=== PATIENT | female | born 1950 | race Caucasian/White ===

== ENCOUNTER → 2017-04-23 | Outpatient (CLI) | payer MEDICARE ==
--- NOTE | 2017-04-24 08:35 | Diagnostic Imaging Report ---
INDICATION: Digital mammogram bilateral screening with tomosynthesis. This study was compared to the prior exam of 04/10/16, 04/09/15 and 04/05/14. The current study was also evaluated with a Computer Aided Detection (CAD) system. FINDINGS: The fibroglandular tissue in both breasts is heterogeneously dense. This does limit the sensitivity of this exam. Overall, there does not appear to have been any significant change when compared to the prior study. No primary or secondary sign of malignancy is noted. 3D tomographic images fail to show any sign of malignancy. IMPRESSION: There is no radiographic evidence for malignancy. ACR BI-RADS Category 1: Negative. Result letter will be mailed to the patient. Note: At least 10% of breast cancer is not imaged by mammography. Dictated by: Dictated on workstation # [id number]
== END ==
LOC: RAD 14:07
PROVIDERS: ATTEND Internal Medicine
DX: Z12.31 Encounter for screening mammogram for malignant neoplasm of breast (principal)
CPT/HCPCS: 77067

== ENCOUNTER 2018-07-22 12:43 | Emergency (ER) | payer MEDICARE ==
[~2018-07-22] VITALS: Ht 160 cm; Wt 59.0 kg
[2018-07-22] MEDS ORDERED: ACETAMINOPHEN 325 MG TABLET PO ONE (13:15)
--- NOTE | 2018-07-22 13:31 | ED Fall/Injury ---
General Chief Complaint: Trauma-Non Activation Stated Complaint: FALL Nursing Triage Note: fell off ladder-missed step, struck left side and shoulder Source: patient Exam Limitations: no limitations History of Present Illness Date Seen by Provider: Jul 22, 2018 Time Seen by Provider: 12:58 Initial Comments This 68-year-old woman presents to the emergency room with complaints of pain on the left lateral chest wall after missing a step on a ladder and striking the brick harvest. She denies any injury to her head or neck. She has some soreness in the shoulder muscles as well. Range of motion is only limited by the pain in her lateral chest wall. The incident happened shortly before arrival. She also has some ecchymosis around the left eye from a prior injury. Allergies and Home Medications Allergies Coded Allergies: No Known Drug Allergies (Unverified , 07/22/18) Home Medications Hydrocodone/Acetaminophen 1 Each Tablet, 1 EACH PO Q4-6HR PRN for PAIN-MODERATE Prescribed by: MONSERRAT STARR on 07/22/18 4719 Patient Home Medication List Home Medication List Reviewed: Yes Review of Systems Review of Systems Constitutional: no symptoms reported Eyes: No Symptoms Reported Ears, Nose, Mouth, Throat: no symptoms reported Respiratory: no symptoms reported Cardiovascular: no symptoms reported Gastrointestinal: no symptoms reported Genitourinary: no symptoms reported Musculoskeletal: see HPI Skin: see HPI Psychiatric/Neurological: No Symptoms Reported Past Pfqkhks-Drjrta-Qpueuf Hx Past Med/Social Hx: Reviewed Nursing Past Med/Soc Hx Patient Social History Alcohol Use: Denies Use Recreational Drug Use: No Smoking Status: Never a Smoker 2nd Hand Smoke Exposure: No Recent Foreign Travel: No Contact w/Someone Who Travel: No Recent Infectious Disease Expo: No Recent Hopitalizations: No Physical Abuse: No Sexual Abuse: No Mistreated: No Fear: No Immunizations Up To Date Tetanus Booster (TDap): Unknown Date of Influenza Vaccine: May 30, 2018 Seasonal Allergies Seasonal Allergies: No Past Medical History Surgeries: Yes Section, Tonsillectomy Respiratory: No Cardiac: No Neurological: No : No Genitourinary: No Gastrointestinal: No Musculoskeletal: Yes Rheumatoid Arthritis Endocrine: No HEENT: No Cancer: No Psychosocial: No Integumentary: No Physical Exam Vital Signs Vital Signs - First Documented 07/22/18 12:46 Temp 98.1 Pulse 68 Resp 16 B/P (MAP) 124/93 (103) Pulse Ox 98 Capillary Refill : Less Than 3 Seconds Height, Weight, BMI Height: 5'3.00" Weight: 130lbs. oz. 58.442884lj; BMI Method:Stated General Appearance: WD/WN, mild distress HEENT: PERRL/EOMI, normal ENT inspection Neck: non-tender, normal inspection Cardiovascular: regular rate, rhythm, no edema, no murmur Respiratory: lungs clear, normal breath sounds, no respiratory distress, no accessory muscle use, other (left lateral chest wall tender to palpation) Extremities: normal range of motion, non-tender, normal inspection, no pedal edema Neurologic/Psychiatric: medical director/head team physician II-XII nml as tested, no motor/sensory deficits, alert, normal mood/affect, oriented x 3 Skin: normal color, warm/dry, ecchymosis (around the left eye) [place] Coma Score Best Eye Response: (4) Open Spontaneously Best Verbal Response: (5) Oriented Best Motor Response: (6) Obeys Commands [place] Total: 15 Progress/Results/Core Measures Results/Orders My Orders Orders - MONSERRAT WONG MD Acetaminophen Tablet/Caplet (Tylenol T (07/22/18 13:15) Ribs/Unilateral With Chest (07/22/18 13:07) Medications Given in ED Current Medications Medications Dose Ordered Sig/Guilherme Route Start Time Stop Time Status Last Admin Dose Admin Acetaminophen 650 mg ONCE ONCE PO 07/22/18 13:15 07/22/18 13:16 DC 07/22/18 13:11 650 MG Vital Signs/I&O 07/22/18 07/22/18 12:46 15:03 Temp 98.1 Pulse 68 82 Resp 16 16 B/P (MAP) 124/93 (103) 130/63 (85) Pulse Ox 98 99 Blood Pressure Mean: 103 Progress Progress Note : Progress Note Patient requested Tylenol for pain. Tylenol seemed to control her pain to an acceptable degree. Chest x-ray revealed rib fractures without any pneumothorax or hemothorax. Patient was discharged home in stable condition. Discharge instructions were reviewed. Diagnostic Imaging Diagonstic Imaging: Xray Plain Films/CT/US/NM/MRI: chest Comments Chest x-ray viewed by me and report reviewed. See report below: NAME: SHAHNAZ CHICAS [facility] REC#: [id number] PT STATUS: REG ER : 1950 PHYSICIAN: MONSERRAT WONG MD ADMIT DATE: 07/22/18/ER Signed Date of Exam:07/22/18 RIBS/UNILATERAL WITH CHEST INDICATION: Hit side on brick fence, pain, difficulty breathing. COMPARISON: None available. TECHNIQUE: Four radiographs of the chest and left-sided ribs dated July 22, 2018. FINDINGS: The cardiac silhouette is within normal limits in size. No significant pulmonary vascular congestion. Round nodular density overlying the left costophrenic angle on the frontal radiograph is shown to relate to the nipple shadow on one of the dedicated radiographs of the ribs. The lungs are otherwise clear of focal pulmonary opacity. No significant pleural effusion. No pneumothorax. Acute minimally displaced anterolateral left sixth, seventh, eighth, and ninth rib fractures are noted. IMPRESSION: Acute minimally displaced anterolateral left sixth, seventh, eighth, and ninth rib fractures without significant pleural effusion or pneumothorax. Report given to Lui Sanchez APRN, at 2:32 p.m. 07/22/2018/angie Dictated by: Dictated on workstation # [id number] Dict: 07/22/18 1343 Trans: 07/22/18 1452 [facility] [id number] Interpreted by: CORRIE YEUNG MD Electronically signed by: CORRIE YEUNG MD 07/22/18 1452 Departure Impression Primary Impression: Multiple rib fractures Qualified Codes: S22.42XA - Multiple fractures of ribs, left side, initial encounter for closed fracture Additional Impression: Fall from ladder Qualified Codes: W11.XXXA - Fall on and from ladder, initial encounter Disposition: 01 HOME, SELF-CARE Condition: Improved Departure-Patient Inst. Decision time for Depature: 14:06 Referrals: ANTHONY MONTESINOS MD (PCP/Family) Primary Care Physician Patient Instructions: Rib Fractures in Adults Add. Discharge Instructions: Use pain medication as prescribed to tightly control pain. This will allow you to continue deep breathing and prevent pneumonia. Consider taking Colace once or twice daily as a stool softener if you take the pain medication to prevent constipation. Icing in 20 minute intervals over the next couple of days may also help with pain and swelling. Exercise 10 deep breaths per hour while awake. Gradually increase level of activity as pain allows. Keep your follow-up appointment with your primary care provider on Wednesday. Return to care if you have worsening symptoms including shortness of breath, fever, cough, lightheadedness, intensifying pain, etc. All discharge instructions reviewed with patient and/or family. Voiced understanding. Scripts Hydrocodone/Acetaminophen (Hydrocodone-Acetamin 5-325 mg) 1 Each Tablet 1 EACH PO Q4-6HR PRN for PAIN-MODERATE, #20 TAB Prov: MONSERRAT WONG MD 07/22/18 MONSERRAT WONG MD Jul 22, 2018 13:31
--- NOTE | 2018-07-22 14:32 | Diagnostic Imaging Report ---
INDICATION: Hit side on brick fence, pain, difficulty breathing. COMPARISON: None available. TECHNIQUE: Four radiographs of the chest and left-sided ribs dated July 22, 2018. FINDINGS: The cardiac silhouette is within normal limits in size. No significant pulmonary vascular congestion. Round nodular density overlying the left costophrenic angle on the frontal radiograph is shown to relate to the nipple shadow on one of the dedicated radiographs of the ribs. The lungs are otherwise clear of focal pulmonary opacity. No significant pleural effusion. No pneumothorax. Acute minimally displaced anterolateral left sixth, seventh, eighth, and ninth rib fractures are noted. IMPRESSION: Acute minimally displaced anterolateral left sixth, seventh, eighth, and ninth rib fractures without significant pleural effusion or pneumothorax. Report given to Lui Sanchez APRN, at 2:32 p.m. 07/22/2018/angie Dictated by: Dictated on workstation # [id number]
[2018-07-22] MEDS ORDERED: HYDR-3812 PO (14:59)
[2018-07-22 15:03] VITALS: BP 130/63
== END 2018-07-22 15:03 | disposition home or self-care (01) ==
LOC: EDUNIT# 12:43 → ER 12:44
DX: S22.42XA Multiple fractures of ribs, left side, initial encounter for closed fracture (principal); M06.9 Rheumatoid arthritis, unspecified; R40.2142 Coma scale, eyes open, spontaneous, at arrival to emergency department; R40.2252 Coma scale, best verbal response, oriented, at arrival to emergency department; R40.2362 Coma scale, best motor response, obeys commands, at arrival to emergency department; Z98.890 Other specified postprocedural states; Z90.89 Acquired absence of other organs; W11.XXXA Fall on and from ladder, initial encounter
CPT/HCPCS: 71101

== ENCOUNTER 2018-07-30 13:10 | Emergency (ER) | payer MEDICARE ==
[~2018-07-30] VITALS: Ht 162.6 cm; Wt 63.5 kg
[~2018-07-30 13:10] MED LIST: HYDR-3812 PO
[2018-07-30] MEDS ORDERED: ASPIRIN 81 MG CHEW (CHILDREN'S ASA) PO ONE (13:30)
[2018-07-30] MEDS ORDERED: NITROGLYCERIN 0.4 MG SL TABS BTL 25'S SL ONE (13:38)
[2018-07-30] MEDS: NITROGLYCERIN 0.4 MG SL TABS BTL 25'S SL PRN ×2 (13:43→13:51)
--- NOTE | 2018-07-30 13:45 | ED Chest Pain ---
General Chief Complaint: Trauma-Non Activation Stated Complaint: CHEST HEAVINESS/L ARM DISCOMFORT/PREV FALL Nursing Triage Note: PT STATES THAT ONE WEEK AGO SHE HAD A FALL AND FX FOUR RIBS ON THE LEFT SIDE AND INJURED HER SHOULDER. TODAY PRESENTS TO THE ED STATING THAT STARTING TODAY, THE PT BEGAN TO EXPERIENCE CHEST HEAVINESS WITH SHOOTING PAINS IN THE LEFT ARM. PT STATES IT WAS THE LEFT SIDE SHE SUFFERED A FALL ON. Nursing Sepsis Screen: No Definite Risk Source: patient, family () Exam Limitations: no limitations History of Present Illness Date Seen by Provider: Jul 30, 2018 Time Seen by Provider: 13:35 Initial Comments Patient is a 68-year-old female who presents to the emergency room with complaints of left-sided chest heaviness and pain that radiated to her neck and left shoulder that started around 10:00 this morning. She denies shortness of breath, lightheadedness, dizziness, nausea, vomiting. She also reports that 1 week ago she had a fall onto her left side where she broke 3 ribs and injured her shoulder but reports that this pain is different. She had an appointment with Dr. Holloway yesterday and he reported that she was improving from her fall. Timing/Duration: constant Severity/Quality: aching, dull, pressure Location: substernal Radiation: arms (left arm), neck Prior CP/Workup: no prior chest pain ASA po HOUSE CLEANER: No NTG SL HOUSE CLEANER: No Allergies and Home Medications Allergies Coded Allergies: No Known Drug Allergies (Unverified , 07/22/18) Home Medications Hydrocodone/Acetaminophen 1 Each Tablet, 1 EACH PO Q4-6HR PRN for PAIN-MODERATE Prescribed by: MONSERRAT STARR on 07/22/18 1459 Levofloxacin 750 Mg Tablet, 750 MG PO DAILY Prescribed by: LOR SPEAR on 07/30/18 1544 Patient Home Medication List Home Medication List Reviewed: Yes Review of Systems Review of Systems Constitutional: no symptoms reported, see HPI Cardiovascular: See HPI, Chest Pain Musculoskeletal: see HPI, joint pain (left shoulder pain) All Other Systems Reviewed Negative Unless Noted: Yes Past Foqyqee-Oahtuu-Mxsfvf Hx Past Med/Social Hx: Reviewed Nursing Past Med/Soc Hx Patient Social History 2nd Hand Smoke Exposure: No Recent Foreign Travel: No Contact w/Someone Who Travel: No Recent Infectious Disease Expo: No Recent Hopitalizations: No Immunizations Up To Date Tetanus Booster (TDap): Unknown Date of Influenza Vaccine: May 30, 2018 Seasonal Allergies Seasonal Allergies: No Past Medical History Surgeries: Yes Section, Tonsillectomy Respiratory: No Cardiac: No Neurological: No : No 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 oz. 63.709293kr; BMI Method:Stated General Appearance: No Apparent Distress, WD/WN Neck: Full Range of Motion, Normal Inspection, Non Tender Respiratory: Chest Non Tender, Lungs Clear, Normal Breath Sounds, No Accessory Muscle Use, No Respiratory Distress Cardiovascular: Regular Rate, Rhythm, No Edema, No Gallop, No JVD, No Murmur, Normal Peripheral Pulses Gastrointestinal: Normal Bowel Sounds, No Organomegaly, No Pulsatile Mass, Non Tender Extremity: Normal Capillary Refill Neurologic/Psychiatric: Alert, Oriented x3, Normal Mood/Affect Skin: Normal Color, Warm/Dry Progress/Results/Core Measures Results/Orders Lab Results Laboratory Tests Test 07/30/18 13:45 07/30/18 15:22 Range/Units White Blood Count 6.4 4.3-11.0 10^3/uL Red Blood Count 4.24 L 4.35-5.85 10^6/uL Hemoglobin 13.8 11.5-16.0 G/DL Hematocrit 42 35-52 % Mean Corpuscular Volume 98 80-99 FL Mean Corpuscular Hemoglobin 33 25-34 PG Mean Corpuscular Hemoglobin Concent 33 32-36 G/DL Red Cell Distribution Width 12.6 10.0-14.5 % Platelet Count 251 130-400 10^3/uL Mean Platelet Volume 9.4 7.4-10.4 FL Neutrophils (%) (Auto) 70 42-75 % Lymphocytes (%) (Auto) 12 12-44 % Monocytes (%) (Auto) 12 0-12 % Eosinophils (%) (Auto) 6 0-10 % Basophils (%) (Auto) 1 0-10 % Neutrophils # (Auto) 4.4 1.8-7.8 X 10^3 Lymphocytes # (Auto) 0.8 L 1.0-4.0 X 10^3 Monocytes # (Auto) 0.8 0.0-1.0 X 10^3 Eosinophils # (Auto) 0.4 H 0.0-0.3 10^3/uL Basophils # (Auto) 0.1 0.0-0.1 10^3/uL Prothrombin Time 13.8 12.2-14.7 SEC INR Comment 1.1 0.8-1.4 Activated Partial Thromboplast Time 33 24-35 SEC Sodium Level 143 135-145 MMOL/L Potassium Level 3.7 3.6-5.0 MMOL/L Chloride Level 107 98-107 MMOL/L Carbon Dioxide Level 27 21-32 MMOL/L Anion Gap 9 5-14 MMOL/L Blood Urea Nitrogen 26 H 7-18 MG/DL Creatinine 1.03 0.60-1.30 MG/DL Estimat Glomerular Filtration Rate 53 BUN/Creatinine Ratio 25 Glucose Level 108 H 70-105 MG/DL Calcium Level 10.1 8.5-10.1 MG/DL Corrected Calcium 9.9 8.5-10.1 MG/DL Magnesium Level 2.2 1.8-2.4 MG/DL Total Bilirubin 0.6 0.1-1.0 MG/DL Aspartate Amino Transf (AST/SGOT) 21 5-34 U/L Alanine Aminotransferase (ALT/SGPT) 19 0-55 U/L Alkaline Phosphatase 90 40-136 U/L Myoglobin 58.5 10.0-92.0 NG/ML Troponin I < 0.30 < 0.30 <0.30 NG/ML Total Protein 6.7 6.4-8.2 GM/DL Albumin 4.2 3.2-4.5 GM/DL My Orders Orders - LOR SPEAR Cbc With Automated Diff (07/30/18 13:24) Magnesium (07/30/18 13:24) Chest 1 View, Ap/Pa Only (07/30/18 13:24) Ekg Tracing (07/30/18 13:24) Cardiac Profile 1 (07/30/18 13:24) Comprehensive Metabolic Panel (07/30/18 13:24) Myoglobin Serum (07/30/18 13:24) Protime With Inr (07/30/18 13:24) Partial Thromboplastin Time (07/30/18 13:24) O2 (07/30/18 13:24) Monitor-Rhythm Ecg Trace Only (07/30/18 13:24) Aspirin Chewable Tablet (Baby Aspirin Ch (07/30/18 13:30) Saline Lock/Iv-Start (07/30/18 13:24) Nitroglycerin 0.4 Mg Btl 25's (Nitrostat (07/30/18 13:38) Nitroglycerin 0.4 Mg Btl 25's (Nitrostat (07/30/18 13:45) Troponin I (07/30/18 15:17) Levofloxacin Tablet (Levaquin Tablet) (07/30/18 15:30) Medications Given in ED Vital Signs/I&O 07/30/18 07/30/18 07/30/18 13:31 13:31 16:19 Temp 98.3 98.3 Pulse 85 85 Resp 20 20 B/P (MAP) 144/89 (107) 135/77 (96) Pulse Ox 98 98 98 O2 Delivery Room Air Room Air Room Air Blood Pressure Mean: 107 Progress Progress Note : Time: 13:50 Progress Note Patient is pain-free after second nitroglycerin. The third dose was held. Awaiting laboratory findings at this time. 1445: I have spoke to Dr. Holloway regarding the patient's case and he believes that the pain is from the pneumonia that was found on x-ray. I will be repeating a troponin that we'll be 5 hours after initial onset of chest pain. Patient agrees with plan of care. 1540: The repeat troponin was negative. The patient agrees with plans of care and plans for discharge. Return precautions were given. EKG : EKG Time: 13:28 Rate: 83 Rhythm: Normal Sinus Intervals: Normal ECG Comparisson: No Previous ECG Available ECG Impression: Normal Comment Reviewed by Dr. Mccarty and he agrees with above. Diagnostic Imaging Diagonstic Imaging: Xray Plain Films/CT/US/NM/MRI: chest Comments [facility] [place], [place] NAME: SHAHNAZ CHICAS [facility] REC#: [id number] PT STATUS: REG ER : 1950 PHYSICIAN: LOR SPEARP ADMIT DATE: 07/30/18/ER Draft Date of Exam:07/30/18 CHEST 1 VIEW, AP/PA ONLY INDICATION: Left-sided rib fractures. TIME OF EXAM: 2:05 PM Correlation is made with prior study 07/22/2018. FINDINGS: There is some increasing infiltrate or atelectasis in the left base, now obscuring the left hemidiaphragm. No pneumothorax is seen. Right lung is clear. Lower left rib fractures are again seen. IMPRESSION: Development of left basilar infiltrate or atelectasis since exam from 07/22/2018. Dictated on workstation # [id number] Dict: 07/30/18 1420 Trans: 07/30/18 1425 [id number] Interpreted by: LUCAS DONALDSON MD Electronically signed by: Reviewed: Reviewed by Me Departure Impression Primary Impression: Pneumonia Additional Impression: Chest pain Disposition: HOME, SELF-CARE Condition: Stable Departure-Patient Inst. Decision time for Depature: 15:42 Referrals: ANTHONY HOLLOWAY MD (PCP/Family) Primary Care Physician Patient Instructions: Chest Pain (DC), Community-Acquired Pneumonia in Adults Add. Discharge Instructions: Take medications as directed. Follow-up with Dr. Holloway within 1 week for recheck. You may use Tylenol in addition to your meloxicam for pain relief. Return back to the emergency room for any worsening chest pain, shortness of breath, nausea, vomiting, dizziness, or any other concerns as needed. All discharge instructions reviewed with patient and/or family. Voiced understanding. Scripts Levofloxacin (Levaquin) 750 Mg Tablet 750 MG PO DAILY for 5 Days, #5 TAB Prov: LOR SPEAR 07/30/18 LOR SPEAR Jul 30, 2018 13:45
--- OUTSIDE RECORDS SUMMARY | 2018-07-30 14:04 | XMS REPORT ---
Author Author DAVID BOSCH Organization [employer] Address Unknown Phone Unavailable Care Team Providers Care Commercial Sales Consultant Name Role Phone DAVID BOSCH CP Unavailable Allergies No Known Allergies Problems Problem Type Condition Code Onset Dates Condition Status Assessment Encounter for immunization Z23 Active Problem Need for prophylactic vaccination and inoculation, Influenza V04.81 Active Medications No Known Medications Procedures Procedure Coding System Code Date SINGLE IMMUNIZATION ADMIN CPT-4 47522 Jun 18, 2015 FLUARIX QUAD (3 & UP)-GSK-2014 CPT-4 68018 Jun 18, 2015 Results No Known Results Immunizations Vaccine Administration Date FLUARIX QUAD (3 & UP)-GSK-2014Jun 18, 2015 Summary Purpose [employer] Submission
--- OUTSIDE RECORDS SUMMARY | 2018-07-30 14:04 | XMS REPORT ---
Author DAVID Patterson [facility] [employer] Address Unknown Phone Unavailable Care Team Providers Care Laborer Stores Name Role Phone DAVID BOSCH Unavailable Allergies No Known Allergies Problems Problem Type Condition Code Onset Dates Condition Status Assessment Encounter for immunization Z23 Active Problem Need for prophylactic vaccination and inoculation, Influenza V04.81 Active Medications No Known Medications Procedures Procedure Coding System Code Date SINGLE IMMUNIZATION ADMIN CPT-4 66199 Jun 17, 2015 TDAP (BOOSTRIX) CPT-4 07716 Jun 17, 2015 Results No Known Results Immunizations Vaccine Administration Date TDAP (BOOSTRIX) Jun 17, 2015 Summary Purpose [employer] Submission
--- OUTSIDE RECORDS SUMMARY | 2018-07-30 14:04 | XMS REPORT | Continuity of Care Document ---
Author Author [facility] Address Unknown Phone Unavailable Allergies There is no data. Medications There is no data. Problems Date Dx Coded Attending Type Code Diagnosis Diagnosed By 06/03/2012 DAVID BOSCH APRN V04.81 FLU DX (3 YRS AND ABOVE, IM) 06/03/2012 DAVID BOSCH APRN V04.81 FLU DX (3 YRS AND ABOVE, IM) 04/26/2015 ANTHONY MONTESINOS MD Ot V76.12 04/13/2016 ANTHONY MONTESINOS MD Ot Z12.31 ENCNTR SCREEN MAMMOGRAM FOR MALIGNANT NE 04/14/2016 ANTHONY MONTESINOS MD Ot Z12.31 ENCNTR SCREEN MAMMOGRAM FOR MALIGNANT NE 04/24/2016 ANTHONY MONTESINOS MD Ot Z12.31 ENCNTR SCREEN MAMMOGRAM FOR MALIGNANT NE 03/30/2017 Ot V76.12 OTH SCREEN MAMMO-MALIGN NEOPLASM OF MAICOL 03/30/2017 ANTHONY MONTESINOS MD Ot V76.12 OTH SCREEN MAMMO-MALIGN NEOPLASM OF MAICOL 03/30/2017 ANTHONY MONTESINOS MD Ot V76.12 OTH SCREEN MAMMO-MALIGN NEOPLASM OF MAICOL 03/30/2017 ANTHONY MONTESINOS MD Ot V76.12 OTH SCREEN MAMMO-MALIGN NEOPLASM OF MAICOL 03/30/2017 ANTHONY MONTESINOS MD Ot Z12.31 ENCNTR SCREEN MAMMOGRAM FOR MALIGNANT NE 04/02/2017 Ot V76.12 OTH SCREEN MAMMO-MALIGN NEOPLASM OF MAICOL 04/02/2017 ANTHONY MONTESINOS MD Ot V76.12 OTH SCREEN MAMMO-MALIGN NEOPLASM OF MAICOL 04/02/2017 ANTHONY MONTESINOS MD Ot V76.12 OTH SCREEN MAMMO-MALIGN NEOPLASM OF MAICOL 04/02/2017 ANTHONY MONTESINOS MD Ot V76.12 OTH SCREEN MAMMO-MALIGN NEOPLASM OF MAICOL 04/02/2017 ANTHONY MONTESINOS MD Ot Z12.31 ENCNTR SCREEN MAMMOGRAM FOR MALIGNANT NE 04/05/2017 Ot V76.12 OTH SCREEN MAMMO-MALIGN NEOPLASM OF MAICOL 04/05/2017 YAMEL FOWLER, ANTHONY Montoya Ot V76.12 OTH SCREEN MAMMO-MALIGN NEOPLASM OF MAICOL 04/05/2017 ANTHONY MONTESINOS MD Ot V76.12 OTH SCREEN MAMMO-MALIGN NEOPLASM OF MAICOL 04/05/2017 YAMEL FOWLER, ANTHONY Montoya Ot V76.12 OTH SCREEN MAMMO-MALIGN NEOPLASM OF MAICOL 04/05/2017 YAMEL FOWLER, ANTHONY Montoya Ot Z12.31 ENCNTR SCREEN MAMMOGRAM FOR MALIGNANT NE 05/14/2017 YAMEL FOWLER, ANTHONY Montoya Ot Z12.31 ENCNTR SCREEN MAMMOGRAM FOR MALIGNANT NE 04/25/2018 ANTHONY MONTESINOS MD Ot Z12.31 ENCNTR SCREEN MAMMOGRAM FOR MALIGNANT NE 04/25/2018 ANTHONY MONTESINOS MD Ot Z12.31 ENCNTR SCREEN MAMMOGRAM FOR MALIGNANT NE 04/26/2018 ANTHONY MONTESINOS MD Ot Z12.31 ENCNTR SCREEN MAMMOGRAM FOR MALIGNANT NE 05/18/2018 ANTHONY MONTESINOS MD Ot Z12.31 ENCNTR SCREEN MAMMOGRAM FOR MALIGNANT NE 05/27/2018 YAMEL FOWLER, ANTHONY Montoya Ot V76.12 OTH SCREEN MAMMO-MALIGN NEOPLASM OF MAICOL 05/27/2018 ANTHONY MONTESINOS MD Ot V76.12 OTH SCREEN MAMMO-MALIGN NEOPLASM OF MAICOL 05/27/2018 ANTHONY MONTESINOS MD Ot V76.12 OTH SCREEN MAMMO-MALIGN NEOPLASM OF MAICOL 05/27/2018 ANTHONY MONTESINOS MD Ot Z12.31 ENCNTR SCREEN MAMMOGRAM FOR MALIGNANT NE Procedures There is no data. Results There is no data. Encounters ACCT No. Visit Date/Time Discharge Status Pt. Type Provider Facility Loc./Unit Complaint [id number] 06/15/2014 14:49:00 06/15/2014 23:59:59 CLS Outpatient DAVID BOSCH APRN [id number] 06/05/2013 13:06:00 06/05/2013 23:59:59 CLS Outpatient DAVID BOSCH APRN [id number] 04/09/2015 11:38:38 ACT Document Registration [id number] 04/25/2018 09:58:00 04/25/2018 23:59:59 CLS Outpatient ANTHONY MONTESINOS MD [facility] RAD SCREENING [id number] 04/23/2017 14:07:00 04/23/2017 23:59:59 CLS Outpatient ANTHONY MONTESINOS MD [facility] RAD SCREENING [id number] 04/10/2016 10:22:00 04/10/2016 23:59:59 CLS Outpatient ANTHONY MONTESINOS MD [facility] RAD SCREENING MAMMOGRAM [id number] 04/09/2015 11:38:00 04/09/2015 23:59:59 CLS Outpatient ANTHONY MONTESINOS MD [facility] RAD SCREENING [id number] 04/05/2014 10:03:00 04/05/2014 23:59:59 CLS Outpatient ANTHONY MONTESINOS MD [facility] RAD ROUTINE [id number] 04/03/2013 08:51:00 04/03/2013 23:59:59 CLS Outpatient ANTHONY MONTESINOS MD [facility] RAD SCREENING [id number] 03/28/2012 08:50:00 Document Registration
[2018-07-30 14:06] LABS: BASOPHILS # (AUTO) 0.1 10^3/uL (0.0-0.1); BASOPHILS % (AUTO) 1 % (0-10); EOSINOPHILS # (AUTO) 0.4 10^3/uL (0.0-0.3); EOSINOPHILS % (AUTO) 6 % (0-10); HEMATOCRIT 42 % (35-52); HEMOGLOBIN 13.8 G/DL (11.5-16.0); LYMPHOCYTES # (AUTO) 0.8 X 10^3 (1.0-4.0); LYMPHOCYTES % (AUTO) 12 % (12-44); MEAN CORPUSCULAR HEMOGLOBIN 33 PG (25-34); MEAN CORPUSCULAR HGB CONC 33 G/DL (32-36); MEAN CORPUSCULAR VOLUME 98 FL (80-99); MEAN PLATELET VOLUME 9.4 FL (7.4-10.4); MONOCYTES # (AUTO) 0.8 X 10^3 (0.0-1.0); MONOCYTES % (AUTO) 12 % (0-12); NEUTROPHILS # (AUTO) 4.4 X 10^3 (1.8-7.8); NEUTROPHILS % (AUTO) 70 % (42-75); PLATELET COUNT 251 10^3/uL (130-400); RED BLOOD COUNT 4.24 10^6/uL (4.35-5.85); RED CELL DISTRIBUTION WIDTH 12.6 % (10.0-14.5); WHITE BLOOD COUNT 6.4 10^3/uL (4.3-11.0)
[2018-07-30 14:13] LABS: INR 1.1 (0.8-1.4); PROTHROMBIN TIME PATIENT 13.8 SEC (12.2-14.7)
[2018-07-30 14:21] LABS: ALANINE AMINOTRANSFERASE 19 U/L (0-55); ALBUMIN 4.2 GM/DL (3.2-4.5); ALKALINE PHOSPHATASE 90 U/L (40-136); BILIRUBIN,TOTAL 0.6 MG/DL (0.1-1.0); BUN/CREATININE RATIO 25; CALCIUM 10.1 MG/DL (8.5-10.1); CARBON DIOXIDE 27 MMOL/L (21-32); CHLORIDE 107 MMOL/L (98-107); CREATININE SERUM 1.03 MG/DL (0.60-1.30); GFR ESTIMATED 53; GLUCOSE 108 MG/DL (70-105); MAGNESIUM 2.2 MG/DL (1.8-2.4); POTASSIUM 3.7 MMOL/L (3.6-5.0); SODIUM 143 MMOL/L (135-145); TOTAL PROTEIN 6.7 GM/DL (6.4-8.2)
--- NOTE | 2018-07-30 14:26 | Diagnostic Imaging Report ---
INDICATION: Left-sided rib fractures. TIME OF EXAM: 2:05 PM Correlation is made with prior study 07/22/2018. FINDINGS: There is some increasing infiltrate or atelectasis in the left base, now obscuring the left hemidiaphragm. No pneumothorax is seen. Right lung is clear. Lower left rib fractures are again seen. IMPRESSION: Development of left basilar infiltrate or atelectasis since exam from 07/22/2018. Dictated by: Dictated on workstation # [id number]
[2018-07-30 14:29] LABS: MYOGLOBIN SERUM 58.5 NG/ML (10.0-92.0)
[2018-07-30] MEDS ORDERED: LEVOFLOXACIN 750 MG TAB (LEVAQUIN) PO ONE (15:30)
[2018-07-30] MEDS ORDERED: LEVO750T9 PO (15:44)
[2018-07-30 16:19] VITALS: BP 135/77
== END 2018-07-30 16:21 | disposition home or self-care (01) ==
LOC: EDUNIT# 13:10 → ER 13:11
DX: J18.9 Pneumonia, unspecified organism (principal); R07.89 Other chest pain; M06.9 Rheumatoid arthritis, unspecified; Z90.89 Acquired absence of other organs; Z98.890 Other specified postprocedural states
CPT/HCPCS: 36415; 71045; 80053; 83735; 83874; 84484; 85025; 85610; 85730; 93005; 93041

== ENCOUNTER → 2019-04-27 | Outpatient (CLI) | payer MEDICARE ==
[~2019-04-27] MED LIST changes: +LEVO750T9 PO
--- NOTE | 2019-04-28 08:01 | Diagnostic Imaging Report ---
Digital mammogram Bilateral screening with 3-D tomosynthesis and CAD The study was compared to the prior exams of , 04/23/2017 and 04/10/2016. At this time there are no current complaints. The current study was also evaluated with a Computer Aided Detection (CAD) system. FINDINGS: The fibroglandular tissue in both breasts is heterogeneously dense. This does limit the sensitivity of this exam. Overall, there does not appear to have been any significant change when compared to the prior study. No primary or secondary sign of malignancy is noted. IMPRESSION: There is no radiographic evidence for malignancy. ACR BI-RADS Category 1: Negative. Result letter will be mailed to the patient. Note: At least 10% of breast cancer is not imaged by mammography. Dictated by: Dictated on workstation # [id number]
== END ==
LOC: RAD 07:45
PROVIDERS: ATTEND Internal Medicine
DX: Z12.31 Encounter for screening mammogram for malignant neoplasm of breast (principal)
CPT/HCPCS: 77067

== ENCOUNTER → 2020-05-01 | Outpatient (CLI) | payer MEDICARE ==
[~2020-05-01] MED LIST changes: +ACHD5005 PO; -HYDR-3812 PO
--- NOTE | 2020-05-02 18:53 | Diagnostic Imaging Report ---
INDICATION: Screening. At this time there are no current complaints. EXAMINATION: Bilateral digital screening mammogram with CAD. 3D tomographic images were obtained and reviewed. The current study was also evaluated with a Computer Aided Detection (CAD) system. COMPARISON: This study was compared to the prior exams of 04/27/2019, 04/25/2018 and 04/23/2017. FINDINGS: The fibroglandular tissue in both breasts is heterogeneously dense. This does limit the sensitivity of this exam. Overall, there does not appear to have been any significant change when compared to the prior study. No primary or secondary sign of malignancy is noted. IMPRESSION: There is no radiographic evidence for malignancy. ACR BI-RADS Category 1: Negative. Result letter will be mailed to the patient. Note: At least 10% of breast cancer is not imaged by mammography. Dictated on workstation # [id number]
== END ==
LOC: RAD 09:57
PROVIDERS: ATTEND Internal Medicine
DX: Z12.31 Encounter for screening mammogram for malignant neoplasm of breast (principal)
CPT/HCPCS: 77063; 77067

== ENCOUNTER → 2021-05-06 | Outpatient (CLI) | payer MEDICARE ==
--- NOTE | 2021-05-06 12:50 | Diagnostic Imaging Report ---
Indication: Routine screening. Comparison is made with prior mammogram from 05/01/2020 and 04/27/2019. 2-D and 3-D bilateral screening mammography was performed with CAD. Both breasts remain heterogeneously dense, limiting the sensitivity of mammography. The parenchymal pattern is stable. No mass or malignant-appearing microcalcifications are seen. Axillae are unremarkable. IMPRESSION: BI-RADS Category 1 No mammographic features suspicious for malignancy are identified. ACR BI-RADS Category 1: Negative. Result letter will be mailed to the patient. Note: At least 10% of breast cancer is not imaged by mammography. Dictated by: Dictated on workstation # [id number]
== END ==
LOC: RAD 10:30
PROVIDERS: ATTEND Internal Medicine
DX: Z12.31 Encounter for screening mammogram for malignant neoplasm of breast (principal)
CPT/HCPCS: 77063; 77067

== ENCOUNTER → 2022-05-18 | Outpatient (CLI) | payer MEDICARE ==
--- NOTE | 2022-05-18 11:47 | Diagnostic Imaging Report ---
INDICATION: Routine screening. Comparison is made prior mammogram of 05/06/2021 and 05/01/2020. 2-D and 3-D bilateral screening mammography was performed with CAD. Both breasts are heterogeneously dense, limiting the sensitivity of mammography. The parenchymal pattern is stable. No mass or malignant-appearing microcalcifications are seen. Axillae are unremarkable. IMPRESSION: No mammographic features suspicious for malignancy are identified. ACR BI-RADS Category 1: Negative. Result letter will be mailed to the patient. Note: At least 10% of breast cancer is not imaged by mammography. BI-RADS Category 1 Dictated by: Dictated on workstation # [id number]
== END ==
LOC: RAD 08:42
PROVIDERS: ATTEND Internal Medicine
DX: Z12.31 Encounter for screening mammogram for malignant neoplasm of breast (principal)
CPT/HCPCS: 77063; 77067

== ENCOUNTER → 2023-05-19 | Outpatient (CLI) | payer MEDICARE ==
--- NOTE | 2023-05-19 12:23 | Diagnostic Imaging Report ---
INDICATION: Routine screening. COMPARISON: 05/18/2022 and 05/06/2021. TECHNIQUE: 2D and 3D bilateral screening mammography was performed with CAD. FINDINGS: Both breasts are heterogeneously dense, limiting the sensitivity of mammography. The parenchymal pattern is stable. No mass or malignant-appearing microcalcifications are seen. The axillae are unremarkable. IMPRESSION: No mammographic features suspicious for malignancy are identified. ACR BI-RADS Category 1: Negative. Result letter will be mailed to the patient. Note: At least 10% of breast cancer is not imaged by mammography. Dictated by: Dictated on workstation # [id number]
== END ==
LOC: RAD 09:29
PROVIDERS: ATTEND Internal Medicine
DX: Z12.31 Encounter for screening mammogram for malignant neoplasm of breast (principal)
CPT/HCPCS: 77063; 77067

== ENCOUNTER 2023-06-08 10:04 | Inpatient (IN) | payer MEDICARE ==
[~2023-06-08] VITALS: Ht 157.5 cm; Wt 82.3 kg
[2023-06-08] VITALS (10 sets, daily range): BP systolic 90–103; BP diastolic 56–64
[~2023-06-08 10:04] MED LIST changes: +VANC125C5 PO
[2023-06-08 10:47] LABS: BASOPHILS % (AUTO) 1 % (0-10); EOSINOPHILS % (AUTO) 1 % (0-10); HEMATOCRIT 34 % (35-52); HEMOGLOBIN 11.4 g/dL (11.5-16.0); LYMPHOCYTES # (AUTO) 0.3 10^3/uL (1.0-4.0); LYMPHOCYTES % (AUTO) 13 % (12-44); MEAN CORPUSCULAR HEMOGLOBIN 33 pg (25-34); MEAN CORPUSCULAR HGB CONC 34 g/dL (32-36); MEAN CORPUSCULAR VOLUME 97 fL (80-99); MONOCYTES # (AUTO) 0.1 10^3/uL (0.0-1.0); MONOCYTES % (AUTO) 7 % (0-12); NEUTROPHILS # (AUTO) 1.6 10^3/uL (1.8-7.8); NEUTROPHILS % (AUTO) 77 % (42-75); PLATELET COUNT 444 10^3/uL (130-400); WHITE BLOOD COUNT 2.1 10^3/uL (4.3-11.0)
[2023-06-08 10:51] LABS: ALBUMIN 2.7 GM/DL (3.2-4.5)
[2023-06-08 10:52] LABS: POTASSIUM 3.6 MMOL/L (3.6-5.0)
[2023-06-08 10:53] LABS: CALCIUM 8.2 MG/DL (8.5-10.1)
[2023-06-08 10:54] LABS: TOTAL PROTEIN 5.2 GM/DL (6.4-8.2)
[2023-06-08 10:56] LABS: BILIRUBIN,TOTAL 0.6 MG/DL (0.1-1.0)
[2023-06-08 10:57] LABS: INR 1.1 (0.8-1.4); PROTHROMBIN TIME PATIENT 14.4 SEC (12.2-14.7)
[2023-06-08 10:58] LABS: CREATININE SERUM 0.97 MG/DL (0.60-1.30)
[2023-06-08] MEDS ORDERED: fentaNYL INJECTION 100 MCG/2 ML VIAL IVP ONE ×2 (11:00→17:15)
[2023-06-08] MEDS: NS IV 1000 ML 1,000 ML IV SCH (11:13)
--- NOTE | 2023-06-08 11:20 | ED General ---
General Chief Complaint: Fever-Adult/Adol Stated Complaint: FEVER | C-DIFF Nursing Triage Note: FAMILY STATES PT HAS C DIFF AND HAS HAD A FEVER HIGH 102 SINCE YESTERDAY, HAS BEEN TAKING TYLENOL, LAST TOOK AT 0900. PT WAS ADMITTED HERE 1 WEEK AGO WITH RITU, DISCHARGED ON WEDNESDAY, HAS FELT LIKE SHE IS GETTING WEAKER SINCE Source of Information: Patient Exam Limitations: No Limitations History of Present Illness Date Seen by Provider: Jun 08, 2023 Time Seen by Provider: 10:38 Initial Comments This 73-year-old woman presents to the emergency room with primary concern of fever that started yesterday morning with symptoms of chills. Measured temperatures at home were 101.4, 102.0, and 100. She had Tylenol 1000 mg this morning. She was recently admitted to the hospital for sepsis from May 27 through May 30. She continues on vancomycin and Lomotil for persistent diarrhea and abdominal discomfort. Today her abdominal discomfort is worse and she has developed "rib pain" in the left lower anterior and lateral chest. She has pain with inspiration associated with this "rib pain. She denies any cough or shortness of breath. She has a vague aching in her chest that is worse with a deep breathing. She reports prior problems with chest wall pain as she broke 4 ribs in her right chest 4 years ago, but this new pain is on the left. She is presently treated for rheumatoid arthritis with methotrexate and Plaquenil. 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 She has a flap with tissue bridge extending from her forehead to her anterior nose. She has a an open wound from the flap donor site on her left frontal scalp. There is no evidence of inflammation, edema, or purulent drainage from these sites. Patient's abdominal pain associated with the C. difficile is worse today than at baseline. Allergies and Home Medications Allergies Coded Allergies: No Known Drug Allergies (Unverified , 07/22/18) Patient Home Medication List Home Medication List Reviewed: Yes Hydrocodone Bit/Acetaminophen (Lortab 5 Mg Tablet) 1 Each Tablet, 1 EACH PO Q4- 6HR PRN for PAIN-MODERATE Prescribed by: MONSERRAT NUÑEZ on 07/22/18 2849 Vancomycin HCl (Vancomycin HCl) 125 Mg Capsule, 125 MG PO Q6HR Prescribed by: DAMION SALAZAR on 05/30/23 1118 Review of Systems Review of Systems Constitutional: see HPI EENTM: no symptoms reported Respiratory: see HPI Cardiovascular: see HPI Gastrointestinal: see HPI Genitourinary: no symptoms reported : No Musculoskeletal: see HPI Skin: see HPI Psychiatric/Neurological: No Symptoms Reported Hematologic/Lymphatic: No Symptoms Reported Immunological/Allergic: no symptoms reported Past Abjfdfz-Xgygvh-Uqwtra Hx Patient Social History Tobacco Use?: No Substance use?: No Alcohol Use?: No Pt feels they are or have been: No Immunizations Up To Date Tetanus Booster (TDap): Unknown Seasonal Allergies Seasonal Allergies: No Past Medical History Surgery/Hospitalization HX: [facility]'S PROCEDURE 05/21/23 [facility] Surgeries: Yes Section, Tonsillectomy Respiratory: No Cardiac: No Neurological: No : No [employer] History: Menopausal Genitourinary: No Gastrointestinal: No Musculoskeletal: Yes Rheumatoid Arthritis Endocrine: No HEENT: No Cancer: Yes (Nasal/skin) Did You Recieve Any Treatments: Yes What Type of Treatment Did You: Surgical Intervention Psychosocial: No Integumentary: No Family Medical History No Pertinent Family Hx Physical Exam-Suspected Sepsis Physical Exam Vital Signs Vital Signs - First Documented 06/08/23 06/08/23 10:14 19:00 Temp 37.4 Pulse 103 Resp 18 B/P (MAP) 108/61 (77) Pulse Ox 95 FiO2 50 Capillary Refill : Blood Pressure Mean: 77 Height, Weight, BMI Height: 5'4.00" Weight: 140lbs. oz. [id number]; 22.00 BMI Method:Stated General Appearance: WD/WN, Mild Distress HEENT: PERRL/EOMI, Normal ENT Inspection Neck: Normal Inspection Respiratory: Lungs Clear, Normal Breath Sounds, No Accessory Muscle Use Cardiovascular: Regular Rate, Rhythm, No Edema, Systolic Murmur Gastrointestinal: Normal Bowel Sounds, Soft, Distended (mild), Tenderness (diffusely) Extremity: Normal Inspection, No Pedal Edema Neurologic/Psychiatric: Alert, No Motor/Sensory Deficits, Normal Mood/Affect, Other (Distracted, cognition dulled) Skin: normal color, warm/dry Focused Exam Sepsis Stage: Septic Shock Possible Source: GI Tract/Intra-Abdominal Lactate Level 06/08/23 10:22: Lactic Acid Level 0.91 06/08/23 13:13: Lactic Acid Level 1.14 Time of Focused Exam: 13:30 Respiratory: Lungs Clear Cardiovascular: Regular Rate, Rhythm, No Edema, Systolic Murmur Capillary Refill: Greater Than 3 Seconds (4 seconds) Peripheral Pulses: 1+ Radial Pulses (L) Skin: warm/dry Lactic Acid Level Within 3hrs of presentation: Admin fluids, Admin 30ml/kg IBW due to BMI>30, Admin ABX, Blood cultures prior to ABX's, Focus exam, Lactate level Progress/Results/Core Measures Suspected Sepsis SIRS Temperature: Pulse: 103 Respiratory Rate: 18 Laboratory Tests 06/08/23 10:22: White Blood Count 2.1L 06/08/23 16:48: White Blood Count 0.9*L Blood Pressure 108 /61 Mean: 77 06/08/23 10:22: Lactic Acid Level 0.91 06/08/23 13:13: Lactic Acid Level 1.14 Laboratory Tests 06/08/23 10:22: Creatinine 0.97, INR Comment 1.1, Platelet Count 444H, Total Bilirubin 0.6 06/08/23 16:48: Platelet Count 279 Results/Orders Lab Results Laboratory Tests Test 06/08/23 10:22 06/08/23 10:49 06/08/23 11:19 06/08/23 13:13 Range/Units White Blood Count 2.1 L 4.3-11.0 10^3/uL Red Blood Count 3.47 L 3.80-5.11 10^6/uL Hemoglobin 11.4 L 11.5-16.0 g/dL Hematocrit 34 L 35-52 % Mean Corpuscular Volume 97 80-99 fL Mean Corpuscular Hemoglobin 33 25-34 pg Mean Corpuscular Hemoglobin Concent 34 32-36 g/dL Red Cell Distribution Width 12.8 10.0-14.5 % Platelet Count 444 H 130-400 10^3/uL Mean Platelet Volume 9.0 9.0-12.2 fL Immature Granulocyte % (Auto) 1 % Neutrophils (%) (Auto) 77 H 42-75 % Lymphocytes (%) (Auto) 13 12-44 % Monocytes (%) (Auto) 7 0-12 % Eosinophils (%) (Auto) 1 0-10 % Basophils (%) (Auto) 1 0-10 % Neutrophils # (Auto) 1.6 L 1.8-7.8 10^3/uL Lymphocytes # (Auto) 0.3 L 1.0-4.0 10^3/uL Monocytes # (Auto) 0.1 0.0-1.0 10^3/uL Eosinophils # (Auto) 0.0 0.0-0.3 10^3/uL Basophils # (Auto) 0.0 0.0-0.1 10^3/uL Immature Granulocyte # (Auto) 0.0 0.0-0.1 10^3/uL Prothrombin Time 14.4 12.2-14.7 SEC INR Comment 1.1 0.8-1.4 Activated Partial Thromboplast Time 37 H 24-35 SEC Sodium Level 132 L 135-145 MMOL/L Potassium Level 3.6 3.6-5.0 MMOL/L Chloride Level 100 98-107 MMOL/L Carbon Dioxide Level 20 L 21-32 MMOL/L Anion Gap 12 5-14 MMOL/L Blood Urea Nitrogen 41 H 7-18 MG/DL Creatinine 0.97 0.60-1.30 MG/DL Estimat Glomerular Filtration Rate 61 BUN/Creatinine Ratio 42 Glucose Level 119 H 70-105 MG/DL Lactic Acid Level 0.91 1.14 0.50-2.00 MMOL/L Calcium Level 8.2 L 8.5-10.1 MG/DL Corrected Calcium 9.2 8.5-10.1 MG/DL Total Bilirubin 0.6 0.1-1.0 MG/DL Aspartate Amino Transf (AST/SGOT) 43 H 5-34 U/L Alanine Aminotransferase (ALT/SGPT) 33 0-55 U/L Alkaline Phosphatase 123 40-136 U/L Troponin I 0.548 *H 0.496 *H <0.028 NG/ML C-Reactive Protein High Sensitivity 19.38 H 0.00-0.50 MG/DL Total Protein 5.2 L 6.4-8.2 GM/DL Albumin 2.7 L 3.2-4.5 GM/DL Influenza Type A (RT-PCR) Not Detected Not Detecte Influenza Type B (RT-PCR) Not Detected Not Detecte SARS-CoV-2 RNA (RT-PCR) Not Detected Not Detecte Urine Color YELLOW Urine Clarity CLEAR Urine pH 6.0 5-9 Urine Specific [place] 1.025 H 1.016-1.022 Urine Protein 1+ H NEGATIVE Urine Glucose (UA) NEGATIVE NEGATIVE Urine Ketones 1+ H NEGATIVE Urine Nitrite NEGATIVE NEGATIVE Urine Bilirubin 1+ H NEGATIVE Urine Urobilinogen 0.2 < = 1.0 MG/DL Urine Leukocyte Esterase NEGATIVE NEGATIVE Urine RBC (Auto) TRACE-I H NEGATIVE Urine RBC RARE /HPF Urine WBC RARE /HPF Urine Squamous Epithelial Cells RARE /HPF Urine Crystals PRESENT H /LPF Urine Amorphous Sediment FEW TONI URATES H /LPF Urine Bacteria TRACE /HPF Urine Casts PRESENT /LPF Urine Hyaline Casts 0-2 H /LPF Urine Mucus SMALL H /LPF Urine Culture Indicated CULTURE PENDING Test 06/08/23 16:48 Range/Units White Blood Count 0.9 *L 4.3-11.0 10^3/uL Red Blood Count 2.49 L 3.80-5.11 10^6/uL Hemoglobin 8.0 #L 11.5-16.0 g/dL Hematocrit 25 L 35-52 % Mean Corpuscular Volume 98 80-99 fL Mean Corpuscular Hemoglobin 32 25-34 pg Mean Corpuscular Hemoglobin Concent 33 32-36 g/dL Red Cell Distribution Width 12.8 10.0-14.5 % Platelet Count 279 130-400 10^3/uL Mean Platelet Volume 8.7 L 9.0-12.2 fL My Orders Orders - MONSERRAT WONG MD Cbc And Automated Diff (06/08/23 10:38) Comprehensive Metabolic Panel (06/08/23 10:38) Blood Culture (06/08/23 10:38) Sputum Culture (06/08/23 10:38) Urinalysis (06/08/23 10:38) Urine Culture (06/08/23 10:38) Protime With Inr (06/08/23 10:38) Partial Thromboplastin Time (06/08/23 10:38) Ed Iv/Invasive Line Start (06/08/23 10:38) Vital Signs Adult Sepsis Patie Q15M (06/08/23 10:38) O2 (06/08/23 10:38) Remove Rings In Anticipation O (06/08/23 10:38) Lactic Acid Analyzer (06/08/23 10:38) Covid 19 Inhouse Test (06/08/23 10:38) Influenza A And B By Pcr (06/08/23 10:38) Ns Iv 1000 Ml (Ns Iv 1000 Ml) (06/08/23 11:00) Fentanyl Injection (Fentanyl Injection (06/08/23 11:00) Hs C Reactive Protein (06/08/23 11:05) Chest 1 View, Ap/Pa Only (06/08/23 11:18) Ekg Tracing (06/08/23 11:18) Monitor-Rhythm Ecg Trace Only (06/08/23 11:18) Troponin I [place] (06/08/23 11:18) Ct Deys[place] Chest/Noang Abd-Pelv W (06/08/23 11:51) Iohexol Injection (Omnipaque 350 Mg/Ml 1 (06/08/23 12:00) Received Contrast (Hold Metformin- Contr (06/08/23 12:00) Ns (Ivpb) 100 Ml (Sodium Chloride 0.9% 1 (06/08/23 12:00) Lactated Ringers 1,000 Ml (Lactated Ring (06/08/23 12:00) Piperacillin/Tazobactam (Piperacillin/Ta (06/08/23 12:15) Vancomycin Injection (Vancomycin Injecti (06/08/23 13:00) Vancomycin Injection (Vancomycin Injecti (06/08/23 14:00) Lactic Acid Analyzer (06/08/23 13:00) Troponin I Kathy (06/08/23 13:00) Norepinephrine 8 Mg/250 Ml (Norepinephri (06/08/23 13:00) Norepinephrine 8 Mg/250 Ml (Norepinephri (06/08/23 13:04) Ns Iv 1000 Ml (Ns Iv 1000 Ml) (06/08/23 13:15) Echo W Doppler/Color Flow (06/08/23 13:14) Medications Given in ED Current Medications Medications Dose Ordered Sig/Guilherme Route Start Time Stop Time Status Last Admin Dose Admin Fentanyl Citrate 50 mcg ONCE ONCE IVP 06/08/23 11:00 06/08/23 11:01 DC 06/08/23 11:13 50 MCG Iohexol 100 ml ONCE ONCE IV 06/08/23 12:00 06/08/23 12:01 DC 06/08/23 12:22 75 ML Lactated Ringer's 1,000 ml @ 0 mls/hr Q0M ONCE IV 06/08/23 12:00 06/08/23 12:01 DC 06/08/23 12:02 999 MLS/HR Piperacillin Sod/ Tazobactam Sod 4.5 gm/Sodium Chloride 100 ml @ 200 mls/hr ONCE ONCE IV 06/08/23 12:15 06/08/23 12:44 DC 06/08/23 12:46 200 MLS/HR Sodium Chloride 100 ml ONCE ONCE IV 06/08/23 12:00 06/08/23 12:01 DC 06/08/23 12:22 80 ML Vancomycin HCl 500 mg/Sodium Chloride 100 ml @ 100 mls/hr ONCE ONCE IV 06/08/23 14:00 06/08/23 14:59 DC 06/08/23 14:10 100 MLS/HR Vancomycin HCl 750 mg/Sodium Chloride 100 ml @ 100 mls/hr ONCE ONCE IV 06/08/23 13:00 06/08/23 13:59 DC 06/08/23 13:11 100 MLS/HR Vital Signs/I&O 06/08/23 06/08/23 06/08/23 06/08/23 10:14 13:14 15:15 17:41 Temp 37.4 37.4 36.1 Pulse 103 90 96 Resp 18 18 20 B/P (MAP) 108/61 (77) 84/45 98/59 99/63 (75) Pulse Ox 95 94 98 O2 Delivery Face Tent O2 Flow Rate 10.00 06/08/23 06/08/23 06/08/23 06/08/23 17:41 17:45 17:50 18:00 Resp 20 20 B/P (MAP) 103/61 (75) 103/61 (75) Pulse Ox 99 98 O2 Delivery Face Tent Face Tent Face Tent Face Tent O2 Flow Rate 10.00 10.00 10.00 10.00 06/08/23 06/08/23 06/08/23 06/08/23 18:00 18:10 18:15 18:20 Resp 20 20 B/P (MAP) 101/63 (76) 93/64 (74) Pulse Ox 99 100 O2 Delivery Face Tent Face Tent Face Tent Face Tent O2 Flow Rate 10.00 10.00 5.00 5.00 06/08/23 06/08/23 06/08/23 06/08/23 18:30 18:30 18:40 18:40 Temp 36.1 Resp 20 20 B/P (MAP) 99/63 (75) 95/61 (72) Pulse Ox 93 98 O2 Delivery Face Tent Face Tent Face Tent Face Tent O2 Flow Rate 5.00 5.00 5.00 5.00 06/08/23 06/08/23 06/08/23 19:00 19:20 19:22 Temp 36.3 36.4 36.2 Pulse 92 95 Resp 8 10 B/P (MAP) 91/56 91/62 Pulse Ox 100 99 O2 Delivery Face Tent Face Tent FiO2 50 50 Capillary Refill : Blood Pressure Mean: 77 Progress Note #1: Time: 12:00 Progress Note Patient was interviewed and examined at 1038. IV fluids were initiated. Septic work-up was initiated. All labs were reviewed and interpreted by me. Influenza and COVID-19 swabs were negative. CBC was notable for leukopenia with WBC of 2.1, mild anemia with hemoglobin of 11.4, and mild thrombocytosis with platelets of 444. CMP was notable for BUN of 41 suggesting mild hypovolemia and early renal compromise. Creatinine was normal at 0.97 with a GFR of 61. CMP otherwise revealed no clinically relevant significant abnormalities. CRP was elevated at 19.38. Urinalysis demonstrated increased specific gravity and crystals which would suggest early hypovolemia. There was no pyuria to suggest urinary tract infection as source of fever or sepsis. Chest x-ray has just been viewed by me. Report is pending. There appears to be free air under the right diaphragm in comparison with prior. Given patient's pleuritic chest pain in the context of recent hospitalization, probable free air under the right diaphragm, and fever as well as the observation of significant heart murmur on exam, CT angiogram of the chest as well as CT of the abdomen and pelvis with contrast was deemed most appropriate for further evaluation. Patient was noted to be hypotensive after her first liter of IV fluid. A second liter is now infusing. Source of infection is presumed to be bowel perforation until presumed otherwise. We we will start antibiotic therapy with Zosyn as soon as she returns from CT. Troponin was elevated at 0.548. EKG demonstrated no specific ischemia or arrhythmia as noted in my interpretation below. Progress Note #2: Time: 14:[address] scan was reviewed by me and free air was again noted. No abscess was evident. I discussed the CT scan with Dr. Shaikh, radiologist. CT of the chest was unremarkable. There was no evidence of pulmonary embolus, pneumothorax, or pneumonia. CT of the abdomen revealed probable perforation with free air and likely location in the distal colon. These findings were communicated with Dr. Garcia who is now in the exam room visiting with the patient. Surgery is anticipated. Antibiotic therapy has been started with Zosyn and vancomycin. Patient was hypotensive after receiving 2 L of IV fluid. A third L of IV fluid is infusing. Levophed has been initiated for blood pressure support. Patient is presumed to be in septic shock at this point, although her lactic acid was normal. She has not required any further pain medication or symptom management. Troponin was also noted to be elevated at 0.548. Repeat troponin more than 2 hours later was lower at 0.496. EKG demonstrated no ischemic changes. I have discussed the situation with Dr. Ferreira who is happy to consult on the patient. He prioritizes the sepsis and bowel perforation at this time and has no immediate plans for cardiac intervention, antiplatelet therapy, or anticoagulation due to need to maintain stability for surgery. I have discussed CODE STATUS with the patient. At this time she wishes to remain full code. I did inform her of her guarded prognosis and the serious nature of her multiple medical problems. Progress Note #3: Time: 14:44 Progress Note Case was discussed with Dr. Salazar, hospitalist on-call, who will consult to provide medical management. Dr. Garcia has requested a courtesy call be placed to Dr. Holloway as well as patient's PCP. Blood pressure remained stable at this time at 113/50 on the Levophed drip. Progress Note #4: Time: 14:56 Progress Note Courtesy call was placed to Dr. Holloway, primary care provider. [facility] Initial ECG Impression Date: Jun 08, 2023 Initial ECG Impression Time: 11:33 Initial ECG Rate: 94 Initial ECG Rhythm: Normal Sinus Comment Sinus rhythm with no ST elevation or depression. No abnormal intervals or axis deviation. Nonspecific T wave abnormalities are nondiagnostic. Diagnostic Imaging Diagonstic Imaging: Xray Plain Films/CT/US/NM/MRI: chest Comments NAME: SHAHNAZ CHICAS [facility] REC#: [id number] PT STATUS: REG ER : 1950 PHYSICIAN: MONSERRAT WONG MD ADMIT DATE: 06/08/23/ER Signed Date of Exam:06/08/23 CHEST 1 VIEW, AP/PA ONLY INDICATION: Chest pain and fever Frontal chest obtained at 11:30 a.m. Heart and mediastinal silhouette are normal in appearance. The lungs are clear. There is no pneumothorax or pleural fluid. There is free intraperitoneal air which is a new finding compared to 05/27/2023. Unless there has been surgical intervention, perforated viscus cannot be excluded. Correlate clinically, consider CT abdomen and pelvis as warranted. IMPRESSION: There is pneumoperitoneum which is new compared to the previous study, unless there has been surgical intervention, perforated viscus cannot be excluded. Consider clinical correlation and a CT abdomen and pelvis for comparison. Critical finding Called and faxed to Dr. Nuñez/[facility] at 12:15 p.m. by cvb. Dictated by: Dictated on workstation # [id number] Dict: 06/08/23 1211 Trans: 06/08/231217 CVB [id number] Interpreted by: DONALDO MEAD MD Electronically signed by: DONALDO MEAD MD 06/08/231217 Diagonstic Imaging: CT Plain Films/CT/US/NM/MRI: chest, abdomen, pelvis Comments NAME: SHAHNAZ CHICAS [facility] REC#: [id number] PT STATUS: REG ER : 1950 PHYSICIAN: MONSERRAT WONG MD ADMIT DATE: 06/08/23/ER Draft Date of Exam:06/08/23 CT DEYSI CHEST/NOANG ABD-PELV W INDICATION: Chest pain, abdominal pain, fever. EXAMINATION: CTA chest, abdomen, and pelvis. TECHNIQUE: Thin axial sections through the chest, abdomen, and pelvis are obtained following intravenous contrast bolus. Multiplanar MIP images were reconstructed and reviewed. All CT scans use one or more of the following dose optimizing techniques: automated exposure control, MA and/or KvP adjustment based on patient size and exam type or iterative reconstruction. INDICATION: Chest pain, abdominal pain, and fever. FINDINGS: CHEST: No pulmonary arterial embolus or filling defect. The aorta is patent, nonaneurysmal, and nonacute. There is trace right pleural fluid (subcentimeter and nonloculated) as well as a small pericardial effusion. There is no pneumothorax. No pulmonary consolidation, pneumonia, or halley edema. No lung mass. No thoracic lymphadenopathy. ABDOMEN/PELVIS: There is free intraperitoneal air. Assuming no interval recent surgery, this is presumed to reflect hollow visceral perforation. There is inflammatory and edematous thickening of the sigmoid colon with sigmoid diverticula but the long segmental inflammatory changes are atypical for simple diverticulitis. The colon proximally is fluid-containing, suggestive of an underlying diarrheal state. The remaining colon shows some mild mucosal hyperemia but its wall is non-thickened. Small bowel is unobstructed. There is stranding and edema of the perisigmoidal fat. No loculated collection or drainable abscess. The liver is unremarkable. There is mild dilatation of the gallbladder without radiodense stone. No bile duct dilatation. The spleen, adrenals, and pancreas are unremarkable. The aorta is atherosclerotic but nonaneurysmal. No mesenteric thrombus is found. The urinary bladder is unremarkable. The uterus and adnexa are unremarkable. IMPRESSION: 1. Edematous and inflammatory thickening in a long segment of the sigmoid and rectum with regional diverticulosis. Free air is present and mesenteric stranding is greatest perisigmoidal, presumed to reflect the site of suspected hollow visceral perforation. No abscess, loculated collection, or hemorrhage. Small volume free fluid. 2. The remaining colon is fluid-containing with mild mucosal hyperemia but no other level of bowel wall thickening. 3. No other acute appearing abdominal/pelvic abnormalities. 4. Chest is negative for PE or other acute pathology. Trace pleural and pericardial effusions are noted. Results discussed with the Emergency Room physician Dictated on workstation # [id number] Dict: 06/08/23 1247 Trans: 06/08/23 1302 [id number] Interpreted by: LORRIE SHAIKH Critical Care Note Critical Care Start Time: 12:55 Stop Time: 15:00 Total Time (minutes) 40 Progress 40 minutes of critical care time was dedicated to this patient which included management of hypotension and suspected septic shock with IV fluids and norepinephrine drip, consultation with specialists, report to ICU, communication and shared decision making with the patient and family, interpretation of diagnostic tests, and other admission arrangements. Departure Communication (Admissions) Time/Spoke to Admitting Phy: 13:05 Dr. Garcia Impression Primary Impression: Perforated viscus Additional Impressions: Septic shock Chest pain Qualified Codes: R07.9 - Chest pain, unspecified Elevated troponin Immunocompromised state C. difficile colitis Disposition: ADMITTED INPATIENT Condition: Stable Admissions Decision to Admit Reason: Admit from ER (General) Decision to Admit/Date: Jun 08, 2023 Time/Decision to Admit Time: 13:05 Departure-Patient Inst. Referrals: ANTHONY HOLLOWAY MD (PCP/Family) Primary Care Physician MONSERRAT WONG MD Jun 08, 2023 11:20
[2023-06-08 11:53] LABS: CLARITY,URINE CLEAR; COLOR,URINE YELLOW
[2023-06-08 11:54] LABS: BILIRUBIN,URINE 1+ (NEGATIVE); GLUCOSE, URINE (UA) NEGATIVE (NEGATIVE); KETONES,URINE 1+ (NEGATIVE); LEUKOCYTE ESTERASE ,URINE NEGATIVE (NEGATIVE); NITRITE,URINE NEGATIVE (NEGATIVE); PROTEIN,URINE 1+ (NEGATIVE)
[2023-06-08 11:55] LABS: AMORPHOUS SEDIMENT,UR FEW AMOR URATES /LPF; BACTERIA,URINE TRACE /HPF; RBC,URINE RARE /HPF; SQUAMOUS EPITHELIAL CELL,UR RARE /HPF; WBC,URINE RARE /HPF
[2023-06-08 11:56] LABS: HYALINE CASTS, URINE 0-2 /LPF
[2023-06-08] MEDS ORDERED: IOHEXOL 350 MG/ML 100 ML (OMNIPAQUE 350) VIAL IV ONE (12:00)
[2023-06-08] MEDS ORDERED: LACTATED RINGERS 1,000 ML 1,000 ML IV ONE (12:00)
[2023-06-08] MEDS ORDERED: HOLD METFORMIN - RECEIVED CONTRAST 20 ML VIAL IV SCH (12:00)
[2023-06-08] MEDS ORDERED: NS 100 ML (IVPB) BAG IV ONE (12:00)
[2023-06-08] MEDS ORDERED: PIPERACILLIN/Tazobactam 4.5 GM in NS (IVPB) 100 ML 100 ML IV ONE (12:15)
--- NOTE | 2023-06-08 12:17 | Diagnostic Imaging Report ---
INDICATION: Chest pain and fever Frontal chest obtained at 11:30 a.m. Heart and mediastinal silhouette are normal in appearance. The lungs are clear. There is no pneumothorax or pleural fluid. There is free intraperitoneal air which is a new finding compared to 05/27/2023. Unless there has been surgical intervention, perforated viscus cannot be excluded. Correlate clinically, consider CT abdomen and pelvis as warranted. IMPRESSION: There is pneumoperitoneum which is new compared to the previous study, unless there has been surgical intervention, perforated viscus cannot be excluded. Consider clinical correlation and a CT abdomen and pelvis for comparison. Critical finding Called and faxed to Dr. Nuñez/[facility] ER at 12:15 p.m. by cvb. Dictated by: Dictated on workstation # [id number]
[2023-06-08] MEDS ORDERED: VANCOMYCIN INJECTION 750 MG in NS (IVPB) 100 ML 100 ML IV ONE (13:00)
[2023-06-08] MEDS ORDERED: NOREPINEPHRINE 8 MG/250 ML 250 ML IV ONE (13:00)
[2023-06-08] MEDS ORDERED: NOREPINEPHRINE 8 MG/250 ML 250 ML IV STA (13:04)
--- NOTE | 2023-06-08 13:04 | Diagnostic Imaging Report ---
INDICATION: Chest pain, abdominal pain, fever. EXAMINATION: CTA chest, abdomen, and pelvis. TECHNIQUE: Thin axial sections through the chest, abdomen, and pelvis are obtained following intravenous contrast bolus. Multiplanar MIP images were reconstructed and reviewed. All CT scans use one or more of the following dose optimizing techniques: automated exposure control, MA and/or KvP adjustment based on patient size and exam type or iterative reconstruction. INDICATION: Chest pain, abdominal pain, and fever. FINDINGS: CHEST: No pulmonary arterial embolus or filling defect. The aorta is patent, nonaneurysmal, and nonacute. There is trace right pleural fluid (subcentimeter and nonloculated) as well as a small pericardial effusion. There is no pneumothorax. No pulmonary consolidation, pneumonia, or halley edema. No lung mass. No thoracic lymphadenopathy. ABDOMEN/PELVIS: There is free intraperitoneal air. Assuming no interval recent surgery, this is presumed to reflect hollow visceral perforation. There is inflammatory and edematous thickening of the sigmoid colon with sigmoid diverticula but the long segmental inflammatory changes are atypical for simple diverticulitis. The colon proximally is fluid-containing, suggestive of an underlying diarrheal state. The remaining colon shows some mild mucosal hyperemia but its wall is non-thickened. Small bowel is unobstructed. There is stranding and edema of the perisigmoidal fat. No loculated collection or drainable abscess. The liver is unremarkable. There is mild dilatation of the gallbladder without radiodense stone. No bile duct dilatation. The spleen, adrenals, and pancreas are unremarkable. The aorta is atherosclerotic but nonaneurysmal. No mesenteric thrombus is found. The urinary bladder is unremarkable. The uterus and adnexa are unremarkable. IMPRESSION: 1. Edematous and inflammatory thickening in a long segment of the sigmoid and rectum with regional diverticulosis. Free air is present and mesenteric stranding is greatest perisigmoidal, presumed to reflect the site of suspected hollow visceral perforation. No abscess, loculated collection, or hemorrhage. Small volume free fluid. 2. The remaining colon is fluid-containing with mild mucosal hyperemia but no other level of bowel wall thickening. 3. No other acute appearing abdominal/pelvic abnormalities. 4. Chest is negative for PE or other acute pathology. Trace pleural and pericardial effusions are noted. Results discussed with the Emergency Room physician Dictated by: Dictated on workstation # [id number]
[2023-06-08] MEDS ORDERED: NS IV 1000 ML 1,000 ML IV SCH (13:15)
[2023-06-08] MEDS ORDERED: VANCOMYCIN INJECTION 500 MG in NS (IVPB) 100 ML 100 ML IV ONE (14:00)
--- NOTE | 2023-06-08 14:48 | Consultation - Surgery ---
APARICIO 06/08/23 1448: History of Present Illness History of Present Illness Patient Consulted On(penny/time) 06/08/23 14:43 Date Seen by Provider: Jun 08, 2023 Time Seen by Provider: 14:43 History of Present Illness 73 y/o female presented to the ED with a high fever chills and possible sepsis. 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 Was on clindamycin and was switched to vancomycin in ED. CT showed free intraperitoneal air so surgery was consulted for possible bowel perforation. Patient feels bloated and entire abdomen is hard and tender to touch with increased pain in LLQ. She has had chest pain and rib pain for the past few days, and diarrhea was present for the past 10 days associated with her rising fever. Allergies and Home Medications Allergies Coded Allergies: No Known Drug Allergies (Unverified , 07/22/18) Patient Home Medication List Home Medication List Reviewed: Yes Hydrocodone Bit/Acetaminophen (Lortab 5 Mg Tablet) 1 Each Tablet, 1 EACH PO Q4-6HR PRN for PAIN-MODERATE Prescribed by: MONSERRAT STARR on 07/22/18 1459 Vancomycin HCl (Vancomycin HCl) 125 Mg Capsule, 125 MG PO Q6HR Prescribed by: DAMION SALAZAR on 05/30/23 1118 Past Gwkcgug-Lfmfjc-Tlymte Hx Patient Social History 2nd Hand Smoke Exposure: No Recent Hopitalizations: No Alcohol Use?: No Immunizations Up To Date Tetanus Booster (TDap): Unknown Date of Influenza Vaccine: May 30, 2018 Seasonal Allergies Seasonal Allergies: No Surgeries History of Surgeries: Yes Surgeries: Section, Tonsillectomy Respiratory History of Respiratory Disorde: No Cardiovascular History of Cardiac Disorders: No Neurological History of Neurological Disord: No Reproductive System : No 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 HEAD History: Menopausal Genitourinary History of Genitourinary Disor: No Gastrointestinal History of Gastrointestinal Di: No Musculoskeletal History of Musculoskeletal Dis: Yes Musculoskeletal Disorders: Rheumatoid Arthritis Endocrine History of Endocrine Disorders: No HEENT History of HEENT Disorders: No Cancer History of Cancer: Yes (Nasal/skin) Psychosocial History of Psychiatric Problem: No Integumentary History of Skin or Integumenta: No Family Medical History Significant Family History: No Pertinent Family Hx Review of Systems-General Constitutional: chills, fever, malaise EENTM: no symptoms reported; No hearing loss, No ear pain, No blurred vision, No throat pain Respiratory: see HPI; No cough, No hemoptysis, No short of breath Cardiovascular: chest pain (rib pain- has had broken ribs in past but describes this as different ) Gastrointestinal: LLQ (tenderness), see HPI, abdominal pain, diarrhea Musculoskeletal: no symptoms reported; No back pain Skin: no symptoms reported; No dryness, No rash Psychiatric/Neurological: No Symptoms Reported; Denies Numbness, Denies Tremors Physical Exam-General Problems Physical Exam Vital Signs Vital Signs - First Documented 06/08/23 10:14 Temp 37.4 Pulse 103 Resp 18 B/P (MAP) 108/61 (77) Pulse Ox 95 Capillary Refill : Greater Than 3 Seconds General Appearance: mild distress, thin HEENT: normal ENT inspection, pharynx normal Neck: non-tender, normal inspection Respiratory: lungs clear, normal breath sounds, no respiratory distress Cardiovascular: regular rate, rhythm, no edema Gastrointestinal: distended, rebound, tenderness Neurologic/Psychiatric: no motor/sensory deficits, alert, oriented x 3 Data Review Labs Laboratory Tests 06/08/23 10:22: White Blood Count 2.1L, Red Blood Count 3.47L, Hemoglobin 11.4L, Hematocrit 34L, Mean Corpuscular Volume 97, Mean Corpuscular Hemoglobin 33, Mean Corpuscular Hemoglobin Concent 34, Red Cell Distribution Width 12.8, Platelet Count 444H, Mean Platelet Volume 9.0, Immature Granulocyte % (Auto) 1, Neutrophils (%) (Auto) 77H, Lymphocytes (%) (Auto) 13, Monocytes (%) (Auto) 7, Eosinophils (%) (Auto) 1, Basophils (%) (Auto) 1, Neutrophils # (Auto) 1.6L, Lymphocytes # (Auto) 0.3L, Monocytes # (Auto) 0.1, Eosinophils # (Auto) 0.0, Basophils # (Auto) 0.0, Immature Granulocyte # (Auto) 0.0, Prothrombin Time 14.4, INR Comment 1.1, Activated Partial Thromboplast Time 37H, Sodium Level 132L, Potassium Level 3.6, Chloride Level 100, Carbon Dioxide Level 20L, Anion Gap 12, Blood Urea Nitrogen 41H, Creatinine 0.97, Estimat Glomerular Filtration Rate 61, BUN/Creatinine Ratio 42, Glucose Level 119H, Lactic Acid Level 0.91, Calcium Level 8.2L, Corrected Calcium 9.2, Total Bilirubin 0.6, Aspartate Amino Transf (AST/SGOT) 43H, Alanine Aminotransferase (ALT/SGPT) 33, Alkaline Phosphatase 123, Troponin I 0.548*H, C-Reactive Protein High Sensitivity 19.38H, Total Protein 5.2L, Albumin 2.7L 06/08/23 10:49: Influenza Type A (RT-PCR) Not Detected, Influenza Type B (RT-PCR) Not Detected, SARS-CoV-2 RNA (RT-PCR) Not Detected 06/08/23 11:19: Urine Color YELLOW, Urine Clarity CLEAR, Urine pH 6.0, Urine Specific [place] 1.025H, Urine Protein 1+H, Urine Glucose (UA) NEGATIVE, Urine Ketones 1+H, Urine Nitrite NEGATIVE, Urine Bilirubin 1+H, Urine Urobilinogen 0.2, Urine Leukocyte Esterase NEGATIVE, Urine RBC (Auto) TRACE-IH, Urine RBC RARE, Urine WBC RARE, Urine Squamous Epithelial Cells RARE, Urine Crystals PRESENTH, Urine Amorphous Sediment FEW TONI URATESH, Urine Bacteria TRACE, Urine Casts PRESENT, Urine Hyaline Casts 0-2H, Urine Mucus SMALLH, Urine Culture Indicated CULTURE PENDING 06/08/23 13:13: Lactic Acid Level 1.14, Troponin I 0.496*H Assessment/Plan Assessment/Plan Assessment/Plan Assessment: bowel perforation sepsis Plan: continue abx surgery for perforation GARCIAFABIOLA RICHARDS Jan DO 06/08/23 1514: History of Present Illness History of Present Illness History of Present Illness 73 year old female with fever and abdominal pain. Has cdiff after Moh's surgery for basal cell carcinoma of the nose. Having moderate to severe abdominal pain. Feels bloated and like broken bones. Had severe diarrhea for last 10 days and less after taking lomotil. Hypotensive currently in ER requriring pressors. Elevated troponin. Ct scan with free air likely sigmoid thickening at rectum/sigmoid area some free fluid. Allergies and Home Medications Allergies Coded Allergies: No Known Drug Allergies (Unverified , 07/22/18) Patient Home Medication List Home Medication List Reviewed: Yes Hydrocodone Bit/Acetaminophen (Lortab 5 Mg Tablet) 1 Each Tablet, 1 EACH PO Q4- 6HR PRN for PAIN-MODERATE Prescribed by: MONSERRAT STARR on 07/22/18 1459 Vancomycin HCl (Vancomycin HCl) 125 Mg Capsule, 125 MG PO Q6HR Prescribed by: DAMION SALAZAR on 05/30/23 1118 Past Phmjavl-Vziztx-Obvntt Hx Patient Social History Smoking Status: Never a Smoker Surgeries History of Surgeries: Yes (Haroldo's ) Respiratory History of Respiratory Disorde: No Cardiovascular History of Cardiac Disorders: No Genitourinary History of Genitourinary Disor: No Gastrointestinal Gastrointestinal Disorders: C-Diff Musculoskeletal Musculoskeletal Disorders: Rheumatoid Arthritis Endocrine History of Endocrine Disorders: No HEENT History of HEENT Disorders: No Cancer History of Cancer: No Psychosocial History of Psychiatric Problem: No Reviewed Nursing Assessment Reviewed/Agree w Nursing PMH: Yes Family Medical History Significant Family History: No Pertinent Family Hx Review of Systems-General Constitutional: chills, fever, malaise EENTM: No hearing loss, No blurred vision Respiratory: No cough, No short of breath Cardiovascular: chest pain (rib pain- has had broken ribs in past but describes this as different ); No palpitations Gastrointestinal: LLQ (tenderness), abdominal pain (LLQ), diarrhea Genitourinary: No decreased output, No discharge Musculoskeletal: No back pain, No joint pain Skin: No change in color, No change in hair/nails Psychiatric/Neurological: Denies Anxiety, Denies Depressed, Denies Emotional Problems All Other Systems Reviewed Negative Unless Noted: Yes (Negative excepted noted.) Physical Exam-General Problems Physical Exam General Appearance: mild distress, thin HEENT: other (skin flap to nose, open forehead from flap) Neck: non-tender, normal inspection Respiratory: chest non-tender, no respiratory distress, no accessory muscle use Cardiovascular: no JVD, tachycardia Gastrointestinal: distended, rebound, tenderness Rectal: deferred Back: no CVA tenderness, no vertebral tenderness Extremities: non-tender, normal inspection Neurologic/Psychiatric: no motor/sensory deficits, alert, oriented x 3 Skin: warm/dry, pallor Lymphatic: no adenopathy Assessment/Plan Assessment/Plan Assessment/Plan hollow viscus perforation sepsis secondary to above C-diff Elevated troponin Rheumatoid Arthritis Patient with free air and peritoneal. Needs exploration and likely dayron depending on pathology found (may need colostomy). We discussed placing a central line and exploratory laparotomy all other indicated procedures. She agrees to proceed. Cardiology consulted due to elevated troponin, but due to hollow viscus perforation need to go to OR. Medicine consult NPO IV fluids On pressors- wean as tolerates Continue Abx To OR. Supervisory-Addendum Brief Verification & Attestation Participated in pt care: history, MDM, physical Personally performed: exam, history, MDM, supervision of care Care discussed with: Medical Student Procedures: n/a Results interpretation: Verified all documentation Verification and Attestation of Medical Student E/M Service A medical student performed and documented this service in my presence. I reviewed and verified all information documented by the medical student and made modifications to such information, when appropriate. I personally performed the physical exam and medical decision making. Fabiola Garcia, Jun 08, 2023,15:23 APARICIO Jun 08, 2023 14:48 FABIOLA GARCIA DO Jun 08, 2023 15:14
[2023-06-08] MEDS ORDERED: fentaNYL INJECTION 100 MCG/2 ML VIAL ONE (14:56)
[2023-06-08] MEDS ORDERED: MIDAZOLAM INJ 2 MG/2 ML VIAL ONE (14:57)
[2023-06-08] MEDS ORDERED: LACTATED RINGERS 1,000 ML 1,000 ML IV PRN (15:30)
[2023-06-08] MEDS ORDERED: NS (IVPB) 100 ML 100 ML ONE (15:38)
[2023-06-08] MEDS ORDERED: proPOfol INJECTION 200 MG/20 ML VIAL IV ONE (16:24)
[2023-06-08] MEDS ORDERED: PHENYLEPHRINE 100 MCG/ML 10 ML (ANESTHESIA) SYR ONE (16:24)
[2023-06-08] MEDS ORDERED: LIDOCAINE PF 2% 5 ML VIAL ONE (16:24)
[2023-06-08] MEDS ORDERED: SUCCINYLCHOLINE INJ 20 MG/1 ML 10 ML VIAL ONE (16:24)
[2023-06-08] MEDS ORDERED: ROCURONIUM 50 MG/5 ML VIAL IV ONE (16:24)
[2023-06-08] MEDS ORDERED: PHENYLEPHRINE INJ 10 MG/ML (FOR PYXIS KITS ONLY) ONE (16:25)
[2023-06-08] MEDS ORDERED: morphine INJ 10 MG/ML 1ML (SYR OR VIAL) ONE (16:41)
[2023-06-08] MEDS ORDERED: ONDANSETRON INJECTION 4 MG/2 ML (SDV) ONE (16:42)
[2023-06-08] MEDS ORDERED: HYDROmorphone INJECTION 2 MG/ML VIAL ONE ×2 (16:42→17:16)
[2023-06-08] MEDS ORDERED: BUPIVACAINE 0.5% 30 ML VIAL ONE (16:55)
[2023-06-08] MEDS ORDERED: NS IV 500 ML 500 ML IV SCH (17:00)
--- NOTE | 2023-06-08 17:04 | Anesthesia-General Post-Op ---
General Patient Condition Mental Status/LOC: Same as Preop Cardiovascular: Satisfactory Nausea/Vomiting: Absent Respiratory: Satisfactory Pain: Controlled Complications: Absent Post Op Complications Complications None Follow Up Care/Instructions Patient Instructions None needed. Anesthesia/Patient Condition Patient Condition Patient is doing well, no complaints, stable vital signs, no apparent adverse anesthesia problems. No complications reported per nursing. ZORAIDA GONZALEZ CRNA Jun 08, 2023 17:04
[2023-06-08] MEDS ORDERED: NEOSTIGMINE 1 MG/1ML 10 ML VIAL ONE (17:15)
[2023-06-08] MEDS ORDERED: HYDROmorphone INJECTION 2 MG/ML VIAL IV ONE (17:15)
[2023-06-08] MEDS ORDERED: ONDANSETRON INJECTION 4 MG/2 ML (SDV) IVP PRN (17:15)
[2023-06-08] MEDS ORDERED: GLYCOPYRROLATE INJ 0.2 MG/ML 2 ML VIAL ONE ×2 (17:15→17:16)
[2023-06-08 17:18] LABS: HEMATOCRIT 25 % (35-52); MEAN CORPUSCULAR HEMOGLOBIN 32 pg (25-34); MEAN CORPUSCULAR HGB CONC 33 g/dL (32-36); MEAN CORPUSCULAR VOLUME 98 fL (80-99); MEAN PLATELET VOLUME 8.7 fL (9.0-12.2); PLATELET COUNT 279 10^3/uL (130-400)
[2023-06-08] MEDS ORDERED: SEVOFLURANE (ULTANE) 15 ML INHAL SOLN ONE (17:37)
[2023-06-08 18:11] LABS: WHITE BLOOD COUNT 0.9 10^3/uL (4.3-11.0)
--- NOTE | 2023-06-08 18:20 | Progress Note-Post Operative ---
Post-Operative Progess Note Surgeon (s)/Executive Chairman Of The Board (s) Surgeon FABIOLA GARCIA DO Executive Chairman Of The Board: Dr. Yancey Pre-Operative Diagnosis hollow viscus perforation Post-Operative Diagnosis perforated gastric pyloric ulcer with bleeding gastroduodenal artery Procedure & Operative Findings Date of Procedure 06/08/23 Procedure Performed/Findings u/s guided right IJ central line placement exploratory laparotomy mobilization of left colon ligation of gastroduodenal artery biopsy of ulcer modified segundo patch Anesthesia Type general Estimated Blood Loss Estimated blood loss (mL): 50 mL Specimens/Packing Specimens Removed ulcer biopsy FABIOLA GARCIA DO Jun 08, 2023 18:20
--- NOTE | 2023-06-08 18:24 | Diagnostic Imaging Report ---
EXAMINATION: Chest 1 view HISTORY: Central line placement. COMPARISON: 06/08/2023. FINDINGS: Heart size is stable with increased prominence of the pulmonary vessels. There are mildly increased perihilar interstitial opacities. No pleural effusion or pneumothorax. There has been placement of a right IJ central line with the tip projecting over the right atrium just above the diaphragm. The osseous structures are intact. IMPRESSION: 1. Right IJ central line placement with the tip projecting over the right atrium just above the diaphragm. No pneumothorax. 2. Increasing perihilar interstitial opacities and prominence of the pulmonary vasculature which can be seen with pulmonary vascular congestion and/or pulmonary edema. Dictated by: Dictated on workstation # [id number]
--- NOTE | 2023-06-08 18:38 | Tele-ICU Consult ---
History of Present Illness History of Present Illness Date Seen by Provider: Jun 08, 2023 Time Seen by Provider: 18:32 History of Present Illness eICU Critical Care Consult 73 yo F came to ED with abd pain. Hx of recent C diff. has been on po Vancomycin Found to have free air, went to OR had perforated gastric pyloric ulcer with bleeding from gastroduodenal art, Greg patch placed, artery ligated EBL 50 mL at present off pressors, had been on levo then william Hx of RA oh MTX and Plaquenil, has a nasal cancer underwent Mohs procedure Allergies and Home Medications Allergies Coded Allergies: No Known Drug Allergies (Unverified , 07/22/18) Home Medications Hydrocodone Bit/Acetaminophen 1 Each Tablet, 1 EACH PO Q4-6HR PRN for PAIN- MODERATE Prescribed by: MONSERRAT STARR on 07/22/18 1459 Vancomycin HCl 125 Mg Capsule, 125 MG PO Q6HR Prescribed by: DAMION SALAZAR on 05/30/23 1118 Past Medical/Social/Family Hx Patient Social History Tobacco Use?: No Smoking Status: Never a Smoker Substance use?: No Alcohol Use?: No Pt stated abuse/neglect: No Immunizations Up To Date Tetanus Booster (TDap): Unknown Current Status Advance Directives: No Primary Language: Lebanese Preferred Spoken Language: Lebanese Review of Systems Constitutional: see HPI EENTM: see HPI Respiratory: see HPI Cardiovascular: see HPI Gastrointestinal: see HPI Genitourinary: see HPI Musculoskeletal: see HPI Skin: see HPI Psychiatric/Neurological: See HPI Focused Exam Lactate Level 06/08/23 10:22: Lactic Acid Level 0.91 06/08/23 13:13: Lactic Acid Level 1.14 Height, Weight, BMI Height: 5'4.00" Weight: 140lbs. oz. [id number]; 22.00 BMI Method:Stated Time of Focused Exam: 13:30 Exam Exam Patient acknowledged, consented, and participated in this virtual visit which was conducted using real time audio/video Vital Signs Date Time Temp Pulse Resp B/P (MAP) Pulse Ox O2 Delivery O2 Flow Rate FiO2 06/08/23 18:10 20 101/63 (76) 99 Face Tent 10.00 06/08/23 18:00 20 103/61 (75) 98 Face Tent 10.00 06/08/23 17:50 20 103/61 (75) 99 Face Tent 10.00 06/08/23 17:41 36.1 20 99/63 (75) 98 Face Tent 10.00 06/08/23 15:15 37.4 96 18 98/59 94 06/08/23 13:14 90 84/45 06/08/23 10:14 37.4 103 18 108/61 (77) 95 Height & Weight Height: 5'4.00" Weight: 140lbs. oz. 63.678966zk; 22.00 BMI Method:Stated General Appearance: No Apparent Distress Respiratory: Lungs Clear, Rhonci Cardiovascular: Regular Rate, Rhythm, No Edema, Systolic Murmur, Tachycardia Capillary Refill: Greater Than 3 Seconds (4 seconds) Peripheral Pulses: 1+ Radial Pulses (L) Gastrointestinal: distended, rebound, tenderness, other (mid line incision with left RADHA drain,) Neurologic/Psychiatric: Alert, Oriented x3, Other (lethargic) Results Lab Laboratory Tests 06/08/23 10:22 06/08/23 16:48 Assessment/Plan Assessment/Plan s/p Greg patch for repair of gastric perforation, not intubated, will continue on IV Flagyl, IV Zosyn, also on IV fluconazole, IV PPI WBC is 0,9 Critical Care: Critically Ill Patient Time spent with patient (mins): 25 FABIANA PEACE MD Jun 08, 2023 18:38
[2023-06-08] MEDS ORDERED: PANTOPRAZOLE INJECTION 40 MG VIAL IV NR (18:45)
[2023-06-08] MEDS: PANTOPRAZOLE INJECTION 200 MG in NS (IVPB) 100 ML 100 ML IV SCH (19:26)
[2023-06-08] MEDS: PIPERACILLIN/Tazobactam 4.5 GM in NS (IVPB) 100 ML 100 ML IV SCH (19:31)
[2023-06-08] MEDS: metroNIDAZOLE 500MG/100ML IVPB 100 ML IV SCH (22:41)
[2023-06-08] MEDS: LACTATED RINGERS 1,000 ML 1,000 ML IV SCH (22:41)
[2023-06-09] MEDS: LACTATED RINGERS 1,000 ML 1,000 ML IV SCH ×3 (02:00→18:03)
[2023-06-09] MEDS: PIPERACILLIN/Tazobactam 4.5 GM in NS (IVPB) 100 ML 100 ML IV SCH ×3 (03:30→18:03)
[2023-06-09] MEDS: morphine INJ 4 MG/ML 1 ML (VIAL/SYRINGE) IVP PRN ×6 (03:52→21:06)
[2023-06-09 05:00] LABS: HEMATOCRIT 30 % (35-52); HEMOGLOBIN 10.1 g/dL (11.5-16.0); MEAN CORPUSCULAR HEMOGLOBIN 32 pg (25-34); MEAN CORPUSCULAR HGB CONC 34 g/dL (32-36); MEAN CORPUSCULAR VOLUME 94 fL (80-99); MEAN PLATELET VOLUME 8.8 fL (9.0-12.2); PLATELET COUNT 270 10^3/uL (130-400)
[2023-06-09 05:09] LABS: POTASSIUM 4.5 MMOL/L (3.6-5.0)
[2023-06-09 05:11] LABS: CALCIUM 7.4 MG/DL (8.5-10.1)
[2023-06-09 05:15] LABS: CREATININE SERUM 0.86 MG/DL (0.60-1.30)
[2023-06-09 05:16] LABS: WHITE BLOOD COUNT 0.6 10^3/uL (4.3-11.0)
[2023-06-09] MEDS ORDERED: MAGNESIUM 1 GM/100 ML IVPB 400 ML IV ONE (06:03)
[2023-06-09] MEDS: MAGNESIUM 1 GM/100 ML IVPB 100 ML IV SCH ×3 (06:18→09:20)
[2023-06-09] MEDS: metroNIDAZOLE 500MG/100ML IVPB 100 ML IV SCH ×3 (06:18→22:05)
--- NOTE | 2023-06-09 07:13 | Progress Note - Surgery ---
ROXIRAMÓN 06/09/23 0713: Subjective Date Seen by a Provider: Jun 09, 2023 Time Seen by a Provider: 06:50 Subjective/Events-last exam 73-year-old female pt. who recently had surgery for gastro-pyloric perforation with ligation of the gastroduodenal artery. On pt. visit, she is having soreness from the surgery, but is not experiencing any severe pain. Incision is covered with a bandage and there was a small bruise on the RLQ. Abdominal surgical drain had some pink-reddish fluid. Palpation of the abdomen produced tenderness in the RUQ, which the patient noted she was having pain there. Abdomen was rigid on palpation. 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 Per nurse, patient received 1 unit of blood last night which helped bring her BP up from 80/50's to 100-90/60's. Patient is having a dry mouth & would like some water, but is currently NPO. CXR showed central line tip in the RA. Focused Exam Lactate Level 06/08/23 10:22: Lactic Acid Level 0.91 06/08/23 13:13: Lactic Acid Level 1.14 Time of Focused Exam: 13:30 Objective Exam Vital Signs Date Time Temp Pulse Resp B/P (MAP) Pulse Ox O2 Delivery O2 Flow Rate FiO2 06/09/23 06:00 87 19 104/59 (74) 93 Room Air 06/09/23 05:00 83 21 108/66 (80) 95 Room Air 06/09/23 04:00 83 12 104/62 (76) 94 Room Air 06/09/23 03:00 82 19 95/54 (68) 93 Room Air 06/09/23 02:00 83 11 95/57 (70) 94 Room Air 06/09/23 01:00 78 06/09/23 01:00 78 12 91/60 (70) 98 Face Tent 40.00 06/09/23 00:00 78 12 85/53 (64) 99 Face Tent 40.00 06/08/23 23:00 77 12 88/47 (61) 99 Face Tent 4.00 06/08/23 22:00 80 15 84/48 (60) 100 Face Tent 40.00 06/08/23 22:00 36.9 79 12 90/58 100 Face Tent 40 06/08/23 21:00 82 12 97/58 (71) 99 Face Tent 40.00 06/08/23 20:07 Face Tent 5.00 06/08/23 20:00 86 17 90/54 (66) 100 Face Tent 50.00 06/08/23 19:30 99 Face Tent 50 06/08/23 19:22 36.2 06/08/23 19:20 36.4 95 10 91/62 99 Face Tent 50 06/08/23 19:00 36.3 92 8 91/56 100 Face Tent 50 06/08/23 19:00 93 06/08/23 19:00 93 18 91/55 (67) 100 Face Tent 50.00 06/08/23 18:40 36.1 20 95/61 (72) 98 Face Tent 5.00 06/08/23 18:40 Face Tent 5.00 06/08/23 18:30 Face Tent 5.00 06/08/23 18:30 20 99/63 (75) 93 Face Tent 5.00 06/08/23 18:20 20 93/64 (74) 100 Face Tent 5.00 06/08/23 18:15 Face Tent 5.00 06/08/23 18:10 20 101/63 (76) 99 Face Tent 10.00 06/08/23 18:00 Face Tent 10.00 06/08/23 18:00 20 103/61 (75) 98 Face Tent 10.00 06/08/23 17:50 20 103/61 (75) 99 Face Tent 10.00 06/08/23 17:45 Face Tent 10.00 06/08/23 17:41 Face Tent 10.00 06/08/23 17:41 36.1 20 99/63 (75) 98 Face Tent 10.00 06/08/23 15:15 37.4 96 18 98/59 94 06/08/23 13:14 90 84/45 06/08/23 10:14 37.4 103 18 108/61 (77) 95 I & O 06/09/23 07:00 Intake Total 1200 ml Output Total 815 ml Balance 385 ml Capillary Refill : Less Than 3 SecondsGreater Than 3 Seconds General Appearance: No Apparent Distress, WD/WN HEENT: PERRL/EOMI, Normal ENT Inspection, Pharynx Normal; No Moist Mucous Membranes Neck: Normal Inspection, Non Tender Respiratory: Chest Non Tender, Lungs Clear, Normal Breath Sounds, No Accessory Muscle Use, No Respiratory Distress Cardiovascular: Regular Rate, Rhythm, No Edema, Systolic Murmur Peripheral Pulses: 1+ Dorsalis Pedis (R), 1+ Left Dors-Pedis (L), 1+ Radial Pulses (R), 1+ Radial Pulses (L) Gastrointestinal: rebound, tenderness (RUQ); No mass; other (mid line incision with left RADHA drain, rigid ) Extremity: Normal Inspection, No Pedal Edema Neurologic/Psychiatric: Alert, No Motor/Sensory Deficits, Normal Mood/Affect, Other (Distracted, cognition dulled) Skin: Normal Color, Warm/Dry Lymphatic: No Adenopathy (Submental, mandibular, and anterior cervical ) Results Lab Laboratory Tests 06/08/23 10:22: White Blood Count 2.1L, Red Blood Count 3.47L, Hemoglobin 11.4L, Hematocrit 34L, Mean Corpuscular Volume 97, Mean Corpuscular Hemoglobin 33, Mean Corpuscular Hemoglobin Concent 34, Red Cell Distribution Width 12.8, Platelet Count 444H, Mean Platelet Volume 9.0, Immature Granulocyte % (Auto) 1, Neutrophils (%) (Auto) 77H, Lymphocytes (%) (Auto) 13, Monocytes (%) (Auto) 7, Eosinophils (%) (Auto) 1, Basophils (%) (Auto) 1, Neutrophils # (Auto) 1.6L, Lymphocytes # (Auto) 0.3L, Monocytes # (Auto) 0.1, Eosinophils # (Auto) 0.0, Basophils # (Auto) 0.0, Immature Granulocyte # (Auto) 0.0, Prothrombin Time 14.4, INR Comment 1.1, Activated Partial Thromboplast Time 37H, Sodium Level 132L, Potassium Level 3.6, Chloride Level 100, Carbon Dioxide Level 20L, Anion Gap 12, Blood Urea Nitrogen 41H, Creatinine 0.97, Estimat Glomerular Filtration Rate 61, BUN/Creatinine Ratio 42, Glucose Level 119H, Lactic Acid Level 0.91, Calcium Level 8.2L, Corrected Calcium 9.2, Total Bilirubin 0.6, Aspartate Amino Transf (AST/SGOT) 43H, Alanine Aminotransferase (ALT/SGPT) 33, Alkaline Phosphatase 123, Troponin I 0.548*H, C-Reactive Protein High Sensitivity 19.38H, Total Protein 5.2L, Albumin 2.7L 06/08/23 10:49: Influenza Type A (RT-PCR) Not Detected, Influenza Type B (RT-PCR) Not Detected, SARS-CoV-2 RNA (RT-PCR) Not Detected 06/08/23 11:19: Urine Color YELLOW, Urine Clarity CLEAR, Urine pH 6.0, Urine Specific [place] 1.025H, Urine Protein 1+H, Urine Glucose (UA) NEGATIVE, Urine Ketones 1+H, Urine Nitrite NEGATIVE, Urine Bilirubin 1+H, Urine Urobilinogen 0.2, Urine Leukocyte Esterase NEGATIVE, Urine RBC (Auto) TRACE-IH, Urine RBC RARE, Urine WBC RARE, Urine Squamous Epithelial Cells RARE, Urine Crystals PRESENTH, Urine Amorphous Sediment FEW TONI URATESH, Urine Bacteria TRACE, Urine Casts PRESENT, Urine Hyaline Casts 0-2H, Urine Mucus SMALLH, Urine Culture Indicated CULTURE PENDING 06/08/23 13:13: Lactic Acid Level 1.14, Troponin I 0.496*H 06/08/23 16:48: White Blood Count 0.9*L, Red Blood Count 2.49L, Hemoglobin 8.0#L, Hematocrit 25L , Mean Corpuscular Volume 98, Mean Corpuscular Hemoglobin 32, Mean Corpuscular Hemoglobin Concent 33, Red Cell Distribution Width 12.8, Platelet Count 279, Mean Platelet Volume 8.7L 06/08/23 19:53: Troponin I 0.335*H 06/09/23 00:30: Hemoglobin 10.0#L, Hematocrit 30L 06/09/23 04:51: White Blood Count 0.6*L, Red Blood Count 3.20L, Hemoglobin 10.1L, Hematocrit 30L , Mean Corpuscular Volume 94, Mean Corpuscular Hemoglobin 32, Mean Corpuscular Hemoglobin Concent 34, Red Cell Distribution Width 14.6H, Platelet Count 270, Mean Platelet Volume 8.8L, Troponin I 0.226H, Sodium Level 136, Potassium Level 4.5, Chloride Level 107, Carbon Dioxide Level 19L, Anion Gap 10, Blood Urea Nitrogen 39H, Creatinine 0.86, Estimat Glomerular Filtration Rate 71, BUN/Creatinine Ratio 45, Glucose Level 121H, Calcium Level 7.4L, Magnesium Level 1.6 Assessment/Plan Assessment/Plan Assessment/Plan hollow viscus perforation sepsis secondary to above C-diff Elevated troponin Rheumatoid Arthritis NPO IV fluids Continue Abx Wound dressing change Pain meds as needed Continue to monitor FABIOLA GARCIA DO 06/09/23 2100: Subjective Subjective/Events-last exam Patient pain controlled. Thirsty. Currently NPO. Received prbc last night. Feels weak. Denies n/v fever sweats chills shortness of breath or chest pain. Objective Exam General Appearance: No Apparent Distress, Chronically ill HEENT: PERRL/EOMI, Normal ENT Inspection, Other (skin flap forhead to nose, open wound superior par of incision) Neck: Normal Inspection, Non Tender Respiratory: Chest Non Tender, No Accessory Muscle Use, No Respiratory Distress Cardiovascular: Regular Rate, Rhythm, No JVD Gastrointestinal: No rebound; tenderness (RUQ), other (mid line incision with left RADHA drain, serosang drainage very slight bile tinge) Extremity: Normal Inspection, Non Tender Neurologic/Psychiatric: Alert, Oriented x3, Normal Mood/Affect Skin: Normal Color, Warm/Dry Assessment/Plan Assessment/Plan Assessment/Plan hollow viscus perforation s/p ex lap, mobilization left colon, ligation of gastroduodenal artery, modified segundo patch sepsis secondary to above anemia due to acute blood loss C-diff Elevated troponin Rheumatoid Arthritis NPO until 06/13 and will get gastrograffin ugi to evaluate for leak IV fluids Continue Abx Wound dressing change tomorrow Pain meds as needed Continue to monitor SCD"s for dvt prophylaxis will not do lovenox due to acute blood loss requiring transfusion of prbc Protonix drip incentive spirometer PT Supervisory-Addendum Brief Verification & Attestation Participated in pt care: history, MDM, physical Personally performed: exam, history, MDM, supervision of care Care discussed with: Medical Student Procedures: n/a Results interpretation: Verified all documentation Verification and Attestation of Medical Student E/M Service A medical student performed and documented this service in my presence. I reviewed and verified all information documented by the medical student and made modifications to such information, when appropriate. I personally performed the physical exam and medical decision making. Fabiola Garcia, Jun 09, 2023,21:00 RAMÓN DIANE Jun 09, 2023 07:13 FABIOLA GARCIA DO Jun 09, 2023 21:00
--- NOTE | 2023-06-09 07:58 | Consultation-Cardiology ---
HPI-Cardiology Cardiology Consultation Date of Consultation 06/09/23 Date of Admission Time Seen by Provider: 07:53 Indication: Non-ST elevation myocardial infarction HPI 73-year-old lady with a recent admission to the hospital for sepsis between May 27 and June 08. She has persistent diarrhea and abdominal pain. She was admitted with sepsis and elevated white count, having abdominal pain, underwent emergency surgery yesterday and noted to have perforated ulcer. She denied any chest pain or shortness of breath. She is receiving treatment for rheumatoid arthritis with methotrexate and Plaquenil. She underwent recently Mohs procedure for nasal cancer she has a flap with tissue bridge extending from her forehead to the anterior aspect of her nose with an open wound from the flap donor site on her frontal scalp. Patient was noted to have mild elevation in troponin which is trending down. Home Medications & Allergies Allergies: Coded Allergies: No Known Drug Allergies (Unverified , 07/22/18) Home Medication List Reviewed: Yes OFB-Fnlhps-Dbyblg Hx Patient Social History Marital Status: Employed/Student: retired Smoking Status: Never a Smoker 2nd Hand Smoke Exposure: No Recent Hopitalizations: No Alcohol Use?: No Immunizations Up To Date Tetanus Booster (TDap): Unknown Date of Influenza Vaccine: May 30, 2018 Past Medical History Discussed below Family Medical History Significant Family History: No Pertinent Family Hx Review of Systems-General Review of Systems Constitutional: see HPI EENTM: no symptoms reported Respiratory: see HPI Cardiovascular: see HPI Gastrointestinal: see HPI Genitourinary: no symptoms reported : No Musculoskeletal: see HPI Skin: see HPI Psychiatric/Neurological: No Symptoms Reported All Other Systems Reviewed Negative Unless Noted: Yes (Negative excepted noted.) Reviewed Test Results Reviewed Test Results Lab Laboratory Tests Test 06/08/23 10:22 06/08/23 10:49 06/08/23 11:19 06/08/23 13:13 Range/Units White Blood Count 2.1 L 4.3-11.0 10^3/uL Red Blood Count 3.47 L 3.80-5.11 10^6/uL Hemoglobin 11.4 L 11.5-16.0 g/dL Hematocrit 34 L 35-52 % Mean Corpuscular Volume 97 80-99 fL Mean Corpuscular Hemoglobin 33 25-34 pg Mean Corpuscular Hemoglobin Concent 34 32-36 g/dL Red Cell Distribution Width 12.8 10.0-14.5 % Platelet Count 444 H 130-400 10^3/uL Mean Platelet Volume 9.0 9.0-12.2 fL Immature Granulocyte % (Auto) 1 % Neutrophils (%) (Auto) 77 H 42-75 % Lymphocytes (%) (Auto) 13 12-44 % Monocytes (%) (Auto) 7 0-12 % Eosinophils (%) (Auto) 1 0-10 % Basophils (%) (Auto) 1 0-10 % Neutrophils # (Auto) 1.6 L 1.8-7.8 10^3/uL Lymphocytes # (Auto) 0.3 L 1.0-4.0 10^3/uL Monocytes # (Auto) 0.1 0.0-1.0 10^3/uL Eosinophils # (Auto) 0.0 0.0-0.3 10^3/uL Basophils # (Auto) 0.0 0.0-0.1 10^3/uL Immature Granulocyte # (Auto) 0.0 0.0-0.1 10^3/uL Prothrombin Time 14.4 12.2-14.7 SEC INR Comment 1.1 0.8-1.4 Activated Partial Thromboplast Time 37 H 24-35 SEC Sodium Level 132 L 135-145 MMOL/L Potassium Level 3.6 3.6-5.0 MMOL/L Chloride Level 100 98-107 MMOL/L Carbon Dioxide Level 20 L 21-32 MMOL/L Anion Gap 12 5-14 MMOL/L Blood Urea Nitrogen 41 H 7-18 MG/DL Creatinine 0.97 0.60-1.30 MG/DL Estimat Glomerular Filtration Rate 61 BUN/Creatinine Ratio 42 Glucose Level 119 H 70-105 MG/DL Lactic Acid Level 0.91 1.14 0.50-2.00 MMOL/L Calcium Level 8.2 L 8.5-10.1 MG/DL Corrected Calcium 9.2 8.5-10.1 MG/DL Total Bilirubin 0.6 0.1-1.0 MG/DL Aspartate Amino Transf (AST/SGOT) 43 H 5-34 U/L Alanine Aminotransferase (ALT/SGPT) 33 0-55 U/L Alkaline Phosphatase 123 40-136 U/L Troponin I 0.548 *H 0.496 *H <0.028 NG/ML C-Reactive Protein High Sensitivity 19.38 H 0.00-0.50 MG/DL Total Protein 5.2 L 6.4-8.2 GM/DL Albumin 2.7 L 3.2-4.5 GM/DL Influenza Type A (RT-PCR) Not Detected Not Detecte Influenza Type B (RT-PCR) Not Detected Not Detecte SARS-CoV-2 RNA (RT-PCR) Not Detected Not Detecte Urine Color YELLOW Urine Clarity CLEAR Urine pH 6.0 5-9 Urine Specific [place] 1.025 H 1.016-1.022 Urine Protein 1+ H NEGATIVE Urine Glucose (UA) NEGATIVE NEGATIVE Urine Ketones 1+ H NEGATIVE Urine Nitrite NEGATIVE NEGATIVE Urine Bilirubin 1+ H NEGATIVE Urine Urobilinogen 0.2 < = 1.0 MG/DL Urine Leukocyte Esterase NEGATIVE NEGATIVE Urine RBC (Auto) TRACE-I H NEGATIVE Urine RBC RARE /HPF Urine WBC RARE /HPF Urine Squamous Epithelial Cells RARE /HPF Urine Crystals PRESENT H /LPF Urine Amorphous Sediment FEW TONI URATES H /LPF Urine Bacteria TRACE /HPF Urine Casts PRESENT /LPF Urine Hyaline Casts 0-2 H /LPF Urine Mucus SMALL H /LPF Urine Culture Indicated CULTURE PENDING Test 06/08/23 16:48 06/08/23 19:53 06/09/23 00:30 06/09/23 04:51 Range/Units White Blood Count 0.9 *L 0.6 *L 4.3-11.0 10^3/uL Red Blood Count 2.49 L 3.20 L 3.80-5.11 10^6/uL Hemoglobin 8.0 #L 10.0 #L 10.1 L 11.5-16.0 g/dL Hematocrit 25 L 30 L 30 L 35-52 % Mean Corpuscular Volume 98 94 80-99 fL Mean Corpuscular Hemoglobin 32 32 25-34 pg Mean Corpuscular Hemoglobin Concent 33 34 32-36 g/dL Red Cell Distribution Width 12.8 14.6 H 10.0-14.5 % Platelet Count 279 270 130-400 10^3/uL Mean Platelet Volume 8.7 L 8.8 L 9.0-12.2 fL Troponin I 0.335 *H 0.226 H <0.028 NG/ML Sodium Level 136 135-145 MMOL/L Potassium Level 4.5 3.6-5.0 MMOL/L Chloride Level 107 98-107 MMOL/L Carbon Dioxide Level 19 L 21-32 MMOL/L Anion Gap 10 5-14 MMOL/L Blood Urea Nitrogen 39 H 7-18 MG/DL Creatinine 0.86 0.60-1.30 MG/DL Estimat Glomerular Filtration Rate 71 BUN/Creatinine Ratio 45 Glucose Level 121 H 70-105 MG/DL Calcium Level 7.4 L 8.5-10.1 MG/DL Magnesium Level 1.6 1.6-2.4 MG/DL Physical Exam Physical Exam Vital Signs Vital Signs - First Documented 06/08/23 06/08/23 10:14 19:00 Temp 37.4 Pulse 103 Resp 18 B/P (MAP) 108/61 (77) Pulse Ox 95 FiO2 50 Capillary Refill : Less Than 3 SecondsGreater Than 3 Seconds Height, Weight, BMI Height: 5'4.00" Weight: 140lbs. oz. 63.576573fc; 28.33 BMI Method:Stated General Appearance: No Apparent Distress, WD/WN Eyes: Bilateral Eye Normal Inspection, Bilateral Eye PERRL, Bilateral Eye EOMI HEENT: PERRL/EOMI, Normal ENT Inspection, Pharynx Normal; No Moist Mucous Membranes Neck: Normal Inspection, Non Tender Respiratory: Chest Non Tender, Lungs Clear, Normal Breath Sounds, No Accessory Muscle Use, No Respiratory Distress Cardiovascular: Regular Rate, Rhythm, No Edema, Systolic Murmur Gastrointestinal: Normal Bowel Sounds, Soft, Distended (mild), Tenderness (diffusely) Back: Normal Inspection, No CVA Tenderness, No Vertebral Tenderness Extremity: Normal Inspection, No Pedal Edema Neurologic/Psychiatric: Alert, No Motor/Sensory Deficits, Normal Mood/Affect, Other (Distracted, cognition dulled) Skin: Normal Color, Warm/Dry Lymphatic: No Adenopathy (Submental, mandibular, and anterior cervical ) A/P-Cardiology Admission Diagnosis Non-ST elevation myocardial infarction Perforated peptic ulcer disease Nasal cancer Sepsis Assessment/Plan Non-ST elevation myocardial infarction, mild elevation in troponin level which is trending down Twelve-lead EKG showed new T wave inversion involving the lateral leads Conservative management is recommended at this point due to her comorbid condition. Perforated peptic ulcer disease, underwent emergency surgery yesterday with Dr. Garcia Recovering well. Status post recent C. 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 Status post recent sepsis Immunosuppression with methotrexate and Plaquenil secondary to rheumatoid arthritis JAZMYN LANZA MD Jun 09, 2023 07:58
--- NOTE | 2023-06-09 09:29 | Tele-ICU Progress Note ---
Subjective Date Seen by a Provider: Jun 09, 2023 Time Seen by a Provider: 12:41 Subjective/Events-last exam (Tele-ICU Physician , Progress Note ) Service provided via interactive audio and video telecommunications E-CARE system to a patient admitted to ICU bed in [facility]. Patient is seen today due to persistent need of ICU care Available chart/ vitals / labs / Images reviewed Video assessment done using teleICU camera, rest of exam as per RN She is a 73-year-old female who was recently treated for diarrhea due to C. difficile colitis and discharged on May 30, 2023. Now presented to the emergency room with a complaint of persistent diarrhea and abdominal pain and a CT of the abdomen and pelvis Gal Tee MD showed free air in the belly. She has a history of rheumatoid arthritis for which she is being on methotrexate and Plaquenil. A surgical consultation was requested and she was taken to the operating room on an emergency basis and an exploratory laparotomy done and found to have a gastric ulcer perforation which was repaired with Greg patch. Postoperatively she was admitted to the intensive care unit. She is extubated and off the vasopressors. However she continues to have a persistent leukopenia and today's white count is 0.6. Otherwise she is awake alert oriented. Impression 1. Perforated gastric ulcer status post emergency repair with exploratory laparotomy 2. Leukopenia severe probably due to sepsis 3. History of rheumatoid arthritis on methotrexate. 4. For type II myocardial infarction for which cardiology following. Recommendations 1. Continue IV antibiotics 2. Continue IV fluid resuscitation 3. We will give Neupogen to boost her white count 4. Continue monitor her white count. Coordination of care with primary care and bedside consultants. Discussed in MDR I am remotely monitoring this patient from Tele icu station in [place]. I am unable to do the bedside exam, and history/physical and pertinent information is taken from other notes in the computer and bedside staff. Certain portions of this document may have been dictated utilizing voice recognition technology such as [employer]. Inherent to this technology, ty pographical and grammatical errors may exist. As much as I am diligent to identify and correct to these mistakes, some errors may remain in the document. Critical care time devoted to this patient today is approximately is 25 minutes-- Sepsis Event Evaluation Height, Weight, BMI Height: 5'4.00" Weight: 140lbs. oz. 63.053218sk; 28.33 BMI Method:Stated Focused Exam Lactate Level 06/08/23 10:22: Lactic Acid Level 0.91 06/08/23 13:13: Lactic Acid Level 1.14 Time of Focused Exam: 13:30 Exam Exam Patient acknowledged, consented, and participated in this virtual visit which was conducted using real time audio/video Vital Signs Date Time Temp Pulse Resp B/P (MAP) Pulse Ox O2 Delivery O2 Flow Rate FiO2 06/09/23 08:00 95 13 100/59 (73) 94 Room Air 06/09/23 07:39 36.3 06/09/23 07:28 86 06/09/23 07:00 85 12 100/59 (73) 96 Room Air 06/09/23 06:00 87 19 104/59 (74) 93 Room Air 06/09/23 05:00 83 21 108/66 (80) 95 Room Air 06/09/23 04:00 83 12 104/62 (76) 94 Room Air 06/09/23 03:00 82 19 95/54 (68) 93 Room Air 06/09/23 02:00 83 11 95/57 (70) 94 Room Air 06/09/23 01:00 78 06/09/23 01:00 78 12 91/60 (70) 98 Face Tent 40.00 06/09/23 00:00 78 12 85/53 (64) 99 Face Tent 40.00 06/08/23 23:00 77 12 88/47 (61) 99 Face Tent 4.00 06/08/23 22:00 80 15 84/48 (60) 100 Face Tent 40.00 06/08/23 22:00 36.9 79 12 90/58 100 Face Tent 40 06/08/23 21:00 82 12 97/58 (71) 99 Face Tent 40.00 06/08/23 20:07 Face Tent 5.00 06/08/23 20:00 86 17 90/54 (66) 100 Face Tent 50.00 06/08/23 19:30 99 Face Tent 50 06/08/23 19:22 36.2 06/08/23 19:20 36.4 95 10 91/62 99 Face Tent 50 06/08/23 19:00 36.3 92 8 91/56 100 Face Tent 50 06/08/23 19:00 93 06/08/23 19:00 93 18 91/55 (67) 100 Face Tent 50.00 06/08/23 18:40 36.1 20 95/61 (72) 98 Face Tent 5.00 06/08/23 18:40 Face Tent 5.00 06/08/23 18:30 Face Tent 5.00 06/08/23 18:30 20 99/63 (75) 93 Face Tent 5.00 06/08/23 18:20 20 93/64 (74) 100 Face Tent 5.00 06/08/23 18:15 Face Tent 5.00 06/08/23 18:10 20 101/63 (76) 99 Face Tent 10.00 06/08/23 18:00 Face Tent 10.00 06/08/23 18:00 20 103/61 (75) 98 Face Tent 10.00 06/08/23 17:50 20 103/61 (75) 99 Face Tent 10.00 06/08/23 17:45 Face Tent 10.00 06/08/23 17:41 Face Tent 10.00 06/08/23 17:41 36.1 20 99/63 (75) 98 Face Tent 10.00 06/08/23 15:15 37.4 96 18 98/59 94 06/08/23 13:14 90 84/45 06/08/23 10:14 37.4 103 18 108/61 (77) 95 I & O 06/09/23 07:00 Intake Total 1200 ml Output Total 815 ml Balance 385 ml Height & Weight Height: 5'4.00" Weight: 140lbs. oz. 63.592583my; 28.33 BMI Method:Stated General Appearance: No Apparent Distress, WD/WN HEENT: PERRL/EOMI, Normal ENT Inspection, Pharynx Normal; No Moist Mucous Membranes Neck: Normal Inspection, Non Tender Respiratory: Chest Non Tender, Lungs Clear, Normal Breath Sounds, No Accessory Muscle Use, No Respiratory Distress Cardiovascular: Regular Rate, Rhythm, No Edema, Systolic Murmur Capillary Refill: Greater Than 3 Seconds (4 seconds) Peripheral Pulses: 1+ Dorsalis Pedis (R), 1+ Left Dors-Pedis (L), 1+ Radial Pulses (R), 1+ Radial Pulses (L) Gastrointestinal: rebound, tenderness (RUQ); No mass; other (mid line incision with left RADHA drain, rigid ) Extremity: Normal Inspection, No Pedal Edema Neurologic/Psychiatric: Alert, No Motor/Sensory Deficits, Normal Mood/Affect, Other (Distracted, cognition dulled) Skin: Normal Color, Warm/Dry Lymphatic: No Adenopathy (Submental, mandibular, and anterior cervical ) Results Lab Laboratory Tests 06/08/23 10:22 06/08/23 16:48 06/09/23 00:30 06/09/23 04:51 Assessment/Plan Assessment/Plan as above Critical Care: Critically Ill Patient Time spent with patient (mins): 25 BLANKA GAVIN MD Jun 09, 2023 09:29
[2023-06-09] MEDS ORDERED: TBO-FILGRASTIM 300 MCG/0.5 ML (GRANIX) SQ SCH (09:30)
[2023-06-09] MEDS: NS IV 1000 ML 1,000 ML IV SCH (09:36)
[2023-06-09] MEDS ORDERED: MULT-1136 PO (11:19)
[2023-06-09] MEDS ORDERED: BIOT25007 PO (11:19)
[2023-06-09] MEDS ORDERED: VANC25SO PO (11:19)
[2023-06-09] MEDS ORDERED: METH2.5T PO (11:19)
[2023-06-09] MEDS ORDERED: MELO15TA39 PO (11:19)
[2023-06-09] MEDS ORDERED: HYDR200T71 PO (11:19)
[2023-06-09] MEDS ORDERED: DIPH1TAB25 PO (11:19)
[2023-06-09] MEDS ORDERED: FAMO20TA5 PO (11:19)
--- NOTE | 2023-06-09 13:15 | Physical Therapy Evaluation ---
PT Evaluation-General Medical Diagnosis Admission Date Jun 08, 2023 at 18:16 Medical Diagnosis: Bowel Perforation Onset Date: Jun 08, 2023 Therapy Diagnosis Therapy Diagnosis: Gait deficit, strength deficit Height/Weight Height (Feet): 5 Height (Inches): 4.00 Weight (Pounds): 140 Precautions Precautions/Isolations: Contact Isolation Weight Bear Status Right Lower Extremity: Right Full Weight Bearing Left Lower Extremity: Left Full Weight Bearing Referral Physician: Dr. Garcia Reason for Referral: Evaluation/Treatment Medical History Pertinent Medical History: Rheumatoid Arthritis Reviewed History: Yes Social History Home: [facility] Current Living Status: Spouse Entry Into Home: Stairs With Railing PT Steps Into Home: 3 PT Steps Inside Home: 15 Prior Prior Level of Function SCALE: Activities may be completed with or without assistive devices. 3-Ktywqhiylj-uhfnmfg completes the activity by him/herself with no assistance from a helper. 5-Set-up or Clean-up Assistance-helper sets up or cleans up; patient completes activity. Duff assists only prior to or following the activity. 4-Supervision or Touching Assistance-helper provides verbal cues and/or touching/steadying and/or contact guard assistance as patient completes activity. Assistance may be provided throughout the activity or intermittently. 3-Partial/Moderate Assistance-helper does LESS THAN HALF the effort. Duff lifts, holds or supports trunk or limbs, but provides less than half the effort. 2-Substantial/Maximal Assistance-helper does MORE THAN HALF the effort. Duff lifts or holds trunk or limbs and provides more than half the effort. 0-Mgpjuosbc-erdiie does ALL the effort. Patient does none of the effort to complete the activity. Or, the assistance of 2 or more helpers is required for the patient to complete the activity. If activity was not attempted, code reason: 7-Patient Refused. 9-Not Applicable-not attempted and the patient did not perform the activity before the current illness, exacerbation or injury. 10-Not Attempted due to Environmental Limitations-(lack of equipment, weather restraints, etc.). 88-Not Attempted due to Medical Conditions or Safety Concerns. Bed Mobility: 6 Transfers (B,C,W/C): 6 Gait: 6 Stairs: 6 Indoor Mobility (Ambulation): Independent Stairs: Independent Prior Devices Use: Manual wheelchair, Walker PT Evaluation-Current Subjective Patient lying supine in bed upon PT arrival, agreeable to treatment. Patient rates pain at 7/10 in her abdomen. Objective Patient Orientation: Person, Place, Time, Situation Attachments: Oxygen, Novak Catheter, IV ROM/Strength ROM Lower Extremities WFLs BLEs all planes Strength Lower Extremities 3+/5 BLEs all planes Sensory Vision: Functional Hearing: Functional Sensation Right Lower Extremit: Intact Sensation Left Lower Extremity: Intact Transfers Roll Left to Right (QC): 3 Sit to Lying (QC): 3 Lying to Sitting/Side of Bed(Q: 3 Sit to Stand (QC): 3 Chair/Lff-so-Wubbd Xfer(QC): 3 Gait Does the Patient Walk?: Yes Mode of Locomotion: Walk Anticipated Mode of Locomotion: Walk Walk 10 feet (QC): 3 Distance: 12' Gait Assistive Device: FWW Balance Sitting Static: Fair Sitting Dynamic: Fair Standing Static: Fair Standing Dynamic: Fair Assessment/Needs Patient demonstrates min/mod A with all bed mobility and transfers. Patient ambulates 12 feet with FWW, with min/mod A and verbal cues for safety, progression, posture and control of FWW. Patient in chair post treatment with all needs met, nursing notified, call light in hand, daughter, physician and nurse in the room. Rehab Potential: Fair PT Long-Term Goals Long-Term Goals PT Long-Term Goals Time Frame: Jun 29, 2023 Roll Left & Right (QC): 6 Sit to Lying (QC): 6 Lying-Sitting on Side/Bed(QC): 6 Sit to Stand (QC): 6 Chair/Aai-xw-Xnedu Xfer(QC): 6 Toilet Transfer (QC): 6 Car Transfer (QC): 6 Does the Patient Walk: Yes Walk 10 feet (QC): 6 Walk 50ft with 2 Turns (QC): 6 Walk 150 ft (QC): 6 1 Step (curb) (QC): 4 4 Steps (QC): 4 12 Steps (QC): 4 PT Plan Problem List Problem List: Activity Tolerance, Functional Strength, Safety, Balance, Gait, Transfer, Bed Mobility, ROM Treatment/Plan Treatment Plan: Continue Plan of Care Treatment Plan: Bed Mobility, Education, Functional Activity Dashawn, Functional Strength, Group Therapy, Gait, Safety, Therapeutic Exercise, Transfers Treatment Duration: Jun 29, 2023 Frequency: 6 times per week Estimated Hrs Per Day: .25 hour per day Patient and/or Family Agrees t: Yes Safety Risks/Education Patient Education: Gait Training, Transfer Techniques Teaching Recipient: Patient Teaching Methods: Demonstration, Discussion Response to Teaching: Verbalize Understanding, Return Demonstration Time Time In: 1117 Time Out: 1147 DATE: Jun 09, 2023 Total Billed Treatment Time: 30 Total Billed Treatment Visit, NALINI, SUMAYA HIGUERA PT Jun 09, 2023 13:15
--- NOTE | 2023-06-09 15:24 | Consultation - Hospitalist ---
HPI History of Present Illness: HPI/Chief Complaint Fabby Ragsdale is a 73 year old female who presented with abdominal pain and was admitted with pneumoperitoneum. She was taken for emergent surgery and was found to have a perforated gastric ulcer with gastroduodenal artery bleed. She was recently hospitalized with C diff. She has continued to have diarrhea since that time, but then developed abdominal pain over the past couple days. They have noticed dark, tarry stools, but they haven't noticed any change recently. She also started to have fevers and chills. She denies chest pain and shortness of breath, but her daughter reminds her that she did have some chest discomfort yesterday. She has a history of GERD but is unsure if she is taking medicine for it. She has been taking Meloxicam for RA. She is also on Methotrexate and Plaquenil. Source: patient, family Exam Limitations: no limitations Date Seen 06/09/23 Attending Physician Mahesh Holloway MD PCP Admitting Physician: Elijah Garcia DO Attending Physician: Elijah Garcia DO Referring Physician Date of Admission Jun 08, 2023 at 18:16 Home Medications & Allergies Home Medications Reviewed patient Home Medication Reconciliation performed by pharmacy medication reconciliations time study technician and/or nursing. Patients Allergies have been reviewed. Allergies Allergies Coded Allergies No Known Drug Allergies (Ebnbnrmrlj75/23/18) Past Nnsupoa-Ybgyir-Lrqlqv Hx Patient Social History Marrital Status: Employed/Student: retired Tobacco Use?: No Smoking Status: Never a Smoker Use of E-Cig and/or Vaping dev: No Substance use?: No Alcohol Use?: No Pt feels they are or have been: Unable to obtain Immunizations Up To Date Date of Influenza Vaccine: May 30, 2018 Tetanus Booster (TDap): Unknown Seasonal Allergies Seasonal Allergies: No Current Status status: No status: No Advance Directives: Yes Advance Directive Location: Home Communicates: Verbally Primary Language: Swiss Preferred Spoken Language: Swiss Is interpretation needed?: No Sensory deficits: Vision impairment Implanted or Applied Medical D: None Past Medical History Surgeries: Section, Tonsillectomy Currently Using CPAP: No 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: Menopausal C-Diff Rheumatoid Arthritis Did You Recieve Any Treatments: Yes What Type of Treatment Did You: Surgical Intervention Family Medical History No Pertinent Family Hx Review of Systems Constitutional: chills, fever, weakness Respiratory: no symptoms reported Cardiovascular: chest pain Gastrointestinal: abdominal pain, diarrhea Physical Exam Physical Exam Vital Signs Vital Signs - First Documented 06/08/23 06/08/23 10:14 19:00 Temp 37.4 Pulse 103 Resp 18 B/P (MAP) 108/61 (77) Pulse Ox 95 FiO2 50 Capillary Refill : Less Than 3 SecondsGreater Than 3 Seconds Height, Weight, BMI Height: 5'4.00" Weight: 140lbs. oz. 63.483981se; 28.33 BMI Method:Stated General Appearance: No Apparent Distress, WD/WN Eyes: Bilateral Eye Normal Inspection, Bilateral Eye PERRL, Bilateral Eye EOMI HEENT: PERRL/EOMI, Pharynx Normal Neck: Normal Inspection, Supple Respiratory: Chest Non Tender, Lungs Clear, Normal Breath Sounds, No Accessory Muscle Use, No Respiratory Distress Cardiovascular: Regular Rate, Rhythm, No Edema Gastrointestinal: Normal Bowel Sounds, Soft, Tenderness Extremity: Normal Inspection, Non Tender, No Pedal Edema Neurologic/Psychiatric: Alert, No Motor/Sensory Deficits, Normal Mood/Affect, Other (Distracted, cognition dulled) Skin: Normal Color, Warm/Dry Results Results/Procedures Labs Laboratory Tests 06/08/23 10:22 06/08/23 16:48 06/09/23 00:30 06/09/23 04:51 Patient resulted labs reviewed. Imaging: Reviewed Imaging Report Assessment/Plan Assessment and Plan Assess & Plan/Chief Complaint Perforated gastric ulcer with hemorrhage Gastroduodenal artery bleed Acute blood loss anemia Hemorrhagic shock Chronic NSAID use Neutropenia Surgery primary s/p ex lap s/p 1 unit PRBC Hemoglobin stable BP improved IV PPI Stop Meloxicam Receiving Zosyn and Flagyl NPO IV fluids TeleICU following Granix ordered History of C diff infection Check stool for C diff Flagyl RA Immunocompromised Hold home meds Critical Care Critically Ill Patient Diagnosis/Problems Diagnosis/Problems (1) Acute perforated gastric ulcer with hemorrhage Status: Acute (2) Gastroduodenal artery bleed Status: Acute (3) termination clerk current use of non-steroidal anti-inflammatories (NSAID) Status: Acute (4) GERD (gastroesophageal reflux disease) Status: Chronic (5) ABLA (acute blood loss anemia) Status: Acute (6) Hemorrhagic shock Status: Acute (7) NSTEMI (non-ST elevation myocardial infarction) Status: Acute (8) Immunocompromised Status: Chronic (9) Rheumatoid arthritis Status: Chronic (10) History of Clostridium difficile infection Status: Chronic DAMION SALAZAR MD Jun 09, 2023 15:24
[2023-06-09] MEDS: PANTOPRAZOLE INJECTION 200 MG in NS (IVPB) 100 ML 100 ML IV SCH (18:03)
--- NOTE | 2023-06-10 02:39 | OPERATIVE REPORT ---
DATE OF SERVICE: 06/08/2023 PREOPERATIVE DIAGNOSIS: Hollow viscus perforation. POSTOPERATIVE DIAGNOSIS: Perforated gastric pyloric ulcer with bleeding gastroduodenal artery. SURGEON: Elijah Garcia DO COUNTRY SINGER: Barron Yancey DO. Dr. Yancey assisted in retraction, dissection, and closure. ANESTHESIA: General. ESTIMATED BLOOD LOSS: 50 mL. COMPLICATIONS: None. PROCEDURE: Ultrasound-guided right internal jugular vein central line placement, exploratory laparotomy, mobilization of left colon, ligation of gastroduodenal artery, biopsy of ulcer, modified Greg patch. INDICATIONS: The patient is a 73-year-old female who presented to emergency department for evaluation. She has had recent C. diff colitis and was found to have pneumoperitoneum consistent with hollow viscus perforation. She is septic. She was requiring pressors. She was resuscitated and also with elevated troponin. The patient and family understand all risks and benefits of procedure and also discuss with Dr. Ferreira and patient family wished to proceed. Consent was signed on the chart. DESCRIPTION OF PROCEDURE: The patient was taken to the operating suite. She was prepped and draped in sterile fashion for central line placement. Timeout was performed. Ultrasound was used to find the right internal jugular vein and was used during access. The right internal jugular vein was accessed. Dark nonpulsatile blood was withdrawn. The wire was inserted through the needle and the needle was removed. An 11 blade scalpel was used to make a small skin incision. Dilator was advanced over the wire. The wire was removed. The triple lumen catheter was inserted over the wire and the wire was removed. We will ports were accessed and flushed without difficulty. The catheter was then secured in the usual fashion. Area was washed and dried and sterile bandage was applied. The patient's abdomen was then prepped and draped in a sterile fashion. Timeout was performed. A midline incision was made just inferior to the umbilicus. There is air in the abdomen, but no gross contamination. Sigmoid colon was then brought up for by the CT scan suggested that possibly had a sigmoid perforation to the left colon was mobilized. Never saw any perforation, after inspection and mobilization of the left colon, along the white line of Toldt. There were some adhesions down into the uterus, which cautery was used to remove these. The abdomen was continued to be inspected. The stomach at the pylorus was visualized with a large ulcer with perforation. The area had some bile-tinged fluid around the area as well. The midline incision was then opened superiorly, where repair to be performed. A biopsy of the ulcer edge was obtained prior to this, there the ulcer had eroded into the gastroduodenal artery, which had a small hole in it, which was bleeding. This was ligated using 0 Vicryl. The hemostasis was achieved. 0 Vicryl was then used to close the perforation with a simple interrupted. The overall dimension of the ulceration that had to be closed was approximately 4 cm. After these were all placed, these were tied down and then a tongue of omentum was created and then placed over this area between the suture tails and this was then tied down to secure the omentum to the closure of the ulcer. The gallbladder was also distended, but had normal appearance. No other pathology noted within the abdomen. The fascia was then closed using 1-0 looped PDS, after a 19 Eleazar drain was placed at the site of the Greg patch repair. This was brought out through an incision in the left side of the abdomen. Once the fascia was then closed, the wound was irrigated as well. The skin was then closed using castillo. The patient was taken to recovery room and chest x-ray pending and will be continued to be watched in the intensive care unit and maintained n.p.o. During the case, Dr. Yancey, assisted in retracting the stomach, assisted in helping mobilize the left colon, helped maintain visualization to assist in ligation of the gastroduodenal artery as well as assisting during the entire case. Job ID: [id number] DocumentID: [id number] Dictated Date: 06/09/2023 21:43:12 Supervisor Whipped Topping Date: 06/10/2023 02:37:00 Dictated By: DO MOIRA BERTRAND
[2023-06-10] MEDS: PIPERACILLIN/Tazobactam 4.5 GM in NS (IVPB) 100 ML 100 ML IV SCH ×3 (03:05→19:04)
[2023-06-10] MEDS: LACTATED RINGERS 1,000 ML 1,000 ML IV SCH ×2 (03:05→10:09)
[2023-06-10 04:38] LABS: BASOPHILS # (AUTO) 0.1 10^3/uL (0.0-0.1); BASOPHILS % (AUTO) 1 % (0-10); EOSINOPHILS % (AUTO) 0 % (0-10); HEMATOCRIT 27 % (35-52); HEMOGLOBIN 9.2 g/dL (11.5-16.0); LYMPHOCYTES # (AUTO) 0.1 10^3/uL (1.0-4.0); LYMPHOCYTES % (AUTO) 2 % (12-44); MEAN CORPUSCULAR HEMOGLOBIN 32 pg (25-34); MEAN CORPUSCULAR HGB CONC 34 g/dL (32-36); MEAN CORPUSCULAR VOLUME 94 fL (80-99); MEAN PLATELET VOLUME 8.9 fL (9.0-12.2); MONOCYTES # (AUTO) 0.1 10^3/uL (0.0-1.0); MONOCYTES % (AUTO) 1 % (0-12); NEUTROPHILS # (AUTO) 6.7 10^3/uL (1.8-7.8); NEUTROPHILS % (AUTO) 89 % (42-75); PLATELET COUNT 232 10^3/uL (130-400); WHITE BLOOD COUNT 7.5 10^3/uL (4.3-11.0)
[2023-06-10 04:50] LABS: POTASSIUM 4.2 MMOL/L (3.6-5.0)
[2023-06-10 04:52] LABS: CALCIUM 7.8 MG/DL (8.5-10.1)
[2023-06-10 04:55] LABS: BILIRUBIN,TOTAL 0.8 MG/DL (0.1-1.0)
[2023-06-10 04:56] LABS: PHOSPHORUS 2.7 MG/DL (2.3-4.7)
[2023-06-10 04:57] LABS: CREATININE SERUM 0.82 MG/DL (0.60-1.30)
[2023-06-10 04:59] LABS: MAGNESIUM 2.6 MG/DL (1.6-2.4)
[2023-06-10] MEDS: metroNIDAZOLE 500MG/100ML IVPB 100 ML IV SCH ×3 (05:43→22:08)
--- NOTE | 2023-06-10 06:57 | Progress Note - Surgery ---
RAMÓN DIANE 06/10/23 0657: Subjective Date Seen by a Provider: Jun 10, 2023 Time Seen by a Provider: 06:40 Subjective/Events-last exam Patient states she is doing better than yesterday. Is still having abdominal discomfort & pain on palpation in the upper quadrants; however, patient is doing well with the pain. Incision is sore and dressing will need to be changed today. Drainage is serosanguineous with no blood or bile & produced 70 ml over past 12 hours. WBC is up to 7.5 after pt. was given Granix. Hgb has dropped from 10.1 to 9.2, but patient denies any dizziness. Urine output is 0.72 ml/kg/hr. NPO, still experiencing dry mouth. Denies any chest pain, fever, chills, SOB. Review of Systems General: No Chills, No Night Sweats HEENT: No Head Aches, No Visual Changes Pulmonary: No Dyspnea, No Cough Cardiovascular: No: Chest Pain, Palpitations Gastrointestinal: Abdominal Pain; No: Nausea, Vomiting Genitourinary: No Dysuria, No Frequency Musculoskeletal: No: neck pain, leg pain Neurological: No: Weakness, Confusion Focused Exam Lactate Level 06/08/23 10:22: Lactic Acid Level 0.91 06/08/23 13:13: Lactic Acid Level 1.14 Time of Focused Exam: 13:30 Objective Exam Vital Signs Date Time Temp Pulse Resp B/P (MAP) Pulse Ox O2 Delivery O2 Flow Rate FiO2 06/10/23 06:00 79 9 109/61 (77) 95 Room Air 06/10/23 05:00 77 11 105/63 (77) 95 Room Air 06/10/23 04:00 36.8 06/10/23 04:00 97 Room Air 06/10/23 04:00 82 13 111/57 (75) 95 Room Air 06/10/23 03:00 81 18 106/62 (77) 93 Room Air 06/10/23 02:00 85 27 110/58 (75) 92 Room Air 06/10/23 01:00 87 06/10/23 01:00 86 10 104/59 (74) 92 Room Air 06/10/23 00:00 92 13 115/66 (82) 94 Room Air 06/10/23 00:00 97 Room Air 06/09/23 23:00 85 9 99/51 (67) 92 Room Air 06/09/23 22:00 86 9 109/56 (73) 92 Room Air 06/09/23 21:00 90 16 107/59 (75) 91 Room Air 06/09/23 20:00 97 Room Air 06/09/23 20:00 88 15 107/57 (74) 91 Room Air 06/09/23 19:43 36.2 06/09/23 19:00 88 12 110/61 (77) 94 Room Air 06/09/23 19:00 90 06/09/23 18:00 88 12 110/61 (77) 92 Room Air 06/09/23 17:00 87 18 112/63 (79) 92 Room Air 06/09/23 16:01 36.7 06/09/23 16:00 85 113/65 (81) 94 Room Air 06/09/23 15:00 82 113/64 (80) 94 Room Air 06/09/23 14:00 85 11 103/61 (75) 93 Room Air 06/09/23 13:00 85 11 110/61 (77) 94 Room Air 06/09/23 13:00 85 06/09/23 11:43 36.5 06/09/23 11:00 85 10 110/60 (77) 91 Room Air 06/09/23 10:00 84 9 109/58 (75) 92 Room Air 06/09/23 09:00 87 14 105/58 (74) 95 Room Air 06/09/23 08:00 95 13 100/59 (73) 94 Room Air 06/09/23 07:39 36.3 06/09/23 07:28 86 06/09/23 07:00 85 12 100/59 (73) 96 Room Air I & O 06/10/23 07:00 Intake Total 0 ml Output Total 1190 ml Balance -1190 ml Capillary Refill : Less Than 3 SecondsGreater Than 3 Seconds General Appearance: No Apparent Distress, Chronically ill HEENT: PERRL/EOMI, Normal ENT Inspection, Other (skin flap forhead to nose, open wound superior par of incision) Neck: Normal Inspection, Non Tender Respiratory: Chest Non Tender, No Accessory Muscle Use, No Respiratory Distress Cardiovascular: Regular Rate, Rhythm, No JVD Peripheral Pulses: 2+ Dorsalis Pedis (R), 2+ Left Dors-Pedis (L); 1+ Radial Pulses (R), 1+ Radial Pulses (L) Gastrointestinal: No rebound; tenderness (Upper quadrants), other (mid line incision with left RADHA drain, serosang drainage) Extremity: Normal Inspection, Non Tender Neurologic/Psychiatric: Alert, Oriented x3, Normal Mood/Affect Skin: Normal Color, Warm/Dry Lymphatic: No Adenopathy (Mental, submandibular, & anterior cervical ) Results Lab Laboratory Tests 06/10/23 04:30: White Blood Count 7.5, Red Blood Count 2.87L, Hemoglobin 9.2L, Hematocrit 27L, Mean Corpuscular Volume 94, Mean Corpuscular Hemoglobin 32, Mean Corpuscular Hemoglobin Concent 34, Red Cell Distribution Width 14.6H, Platelet Count 232, Mean Platelet Volume 8.9L, Immature Granulocyte % (Auto) 8, Neutrophils (%) (Auto) 89H, Lymphocytes (%) (Auto) 2L, Monocytes (%) (Auto) 1, Eosinophils (%) (Auto) 0, Basophils (%) (Auto) 1, Neutrophils # (Auto) 6.7, Lymphocytes # (Auto) 0.1L, Monocytes # (Auto) 0.1, Eosinophils # (Auto) 0.0, Basophils # (Auto) 0.1, Immature Granulocyte # (Auto) 0.6H, Sodium Level 138, Potassium Level 4.2, Chloride Level 108H, Carbon Dioxide Level 21, Anion Gap 9, Blood Urea Nitrogen 37H, Creatinine 0.82, Estimat Glomerular Filtration Rate 75, BUN/Creatinine Ratio 45, Glucose Level 109H, Calcium Level 7.8L, Corrected Calcium 9.4, Phosphorus Level 2.7, Magnesium Level 2.6H, Total Bilirubin 0.8, Aspartate Amino Transf (AST/SGOT) 25, Alanine Aminotransferase (ALT/SGPT) 33, Alkaline Lily sphatase 99, Total Protein 4.0L, Albumin 2.0L Microbiology 06/08/23 Urine Culture - Final, Complete NO GROWTH 06/08/23 Blood Culture - Preliminary, Resulted Assessment/Plan Assessment/Plan Assessment/Plan hollow viscus perforation s/p ex lap, mobilization left colon, ligation of gastroduodenal artery, modified segundo patch sepsis secondary to above anemia due to acute blood loss C-diff Elevated troponin Rheumatoid Arthritis NPO until 06/13 and will get gastrograffin ugi to evaluate for leak IV fluids Continue Abx Wound dressing change today Pain meds as needed Continue to monitor FABIOLA GARCIA DO 06/10/23 1448: Subjective Subjective/Events-last exam Pain controlled. NPO. Feeling better. RADHA serosang. No diarrhea. Using IS better than yesterday. Denies n/v fever sweats chills shortness of breath or chest pain. Hgb 9.2 Objective Exam General Appearance: No Apparent Distress, Chronically ill HEENT: PERRL/EOMI, Other (skin flap forhead to nose, open wound superior par of incision) Neck: Normal Inspection, Non Tender Respiratory: Chest Non Tender, No Accessory Muscle Use, No Respiratory Distress Cardiovascular: Regular Rate, Rhythm, No JVD Gastrointestinal: tenderness (incisional), other (mid line incision with left RADHA drain, serosang drainage, no signs of infection) Extremity: Normal Inspection, Non Tender Neurologic/Psychiatric: Alert, Oriented x3 Skin: Normal Color, Warm/Dry Lymphatic: No Adenopathy (Mental, submandibular, & anterior cervical ) Assessment/Plan Assessment/Plan Assessment/Plan hollow viscus perforation s/p ex lap, mobilization left colon, ligation of gastroduodenal artery, modified segundo patch sepsis secondary to above anemia due to acute blood loss C-diff Elevated tumfvvxl-HQIBRH-yoykrxyrwb consulted Rheumatoid Arthritis NPO until 06/13 and will get gastrograffin ugi to evaluate for leak IV fluids Continue Abx Pain meds as needed Continue to monitor transfer to floor remove amrik Supervisory-Addendum Brief Verification & Attestation Participated in pt care: history, MDM, physical Personally performed: exam, history, MDM, supervision of care Care discussed with: Medical Student Procedures: n/a Results interpretation: Verified all documentation Verification and Attestation of Medical Student E/M Service A medical student performed and documented this service in my presence. I reviewed and verified all information documented by the medical student and made modifications to such information, when appropriate. I personally performed the physical exam and medical decision making. Fabiola Garcia, Jun 10, 2023,14:48 RAMÓN DIANE Jun 10, 2023 06:57 FABIOLA GARCIA DO Jun 10, 2023 14:48
--- NOTE | 2023-06-10 08:13 | Cardiology Progress Note ---
Subjective Date Seen by Provider: Jun 10, 2023 Time Seen by Provider: 08:11 Subjective/Events-last exam Patient was seen at bedside, laying down comfortably, feeling better. No new complaint. Denied any chest pain. Focused Exam Lactate Level 06/08/23 10:22: Lactic Acid Level 0.91 06/08/23 13:13: Lactic Acid Level 1.14 Time of Focused Exam: 13:30 Objective-Cardiology Exam Last Set of Vital Signs Vital Signs 06/08/23 06/09/23 06/10/23 06/10/23 06/10/23 22:00 01:00 06:00 07:39 08:00 Temp 36.1 Pulse 82 Resp 9 B/P (MAP) 109/61 (77) Pulse Ox 95 O2 Delivery Room Air O2 Flow Rate 40.00 FiO2 40 I&O l Intake and Output 06/10/23 00:00 Intake Total 0 ml Output Total 1000 ml Balance -1000 ml Intake Oral 0 ml Output Urine Total 900 ml Drainage Total 100 ml General: Alert, Oriented X3, Cooperative HEENT: Atraumatic, PERRLA Neck: Supple, No JVD, No Thyromegaly Lungs: Clear to Auscultation, Normal Air Movement Heart: Regular Rate, Normal S1, Normal S2, No Murmurs Abdomen: Normal Bowel Sounds, Soft, No Tenderness, No Hepatosplenomegaly, No Masses Extremities: No Clubbing, No Cyanosis, No Edema, Normal Pulses, No Tenderness/Swelling Skin: No Rashes, No Breakdown, No Significant Lesion Neuro: Normal Gait, Normal Speech, Strength at 5/5 X4 Ext, Normal Tone, Sensation Intact Psych/Mental Status: Mental Status NL, Mood NL Results Lab Laboratory Tests 06/10/23 04:30 A/P-Cardiology Admission Diagnosis Non-ST elevation myocardial infarction Perforated peptic ulcer disease Nasal cancer Sepsis Assessment/Plan Non-ST elevation myocardial infarction, mild elevation in troponin level which is trending down Repeat EKG was done on June 10, 2023 showing left ventricular hypertrophy with persistent T wave inversion in the lateral leads. Cannot tolerate oral anticoagulation at this time. Conservative management is recommended, Arrange for follow-up as an outpatient Perforated peptic ulcer disease, underwent emergency surgery yesterday with Dr. Garcia Recovering well. Status post recent C. 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 Status post recent sepsis Immunosuppression with methotrexate and Plaquenil secondary to rheumatoid arthritis I will sign off at this point, please arrange for follow-up as an outpatient in 2 weeks, JAZMYN LANZA MD Jun 10, 2023 08:13
--- NOTE | 2023-06-10 08:50 | Physical Therapy Daily Note ---
PT Daily Note-Current Subjective Pt found lying supine in bed upon entry. Agreed to PT. Reports pain in abdomen but does not rate. Pt's son enters room near end of visit. Pain Section J - Health Conditions 1. Rarely or not at all 2. Occasionally 3. Frequently 4. Almost constantly 8. Unable to answer Pain Effect on Sleep: 1 Pain Interference with Therapy: 1 Pain Interference w/Day-to-Day: 1 Mental Status Patient Orientation: Person, Place Attachments: Oxygen, Novak Catheter, IV Transfers SCALE: Activities may be completed with or without assistive devices. 6-Hwoxuqyxsm-hjbvsrm completes the activity by him/herself with no assistance from a helper. 5-Set-up or Clean-up Assistance-helper sets up or cleans up; patient completes activity. [place] assists only prior to or following the activity. 4-Supervision or Touching Assistance-helper provides verbal cues and/or touching/steadying and/or contact guard assistance as patient completes activity. Assistance may be provided throughout the activity or intermittently. 3-Partial/Moderate Assistance-helper does LESS THAN HALF the effort. [place] lifts, holds or supports trunk or limbs, but provides less than half the effort. 2-Substantial/Maximal Assistance-helper does MORE THAN HALF the effort. [place] lifts or holds trunk or limbs and provides more than half the effort. 1-Duzlljrda-cerdvs does ALL the effort. Patient does none of the effort to complete the activity. Or, the assistance of 2 or more helpers is required for the patient to complete the activity. If activity was not attempted, code reason: 7-Patient Refused. 9-Not Applicable-not attempted and the patient did not perform the activity before the current illness, exacerbation or injury. 10-Not Attempted due to Environmental Limitations-(lack of equipment, weather restraints, etc.). 88-Not Attempted due to Medical Conditions or Safety Concerns. Sit to Lying (QC): 3 Lying to Sitting/Side of Bed(Q: 3 Sit to Stand (QC): 4 Weight Bearing Right Lower Extremity: Right Full Weight Bearing Left Lower Extremity: Left Full Weight Bearing Gait Training Does the Patient Walk?: Yes Distance: 15 Walk 10 feet (QC): 4 Gait Persons Needed: 1 Gait Assistive Device: FWW Assessment Current Status: Fair Progress Pt performs lying to sitting transfer /c MIN hand held assistance for trunk lifting. Sit to stand transfer performed /c CGA for safety due to strength deficits. Verbal cues for proper hand placement prior to transfer. Pt ambulated /c use of FWW and required CGA for safety due to strength deficits. Ambulates 15 feet around room /c no loss of balance displayed. Demonstrates slow gait pattern /c slightly forward head posture. Pt then performed lying to sitting transfer /c MIN assistance for LE lifting. Pt positioned supine in bed /c HOB elevated. All lines in place, call light in place, son and HYDROELECTRIC COMPONENT MACHINIST present, and all needs met post-treatment. Continue to progress pt per POC. PT Lay Up Operator Goals Lay Up Operator Goals PT Lay Up Operator Goals Time Frame: Jun 29, 2023 Roll Left & Right (QC): 6 Sit to Lying (QC): 6 Lying-Sitting on Side/Bed(QC): 6 Sit to Stand (QC): 6 Chair/Rha-sk-Afmtu Xfer(QC): 6 Toilet Transfer (QC): 6 Car Transfer (QC): 6 Does the Patient Walk: Yes Walk 10 feet (QC): 6 Walk 50ft with 2 Turns (QC): 6 Walk 150 ft (QC): 6 1 Step (curb) (QC): 4 4 Steps (QC): 4 12 Steps (QC): 4 PT Plan Treatment/Plan Treatment Plan: Continue Plan of Care Treatment Plan: Bed Mobility, Education, Functional Activity Dashawn, Functional Strength, Group Therapy, Gait, Safety, Therapeutic Exercise, Transfers Treatment Duration: Jun 29, 2023 Frequency: 6 times per week Estimated Hrs Per Day: .25 hour per day Patient and/or Family Agrees t: Yes Time Time In: 810 Time Out: 841 DATE: Jun 10, 2023 Total Billed Treatment Time: 31 Total Billed Treatment 1 visit GT x 1 FA x 1 REI ROYAL BALANCE WHEEL MOTION INSPECTOR Jun 10, 2023 08:50
[2023-06-10] MEDS ORDERED: TBO-FILGRASTIM 300 MCG/0.5 ML (GRANIX) SQ SCH (09:00)
[2023-06-10] MEDS: D5 1/2NS + KCL 20 MEQ/L 1000ML 1,000 ML IV SCH ×2 (10:57→19:05)
--- NOTE | 2023-06-10 11:30 | Tele-ICU Progress Note ---
Subjective Date Seen by a Provider: Jun 10, 2023 Time Seen by a Provider: 11:27 Subjective/Events-last exam Tele-ICU Physician , Progress Note ) Service provided via interactive audio and video telecommunications [employer] s roseannte to a patient admitted to ICU bed in [facility]. Patient is seen today due to persistent need of ICU care Available chart/ vitals / labs / Images reviewed Video assessment done using teleICU camera, rest of exam as per RN She is a 73-year-old female who was recently treated for diarrhea due to C. difficile colitis and discharged on May 30, 2023. Now presented to the emergency room with a complaint of persistent diarrhea and abdominal pain and a CT of the abdomen and pelvis Gal Tee MD showed free air in the belly. She has a history of rheumatoid arthritis for which she is being on methotrexate and Plaquenil. A surgical consultation was requested and she was taken to the operating room on an emergency basis and an exploratory laparotomy done and found to have a gastric ulcer perforation which was repaired with Greg patch. Postoperatively she was admitted to the intensive care unit. She is extubated and off the vasopressors. However she continues to have a persistent leukopenia and today's white count is 0.6. Otherwise she is awake alert oriented. 06/10/23 today pt in disress. wbc count increased to 7.5 hb slightly low at 9.2 Impression 1. Perforated gastric ulcer status post emergency repair with exploratory laparotomy 2. Leukopenia severe probably due to sepsis improving 3. History of rheumatoid arthritis on methotrexate. 4. For type II myocardial infarction for which cardiology following. Recommendations 1. Continue IV antibiotics 2. Continue IV fluid resuscitation 3. We will give Neupogen to boost her white count today also and then D/c 4. Continue monitor her white count. Coordination of care with primary care and bedside consultants. Discussed in MDR I am remotely monitoring this patient from Tele icu station in [place]. I am unable to do the bedside exam, and history/physical and pertinent information is taken from other notes in the computer and bedside staff. Certain portions of this document may have been dictated utilizing voice recognition technology such as Yobble. Inherent to this technology, typographical and grammatical errors may exist. As much as I am diligent to identify and correct to these mistakes, some errors may remain in the document. Critical care time devoted to this patient today is approximately is 15 minutes-- Sepsis Event Evaluation Height, Weight, BMI Height: 5'4.00" Weight: 140lbs. oz. [id number]; 28.33 BMI Method:Stated Focused Exam Lactate Level 06/08/23 10:22: Lactic Acid Level 0.91 06/08/23 13:13: Lactic Acid Level 1.14 Time of Focused Exam: 13:30 Exam Exam Patient acknowledged, consented, and participated in this virtual visit which was conducted using real time audio/video Vital Signs Date Time Temp Pulse Resp B/P (MAP) Pulse Ox O2 Delivery O2 Flow Rate FiO2 06/10/23 11:00 75 6 109/63 (78) 96 Room Air 06/10/23 10:00 82 22 120/60 (80) 98 Room Air 06/10/23 09:00 81 20 126/63 (84) 95 Room Air 06/10/23 08:00 36.1 06/10/23 08:00 82 22 116/65 (82) 95 Room Air 06/10/23 08:00 95 Room Air 06/10/23 07:39 82 06/10/23 07:00 79 8 107/61 (76) 95 Room Air 06/10/23 06:00 79 9 109/61 (77) 95 Room Air 06/10/23 05:00 77 11 105/63 (77) 95 Room Air 06/10/23 04:00 36.8 06/10/23 04:00 97 Room Air 06/10/23 04:00 82 13 111/57 (75) 95 Room Air 06/10/23 03:00 81 18 106/62 (77) 93 Room Air 06/10/23 02:00 85 27 110/58 (75) 92 Room Air 06/10/23 01:00 87 06/10/23 01:00 86 10 104/59 (74) 92 Room Air 06/10/23 00:00 92 13 115/66 (82) 94 Room Air 06/10/23 00:00 97 Room Air 06/09/23 23:00 85 9 99/51 (67) 92 Room Air 06/09/23 22:00 86 9 109/56 (73) 92 Room Air 06/09/23 21:00 90 16 107/59 (75) 91 Room Air 06/09/23 20:00 97 Room Air 06/09/23 20:00 88 15 107/57 (74) 91 Room Air 06/09/23 19:43 36.2 06/09/23 19:00 88 12 110/61 (77) 94 Room Air 06/09/23 19:00 90 06/09/23 18:00 88 12 110/61 (77) 92 Room Air 06/09/23 17:00 87 18 112/63 (79) 92 Room Air 06/09/23 16:01 36.7 06/09/23 16:00 85 113/65 (81) 94 Room Air 06/09/23 16:00 95 Room Air 06/09/23 15:00 82 113/64 (80) 94 Room Air 06/09/23 14:00 85 11 103/61 (75) 93 Room Air 06/09/23 13:00 85 11 110/61 (77) 94 Room Air 06/09/23 13:00 85 06/09/23 12:00 96 Room Air 06/09/23 11:43 36.5 I & O 06/10/23 07:00 Intake Total 0 ml Output Total 1190 ml Balance -1190 ml Height & Weight Height: 5'4.00" Weight: 140lbs. oz. 63.458875wp; 28.33 BMI Method:Stated General Appearance: No Apparent Distress, Chronically ill HEENT: PERRL/EOMI, Normal ENT Inspection, Other (skin flap forhead to nose, open wound superior par of incision) Neck: Normal Inspection, Non Tender Respiratory: Chest Non Tender, No Accessory Muscle Use, No Respiratory Distress Cardiovascular: Regular Rate, Rhythm, No JVD Capillary Refill: Greater Than 3 Seconds (4 seconds) Peripheral Pulses: 2+ Dorsalis Pedis (R), 2+ Left Dors-Pedis (L); 1+ Radial Pulses (R), 1+ Radial Pulses (L) Gastrointestinal: No rebound; tenderness (Upper quadrants), other (mid line incision with left RADHA drain, serosang drainage) Extremity: Normal Inspection, Non Tender Neurologic/Psychiatric: Alert, Oriented x3, Normal Mood/Affect Skin: Normal Color, Warm/Dry Lymphatic: No Adenopathy (Mental, submandibular, & anterior cervical ) Results Lab Laboratory Tests 06/08/23 16:48 06/09/23 00:30 06/09/23 04:51 06/10/23 04:30 Assessment/Plan Assessment/Plan as above Critical Care: Critically Ill Patient Time spent with patient (mins): 15 BLANKA GAVIN MD Jun 10, 2023 11:30
--- NOTE | 2023-06-10 15:28 | Progress Note - Hospitalist ---
Subjective HPI/CC On Admission Date Seen by Provider: Jun 10, 2023 Time Seen by Provider: 10:45 Fabby Ragsdale is a 73 year old female who presented with abdominal pain and was admitted with pneumoperitoneum. She was taken for emergent surgery and was found to have a perforated gastric ulcer with gastroduodenal artery bleed. She was re cently hospitalized with C diff. She has continued to have diarrhea since that time, but then developed abdominal pain over the past couple days. They have noticed dark, tarry stools, but they haven't noticed any change recently. She also started to have fevers and chills. She denies chest pain and shortness of breath, but her daughter reminds her that she did have some chest discomfort yesterday. She has a history of GERD but is unsure if she is taking medicine for it. She has been taking Meloxicam for RA. She is also on Methotrexate and Plaquenil. Subjective/Events-last exam She is feeling better. Her pain is improved. She seems to be in good spirits. She has no complaints. Focused Exam Lactate Level 06/08/23 10:22: Lactic Acid Level 0.91 06/08/23 13:13: Lactic Acid Level 1.14 Time of Focused Exam: 13:30 Objective Exam Vital Signs Vital Signs Date Time Temp Pulse Resp B/P (MAP) Pulse Ox O2 Delivery O2 Flow Rate FiO2 06/10/23 14:30 36.3 78 18 118/67 (84) 96 Room Air 06/09/23 01:00 40.00 06/08/23 22:00 40 Capillary Refill : Less Than 3 SecondsGreater Than 3 Seconds General Appearance: No Apparent Distress, WD/WN Respiratory: Lungs Clear, No Respiratory Distress Cardiovascular: Regular Rate, Rhythm, No Murmur Gastrointestinal: Soft, Abnormal Bowel Sounds, Tenderness Extremity: Normal Inspection, Pedal Edema, Swelling Neurologic/Psychiatric: Alert, Normal Mood/Affect Results/Procedures Lab Laboratory Tests 06/10/23 04:30 Patient resulted labs reviewed. Imaging: Reviewed Imaging Report Assessment/Plan Assessment and Plan Assess & Plan/Chief Complaint Perforated gastric ulcer with hemorrhage Gastroduodenal artery bleed Acute blood loss anemia Chronic NSAID use Surgery primary s/p ex lap s/p 1 unit PRBC Hemoglobin stable IV PPI Stop Meloxicam Receiving Zosyn and Flagyl NPO Decrease IV fluids NSTEMI Cardiology following Conservative medical management recommended Follow up with Dr. 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
[2023-06-10 16:25] VITALS: BP 99/66
--- NOTE | 2023-06-10 18:17 | Physician Query-Final Dx ---
Final Diagnosis Give Final Diagnosis Please give Final Diagnosis The medical record reflects the following clinical evidence: Clinical Indicators: RR 24 on admission, documentation of shortness of air with exertion on admission, 02 Sat 69% on admission on 4 L, Has been on oxygen as high as 13 L, O2 sats frequently 86 to 92% while on 8 L (P/F=85-108) Risk Factor(s): Bowel Perforation, Sepsis Treatment: Supplemental 02 up to 13L , Respiratory monitoring Acute respiratory failure with hypoxia, present on admission Other explanation of clinical findings Unable to determine (no explanation for clinical findings) Please clarify and document your clinical opinion in the progress notes and discharge summary including the definitive and/or presumptive diagnosis, (suspected or probable), related to the above clinical findings. Please include clinical findings supporting your diagnosis. Rima Gonzalez, MSN, RN Clinical Poultry Hatchery Laborer [phone] [email or web address] RIMA GONZALEZ Jun 10, 2023 18:17
[2023-06-10] MEDS: morphine INJ 4 MG/ML 1 ML (VIAL/SYRINGE) IVP PRN ×2 (19:44→22:08)
[2023-06-10] MEDS: PANTOPRAZOLE INJECTION 200 MG in NS (IVPB) 100 ML 100 ML IV SCH (19:44)
[2023-06-10 20:20] VITALS: BP 121/77
[2023-06-10 23:52] VITALS: BP 133/81
[2023-06-11] MEDS: morphine INJ 4 MG/ML 1 ML (VIAL/SYRINGE) IVP PRN ×7 (00:12→23:18)
[2023-06-11] MEDS: PIPERACILLIN/Tazobactam 4.5 GM in NS (IVPB) 100 ML 100 ML IV SCH ×3 (03:04→18:19)
[2023-06-11] MEDS: D5 1/2NS + KCL 20 MEQ/L 1000ML 1,000 ML IV SCH ×2 (03:08→14:26)
[2023-06-11 03:15] VITALS: BP 126/79
[2023-06-11] MEDS: metroNIDAZOLE 500MG/100ML IVPB 100 ML IV SCH ×3 (05:22→21:22)
[2023-06-11 05:48] LABS: BASOPHILS # (AUTO) 0.1 10^3/uL (0.0-0.1); BASOPHILS % (AUTO) 0 % (0-10); EOSINOPHILS % (AUTO) 0 % (0-10); HEMATOCRIT 29 % (35-52); HEMOGLOBIN 9.7 g/dL (11.5-16.0); LYMPHOCYTES # (AUTO) 0.3 10^3/uL (1.0-4.0); LYMPHOCYTES % (AUTO) 2 % (12-44); MEAN CORPUSCULAR HEMOGLOBIN 32 pg (25-34); MEAN CORPUSCULAR HGB CONC 33 g/dL (32-36); MEAN CORPUSCULAR VOLUME 96 fL (80-99); MEAN PLATELET VOLUME 8.9 fL (9.0-12.2); MONOCYTES # (AUTO) 0.1 10^3/uL (0.0-1.0); MONOCYTES % (AUTO) 1 % (0-12); NEUTROPHILS # (AUTO) 12.3 10^3/uL (1.8-7.8); NEUTROPHILS % (AUTO) 89 % (42-75); PLATELET COUNT 252 10^3/uL (130-400); WHITE BLOOD COUNT 13.9 10^3/uL (4.3-11.0)
[2023-06-11 06:11] LABS: ALBUMIN 2.3 GM/DL (3.2-4.5); BILIRUBIN,TOTAL 0.7 MG/DL (0.1-1.0); CALCIUM 7.9 MG/DL (8.5-10.1); CREATININE SERUM 0.86 MG/DL (0.60-1.30); POTASSIUM 4.9 MMOL/L (3.6-5.0); TOTAL PROTEIN 4.3 GM/DL (6.4-8.2)
[2023-06-11 07:09] LABS: LYMPHOCYTES % (MANUAL) 3 %; NEUTROPHILS % (MANUAL) 97 %; RBC MORPH NORMAL
[2023-06-11 07:45] VITALS: BP 120/68
--- NOTE | 2023-06-11 08:08 | Progress Note - Surgery ---
REBECCA,HET 06/11/23 0808: Subjective Date Seen by a Provider: Jun 11, 2023 Time Seen by a Provider: 07:30 Subjective/Events-last exam Patient is feeling better as the days pass but still has pain in upper abdominal region and around incision. Still NPO so she had some complaints of being hungry and also wanting to take a shower. Her TRISTON drain was a dark green today compared to serosanguineous yesterday. Her Wbc went up from 7.5 yesterday to 13.9 today. Denies and fever chills or headaches. Review of Systems General: No Chills, No Night Sweats; Fatigue HEENT: No Head Aches, No Visual Changes Pulmonary: No Dyspnea, No Cough Cardiovascular: Edema (slight pedal edema ); No: Chest Pain, Palpitations Gastrointestinal: Abdominal Pain; No: Nausea, Vomiting Genitourinary: No Dysuria, No Frequency Musculoskeletal: No: neck pain, shoulder pain Neurological: No: Numbness, Confusion Focused Exam Lactate Level 06/08/23 10:22: Lactic Acid Level 0.91 06/08/23 13:13: Lactic Acid Level 1.14 Time of Focused Exam: 13:30 Objective Exam Vital Signs Date Time Temp Pulse Resp B/P (MAP) Pulse Ox O2 Delivery O2 Flow Rate FiO2 06/11/23 07:00 68 06/11/23 03:15 36.4 77 18 126/79 (95) 95 Room Air 06/11/23 01:00 81 06/10/23 23:52 36.3 76 18 133/81 (98) 95 Room Air 06/10/23 20:20 36.3 74 18 121/77 (92) 97 Room Air 06/10/23 20:00 Room Air 06/10/23 19:05 Room Air 06/10/23 19:00 80 06/10/23 16:25 36.4 80 16 99/66 (77) 95 Room Air 06/10/23 14:30 36.3 78 18 118/67 (84) 96 Room Air 06/10/23 13:00 74 8 116/56 (76) 96 Room Air 06/10/23 12:07 80 06/10/23 12:00 76 8 114/62 (79) 97 Room Air 06/10/23 12:00 36.4 06/10/23 11:00 75 6 109/63 (78) 96 Room Air 06/10/23 10:00 82 22 120/60 (80) 98 Room Air 06/10/23 09:00 81 20 126/63 (84) 95 Room Air I & O 06/11/23 07:00 Intake Total 1300 ml Output Total 575 ml Balance 725 ml Capillary Refill : Less Than 3 SecondsGreater Than 3 Seconds General Appearance: No Apparent Distress, WD/WN HEENT: PERRL/EOMI, Other (skin flap forhead to nose, open wound superior par of incision) Neck: Normal Inspection, Non Tender Respiratory: Lungs Clear, No Respiratory Distress Cardiovascular: Regular Rate, Rhythm, No Murmur Peripheral Pulses: 2+ Dorsalis Pedis (R), 2+ Left Dors-Pedis (L); 1+ Radial Pulses (R), 1+ Radial Pulses (L) Gastrointestinal: tenderness (incisional), other (mid line incision with left TRISTON drain, serosang drainage, no signs of infection) Extremity: Normal Inspection, Pedal Edema, Swelling Neurologic/Psychiatric: Alert, Normal Mood/Affect Skin: Normal Color, Warm/Dry Lymphatic: No Adenopathy (Mental, submandibular, & anterior cervical ) Results Lab Laboratory Tests 06/11/23 05:42: White Blood Count 13.9H, Red Blood Count 3.04L, Hemoglobin 9.7L, Hematocrit 29L, Mean Corpuscular Volume 96, Mean Corpuscular Hemoglobin 32, Mean Corpuscular Hemoglobin Concent 33, Red Cell Distribution Width 14.5, Platelet Count 252, Mean Platelet Volume 8.9L, Immature Granulocyte % (Auto) 8, Neutrophils (%) (Auto) 89H, Lymphocytes (%) (Auto) 2L, Monocytes (%) (Auto) 1, Eosinophils (%) (Auto) 0, Basophils (%) (Auto) 0, Neutrophils # (Auto) 12.3H, Lymphocytes # (Auto) 0.3L, Monocytes # (Auto) 0.1, Eosinophils # (Auto) 0.0, Basophils # (Auto) 0.1, Immature Granulocyte # (Auto) 1.1H, Neutrophils % (Manual) 97, Lymphocytes % (Manual) 3, Blood Morphology Comment NORMAL, Sodium Level 139, Potassium Level 4.9, Chloride Level 110H, Carbon Dioxide Level 20L, Anion Gap 9, Blood Urea Nitrogen 32H, Creatinine 0.86, Estimat Glomerular Filtration Rate 71, BUN/Creatinine Ratio 37, Glucose Level 106H, Calcium Level 7.9L, Corrected Calcium 9.3, Total Bilirubin 0.7, Aspartate Amino Transf (AST/SGOT) 21, Alanine Aminotransferase (ALT/SGPT) 32, Alkaline Phosphatase 133, Total Protein 4.3L, Albumin 2.3L Microbiology 06/08/23 Urine Culture - Final, Complete NO GROWTH 06/08/23 Blood Culture - Preliminary, Resulted Assessment/Plan Assessment/Plan Assessment/Plan Assessment: hollow viscus perforation s/p ex lap, mobilization left colon, ligation of gastroduodenal artery, modified segundo patch sepsis secondary to above- C.diff anemia due to acute blood loss Rheumatoid Arthritis Plan: NPO Continue Abx Pain meds as needed Continue to monitor TRISTON drain for possible bile FABIOLA GARCIA DO 06/11/23 1555: Subjective Subjective/Events-last exam Patient NPO. Some abdominal pain. Triston with small amount of bilious drainage. Not using IS much. No fever. Hungry. Denies n/v fever sweats chills shortness of breath or chest pain. Objective Exam General Appearance: No Apparent Distress, WD/WN HEENT: PERRL/EOMI, Normal ENT Inspection Neck: Normal Inspection, Non Tender Respiratory: Chest Non Tender, No Accessory Muscle Use, No Respiratory Distress Cardiovascular: Regular Rate, Rhythm, No JVD Gastrointestinal: tenderness (incisional), other (mid line incision with left TRISTON drain, small amount of bilious drainage no signs of infection) Neurologic/Psychiatric: Alert, Oriented x3, Normal Mood/Affect Skin: Normal Color, Warm/Dry Lymphatic: No Adenopathy (Mental, submandibular, & anterior cervical ) Assessment/Plan Assessment/Plan Assessment/Plan hollow viscus perforation s/p ex lap, mobilization left colon, ligation of gastroduodenal artery, modified segundo patch sepsis secondary to above- C.diff anemia due to acute blood loss-stable Rheumatoid Arthritis Plan: NPO Continue Abx Pain meds as needed triston drain TPN scd's hold anticoagulation currently due to anemia/bleed use IS Supervisory-Addendum Brief Verification & Attestation Participated in pt care: history, MDM, physical Personally performed: exam, history, MDM, supervision of care Care discussed with: Medical Student Procedures: n/a Results interpretation: Verified all documentation Verification and Attestation of Medical Student E/M Service A medical student performed and documented this service in my presence. I reviewed and verified all information documented by the medical student and made modifications to such information, when appropriate. I personally performed the physical exam and medical decision making. Fabiola Garcia, Jun 11, 2023,15:55 APARICIO Jun 11, 2023 08:08 FABIOLA GARCIA DO Jun 11, 2023 15:55
--- NOTE | 2023-06-11 11:13 | Physical Therapy Daily Note ---
PT Daily Note-Current Subjective Patient agrees to PT. Patient reports she has no energy. Pain Section J - Health Conditions 1. Rarely or not at all 2. Occasionally 3. Frequently 4. Almost constantly 8. Unable to answer Pain Effect on Sleep: 1 Pain Interference with Therapy: 1 Pain Interference w/Day-to-Day: 1 Mental Status Patient Orientation: Normal For Age Attachments: IV Transfers SCALE: Activities may be completed with or without assistive devices. 7-Oknrnxedei-osgwhui completes the activity by him/herself with no assistance from a helper. 5-Set-up or Clean-up Assistance-helper sets up or cleans up; patient completes activity. [place] assists only prior to or following the activity. 4-Supervision or Touching Assistance-helper provides verbal cues and/or touching/steadying and/or contact guard assistance as patient completes activity. Assistance may be provided throughout the activity or intermittently. 3-Partial/Moderate Assistance-helper does LESS THAN HALF the effort. [place] lifts, holds or supports trunk or limbs, but provides less than half the effort. 2-Substantial/Maximal Assistance-helper does MORE THAN HALF the effort. [place] lifts or holds trunk or limbs and provides more than half the effort. 7-Pbeajvosp-lwmhsk does ALL the effort. Patient does none of the effort to complete the activity. Or, the assistance of 2 or more helpers is required for the patient to complete the activity. If activity was not attempted, code reason: 7-Patient Refused. 9-Not Applicable-not attempted and the patient did not perform the activity befo re the current illness, exacerbation or injury. 10-Not Attempted due to Environmental Limitations-(lack of equipment, weather re straints, etc.). 88-Not Attempted due to Medical Conditions or Safety Concerns. Lying to Sitting/Side of Bed(Q: 4 Sit to Stand (QC): 4 Chair/Yxq-qq-Aholf Xfer(QC): 4 Toilet Transfer (QC): 3 Weight Bearing Right Lower Extremity: Right Full Weight Bearing Left Lower Extremity: Left Full Weight Bearing Gait Training Distance: 20' x 1/15' x 1 Walk 10 feet (QC): 4 Gait Assistive Device: FWW slow, trunk flexed posture due to abdominal discomfort Assessment Patient tolerated minimal activity due to severely diminished functional endurance. Patient up in recliner with needs met. PT to increase activity as tolerated by patient. PT Entry Level Finance Goals Shelter Goals PT Entry Level Finance Goals Time Frame: Jun 29, 2023 Roll Left & Right (QC): 6 Sit to Lying (QC): 6 Lying-Sitting on Side/Bed(QC): 6 Sit to Stand (QC): 6 Chair/Lod-ff-Tekvt Xfer(QC): 6 Toilet Transfer (QC): 6 Car Transfer (QC): 6 Does the Patient Walk: Yes Walk 10 feet (QC): 6 Walk 50ft with 2 Turns (QC): 6 Walk 150 ft (QC): 6 1 Step (curb) (QC): 4 4 Steps (QC): 4 12 Steps (QC): 4 PT Plan Treatment/Plan Treatment Plan: Continue Plan of Care Treatment Plan: Bed Mobility, Education, Functional Activity Dashawn, Functional Strength, Group Therapy, Gait, Safety, Therapeutic Exercise, Transfers Treatment Duration: Jun 29, 2023 Frequency: 6 times per week Estimated Hrs Per Day: .25 hour per day Patient and/or Family Agrees t: Yes Time Time In: 1001 Time Out: 1017 DATE: Jun 11, 2023 Total Billed Treatment Time: 16 Total Billed Treatment 1 visit FA 16 min MICK VAZQUEZ PT Jun 11, 2023 11:13
[2023-06-11 12:11] VITALS: BP 132/80
[2023-06-11 13:26] LABS: MAGNESIUM 2.1 MG/DL (1.6-2.4)
[2023-06-11] MEDS ORDERED: TPN IV SCH (13:30)
[2023-06-11] MEDS ORDERED: NS IV ONE (14:00)
[2023-06-11] MEDS ORDERED: SODIUM PHOSPHATE IV ONE (14:00)
[2023-06-11 15:56] VITALS: BP 121/73
[2023-06-11] MEDS ORDERED: 3-IN-1 TPN IV SCH ×10 (17:00)
[2023-06-11] MEDS: 1/2 NS IV SOLUTION 1000 ML 1,000 ML IV SCH (17:32)
[2023-06-11 19:12] VITALS: BP 134/83
[2023-06-11 23:55] VITALS: BP 137/79
[2023-06-12] MEDS: PIPERACILLIN/Tazobactam 4.5 GM in NS (IVPB) 100 ML 100 ML IV SCH ×3 (02:54→18:23)
[2023-06-12 04:00] VITALS: BP_SYST 161
[2023-06-12] MEDS: ONDANSETRON INJECTION 4 MG/2 ML (SDV) IVP PRN (05:05)
[2023-06-12] MEDS: metroNIDAZOLE 500MG/100ML IVPB 100 ML IV SCH ×3 (05:06→21:11)
[2023-06-12] MEDS: morphine INJ 4 MG/ML 1 ML (VIAL/SYRINGE) IVP PRN ×3 (05:06→17:21)
[2023-06-12 06:36] LABS: BASOPHILS # (AUTO) 0.1 10^3/uL (0.0-0.1); BASOPHILS % (AUTO) 1 % (0-10); EOSINOPHILS # (AUTO) 0.1 10^3/uL (0.0-0.3); EOSINOPHILS % (AUTO) 1 % (0-10); HEMATOCRIT 27 % (35-52); LYMPHOCYTES # (AUTO) 0.3 10^3/uL (1.0-4.0); LYMPHOCYTES % (AUTO) 4 % (12-44); MEAN CORPUSCULAR HEMOGLOBIN 32 pg (25-34); MEAN CORPUSCULAR HGB CONC 33 g/dL (32-36); MEAN CORPUSCULAR VOLUME 98 fL (80-99); MEAN PLATELET VOLUME 8.8 fL (9.0-12.2); MONOCYTES # (AUTO) 0.1 10^3/uL (0.0-1.0); MONOCYTES % (AUTO) 1 % (0-12); NEUTROPHILS % (AUTO) 87 % (42-75); PLATELET COUNT 169 10^3/uL (130-400); WHITE BLOOD COUNT 6.9 10^3/uL (4.3-11.0)
[2023-06-12 06:53] LABS: ALBUMIN 2.1 GM/DL (3.2-4.5); POTASSIUM 4.5 MMOL/L (3.6-5.0)
[2023-06-12 06:54] LABS: CALCIUM 7.6 MG/DL (8.5-10.1)
[2023-06-12 06:57] LABS: BILIRUBIN,TOTAL 0.6 MG/DL (0.1-1.0)
[2023-06-12 06:59] LABS: CREATININE SERUM 0.73 MG/DL (0.60-1.30); PHOSPHORUS 2.2 MG/DL (2.3-4.7)
[2023-06-12 07:02] LABS: MAGNESIUM 1.8 MG/DL (1.6-2.4)
[2023-06-12 07:25] VITALS: BP 122/79
--- NOTE | 2023-06-12 07:44 | Progress Note - Surgery ---
APARICIO 06/12/23 0744: Subjective Date Seen by a Provider: Jun 12, 2023 Time Seen by a Provider: 07:35 Subjective/Events-last exam Patient feels no different than yesterday. She still feels very weak. There is edema in her extremities which is less than yesterday but still present. Her MELLY drain is now showing more clear fluid and her incision site is healing well. Her wbc went down from 13.9 to 6.9. Her urine is noted to smell foul and patient herself continuously apologizes for smelling very bad. She reported her urine output to be very low. Bladder scan showed only 50mL of fluid so will encourage her to ambulate Review of Systems General: No Chills, No Night Sweats; Fatigue, Malaise HEENT: No Head Aches, No Visual Changes, No Eye Pain Pulmonary: No Dyspnea, No Cough Cardiovascular: No: Chest Pain, Palpitations Gastrointestinal: Abdominal Pain (from surgery and around incision ); No: Nausea, Vomiting Genitourinary: No Dysuria, No Hematuria Musculoskeletal: No: neck pain, shoulder pain, back pain Neurological: No: Numbness, Confusion Focused Exam Time of Focused Exam: 13:30 Objective Exam Vital Signs Date Time Temp Pulse Resp B/P (MAP) Pulse Ox O2 Delivery O2 Flow Rate FiO2 06/12/23 07:25 37.3 84 16 122/79 (93) 95 Room Air 06/12/23 07:00 76 06/12/23 04:00 91 161/ Room Air 06/12/23 01:00 76 06/11/23 23:55 37.3 79 18 137/79 (98) 97 Room Air 06/11/23 19:48 Room Air 06/11/23 19:12 36.0 90 18 134/83 (100) 94 Room Air 06/11/23 19:00 74 06/11/23 15:56 37.0 73 16 121/73 (89) 95 Room Air 06/11/23 12:21 71 06/11/23 12:11 36.3 76 18 132/80 (97) 98 Room Air 06/11/23 08:00 Room Air 06/11/23 07:45 36.3 73 18 120/68 (85) 96 Room Air I & O 06/12/23 07:00 Intake Total 357 ml Output Total 595 ml Balance -238 ml Capillary Refill : Less Than 3 SecondsGreater Than 3 Seconds General Appearance: No Apparent Distress, WD/WN HEENT: PERRL/EOMI, Normal ENT Inspection Neck: Normal Inspection, Non Tender Respiratory: Chest Non Tender, No Accessory Muscle Use, No Respiratory Distress Cardiovascular: Regular Rate, Rhythm, No JVD Peripheral Pulses: 2+ Dorsalis Pedis (R), 2+ Left Dors-Pedis (L); 1+ Radial Pulses (R), 1+ Radial Pulses (L) Gastrointestinal: tenderness (incisional), other (mid line incision with left MELLY drain, small amount of bilious drainage no signs of infection) Extremity: Normal Inspection, Pedal Edema, Swelling Neurologic/Psychiatric: Alert, Oriented x3, Normal Mood/Affect Skin: Normal Color, Warm/Dry Lymphatic: No Adenopathy (Mental, submandibular, & anterior cervical ) Results Lab Laboratory Tests 06/11/23 17:07: Glucometer 105 06/11/23 23:51: Glucometer 114H 06/12/23 06:08: Glucometer 126H 06/12/23 06:25: White Blood Count 6.9, Red Blood Count 2.80L, Hemoglobin 9.0L, Hematocrit 27L, Mean Corpuscular Volume 98, Mean Corpuscular Hemoglobin 32, Mean Corpuscular Hemoglobin Concent 33, Red Cell Distribution Width 14.2, Platelet Count 169, Mean Platelet Volume 8.8L, Immature Granulocyte % (Auto) 6, Neutrophils (%) (Auto) 87H, Lymphocytes (%) (Auto) 4L, Monocytes (%) (Auto) 1, Eosinophils (%) (Auto) 1, Basophils (%) (Auto) 1, Neutrophils # (Auto) 6.0, Lymphocytes # (Auto) 0.3L, Monocytes # (Auto) 0.1, Eosinophils # (Auto) 0.1, Basophils # (Auto) 0.1, Immature Granulocyte # (Auto) 0.4H, Sodium Level 139, Potassium Level 4.5, Chloride Level 112H, Carbon Dioxide Level 20L, Anion Gap 7, Blood Urea Nitrogen 26H, Creatinine 0.73, Estimat Glomerular Filtration Rate 86, BUN/Creatinine Ratio 36, Glucose Level 132H, Calcium Level 7.6L, Corrected Calcium 9.1, Phosphorus Level 2.2L, Magnesium Level 1.8, Total Bilirubin 0.6, Aspartate Amino Transf (AST/SGOT) 26, Alanine Aminotransferase (ALT/SGPT) 27, Alkaline Phosphatase 121, Total Protein 4.0L, Albumin 2.1L Microbiology 06/08/23 Urine Culture - Final, Complete NO GROWTH 06/08/23 Blood Culture - Preliminary, Resulted Assessment/Plan Assessment/Plan Assessment/Plan Assessment: hollow viscus perforation s/p ex lap, mobilization left colon, ligation of gastroduodenal artery, modified segundo patch sepsis secondary to above- C.diff peripheral edema Rheumatoid Arthritis Plan: NPO Continue Abx Pain meds as needed monitor melly drain TPN ambulate FABIOLA GARCIA DO 06/12/23 1357: Subjective Subjective/Events-last exam Feels weak. NPO. Abdominal pain upper abdomen. Pain she states is same as yesterday. MELLY drain with serous appearing drainage. WBC down. HGb 9. Denies nausea. Using IS some. Denies fever sweats chills shortness of breath or chest pain. Objective Exam General Appearance: No Apparent Distress, Chronically ill HEENT: PERRL/EOMI, Other (rotation skin graft with open wound on forehead) Neck: Normal Inspection, Non Tender Respiratory: Chest Non Tender, No Accessory Muscle Use, No Respiratory Distress Cardiovascular: Regular Rate, Rhythm, No JVD Gastrointestinal: tenderness (incisional), other (mid line incision with left MELLY drain, small amount of serous drainage no signs of infection) Extremity: Pedal Edema, Swelling Neurologic/Psychiatric: Alert, Oriented x3, Depressed Affect Skin: Normal Color, Warm/Dry Lymphatic: No Adenopathy (Mental, submandibular, & anterior cervical ) Assessment/Plan Assessment/Plan Assessment/Plan Assessment: hollow viscus perforation s/p ex lap, mobilization left colon, ligation of gastroduodenal artery, modified segundo patch sepsis secondary to above- C.diff anemia due to acute blood loss-stable Rheumatoid Arthritis Plan: NPO Continue Abx Pain meds as needed melly drain TPN scd's hold anticoagulation currently due to anemia/bleed use IS Supervisory-Addendum Brief Verification & Attestation Participated in pt care: history, MDM, physical Personally performed: exam, history, MDM, supervision of care Care discussed with: Medical Student Procedures: n/a Results interpretation: Verified all documentation Verification and Attestation of Medical Student E/M Service A medical student performed and documented this service in my presence. I reviewed and verified all information documented by the medical student and made modifications to such information, when appropriate. I personally performed the physical exam and medical decision making. Fabiola Garcia, Jun 12, 2023,13:58 APARICIO Jun 12, 2023 07:44 FABIOLA GARCIA DO Jun 12, 2023 13:57
--- NOTE | 2023-06-12 09:45 | Physical Therapy Daily Note ---
PT Daily Note-Current Subjective Patient continues to c/o extreme weakness and fatigue. Initially refused PT due to this, however, after much encouragement, patient agrees. Pain Section J - Health Conditions 1. Rarely or not at all 2. Occasionally 3. Frequently 4. Almost constantly 8. Unable to answer Pain Effect on Sleep: 1 Pain Interference with Therapy: 1 Pain Interference w/Day-to-Day: 1 Mental Status Patient Orientation: Normal For Age Attachments: IV Transfers SCALE: Activities may be completed with or without assistive devices. 3-Rvartpvanm-legsefl completes the activity by him/herself with no assistance from a helper. 5-Set-up or Clean-up Assistance-helper sets up or cleans up; patient completes activity. [place] assists only prior to or following the activity. 4-Supervision or Touching Assistance-helper provides verbal cues and/or touching/steadying and/or contact guard assistance as patient completes activity. Assistance may be provided throughout the activity or intermittently. 3-Partial/Moderate Assistance-helper does LESS THAN HALF the effort. [place] lifts, holds or supports trunk or limbs, but provides less than half the effort. 2-Substantial/Maximal Assistance-helper does MORE THAN HALF the effort. [place] lifts or holds trunk or limbs and provides more than half the effort. 8-Fphvyahpf-oaztpq does ALL the effort. Patient does none of the effort to complete the activity. Or, the assistance of 2 or more helpers is required for the patient to complete the activity. If activity was not attempted, code reason: 7-Patient Refused. 9-Not Applicable-not attempted and the patient did not perform the activity before the current illness, exacerbation or injury. 10-Not Attempted due to Environmental Limitations-(lack of equipment, weather restraints, etc.). 88-Not Attempted due to Medical Conditions or Safety Concerns. Lying to Sitting/Side of Bed(Q: 3 Sit to Stand (QC): 3 Chair/Kqz-xe-Wczwl Xfer(QC): 1 (patient became increasingly weak and was unable to stand erect to safely return to chair requiring dependent assist of PT and PCT to attain safely) Toilet Transfer (QC): 3 Weight Bearing Right Lower Extremity: Right Full Weight Bearing Left Lower Extremity: Left Full Weight Bearing Gait Training Distance: 20' Walk 10 feet (QC): 3 Gait Assistive Device: FWW very slow Assessment Patient did have a very small BM with RN notified. Patient also had episode of inability to stand erect and transfer to recliner requiring dependent assist of PT and PCT to attain safely. RN notified. Patient tolerates minimal activity. PT Detention Goals Biomedical Technician Goals PT Detention Goals Time Frame: Jun 29, 2023 Roll Left & Right (QC): 6 Sit to Lying (QC): 6 Lying-Sitting on Side/Bed(QC): 6 Sit to Stand (QC): 6 Chair/Rlr-gm-Djkkb Xfer(QC): 6 Toilet Transfer (QC): 6 Car Transfer (QC): 6 Does the Patient Walk: Yes Walk 10 feet (QC): 6 Walk 50ft with 2 Turns (QC): 6 Walk 150 ft (QC): 6 1 Step (curb) (QC): 4 4 Steps (QC): 4 12 Steps (QC): 4 PT Plan Treatment/Plan Treatment Plan: Continue Plan of Care Treatment Plan: Bed Mobility, Education, Functional Activity Dashawn, Functional Strength, Group Therapy, Gait, Safety, Therapeutic Exercise, Transfers Treatment Duration: Jun 29, 2023 Frequency: 6 times per week Estimated Hrs Per Day: .25 hour per day Patient and/or Family Agrees t: Yes Time Time In: 845 Time Out: 904 DATE: Jun 12, 2023 Total Billed Treatment Time: 19 Total Billed Treatment 1 visit FA 19 min MICK VAZQUEZ PT Jun 12, 2023 09:45
[2023-06-12 11:43] VITALS: BP 146/84
[2023-06-12 16:32] VITALS: BP 155/85
[2023-06-12] MEDS ORDERED: SODIUM CHLORIDE 14.6% INJ 70 MEQ, POTASSIUM ACETATE INJ 40 MEQ, POTASSIUM PHOSPHATE INJ... IV SCH ×11 (17:00)
[2023-06-12] MEDS: 1/2 NS IV SOLUTION 1000 ML 1,000 ML IV SCH (17:15)
[2023-06-12 19:47] VITALS: BP 141/83
[2023-06-13 00:28] VITALS: BP 138/71
[2023-06-13] MEDS: PIPERACILLIN/Tazobactam 4.5 GM in NS (IVPB) 100 ML 100 ML IV SCH ×3 (04:16→18:13)
[2023-06-13 04:31] VITALS: BP 138/71
[2023-06-13 04:52] LABS: BASOPHILS % (AUTO) 1 % (0-10); EOSINOPHILS # (AUTO) 0.1 10^3/uL (0.0-0.3); EOSINOPHILS % (AUTO) 7 % (0-10); HEMATOCRIT 27 % (35-52); LYMPHOCYTES # (AUTO) 0.3 10^3/uL (1.0-4.0); LYMPHOCYTES % (AUTO) 16 % (12-44); MEAN CORPUSCULAR HEMOGLOBIN 32 pg (25-34); MEAN CORPUSCULAR HGB CONC 33 g/dL (32-36); MEAN CORPUSCULAR VOLUME 98 fL (80-99); MEAN PLATELET VOLUME 9.3 fL (9.0-12.2); MONOCYTES # (AUTO) 0.1 10^3/uL (0.0-1.0); MONOCYTES % (AUTO) 4 % (0-12); NEUTROPHILS # (AUTO) 1.1 10^3/uL (1.8-7.8); NEUTROPHILS % (AUTO) 65 % (42-75); PLATELET COUNT 149 10^3/uL (130-400); WHITE BLOOD COUNT 1.7 10^3/uL (4.3-11.0)
[2023-06-13 05:15] LABS: ALBUMIN 2.1 GM/DL (3.2-4.5); BILIRUBIN,TOTAL 0.6 MG/DL (0.1-1.0); CALCIUM 7.7 MG/DL (8.5-10.1); CREATININE SERUM 0.64 MG/DL (0.60-1.30); MAGNESIUM 1.6 MG/DL (1.6-2.4); PHOSPHORUS 2.1 MG/DL (2.3-4.7); POTASSIUM 4.5 MMOL/L (3.6-5.0); TOTAL PROTEIN 3.9 GM/DL (6.4-8.2)
[2023-06-13] MEDS: metroNIDAZOLE 500MG/100ML IVPB 100 ML IV SCH ×2 (06:02→14:26)
--- NOTE | 2023-06-13 07:51 | Progress Note - Surgery ---
REBECCA,HET 06/13/23 0751: Subjective Date Seen by a Provider: Jun 13, 2023 Time Seen by a Provider: 07:45 Subjective/Events-last exam Patient still does not feel much better than yesterday and has not been able to ambulate. The edema is still present in her hands and feet. Her WBC has dropped from 6.9 to 1.7. Her MELLY drain is clear and she has had 2 bm in the past 24 hours. Review of Systems General: No Chills, No Night Sweats HEENT: No Head Aches, No Visual Changes Pulmonary: No Dyspnea, No Cough Cardiovascular: No: Chest Pain, Palpitations Gastrointestinal: No: Nausea, Vomiting Genitourinary: No Dysuria, No Frequency Musculoskeletal: No: neck pain, hand pain Neurological: No: Numbness, Confusion Focused Exam Time of Focused Exam: 13:30 Objective Exam Vital Signs Date Time Temp Pulse Resp B/P (MAP) Pulse Ox O2 Delivery O2 Flow Rate FiO2 06/13/23 07:00 80 06/13/23 04:31 37.9 85 22 138/71 (93) Room Air 06/13/23 00:40 76 06/13/23 00:28 37.8 83 22 138/71 (93) 95 Room Air 06/12/23 19:47 37.1 75 17 141/83 (102) 96 Room Air 06/12/23 19:46 37.1 Room Air 06/12/23 19:44 Room Air 06/12/23 19:00 72 06/12/23 16:32 37.0 77 17 155/85 (108) 96 Room Air 06/12/23 12:28 79 06/12/23 11:43 37.0 79 16 146/84 (104) 94 Room Air 06/12/23 08:00 Room Air I & O 06/13/23 07:00 Intake Total 0 ml Output Total 980 ml Balance -980 ml Capillary Refill : Less Than 3 SecondsGreater Than 3 Seconds General Appearance: No Apparent Distress, Chronically ill, Thin HEENT: PERRL/EOMI, Other (rotation skin graft with open wound on forehead) Neck: Normal Inspection, Non Tender Respiratory: Chest Non Tender, No Accessory Muscle Use, No Respiratory Distress Cardiovascular: Regular Rate, Rhythm, No JVD Peripheral Pulses: 2+ Dorsalis Pedis (R), 2+ Left Dors-Pedis (L); 1+ Radial Pulses (R), 1+ Radial Pulses (L) Gastrointestinal: tenderness (incisional), other (mid line incision with left MELLY drain, small amount of serous drainage no signs of infection) Extremity: Pedal Edema, Swelling Neurologic/Psychiatric: Alert, Oriented x3, Depressed Affect Skin: Normal Color, Warm/Dry Lymphatic: No Adenopathy (Mental, submandibular, & anterior cervical ) Results Lab Laboratory Tests 06/12/23 11:25: Glucometer 137H 06/13/23 04:35: White Blood Count 1.7L, Red Blood Count 2.79L, Hemoglobin 9.0L, Hematocrit 27L, Mean Corpuscular Volume 98, Mean Corpuscular Hemoglobin 32, Mean Corpuscular Hemoglobin Concent 33, Red Cell Distribution Width 14.1, Platelet Count 149, Mean Platelet Volume 9.3, Immature Granulocyte % (Auto) 7, Neutrophils (%) (Auto) 65, Lymphocytes (%) (Auto) 16, Monocytes (%) (Auto) 4, Eosinophils (%) (Auto) 7, Basophils (%) (Auto) 1, Neutrophils # (Auto) 1.1L, Lymphocytes # (Auto) 0.3L, Monocytes # (Auto) 0.1, Eosinophils # (Auto) 0.1, Basophils # (Auto) 0.0, Immature Granulocyte # (Auto) 0.1, Sodium Level 138, Potassium Level 4.5, Chloride Level 111H, Carbon Dioxide Level 20L, Anion Gap 7, Blood Urea Nitrogen 25H, Creatinine 0.64, Estimat Glomerular Filtration Rate 93, BUN/Creatinine Ratio 39, Glucose Level 114H, Calcium Level 7.7L, Corrected Calcium 9.2, Phosphorus Level 2.1L, Magnesium Level 1.6, Total Bilirubin 0.6, Aspartate Amino Transf (AST/SGOT) 23, Alanine Aminotransferase (ALT/SGPT) 28, Alkaline Phosphatase 108, Total Protein 3.9L, Albumin 2.1L Microbiology 06/08/23 Urine Culture - Final, Complete NO GROWTH 06/08/23 Blood Culture - Preliminary, Resulted Assessment/Plan Assessment/Plan Assessment/Plan Assessment: hollow viscus perforation s/p ex lap, mobilization left colon, ligation of gastroduodenal artery, modified segundo patch sepsis secondary to above- C.diff anemia due to acute blood loss-stable Rheumatoid Arthritis Plan: NPO Continue Abx Pain meds as needed melly drain TPN scd's hold anticoagulation currently due to anemia/bleed use IS FABIOLA GARCIA DO 06/13/23 1346: Subjective Subjective/Events-last exam Feels about the same as yesterday. WBC dropped to 1.7. MELLY drain clear. Having bowel function. NPO and on TPN. Denies any n/v fever sweats chills shortness of breath or chest pain. Not using IS much. Objective Exam General Appearance: No Apparent Distress, Chronically ill, Thin HEENT: PERRL/EOMI, Other (rotation skin graft with open wound on forehead) Neck: Normal Inspection, Non Tender Respiratory: Chest Non Tender, No Accessory Muscle Use, No Respiratory Distress Cardiovascular: Regular Rate, Rhythm Gastrointestinal: tenderness (incisional/ upper abdomen), other (mid line incision with left MELLY drain, small amount of serous drainage no signs of infection) Extremity: Pedal Edema, Swelling Neurologic/Psychiatric: Alert, Oriented x3, Depressed Affect Skin: Normal Color, Warm/Dry Lymphatic: No Adenopathy (Mental, submandibular, & anterior cervical ) Assessment/Plan Assessment/Plan Assessment/Plan hollow viscus perforation s/p ex lap, mobilization left colon, ligation of gastroduodenal artery, modified segundo patch sepsis secondary to above- C.diff anemia due to acute blood loss-stable Rheumatoid Arthritis Plan: NPO Continue Abx Pain meds as needed melly drain TPN scd's hold anticoagulation currently due to anemia/bleed use IS will add Acapella will get UGI studay to evaluate for leak tomorrow Supervisory-Addendum Brief Verification & Attestation Participated in pt care: history, MDM, physical Personally performed: exam, history, MDM, supervision of care Care discussed with: Medical Student Procedures: n/a Results interpretation: Verified all documentation Verification and Attestation of Medical Student E/M Service A medical student performed and documented this service in my presence. I reviewed and verified all information documented by the medical student and made modifications to such information, when appropriate. I personally performed the physical exam and medical decision making. Fabiola Garcia, Jun 13, 2023,13:46 APARICIO Jun 13, 2023 07:51 FABIOLA GARCIA DO Jun 13, 2023 13:46
[2023-06-13 08:01] VITALS: BP 144/68
[2023-06-13 08:07] VITALS: BP_SYST 144; BP_SYST 145; BP_DIAS 68; BP_DIAS 74
[2023-06-13 16:08] VITALS: BP_SYST 139; BP_SYST 142; BP_DIAS 75; BP_DIAS 78
[2023-06-13] MEDS: 1/2 NS IV SOLUTION 1000 ML 1,000 ML IV SCH (17:16)
[2023-06-13] MEDS: SODIUM CHLORIDE 14.6% INJ 70 MEQ, POTASSIUM ACETATE INJ 40 MEQ, POTASSIUM PHOSPHATE INJ... IV SCH ×11 (17:16)
[2023-06-13 19:56] VITALS: BP 132/69
[2023-06-13] MEDS: morphine INJ 4 MG/ML 1 ML (VIAL/SYRINGE) IVP PRN (23:35)
[2023-06-14] VITALS (7 sets, daily range): BP systolic 122–146; BP diastolic 66–83
[2023-06-14] MEDS: PIPERACILLIN/Tazobactam 4.5 GM in NS (IVPB) 100 ML 100 ML IV SCH ×3 (03:01→19:30)
[2023-06-14 05:04] LABS: ALBUMIN 1.9 GM/DL (3.2-4.5); BILIRUBIN,TOTAL 0.5 MG/DL (0.1-1.0); CALCIUM 7.4 MG/DL (8.5-10.1); CREATININE SERUM 0.61 MG/DL (0.60-1.30); MAGNESIUM 1.6 MG/DL (1.6-2.4); PHOSPHORUS 2.3 MG/DL (2.3-4.7); POTASSIUM 4.3 MMOL/L (3.6-5.0); TOTAL PROTEIN 3.7 GM/DL (6.4-8.2)
--- NOTE | 2023-06-14 07:22 | Progress Note - Surgery ---
REBECCA,HET 06/14/23 0722: Subjective Date Seen by a Provider: Jun 14, 2023 Time Seen by a Provider: 07:00 Subjective/Events-last exam Patient says she feels better today compared to yesterday. Still weak and unable to ambulate or use IS well. Her TRISTON drain was 15ml's and still clear. Edema still present in her extremities. WBC went down from 1.7 to 0.9. Will update note on CT scan w/ oral contrast Review of Systems General: No Chills, No Night Sweats; Fatigue HEENT: No Head Aches, No Visual Changes, No Eye Pain Pulmonary: No Dyspnea, No Cough Cardiovascular: Edema; No: Chest Pain, Palpitations Gastrointestinal: No: Nausea, Vomiting Genitourinary: No Dysuria, No Hematuria Musculoskeletal: No: back pain, hand pain Neurological: No: Numbness, Confusion Focused Exam Time of Focused Exam: 13:30 Objective Exam Vital Signs Date Time Temp Pulse Resp B/P (MAP) Pulse Ox O2 Delivery O2 Flow Rate FiO2 06/14/23 03:00 37.2 73 19 139/66 (90) 96 Room Air 06/14/23 01:00 69 06/14/23 00:00 36.5 71 19 133/72 (92) 94 Room Air 06/13/23 20:00 Room Air 06/13/23 19:56 36.6 68 19 132/69 (90) 94 Room Air 06/13/23 19:00 67 06/13/23 16:08 36.5 74 19 139/78 (98) 97 Room Air 06/13/23 13:00 75 06/13/23 08:07 37.1 80 16 144/68 (93) 96 Room Air 06/13/23 08:01 37.1 80 16 144/68 (93) 96 Room Air 06/13/23 08:00 Room Air I & O 06/14/23 07:00 Intake Total 0 ml Output Total 1130 ml Balance -1130 ml Capillary Refill : Less Than 3 SecondsGreater Than 3 Seconds General Appearance: No Apparent Distress, Chronically ill, Thin HEENT: PERRL/EOMI, Other (rotation skin graft with open wound on forehead) Neck: Normal Inspection, Non Tender Respiratory: Chest Non Tender, Normal Breath Sounds, No Accessory Muscle Use, No Respiratory Distress Cardiovascular: Regular Rate, Rhythm, No Murmur Peripheral Pulses: 2+ Dorsalis Pedis (R), 2+ Left Dors-Pedis (L); 1+ Radial Pulses (R), 1+ Radial Pulses (L) Gastrointestinal: no organomegaly, tenderness (incisional/ upper abdomen), other (mid line incision with left TRISTON drain, small amount of serous drainage no signs of infection) Extremity: Pedal Edema, Swelling Neurologic/Psychiatric: Alert, Oriented x3, Depressed Affect Skin: Normal Color, Warm/Dry Lymphatic: No Adenopathy (Mental, submandibular, & anterior cervical ) Results Lab Laboratory Tests 06/14/23 04:40: Sodium Level 136, Potassium Level 4.3, Chloride Level 109H, Carbon Dioxide Level 21, Anion Gap 6, Blood Urea Nitrogen 22H, Creatinine 0.61, Estimat Glomerular Filtration Rate 94, BUN/Creatinine Ratio 36, Glucose Level 99, Calcium Level 7.4L, Corrected Calcium 9.1, Phosphorus Level 2.3, Magnesium Level 1.6, Total Bilirubin 0.5, Aspartate Amino Transf (AST/SGOT) 20, Alanine Aminotransferase (ALT/SGPT) 23, Alkaline Phosphatase 102, Total Protein 3.7L, Albumin 1.9L Microbiology 06/12/23 C. difficile GDH Antigen & Toxins - Final, Complete 06/08/23 Urine Culture - Final, Complete NO GROWTH 06/08/23 Blood Culture - Final, Complete Assessment/Plan Assessment/Plan Assessment/Plan Assessment: hollow viscus perforation s/p ex lap, mobilization left colon, ligation of gastroduodenal artery, modified segundo patch sepsis secondary to above- C.diff anemia due to acute blood loss-stable Rheumatoid Arthritis Plan: NPO Continue Abx Pain meds as needed monitor triston drain TPN scd's hold anticoagulation currently due to anemia/bleed use IS will add Acapella F/U on CT FABIOLA GARCIA DO 06/14/23 1138: Subjective Subjective/Events-last exam Feeling better than yesterday. Weak. Triston drain serous fluid. Decreasing edema. No new complaints. Objective Exam General Appearance: No Apparent Distress, Chronically ill, Thin HEENT: PERRL/EOMI, Other (rotation skin graft with open wound on forehead) Neck: Normal Inspection, Non Tender Respiratory: Chest Non Tender, No Accessory Muscle Use, No Respiratory Distress Cardiovascular: Regular Rate, Rhythm, No JVD Gastrointestinal: soft, tenderness (incisional/ upper abdomen), other (mid line incision with left TRISTON drain, small amount of serous drainage no signs of infection) Neurologic/Psychiatric: Alert, Oriented x3 Skin: Normal Color, Warm/Dry Lymphatic: No Adenopathy (Mental, submandibular, & anterior cervical ) Assessment/Plan Assessment/Plan Assessment/Plan hollow viscus perforation s/p ex lap, mobilization left colon, ligation of gastroduodenal artery, modified segundo patch sepsis secondary to above- C.diff anemia due to acute blood loss-stable Rheumatoid Arthritis Plan: NPO Continue Abx Pain meds as needed monitor triston drain TPN scd's hold anticoagulation currently due to anemia/bleed use IS will add Acapella F/U on CT to evalute for leak today. If no leak will start clears Supervisory-Addendum Brief Verification & Attestation Participated in pt care: history, MDM, physical Personally performed: exam, history, MDM, supervision of care Care discussed with: Medical Student Procedures: n/a Results interpretation: Verified all documentation Verification and Attestation of Medical Student E/M Service A medical student performed and documented this service in my presence. I reviewed and verified all information documented by the medical student and made modifications to such information, when appropriate. I personally performed the physical exam and medical decision making. Fabiola Garcia, Jun 14, 2023,11:38 APARICIO Jun 14, 2023 07:22 FABIOLA GARCIA DO Jun 14, 2023 11:38
[2023-06-14 08:43] LABS: BASOPHILS % (AUTO) 1 % (0-10); EOSINOPHILS # (AUTO) 0.1 10^3/uL (0.0-0.3); EOSINOPHILS % (AUTO) 13 % (0-10); HEMATOCRIT 26 % (35-52); HEMOGLOBIN 8.5 g/dL (11.5-16.0); LYMPHOCYTES # (AUTO) 0.3 10^3/uL (1.0-4.0); LYMPHOCYTES % (AUTO) 36 % (12-44); MEAN CORPUSCULAR HEMOGLOBIN 32 pg (25-34); MEAN CORPUSCULAR HGB CONC 33 g/dL (32-36); MEAN CORPUSCULAR VOLUME 97 fL (80-99); MEAN PLATELET VOLUME 9.9 fL (9.0-12.2); MONOCYTES # (AUTO) 0.1 10^3/uL (0.0-1.0); MONOCYTES % (AUTO) 11 % (0-12); NEUTROPHILS # (AUTO) 0.3 10^3/uL (1.8-7.8); NEUTROPHILS % (AUTO) 34 % (42-75); PLATELET COUNT 145 10^3/uL (130-400)
[2023-06-14 08:55] LABS: WHITE BLOOD COUNT 0.9 10^3/uL (4.3-11.0)
[2023-06-14 09:03] LABS: BAND NEUTROPHILS 0 %; BASOPHILS % (MANUAL) 0 %; EOSINOPHILS % (MANUAL) 16 %; LYMPHOCYTES % (MANUAL) 44 %; MONOCYTES % (MANUAL) 10 %; NEUTROPHILS % (MANUAL) 30 %
[2023-06-14 09:04] LABS: RBC MORPH NORMAL
--- NOTE | 2023-06-14 12:17 | Diagnostic Imaging Report ---
PROCEDURE: CT abdomen and pelvis without contrast. TECHNIQUE: Multiple contiguous axial images were obtained through the abdomen and pelvis without the use of intravenous contrast. Patient was then given oral Omnipaque contrast and additional imaging through the abdomen and pelvis was performed. Auto Exposure Controls were utilized during the CT exam to meet ALARA standards for radiation dose reduction. INDICATION: Status post viscus perforation with surgical repair with a Greg patch. Study is performed to evaluate for residual perforation prior to advancing patient's diet. FINDINGS: Postop changes in the midline anterior abdominal wall are noted from prior Greg patch repair. There is subcutaneous gas in the left anterior and lateral abdominal wall. The patient does continue to have some residual pneumoperitoneum as well but this does appear to be reduced since the prior exam. There was good gastric and small bowel opacification with Omnipaque contrast. No definite areas of contrast extravasation are seen to suggest residual hollow viscus perforation. The patient does have an abdominal drain in place. There are small bilateral pleural effusions with bibasilar atelectasis. There is some minimal perihepatic fluid. There is some trace free fluid in the pelvis but no well-formed fluid collection is identified to suggest abscess formation. The liver, gallbladder, pancreas, spleen, adrenal glands, and kidneys are unremarkable. The bowel loops appear nonobstructed. There is diverticulosis of the sigmoid. The aorta is nonaneurysmal. IMPRESSION: 1. Postop changes from hollow viscus perforation repair. No definite contrast extravasation is identified to suggest persistent leak. 2. Bilateral pleural effusions and bibasilar atelectasis. Dictated by: Dictated on workstation # [id number]
--- NOTE | 2023-06-14 13:55 | Physical Therapy Daily Note ---
PT Daily Note-Current Subjective Patient reluctantly agrees to therapy. Pain Section J - Health Conditions 1. Rarely or not at all 2. Occasionally 3. Frequently 4. Almost constantly 8. Unable to answer Pain Effect on Sleep: 3 Pain Interference with Therapy: 3 Pain Interference w/Day-to-Day: 3 Mental Status Patient Orientation: Normal For Age Attachments: [place] Catheter, IV Transfers SCALE: Activities may be completed with or without assistive devices. 4-Tdmzedilyf-erydcfy completes the activity by him/herself with no assistance from a helper. 5-Set-up or Clean-up Assistance-helper sets up or cleans up; patient completes activity. [place] assists only prior to or following the activity. 4-Supervision or Touching Assistance-helper provides verbal cues and/or touching/steadying and/or contact guard assistance as patient completes activity. Assistance may be provided throughout the activity or intermittently. 3-Partial/Moderate Assistance-helper does LESS THAN HALF the effort. [place] lifts, holds or supports trunk or limbs, but provides less than half the effort. 2-Substantial/Maximal Assistance-helper does MORE THAN HALF the effort. [place] lifts or holds trunk or limbs and provides more than half the effort. 9-Wdycknwzg-uvoeew does ALL the effort. Patient does none of the effort to complete the activity. Or, the assistance of 2 or more helpers is required for the patient to complete the activity. If activity was not attempted, code reason: 7-Patient Refused. 9-Not Applicable-not attempted and the patient did not perform the activity before the current illness, exacerbation or injury. 10-Not Attempted due to Environmental Limitations-(lack of equipment, weather restraints, etc.). 88-Not Attempted due to Medical Conditions or Safety Concerns. Lying to Sitting/Side of Bed(Q: 2 Sit to Stand (QC): 2 Chair/Vmg-vg-Bdyyc Xfer(QC): 2 Toilet Transfer (QC): 2 Weight Bearing Right Lower Extremity: Right Full Weight Bearing Left Lower Extremity: Left Full Weight Bearing Treatments sit to stand x 4 sets due to incontinent BM requiring dependent assist to cleanse and change. Assessment Patient tolerates minimal activity and is up in recliner with needs met. Patient continues to be very edematous. PT Distributor Sales Manager Goals Distributor Sales Manager Goals PT Distributor Sales Manager Goals Time Frame: Jun 29, 2023 Roll Left & Right (QC): 6 Sit to Lying (QC): 6 Lying-Sitting on Side/Bed(QC): 6 Sit to Stand (QC): 6 Chair/Eki-go-Hpgzk Xfer(QC): 6 Toilet Transfer (QC): 6 Car Transfer (QC): 6 Does the Patient Walk: Yes Walk 10 feet (QC): 6 Walk 50ft with 2 Turns (QC): 6 Walk 150 ft (QC): 6 1 Step (curb) (QC): 4 4 Steps (QC): 4 12 Steps (QC): 4 PT Plan Treatment/Plan Treatment Plan: Continue Plan of Care Treatment Plan: Bed Mobility, Education, Functional Activity Dashawn, Functional Strength, Group Therapy, Gait, Safety, Therapeutic Exercise, Transfers Treatment Duration: Jun 29, 2023 Frequency: 6 times per week Estimated Hrs Per Day: .25 hour per day Patient and/or Family Agrees t: Yes Time Time In: 1300 Time Out: 1325 DATE: Jun 14, 2023 Total Billed Treatment Time: 25 Total Billed Treatment 1 visit FA x 2 25 min MICK VAZQUEZ PT Jun 14, 2023 13:55
--- NOTE | 2023-06-14 14:09 | Occupational Therapy Eval ---
OT Evaluation-General/PLF Medical Diagnosis Admission Date Jun 08, 2023 at 18:16 Medical Diagnosis: Bowel Perforation Onset Date: Jun 08, 2023 Therapy Diagnosis Therapy Diagnosis: weakness, pain Height/Weight Height (Feet): 5 Height (Inches): 4.00 Weight (Pounds): 140 Precautions Precautions/Isolations: Standard Precautions Referral Physician: Dr. Garcia Referral Reason: Activity Tolerance, Self Care, Evaluation/Treatment Medical History Pertinent Medical History: Rheumatoid Arthritis Reviewed History: Yes Social History Home: Multilevel Current Living Status: Spouse Entry Into Home: Stairs With Railing Steps Into Home: 3 Steps Inside Home: 15 ADL-Prior Level of Function SCALE: Activities may be completed with or without assistive devices. 2-Dwiaynnnmg-vslptxl completes the activity by him/herself with no assistance from a helper. 5-Set-up or Clean-up Assistance-helper sets up or cleans up; patient completes activity. [place] assists only prior to or following the activity. 4-Supervision or Touching Assistance-helper provides verbal cues and/or touching/steadying and/or contact guard assistance as patient completes activity. Assistance may be provided throughout the activity or intermittently. 3-Partial/Moderate Assistance-helper does LESS THAN HALF the effort. [place] lifts, holds or supports trunk or limbs, but provides less than half the effort. 2-Substantial/Maximal Assistance-helper does MORE THAN HALF the effort. [place] lifts or holds trunk or limbs and provides more than half the effort. 3-Gunaqisrc-ekdrsa does ALL the effort. Patient does none of the effort to complete the activity. Or, the assistance of 2 or more helpers is required for the patient to complete the activity. If activity was not attempted, code reason: 7-Patient Refused. 9-Not Applicable-not attempted and the patient did not perform the activity before the current illness, exacerbation or injury. 10-Not Attempted due to Environmental Limitations-(lack of equipment, weather restraints, etc.). 88-Not Attempted due to Medical Conditions or Safety Concerns. ADL PLOF Comments Prior to illness that lead to hospitalization Self Care: Independent Functional Cognition: Independent Drive Self: Yes OT Current Status Subjective Very tired, abdominal soreness Pain Numeric Pain Scale: 6 Location Body Site: Abdomen Mental Status/Objective Patient Orientation: Person, Place, Time, Situation Attachments: IV Current Upper Extremity ROM BUE ROM WFL Upper Extremity Coordination INTACT Upper Extremity Strength 3/5 GROSSLY ADL-Treatment Eating (QC): 5 (CLEAR LIQUIDS ONLY) Oral Hygiene (QC): 4 Shower/Bathe Self (QC): 88 Upper Body Dressing (QC): 3 Lower Body Dressing (QC): 1 On/Off Footwear (QC): 1 Toileting Hygiene (QC): 1 (2 PERSON TRANSFER, THIRD PERSON TO ASSIST W/ HYGIENE) Education OT Patient Education: Correct positioning, Exercise program, Modified ADL techniques, Progress toward Goal/Update tx plan, Purpose of tx/functional activities, Reviewed precautions, Rehab process, Safety issues, Transfer techniques, Use of adapted equipment Teaching Recipient: Patient Teaching Methods: Demonstration, Discussion Response to Teaching: Verbalize Understanding, Reinforcement Needed OT Mba Intern Goals Mba Intern Goals Eating (QC): 6 Oral Hygiene (QC): 5 Toileting Hygiene (QC): 4 Shower/Bathe Self (QC): 3 Upper Body Dressing (QC): 5 Lower Body Dressing (QC): 4 On/Off Footwear (QC): 4 1=Demonstrate adherence to instructed precautions during ADL tasks. 2=Patient will verbalize/demonstrate understanding of assistive devices/modifications for ADL. 3=Patient will improve strength/tolerance for activity to enable patient to perform ADL's. OT Education/Plan Problem List/Assessment Assessment: Decreased Activ Tolerance, Decreased UE Strength, Dependent Transfers, Impaired Bed Mobility, Impaired Coordination, Impaired Funct Balance, Impaired Self-Care Skills Discharge Recommendations Plan/Recommendations: Continue POC Therapy Discharge Recommendati: Post Acute OT Treatment Plan/Plan of Care Treatment,Training & Education: Yes Patient would benefit from OT for education, treatment and training to promote independence in ADL's, mobility, safety and/or upper extremity function for ADL's. Plan of Care: ADL Retraining, Caregiver Training, Concurrent Therapy, Functional Mobility, Group Exercise/Act as Ind, UE Funct Exercise/Act Treatment Duration: Jun 25, 2023 Frequency: 3 times per week (3-5 TIMES PER WEEK) Estimated Hrs Per Day: .25 hour per day Agreement: Yes Rehab Potential: Fair Time Start Time: 13:00 Stop Time: 13:23 DATE: Jun 14, 2023 Total Time Billed (hr/min): 23 Billed Treatment Time EVM, ADL 23 MIN RACQUEL RENAE OT Jun 14, 2023 14:08
--- NOTE | 2023-06-14 14:46 | Progress Note - Hospitalist ---
Subjective HPI/CC On Admission Date Seen by Provider: Jun 14, 2023 Fabby Ragsdale is a 73 year old female who presented with abdominal pain and was admitted with pneumoperitoneum. She was taken for emergent surgery and was found to have a perforated gastric ulcer with gastroduodenal artery bleed. She was recently hospitalized with C diff. She has continued to have diarrhea since that time, but then developed abdominal pain over the past couple days. They have noticed dark, tarry stools, but they haven't noticed any change recently. She also started to have fevers and chills. She denies chest pain and shortness of breath, but her daughter reminds her that she did have some chest discomfort yesterday. She has a history of GERD but is unsure if she is taking medicine for it. She has been taking Meloxicam for RA. She is also on Methotrexate and Plaque nil. Subjective/Events-last exam Pt reports doing ok. at bedside. Discussed lab results. No history of leukopenia. On methotrexate and hydroxychloroquine and report WBC normally run around [address] Holloway checks them. Focused Exam Time of Focused Exam: 13:30 Objective Exam Vital Signs Vital Signs Date Time Temp Pulse Resp B/P (MAP) Pulse Ox O2 Delivery O2 Flow Rate FiO2 06/14/23 12:31 69 06/14/23 12:12 35.8 17 122/76 (91) 97 Room Air 06/09/23 01:00 40.00 06/08/23 22:00 40 Capillary Refill : Less Than 3 SecondsGreater Than 3 Seconds General Appearance: No Apparent Distress, Chronically ill Respiratory: Lungs Clear, No Accessory Muscle Use Cardiovascular: Regular Rate, Rhythm, No Murmur Neurologic/Psychiatric: Alert, Oriented x3 Results/Procedures Lab Laboratory Tests 06/14/23 04:40 06/14/23 07:52 Patient resulted labs reviewed. Imaging: Reviewed Imaging Report Assessment/Plan Assessment and Plan Assess & Plan/Chief Complaint Perforated gastric ulcer with hemorrhage Gastroduodenal artery bleed Acute blood loss anemia Hemorrhagic shock Chronic NSAID use Neutropenia Surgery primary s/p ex lap s/p 1 unit PRBC total IV PPI NPO- surgery attempting to advance to clears today TPN TeleICU following s/p Granix with drop in WBC again Discussed with Dr Montesinos- recommends folic acid before Granix again History of C diff infection Negative for C diff Flagyl RA Immunocompromised Hold home medLUIS M Arthur MD Jun 14, 2023 14:46
[2023-06-14] MEDS: SODIUM CHLORIDE 14.6% INJ 70 MEQ, POTASSIUM ACETATE INJ 40 MEQ, POTASSIUM PHOSPHATE INJ... IV SCH ×11 (16:55)
[2023-06-14] MEDS: 1/2 NS IV SOLUTION 1000 ML 1,000 ML IV SCH (17:14)
[2023-06-14] MEDS: morphine INJ 4 MG/ML 1 ML (VIAL/SYRINGE) IVP PRN (21:41)
[2023-06-15 03:44] VITALS: BP 130/68
[2023-06-15] MEDS: PIPERACILLIN/Tazobactam 4.5 GM in NS (IVPB) 100 ML 100 ML IV SCH ×3 (03:47→18:29)
[2023-06-15 07:25] VITALS: BP 129/82
[2023-06-15 08:30] LABS: CALCIUM 7.5 MG/DL (8.5-10.1); CREATININE SERUM 0.58 MG/DL (0.60-1.30)
[2023-06-15 08:33] LABS: BASOPHILS % (AUTO) 2 % (0-10); EOSINOPHILS # (AUTO) 0.1 10^3/uL (0.0-0.3); EOSINOPHILS % (AUTO) 15 % (0-10); HEMATOCRIT 26 % (35-52); HEMOGLOBIN 8.7 g/dL (11.5-16.0); LYMPHOCYTES # (AUTO) 0.4 10^3/uL (1.0-4.0); LYMPHOCYTES % (AUTO) 38 % (12-44); MEAN CORPUSCULAR HEMOGLOBIN 32 pg (25-34); MEAN CORPUSCULAR HGB CONC 33 g/dL (32-36); MEAN CORPUSCULAR VOLUME 96 fL (80-99); MEAN PLATELET VOLUME 10.3 fL (9.0-12.2); MONOCYTES # (AUTO) 0.2 10^3/uL (0.0-1.0); MONOCYTES % (AUTO) 23 % (0-12); NEUTROPHILS # (AUTO) 0.2 10^3/uL (1.8-7.8); NEUTROPHILS % (AUTO) 17 % (42-75); PLATELET COUNT 171 10^3/uL (130-400)
[2023-06-15] MEDS: FOLIC ACID 5MG/ML 10 ML IV SCH (09:29)
--- NOTE | 2023-06-15 09:46 | Progress Note - Surgery ---
RAMÓN DIANE 06/15/23 0946: Subjective Date Seen by a Provider: Jun 15, 2023 Time Seen by a Provider: 07:00 Subjective/Events-last exam Patient is now on clear fluid diet and has been having small bowel movements. She feels better than yesterday and notes she feels like she is progressively feeling better. She has still not been able to ambulate further than the bathroom but the edema in her extremities is decreasing. She was given an acapella to use this morning. Her CT scan from yesterday shows some b/l pleural effusion with bibasilar atelectasis. There was no contrast extravasion identified in the report to suggest a persistent leak. Diverticulosis was noted in the sigmoid. WBC was 1.0 this morning but folic acid injection was administered today. Review of Systems General: No Chills, No Night Sweats; Fatigue, Malaise HEENT: No Head Aches, No Visual Changes, No Eye Pain, No Ear Pain Pulmonary: No Dyspnea, No Cough, No Pleuritic Chest Pain Cardiovascular: No: Chest Pain, Palpitations Gastrointestinal: Abdominal Pain; No: Nausea, Vomiting, Constipation Genitourinary: No Dysuria, No Hematuria Musculoskeletal: No: neck pain, back pain, hand pain Neurological: No: Numbness, Confusion Focused Exam Time of Focused Exam: 13:30 Objective Exam Vital Signs Date Time Temp Pulse Resp B/P (MAP) Pulse Ox O2 Delivery O2 Flow Rate FiO2 06/15/23 07:25 36.4 70 16 129/82 (98) 96 Room Air 06/15/23 07:21 67 06/15/23 03:44 36.3 67 18 130/68 (88) 97 Room Air 06/15/23 00:31 65 06/14/23 23:09 36.9 71 18 129/79 (96) 96 Room Air 06/14/23 20:22 36.5 78 15 146/76 (99) 96 Room Air 06/14/23 19:40 Room Air 06/14/23 19:06 74 06/14/23 15:39 36.7 72 18 141/77 (98) 96 Room Air 06/14/23 12:31 69 06/14/23 12:12 35.8 96 17 122/76 (91) 97 Room Air I & O 06/15/23 07:00 Intake Total 730 ml Output Total 40 ml Balance 690 ml Capillary Refill : Less Than 3 SecondsGreater Than 3 Seconds General Appearance: No Apparent Distress, Chronically ill, Thin HEENT: PERRL/EOMI, Other (rotation skin graft with open wound on forehead) Neck: Normal Inspection, Non Tender Respiratory: Chest Non Tender, No Accessory Muscle Use, No Respiratory Distress Cardiovascular: Regular Rate, Rhythm, No Murmur Peripheral Pulses: 2+ Dorsalis Pedis (R), 2+ Left Dors-Pedis (L); 1+ Radial Pulses (R), 1+ Radial Pulses (L) Gastrointestinal: normal bowel sounds, soft, no organomegaly, tenderness (incisional/ upper abdomen), other (mid line incision with left MELLY drain, small amount of serous drainage no signs of infection) Extremity: Pedal Edema, Swelling Neurologic/Psychiatric: Alert, Oriented x3 Skin: Normal Color, Warm/Dry Lymphatic: No Adenopathy (Mental, submandibular, & anterior cervical ) Results Lab Laboratory Tests 06/15/23 03:50: Glucometer 116H 06/15/23 08:04: White Blood Count 1.0*L, Red Blood Count 2.75L, Hemoglobin 8.7L, Hematocrit 26L, Mean Corpuscular Volume 96, Mean Corpuscular Hemoglobin 32, Mean Corpuscular Hemoglobin Concent 33, Red Cell Distribution Width 13.8, Platelet Count 171, Mean Platelet Volume 10.3, Immature Granulocyte % (Auto) 6, Neutrophils (%) (Auto) 17L, Lymphocytes (%) (Auto) 38, Monocytes (%) (Auto) 23H, Eosinophils (%) (Auto) 15H, Basophils (%) (Auto) 2, Neutrophils # (Auto) 0.2L, Lymphocytes # (Auto) 0.4L, Monocytes # (Auto) 0.2, Eosinophils # (Auto) 0.1, Basophils # ( Auto) 0.0, Immature Granulocyte # (Auto) 0.1, Sodium Level 134L, Potassium Level 4.0, Chloride Level 108H, Carbon Dioxide Level 21, Anion Gap 5, Blood Urea Nitrogen 21H, Creatinine 0.58L, Estimat Glomerular Filtration Rate 95, BUN/Creatinine Ratio 36, Glucose Level 117H, Calcium Level 7.5L Microbiology 06/12/23 C. difficile GDH Antigen & Toxins - Final, Complete 06/08/23 Urine Culture - Final, Complete NO GROWTH 06/08/23 Blood Culture - Final, Complete Assessment/Plan Assessment/Plan Assessment/Plan hollow viscus perforation s/p ex lap, mobilization left colon, ligation of gastroduodenal artery, modified segundo patch sepsis secondary to above- C.diff anemia due to acute blood loss-stable Rheumatoid Arthritis Plan: clear liquid diet Continue Abx Pain meds as needed monitor melly drain TPN scd's hold anticoagulation currently due to anemia/bleed encourage acapella use FABIOLA GARCIA DO 06/15/232023: Subjective Subjective/Events-last exam Was feeling better his morning. Now fatigued. Overall feeling better though. Started on clears yesterday, but not taking much in. Ct scan yesterday no evidence of persistent leak, b/l pleural effusions. Not using IS much or Acapella. at bedside. Denies n/v fever sweats chill or chest pain. Hgb slightly decreased. Objective Exam General Appearance: No Apparent Distress, Chronically ill, Thin HEENT: PERRL/EOMI, Normal ENT Inspection Neck: Normal Inspection, Non Tender Respiratory: Chest Non Tender, No Accessory Muscle Use, No Respiratory Distress Cardiovascular: Regular Rate, Rhythm, No JVD Gastrointestinal: soft, tenderness (incisional), other (mid line incision with left MELLY drain, small amount of serous drainage no signs of infection) Extremity: Pedal Edema, Swelling Neurologic/Psychiatric: Alert, Oriented x3 Skin: Normal Color, Warm/Dry Lymphatic: No Adenopathy (Mental, submandibular, & anterior cervical ) Assessment/Plan Assessment/Plan Assessment/Plan hollow viscus perforation s/p ex lap, mobilization left colon, ligation of gastroduodenal artery, modified segundo patch sepsis secondary to above- C.diff Nstemi anemia due to acute blood loss Rheumatoid Arthritis b/l pleural effusions clear liquid diet Continue Abx Pain meds as needed monitor melly drain TPN poor oral intake scd's hold anticoagulation currently due to anemia/bleed encourage acapella use Supervisory-Addendum Brief Verification & Attestation Participated in pt care: history, MDM, physical Personally performed: exam, history, MDM, supervision of care Care discussed with: Medical Student Procedures: n/a Results interpretation: Verified all documentation Verification and Attestation of Medical Student E/M Service A medical student performed and documented this service in my presence. I reviewed and verified all information documented by the medical student and made modifications to such information, when appropriate. I personally performed the physical exam and medical decision making. Fabiola Garcia, Jun 15, 2023,20:24 RAMÓN DIANE Jun 15, 2023 09:46 FABIOLA GARCIA DO Jun 15, 2023 20:24
--- NOTE | 2023-06-15 10:18 | Progress Note - Hospitalist ---
Subjective HPI/CC On Admission Date Seen by Provider: Jun 15, 2023 Fabby Ragsdale is a 73 year old female who presented with abdominal pain and was admitted with pneumoperitoneum. She was taken for emergent surgery and was found to have a perforated gastric ulcer with gastroduodenal artery bleed. She was recently hospitalized with C diff. She has continued to have diarrhea since that time, but then developed abdominal pain over the past couple days. They have noticed dark, tarry stools, but they haven't noticed any change recently. She also started to have fevers and chills. She denies chest pain and shortness of breath, but her daughter reminds her that she did have some chest discomfort yesterday. She has a history of GERD but is unsure if she is taking medicine for it. She has been taking Meloxicam for RA. She is also on Methotrexate and Plaque nil. Subjective/Events-last exam Pt reports doing better today. Tolerating oral intake well so far. Discussed lab results. Focused Exam Time of Focused Exam: 13:30 Objective Exam Vital Signs Vital Signs Date Time Temp Pulse Resp B/P (MAP) Pulse Ox O2 Delivery O2 Flow Rate FiO2 06/15/23 08:00 Room Air 06/15/23 07:25 36.4 70 16 129/82 (98) 96 06/09/23 01:00 40.00 Capillary Refill : Less Than 3 SecondsGreater Than 3 Seconds General Appearance: No Apparent Distress, Chronically ill Respiratory: Lungs Clear, No Respiratory Distress Cardiovascular: Regular Rate, Rhythm, No Murmur Gastrointestinal: Normal Bowel Sounds, Soft Neurologic/Psychiatric: Alert, Oriented x3 Results/Procedures Lab Laboratory Tests 06/15/23 08:04 Patient resulted labs reviewed. Imaging: Reviewed Imaging Report Assessment/Plan Assessment and Plan Assess & Plan/Chief Complaint Perforated gastric ulcer with hemorrhage Gastroduodenal artery bleed Acute blood loss anemia Hemorrhagic shock Chronic NSAID use Neutropenia Surgery primary s/p ex lap s/p 1 unit PRBC total IV PPI CLD TPN per surgery TeleICU following s/p Granix with drop in WBC again but stable today Continue folic acid PT/OT History of C diff infection Negative for C diff Flagyl RA Immunocompromised Hold home meds LUIS M IGLESIAS MD Jun 15, 2023 10:18
[2023-06-15 11:13] LABS: MAGNESIUM 1.5 MG/DL (1.6-2.4); PHOSPHORUS 2.6 MG/DL (2.3-4.7)
[2023-06-15 11:27] VITALS: BP 133/80
--- NOTE | 2023-06-15 11:48 | Physical Therapy Daily Note ---
PT Daily Note-Current Subjective Patient is more alert on this date. Pain Section J - Health Conditions 1. Rarely or not at all 2. Occasionally 3. Frequently 4. Almost constantly 8. Unable to answer Pain Effect on Sleep: 2 Pain Interference with Therapy: 2 Pain Interference w/Day-to-Day: 2 Mental Status Patient Orientation: Normal For Age Transfers SCALE: Activities may be completed with or without assistive devices. 9-Xdjrcbcebh-lmwxore completes the activity by him/herself with no assistance from a helper. 5-Set-up or Clean-up Assistance-helper sets up or cleans up; patient completes activity. [place] assists only prior to or following the activity. 4-Supervision or Touching Assistance-helper provides verbal cues and/or touching/steadying and/or contact guard assistance as patient completes activity. Assistance may be provided throughout the activity or intermittently. 3-Partial/Moderate Assistance-helper does LESS THAN HALF the effort. [place] lifts, holds or supports trunk or limbs, but provides less than half the effort. 2-Substantial/Maximal Assistance-helper does MORE THAN HALF the effort. [place] lifts or holds trunk or limbs and provides more than half the effort. 2-Cnzgckpob-jbaohn does ALL the effort. Patient does none of the effort to complete the activity. Or, the assistance of 2 or more helpers is required for the patient to complete the activity. If activity was not attempted, code reason: 7-Patient Refused. 9-Not Applicable-not attempted and the patient did not perform the activity before the current illness, exacerbation or injury. 10-Not Attempted due to Environmental Limitations-(lack of equipment, weather restraints, etc.). 88-Not Attempted due to Medical Conditions or Safety Concerns. Lying to Sitting/Side of Bed(Q: 2 Sit to Stand (QC): 3 Chair/Tvc-rm-Dxcfx Xfer(QC): 3 Toilet Transfer (QC): 3 Weight Bearing Right Lower Extremity: Right Full Weight Bearing Left Lower Extremity: Left Full Weight Bearing Gait Training Distance: 10' Walk 10 feet (QC): 3 Gait Assistive Device: FWW slow, steady Assessment Patient incontinent BM requiring dependent assist to cleanse and change. Patient up in recliner after session with spouse present. PT to increase activity as tolerated by patient. PT Dean Of Faculty Goals [facility] Goals PT Dean Of Faculty Goals Time Frame: Jun 29, 2023 Roll Left & Right (QC): 6 Sit to Lying (QC): 6 Lying-Sitting on Side/Bed(QC): 6 Sit to Stand (QC): 6 Chair/Rfy-rz-Vlaek Xfer(QC): 6 Toilet Transfer (QC): 6 Car Transfer (QC): 6 Does the Patient Walk: Yes Walk 10 feet (QC): 6 Walk 50ft with 2 Turns (QC): 6 Walk 150 ft (QC): 6 1 Step (curb) (QC): 4 4 Steps (QC): 4 12 Steps (QC): 4 PT Plan Treatment/Plan Treatment Plan: Continue Plan of Care Treatment Plan: Bed Mobility, Education, Functional Activity Dash[place], Functional Strength, Group Therapy, Gait, Safety, Therapeutic Exercise, Transfers Treatment Duration: Jun 29, 2023 Frequency: 6 times per week Estimated Hrs Per Day: .25 hour per day Patient and/or Family Agrees t: Yes Time Time In: 1101 Time Out: 1120 DATE: Jun 15, 2023 Total Billed Treatment Time: 19 Total Billed Treatment 1 visit FA 19 min MICK VAZQUEZ PT Jun 15, 2023 11:48
--- NOTE | 2023-06-15 13:57 | Occupational Ther Daily Note ---
OT Current Status-Daily Note Subjective Agreeable to participate, BM incont when standing, request Notary for papers to sign Mental Status/Objective Patient Orientation: Person, Place, Time, Situation ADL-Treatment BM incont, transfer o BSC from bed and BSC to recliner w/ FWW, requires 2 person s. One for standing and one for hygiene Therapy Code Descriptions/Definitions Functional [place] Measure: 0=Not Assessed/NA 4=Minimal Assistance 1=Total Assistance 5=Supervision or Setup 2=Maximal Assistance 6=Modified [place] 3=Moderate Assistance 7=Complete IndependenceSCALE: Activities may be completed with or without assistive devices. 5-Papfxodjka-owbzbyn completes the activity by him/herself with no assistance from a helper. 5-Set-up or Clean-up Assistance-helper sets up or cleans up; patient completes activity. [place] assists only prior to or following the activity. 4-Supervision or Touching Assistance-helper provides verbal cues and/or touching/steadying and/or contact guard assistance as patient completes activity. Assistance may be provided throughout the activity or intermittently. 3-Partial/Moderate Assistance-helper does LESS THAN HALF the effort. [place] lifts, holds or supports trunk or limbs, but provides less than half the effort. 2-Substantial/Maximal Assistance-helper does MORE THAN HALF the effort. [place] lifts or holds trunk or limbs and provides more than half the effort. 4-Jpksgvfve-ngbmnk does ALL the effort. Patient does none of the effort to complete the activity. Or, the assistance of 2 or more helpers is required for the patient to complete the activity. If activity was not attempted, code reason: 7-Patient Refused. 9-Not Applicable-not attempted and the patient did not perform the activity before the current illness, exacerbation or injury. 10-Not Attempted due to Environmental Limitations-(lack of equipment, weather restraints, etc.). 88-Not Attempted due to Medical Conditions or Safety Concerns. Eating (QC): 5 Oral Hygiene (QC): 5 Toileting Hygiene (QC): 1 Toilet Transfer (QC): 2 Education OT Patient Education: Correct positioning, Modified ADL techniques, Progress toward Goal/Update tx plan, Purpose of tx/functional activities, Reviewed precautions, Rehab process, Safety issues, Transfer techniques, Use of adapted equipment Teaching Recipient: Patient Teaching Methods: Demonstration, Discussion Response to Teaching: Reinforcement Needed OT Prison Goals Cyber Engineer Goals Eating (QC): 6 Oral Hygiene (QC): 5 Toileting Hygiene (QC): 4 Shower/Bathe Self (QC): 3 Upper Body Dressing (QC): 5 Lower Body Dressing (QC): 4 On/Off Footwear (QC): 4 1=Demonstrate adherence to instructed precautions during ADL tasks. 2=Patient will verbalize/demonstrate understanding of assistive devices/mo difications for ADL. 3=Patient will improve strength/tolerance for activity to enable patient to perform ADL's. OT Education/Plan Problem List/Assessment Assessment: Decreased Activ Tolerance, Decreased Safety Aware, Decreased UE Strength, Impaired Self-Care Skills LOW ENDURANCE Discharge Recommendations Plan/Recommendations: Continue POC Treatment Plan/Plan of Care Treatment,Training & Education: Yes Patient would benefit from OT for education, treatment and training to promote independence in ADL's, mobility, safety and/or upper extremity function for ADL's. Plan of Care: ADL Retraining, Caregiver Training, Concurrent Therapy, Functional Mobility, Group Exercise/Act as Ind, UE Funct Exercise/Act Treatment Duration: Jun 25, 2023 Frequency: 3 times per week (3-5 TIMES PER WEEK) Estimated Hrs Per Day: .25 hour per day Agreement: Yes Rehab Potential: Fair Time Start Time: 11:01 Stop Time: 11:20 DATE: Jun 15, 2023 Total Time Billed (hr/min): 19 Billed Treatment Time ADL 19 min RACQUEL RENAE OT Jun 15, 2023 13:56
[2023-06-15 15:20] VITALS: BP 138/71
[2023-06-15] MEDS: POTASSIUM ACETATE IV SCH ×12 (17:10)
[2023-06-15] MEDS: SODIUM ACETATE IV SCH ×12 (17:10)
[2023-06-15] MEDS: [UNRECOGNIZED DRUG - OTHER] IV SCH ×12 (17:10)
[2023-06-15] MEDS: SODIUM CHLORIDE IV SCH ×12 (17:10)
[2023-06-15] MEDS: 1/2 NS IV SOLUTION 1000 ML 1,000 ML IV SCH (17:11)
[2023-06-15 20:19] VITALS: BP 148/85
[2023-06-15] MEDS: morphine INJ 4 MG/ML 1 ML (VIAL/SYRINGE) IVP PRN (22:57)
[2023-06-15 23:00] VITALS: BP 155/72
[2023-06-16 03:35] VITALS: BP 149/82
[2023-06-16] MEDS: PIPERACILLIN/Tazobactam 4.5 GM in NS (IVPB) 100 ML 100 ML IV SCH ×3 (03:51→18:27)
[2023-06-16 04:31] LABS: HEMATOCRIT 27 % (35-52); HEMOGLOBIN 9.2 g/dL (11.5-16.0); MEAN CORPUSCULAR HEMOGLOBIN 32 pg (25-34); MEAN CORPUSCULAR HGB CONC 34 g/dL (32-36); MEAN CORPUSCULAR VOLUME 95 fL (80-99); PLATELET COUNT 232 10^3/uL (130-400); WHITE BLOOD COUNT 1.7 10^3/uL (4.3-11.0)
[2023-06-16 04:57] LABS: CALCIUM 7.5 MG/DL (8.5-10.1); CREATININE SERUM 0.58 MG/DL (0.60-1.30); POTASSIUM 4.2 MMOL/L (3.6-5.0)
[2023-06-16 07:25] VITALS: BP 143/81
[2023-06-16] MEDS: FOLIC ACID 5MG/ML 10 ML IV SCH (08:07)
[2023-06-16] MEDS: ENOXAPARIN 40 MG/0.4 ML SYRINGE SC SCH (08:08)
--- NOTE | 2023-06-16 10:21 | Progress Note - Hospitalist ---
Subjective HPI/CC On Admission Date Seen by Provider: Jun 16, 2023 Fabby Ragsdale is a 73 year old female who presented with abdominal pain and was admitted with pneumoperitoneum. She was taken for emergent surgery and was found to have a perforated gastric ulcer with gastroduodenal artery bleed. She was recently hospitalized with C diff. She has continued to have diarrhea since that time, but then developed abdominal pain over the past couple days. They have noticed dark, tarry stools, but they haven't noticed any change recently. She also started to have fevers and chills. She denies chest pain and shortness of breath, but her daughter reminds her that she did have some chest discomfort yesterday. She has a history of GERD but is unsure if she is taking medicine for it. She has been taking Meloxicam for RA. She is also on Methotrexate and Plaque nil. Subjective/Events-last exam Pt reports doing well today. No complaints. Tolerating clears without issue. Focused Exam Time of Focused Exam: 13:30 Objective Exam Vital Signs Vital Signs Date Time Temp Pulse Resp B/P (MAP) Pulse Ox O2 Delivery O2 Flow Rate FiO2 06/16/23 08:10 Room Air 06/16/23 07:25 36.5 73 16 143/81 (101) 96 06/16/23 03:35 0.00 0.00 Capillary Refill : Less Than 3 SecondsGreater Than 3 Seconds General Appearance: No Apparent Distress, Chronically ill Respiratory: Lungs Clear, No Accessory Muscle Use Cardiovascular: Regular Rate, Rhythm, No Murmur Gastrointestinal: Normal Bowel Sounds, Soft Neurologic/Psychiatric: Alert, Oriented x3 Results/Procedures Lab Laboratory Tests 06/16/23 04:23 Patient resulted labs reviewed. Imaging: Reviewed Imaging Report Assessment/Plan Assessment and Plan Assess & Plan/Chief Complaint Perforated gastric ulcer with hemorrhage Gastroduodenal artery bleed Acute blood loss anemia Hemorrhagic shock Chronic NSAID use Neutropenia Surgery primary s/p ex lap s/p 1 unit PRBC total IV PPI CLD TPN per surgery TeleICU following s/p Granix x1 WBC increased today Continue folic acid PT/OT History of C diff infection Negative for C diff Flagyl RA Immunocompromised Hold home medLUIS M Arthur MD Jun 16, 2023 10:21
--- NOTE | 2023-06-16 10:45 | Progress Note - Surgery ---
Subjective Date Seen by a Provider: Jun 16, 2023 Subjective/Events-last exam Feeling a little better. Taking some clears. Minimal use IS. Pain controlled. Has red in MELLY. Hgb stable. Denies n/v fever sweats chillls shortness of breath or chest pain. Focused Exam Time of Focused Exam: 13:30 Objective Exam Vital Signs Date Time Temp Pulse Resp B/P (MAP) Pulse Ox O2 Delivery O2 Flow Rate FiO2 06/16/23 08:10 Room Air 06/16/23 07:25 36.5 73 16 143/81 (101) 96 Room Air 06/16/23 03:35 37.0 67 18 149/82 (104) 96 Room Air 0.00 0.00 06/16/23 01:00 67 06/15/23 23:00 36.7 76 18 155/72 (99) 93 Room Air 06/15/23 20:59 Room Air 06/15/23 20:19 37.0 87 20 148/85 (106) 96 Room Air 06/15/23 19:00 67 06/15/23 15:20 36.3 89 18 138/71 (93) 96 Room Air 06/15/23 12:10 72 06/15/23 11:27 36.5 76 17 133/80 (97) 98 Room Air I & O 06/16/23 07:00 Intake Total 3880 ml Output Total 625 ml Balance 3255 ml Capillary Refill : Less Than 3 SecondsGreater Than 3 Seconds General Appearance: No Apparent Distress, Chronically ill HEENT: PERRL/EOMI, Normal ENT Inspection Neck: Normal Inspection, Non Tender Respiratory: Lungs Clear, No Accessory Muscle Use Cardiovascular: Regular Rate, Rhythm, No Murmur Peripheral Pulses: 2+ Dorsalis Pedis (R), 2+ Left Dors-Pedis (L); 1+ Radial Pulses (R), 1+ Radial Pulses (L) Gastrointestinal: soft, tenderness (incisional), other (mid line incision with left MELLY drain, small amount of red drainage no signs of infection) Extremity: Pedal Edema, Swelling Neurologic/Psychiatric: Alert, Oriented x3 Skin: Normal Color, Warm/Dry Lymphatic: No Adenopathy (Mental, submandibular, & anterior cervical ) Results Lab Laboratory Tests 06/16/23 04:23: White Blood Count 1.7L, Red Blood Count 2.89L, Hemoglobin 9.2L, Hematocrit 27L, Mean Corpuscular Volume 95, Mean Corpuscular Hemoglobin 32, Mean Corpuscular Hemoglobin Concent 34, Red Cell Distribution Width 13.7, Platelet Count 232, Mean Platelet Volume 10.0, Sodium Level 134L, Potassium Level 4.2, Chloride Level 107, Carbon Dioxide Level 19L, Anion Gap 8, Blood Urea Nitrogen 19H, Creatinine 0.58L, Estimat Glomerular Filtration Rate 95, BUN/Creatinine Ratio 33, Glucose Level 88, Calcium Level 7.5L Microbiology 06/12/23 C. difficile GDH Antigen & Toxins - Final, Complete 06/08/23 Urine Culture - Final, Complete NO GROWTH 06/08/23 Blood Culture - Final, Complete Assessment/Plan Assessment/Plan Assessment/Plan hollow viscus perforation s/p ex lap, mobilization left colon, ligation of gastroduodenal artery, modified segundo patch sepsis secondary to above- C.diff Nstemi anemia due to acute blood loss Rheumatoid Arthritis b/l pleural effusions clear liquid diet - change to npo Continue Abx Pain meds as needed monitor melly drain red so concern for leak, discussed with dr. zambrano will get UGI TPN poor oral intake scd's will start lovenox encourage acapella use FABIOLA GARCIA DO Jun 16, 2023 10:45
[2023-06-16 11:18] VITALS: BP 143/79
--- NOTE | 2023-06-16 11:35 | Physical Therapy Daily Note ---
PT Daily Note-Current Subjective Patient lying supine in bed upon PT arrival, agreeable to treatment. Patient rates pain at 4/10 currently in abdomen. Pain Section J - Health Conditions 1. Rarely or not at all 2. Occasionally 3. Frequently 4. Almost constantly 8. Unable to answer Pain Effect on Sleep: 2 Pain Interference with Therapy: 2 Pain Interference w/Day-to-Day: 2 Transfers SCALE: Activities may be completed with or without assistive devices. 7-Jhlypuvhlv-yzcyovy completes the activity by him/herself with no assistance from a helper. 5-Set-up or Clean-up Assistance-helper sets up or cleans up; patient completes activity. [place] assists only prior to or following the activity. 4-Supervision or Touching Assistance-helper provides verbal cues and/or touching/steadying and/or contact guard assistance as patient completes activity. Assistance may be provided throughout the activity or intermittently. 3-Partial/Moderate Assistance-helper does LESS THAN HALF the effort. [place] lifts, holds or supports trunk or limbs, but provides less than half the effort. 2-Substantial/Maximal Assistance-helper does MORE THAN HALF the effort. [place] lifts or holds trunk or limbs and provides more than half the effort. 3-Swzopvuxi-euyvmw does ALL the effort. Patient does none of the effort to complete the activity. Or, the assistance of 2 or more helpers is required for the patient to complete the activity. If activity was not attempted, code reason: 7-Patient Refused. 9-Not Applicable-not attempted and the patient did not perform the activity before the current illness, exacerbation or injury. 10-Not Attempted due to Environmental Limitations-(lack of equipment, weather restraints, etc.). 88-Not Attempted due to Medical Conditions or Safety Concerns. Roll Left & Right (QC): 2 Sit to Lying (QC): 2 Lying to Sitting/Side of Bed(Q: 2 Sit to Stand (QC): 3 Chair/Rtx-au-Pnici Xfer(QC): 3 Weight Bearing Right Lower Extremity: Right Full Weight Bearing Left Lower Extremity: Left Full Weight Bearing Gait Training Does the Patient Walk?: Yes Distance: 5' Gait Assistive Device: FWW Exercises Seated Therapy Exercises: Ankle pumps, Long arc quads, Hamstring Curls, Hip abd/add Assessment Current Status: Poor Progress Patient very drowsy and difficult staying awake. Patient performs all bed mobility and transfers with mod/max A. Patient ambulates 5 feet with FWW, with mod A and verbal cues. Patient in chair post treatment with all needs met, n ursing notified, call light in reach. PT [employer] Goals Nursing Home Goals PT [employer] Goals Time Frame: Jun 29, 2023 Roll Left & Right (QC): 6 Sit to Lying (QC): 6 Lying-Sitting on Side/Bed(QC): 6 Sit to Stand (QC): 6 Chair/Yoe-wx-Fgkle Xfer(QC): 6 Toilet Transfer (QC): 6 Car Transfer (QC): 6 Does the Patient Walk: Yes Walk 10 feet (QC): 6 Walk 50ft with 2 Turns (QC): 6 Walk 150 ft (QC): 6 1 Step (curb) (QC): 4 4 Steps (QC): 4 12 Steps (QC): 4 PT Plan Treatment/Plan Treatment Plan: Continue Plan of Care Treatment Plan: Bed Mobility, Education, Functional Activity [place], Functional Strength, Group Therapy, Gait, Safety, Therapeutic Exercise, Transfers Treatment Duration: Jun 29, 2023 Frequency: 6 times per week Estimated Hrs Per Day: .25 hour per day Patient and/or Family Agrees t: Yes Safety Risks/Education Patient Education: Transfer Techniques Teaching Recipient: Patient Teaching Methods: Demonstration, Discussion Response to Teaching: Reinforcement Needed Time Time In: 1034 Time Out: 1100 DATE: Jun 16, 2023 Total Billed Treatment Time: 26 Total Billed Treatment Visit, FA, SUMAYA MCDERMOTT PT Jun 16, 2023 11:35
--- NOTE | 2023-06-16 11:43 | Occupational Ther Daily Note ---
OT Current Status-Daily Note Subjective Patient request no OOB activity however request assistance w/ set up of meal Mental Status/Objective Patient Orientation: Person, Place, Time, Situation ADL-Treatment Therapy Code Descriptions/Definitions Functional [place] Measure: 0=Not Assessed/NA 4=Minimal Assistance 1=Total Assistance 5=Supervision or Setup 2=Maximal Assistance 6=Modified [place] 3=Moderate Assistance 7=Complete IndependenceSCALE: Activities may be completed with or without assistive devices. 7-Jbngafsucp-jskyhyo completes the activity by him/herself with no assistance from a helper. 5-Set-up or Clean-up Assistance-helper sets up or cleans up; patient completes activity. [place] assists only prior to or following the activity. 4-Supervision or Touching Assistance-helper provides verbal cues and/or touching/steadying and/or contact guard assistance as patient completes activity. Assistance may be provided throughout the activity or intermittently. 3-Partial/Moderate Assistance-helper does LESS THAN HALF the effort. [place] lifts, holds or supports trunk or limbs, but provides less than half the effort. 2-Substantial/Maximal Assistance-helper does MORE THAN HALF the effort. [place] lifts or holds trunk or limbs and provides more than half the effort. 2-Zzlysoiop-ftlbaj does ALL the effort. Patient does none of the effort to complete the activity. Or, the assistance of 2 or more helpers is required for the patient to complete the activity. If activity was not attempted, code reason: 7-Patient Refused. 9-Not Applicable-not attempted and the patient did not perform the activity before the current illness, exacerbation or injury. 10-Not Attempted due to Environmental Limitations-(lack of equipment, weather restraints, etc.). 88-Not Attempted due to Medical Conditions or Safety Concerns. Eating (QC): 5 (Clear liquid diet, OT set up lids and sraws for meal. Patient in reclined positon, OT corrected best postion for liquid intake) Oral Hygiene (QC): 5 warm sudsy wash clothe provided for pre-post meal cleansing Education OT Patient Education: Correct positioning, Modified ADL techniques, Progress toward Goal/Update tx plan, Purpose of tx/functional activities, Reviewed precautions, Rehab process, Safety issues, Transfer techniques Teaching Recipient: Patient Teaching Methods: Demonstration, Discussion OT [facility] Goals Cardiac Monitor Goals Eating (QC): 6 Oral Hygiene (QC): 5 Toileting Hygiene (QC): 4 Shower/Bathe Self (QC): 3 Upper Body Dressing (QC): 5 Lower Body Dressing (QC): 4 On/Off Footwear (QC): 4 1=Demonstrate adherence to instructed precautions during ADL tasks. 2=Patient will verbalize/demonstrate understanding of assistive devices/modifica tions for ADL. 3=Patient will improve strength/tolerance for activity to enable patient to perform ADL's. OT Education/Plan Problem List/Assessment LOW ENDURANCE Discharge Recommendations Plan/Recommendations: Continue POC Treatment Plan/Plan of Care Patient would benefit from OT for education, treatment and training to promote independence in ADL's, mobility, safety and/or upper extremity function for ADL's. Plan of Care: ADL Retraining, Caregiver Training, Concurrent Therapy, Functional Mobility, Group Exercise/Act as Ind, UE Funct Exercise/Act Treatment Duration: Jun 25, 2023 Frequency: 3 times per week (3-5 TIMES PER WEEK) Estimated Hrs Per Day: .25 hour per day Agreement: Yes Rehab Potential: Fair Time Start Time: 09:08 Stop Time: 09:25 DATE: Jun 16, 2023 Total Time Billed (hr/min): 17 Billed Treatment Time ADL 17 min RACQUEL RENAE OT Jun 16, 2023 11:43
[2023-06-16] MEDS ORDERED: IOHEXOL 300 MG/ML 50 ML (OMNIPAQUE 300) VIAL IV ONE (14:00)
[2023-06-16 15:41] VITALS: BP 138/82
--- NOTE | 2023-06-16 15:44 | Diagnostic Imaging Report ---
INDICATION: Recent hollow viscus perforation with Greg patch surgical repair. The study is performed to evaluate for leak. TECHNIQUE: Approximately 75 mL of Omnipaque 300 contrast was ingested by the patient, and fluoroscopic evaluation of the distal esophagus, stomach, and proximal small bowel was performed. 248 seconds of fluoroscopic time was utilized. Reference air kerma is 105.5 mGy. FINDINGS: Preliminary radiograph of the chest shows a right IJ line with tip overlying the right atrium. There are midline surgical skin castillo. There is a surgical drain overlying the mid abdomen. Post-ingestion images demonstrate distal esophagus to be unremarkable. There is passage of contrast into the stomach with prompt emptying into the proximal small bowel loops. No abnormal extravasation of contrast is seen to suggest perforation or leakage. IMPRESSION: Unremarkable limited upper GI study without evidence of contrast extravasation or leakage. Dictated by: Dictated on workstation # [id number]
[2023-06-16] MEDS: SODIUM CHLORIDE IV SCH ×12 (17:28)
[2023-06-16] MEDS: SODIUM ACETATE IV SCH ×12 (17:28)
[2023-06-16] MEDS: POTASSIUM ACETATE IV SCH ×12 (17:28)
[2023-06-16] MEDS: [UNRECOGNIZED DRUG - OTHER] IV SCH ×12 (17:28)
[2023-06-16] MEDS: 1/2 NS IV SOLUTION 1000 ML 1,000 ML IV SCH (17:28)
[2023-06-16 19:29] VITALS: BP 137/66
[2023-06-16] MEDS: morphine INJ 4 MG/ML 1 ML (VIAL/SYRINGE) IVP PRN (21:03)
[2023-06-16 23:11] VITALS: BP 138/78
[2023-06-17] MEDS: HYDROcodone/ACETAMINOPHEN 5 MG/325 MG TABLET PO PRN (02:40)
[2023-06-17] MEDS: PIPERACILLIN/Tazobactam 4.5 GM in NS (IVPB) 100 ML 100 ML IV SCH ×3 (03:50→18:23)
[2023-06-17] MEDS: 1/2 NS IV SOLUTION 1000 ML 1,000 ML IV SCH (03:54)
[2023-06-17 04:00] VITALS: BP 155/67
[2023-06-17 07:53] VITALS: BP 142/66
[2023-06-17] MEDS: ENOXAPARIN 40 MG/0.4 ML SYRINGE SC SCH (08:09)
[2023-06-17] MEDS: FOLIC ACID 5MG/ML 10 ML IV SCH (08:09)
--- NOTE | 2023-06-17 08:45 | Progress Note - Surgery ---
RAMÓN DIANE 06/17/23 0845: Subjective Date Seen by a Provider: Jun 17, 2023 Time Seen by a Provider: 07:00 Subjective/Events-last exam Patient still says she is feeling better as the days pass and was able to tolerate juices yesterday night and today. Her MELLY drain shows blood and overnight drainage was 20mL. Yesterday was bloody as well. Patient does not recall eating any red jello or having any red liquids. She is still unable to ambulate and has peripheral edema. She is currently on enoxaparin. CT on 06/16 showed passage of contrast in stomach w/out extravation and nothing to suggest perforation. Review of Systems General: No Chills, No Night Sweats HEENT: No Head Aches, No Visual Changes, No Eye Pain Pulmonary: No Dyspnea, No Cough Cardiovascular: No: Chest Pain, Palpitations, Orthopnea Gastrointestinal: Diarrhea; No: Nausea, Vomiting Genitourinary: No Dysuria, No Frequency Musculoskeletal: No: neck pain, shoulder pain Neurological: No: Numbness, Confusion Focused Exam Time of Focused Exam: 13:30 Objective Exam Vital Signs Date Time Temp Pulse Resp B/P (MAP) Pulse Ox O2 Delivery O2 Flow Rate FiO2 06/17/23 07:53 36.2 71 17 142/66 (91) 96 Room Air 06/17/23 04:00 36.0 78 16 155/67 (96) 96 Room Air 06/16/23 23:11 36.7 74 18 138/78 (98) 96 Room Air 06/16/23 20:59 Room Air 06/16/23 19:29 36.4 72 17 137/66 (89) 95 Room Air 06/16/23 15:41 36.8 71 17 138/82 (100) 97 Room Air 06/16/23 11:18 36.6 78 17 143/79 (100) 96 Room Air I & O 06/17/23 07:00 Intake Total 1680 ml Output Total 875 ml Balance 805 ml Capillary Refill : Less Than 3 SecondsGreater Than 3 Seconds General Appearance: No Apparent Distress, Chronically ill, Thin HEENT: PERRL/EOMI, Normal ENT Inspection Neck: Normal Inspection, Non Tender Respiratory: Lungs Clear, No Accessory Muscle Use Cardiovascular: Regular Rate, Rhythm, No Murmur Peripheral Pulses: 2+ Dorsalis Pedis (R), 2+ Left Dors-Pedis (L); 1+ Radial Pulses (R), 1+ Radial Pulses (L) Gastrointestinal: soft, tenderness (incisional), other (mid line incision with left MELLY drain, small amount of red drainage no signs of infection) Extremity: Pedal Edema, Swelling Neurologic/Psychiatric: Alert, Oriented x3 Skin: Normal Color, Warm/Dry Lymphatic: No Adenopathy (Mental, submandibular, & anterior cervical ) Results Lab Laboratory Tests 06/17/23 05:44: Glucometer 104 Microbiology 06/12/23 C. difficile GDH Antigen & Toxins - Final, Complete 06/08/23 Urine Culture - Final, Complete NO GROWTH 06/08/23 Blood Culture - Final, Complete Assessment/Plan Assessment/Plan Assessment/Plan Assessment: hollow viscus perforation s/p ex lap, mobilization left colon, ligation of gastroduodenal artery, modified segundo patch sepsis secondary to above- C.diff Nstemi anemia due to acute blood loss Rheumatoid Arthritis b/l pleural effusions Plan: clear liquid diet - change to npo Continue Abx Pain meds as needed monitor melly drain red so concern for leak, discussed with dr. zambrano will get UGI TPN poor oral intake encourage acapella use MAHENDRA CATHERINE DO 06/17/23 1423: Subjective Time Seen by a Provider: 12:11 Subjective/Events-last exam Pt seen and examined, looks tired and states she has no energy. Tolerating clears, but really no appetite and told the hospitalist she did not want to increase diet to soft. Review of Systems General: No Chills, No Night Sweats; Fatigue, Malaise Pulmonary: No Dyspnea, No Cough Cardiovascular: No: Chest Pain, Palpitations, Orthopnea Gastrointestinal: Diarrhea Objective Exam General Appearance: No Apparent Distress, Chronically ill HEENT: PERRL/EOMI Respiratory: Lungs Clear, Normal Breath Sounds, No Accessory Muscle Use Cardiovascular: Regular Rate, Rhythm, No Murmur Gastrointestinal: soft, tenderness (incisional), other (mid line incision with left MELLY drain, small amount of maroon drainage no signs of infection) Neurologic/Psychiatric: Alert, Depressed Affect Assessment/Plan Assessment/Plan Assessment/Plan S/P ex lap for Gastric perforation with bleeding artery, mobilization left colon, ligation of gastroduodenal artery, modified segundo patch sepsis secondary to above and C.diff Nstemi anemia due to acute blood loss Rheumatoid Arthritis b/l pleural effusions Plan: clear liquid diet - change to npo Continue Abx Pain meds as needed monitor melly drain red so concern for leak, discussed with dr. zambrano will get UGI TPN poor oral intake encourage acapella use Supervisory-Addendum Brief Verification & Attestation Participated in pt care: history, MDM, physical Personally performed: exam, history, MDM, supervision of care Care discussed with: Medical Student Procedures: n/a Verification and Attestation of Medical Student E/M Service A medical student performed and documented this service. I then reviewed and verified all information documented by the medical student and made modifications to such information, when appropriate. I personally performed a physical exam, medical decision making and then discussed any differences between the notes and made revisions as necessary to create one note. Mahendra Catherine , 06/17/23 , 14:23 RAMÓN DIANE Jun 17, 2023 08:45 MAHENDRA CATHERINE DO Jun 17, 2023 14:23
--- NOTE | 2023-06-17 10:21 | Physical Therapy Daily Note ---
PT Daily Note-Current Subjective Patient agrees to therapy. Pain Section J - Health Conditions 1. Rarely or not at all 2. Occasionally 3. Frequently 4. Almost constantly 8. Unable to answer Pain Effect on Sleep: 2 Pain Interference with Therapy: 2 Pain Interference w/Day-to-Day: 2 Mental Status Patient Orientation: Normal For Age Attachments: IV Transfers SCALE: Activities may be completed with or without assistive devices. 5-Wcmgnehzpb-xknxsfc completes the activity by him/herself with no assistance from a helper. 5-Set-up or Clean-up Assistance-helper sets up or cleans up; patient completes activity. [place] assists only prior to or following the activity. 4-Supervision or Touching Assistance-helper provides verbal cues and/or touching/steadying and/or contact guard assistance as patient completes activity. Assistance may be provided throughout the activity or intermittently. 3-Partial/Moderate Assistance-helper does LESS THAN HALF the effort. [place] lifts, holds or supports trunk or limbs, but provides less than half the effort. 2-Substantial/Maximal Assistance-helper does MORE THAN HALF the effort. [place] lifts or holds trunk or limbs and provides more than half the effort. 5-Jfavfabvg-naujpx does ALL the effort. Patient does none of the effort to complete the activity. Or, the assistance of 2 or more helpers is required for the patient to complete the activity. If activity was not attempted, code reason: 7-Patient Refused. 9-Not Applicable-not attempted and the patient did not perform the activity before the current illness, exacerbation or injury. 10-Not Attempted due to Environmental Limitations-(lack of equipment, weather restraints, etc.). 88-Not Attempted due to Medical Conditions or Safety Concerns. Lying to Sitting/Side of Bed(Q: 3 Sit to Stand (QC): 3 Chair/Jor-zx-Uqvnx Xfer(QC): 3 Toilet Transfer (QC): 3 Weight Bearing Right Lower Extremity: Right Full Weight Bearing Left Lower Extremity: Left Full Weight Bearing Gait Training Distance: 20' x 1/15' x 2 Walk 10 feet (QC): 3 Gait Assistive Device: FWW very slow, extended UE's with FWW Exercises Seated Therapy Exercises: Long arc quads Seated Reps: 10 Assessment Patient incontinent BM x 2 with patient ambulating to restroom to finish on toilet and to assist with cleansing and changing patient. Patient requires encouragement to participate with therapy and to increase activity. Patient performed all functional mobility and strengthening asked on this date. Patient does fatigue with minimal activity. PT consulted with physician on patient's current status and ability/motivation. PT Physician Relations Representative Goals Physician Relations Representative Goals PT Long-Term Goals Time Frame: Jun 29, 2023 Roll Left & Right (QC): 6 Sit to Lying (QC): 6 Lying-Sitting on Side/Bed(QC): 6 Sit to Stand (QC): 6 Chair/Pmg-ve-Klmgu Xfer(QC): 6 Toilet Transfer (QC): 6 Car Transfer (QC): 6 Does the Patient Walk: Yes Walk 10 feet (QC): 6 Walk 50ft with 2 Turns (QC): 6 Walk 150 ft (QC): 6 1 Step (curb) (QC): 4 4 Steps (QC): 4 12 Steps (QC): 4 PT Plan Treatment/Plan Treatment Plan: Continue Plan of Care Treatment Plan: Bed Mobility, Education, Functional Activity [place], Functional Strength, Group Therapy, Gait, Safety, Therapeutic Exercise, Transfers Treatment Duration: Jun 29, 2023 Frequency: 6 times per week Estimated Hrs Per Day: .25 hour per day Patient and/or Family Agrees t: Yes Time Time In: 847 Time Out: 918 DATE: Jun 17, 2023 Total Billed Treatment Time: 31 Total Billed Treatment 1 visit FA x 2 31 min MICK VAZQUEZ PT Jun 17, 2023 10:21
--- NOTE | 2023-06-17 10:33 | Occupational Ther Daily Note ---
OT Current Status-Daily Note Subjective Agreeable to participate Appearance edema in all 4 extremities Mental Status/Objective Patient Orientation: Person, Place, Time, Situation ADL-Treatment Therapy Code Descriptions/Definitions Functional [place] Measure: 0=Not Assessed/NA 4=Minimal Assistance 1=Total Assistance 5=Supervision or Setup 2=Maximal Assistance 6=Modified [place] 3=Moderate Assistance 7=Complete IndependenceSCALE: Activities may be completed with or without assistive devices. 7-Qcanmjwqxu-smlvrsr completes the activity by him/herself with no assistance from a helper. 5-Set-up or Clean-up Assistance-helper sets up or cleans up; patient completes activity. [place] assists only prior to or following the activity. 4-Supervision or Touching Assistance-helper provides verbal cues and/or to uching/steadying and/or contact guard assistance as patient completes activity. Assistance may be provided throughout the activity or intermittently. 3-Partial/Moderate Assistance-helper does LESS THAN HALF the effort. [place] lifts, holds or supports trunk or limbs, but provides less than half the effort. 2-Substantial/Maximal Assistance-helper does MORE THAN HALF the effort. [place] lifts or holds trunk or limbs and provides more than half the effort. 4-Sthslngqo-xlpalz does ALL the effort. Patient does none of the effort to complete the activity. Or, the assistance of 2 or more helpers is required for the patient to complete the activity. If activity was not attempted, code reason: 7-Patient Refused. 9-Not Applicable-not attempted and the patient did not perform the activity before the current illness, exacerbation or injury. 10-Not Attempted due to Environmental Limitations-(lack of equipment, weather restraints, etc.). 88-Not Attempted due to Medical Conditions or Safety Concerns. Eating (QC): 5 (clear) Oral Hygiene (QC): 5 Shower/Bathe Self (QC): 7 (appropriate for shower) Upper Body Dressing (QC): 4 Lower Body Dressing (QC): 2 On/Off Footwear: 2 Toileting Hygiene (QC): 2 Toilet Transfer (QC): 4 2 BM tarry black color and texture, incont in bed and on way to bathroom, once cleaned positioned in recliner and BM incont again, ambulated to bathroom w/ assistance w/ FWW. Patient remained on toilet to use balbir light for assistance Education OT Patient Education: Correct positioning, Exercise program (written on board), Modified ADL techniques, Progress toward Goal/Update tx plan, Purpose of tx/functional activities, Reviewed precautions, Rehab process, Safety issues, Transfer techniques, Use of adapted equipment Teaching Recipient: Patient Teaching Methods: Demonstration, Discussion Response to Teaching: Verbalize Understanding, Reinforcement Needed OT Patient Carrier Goals Snf Goals Eating (QC): 6 Oral Hygiene (QC): 5 Toileting Hygiene (QC): 4 Shower/Bathe Self (QC): 3 Upper Body Dressing (QC): 5 Lower Body Dressing (QC): 4 On/Off Footwear (QC): 4 1=Demonstrate adherence to instructed precautions during ADL tasks. 2=Patient will verbalize/demonstrate understanding of assistive device s/modifications for ADL. 3=Patient will improve strength/tolerance for activity to enable patient to perform ADL's. OT Education/Plan Problem List/Assessment Assessment: Decreased Activ Tolerance, Decreased Safety Aware, Decreased UE Strength, Edema, Impaired Bed Mobility, Impaired Coordination, Impaired Funct Balance, Impaired Self-Care Skills LOW ENDURANCE Discharge Recommendations Plan/Recommendations: Continue POC Therapy Discharge Recommendati: Post Acute OT Treatment Plan/Plan of Care Treatment,Training & Education: Yes Patient would benefit from OT for education, treatment and training to promote independence in ADL's, mobility, safety and/or upper extremity function for ADL's. Plan of Care: ADL Retraining, Caregiver Training, Concurrent Therapy, Functional Mobility, Group Exercise/Act as Ind, UE Funct Exercise/Act Treatment Duration: Jun 25, 2023 Frequency: 3 times per week (3-5 TIMES PER WEEK) Estimated Hrs Per Day: .25 hour per day Agreement: Yes Rehab Potential: Fair Time Start Time: 09:01 Stop Time: 09:25 DATE: Jun 17, 2023 Total Time Billed (hr/min): 24 Billed Treatment Time ADL 24 min RACQUEL RENAE OT Jun 17, 2023 10:33
[2023-06-17 11:51] VITALS: BP 140/62
[2023-06-17 12:40] LABS: BASOPHILS # (AUTO) 0.1 10^3/uL (0.0-0.1); BASOPHILS % (AUTO) 2 % (0-10); EOSINOPHILS # (AUTO) 0.2 10^3/uL (0.0-0.3); EOSINOPHILS % (AUTO) 7 % (0-10); HEMATOCRIT 23 % (35-52); HEMOGLOBIN 7.5 g/dL (11.5-16.0); LYMPHOCYTES # (AUTO) 0.5 10^3/uL (1.0-4.0); LYMPHOCYTES % (AUTO) 21 % (12-44); MEAN CORPUSCULAR HEMOGLOBIN 31 pg (25-34); MEAN CORPUSCULAR HGB CONC 33 g/dL (32-36); MEAN CORPUSCULAR VOLUME 95 fL (80-99); MEAN PLATELET VOLUME 9.7 fL (9.0-12.2); MONOCYTES % (AUTO) 41 % (0-12); NEUTROPHILS # (AUTO) 0.7 10^3/uL (1.8-7.8); NEUTROPHILS % (AUTO) 27 % (42-75); PLATELET COUNT 268 10^3/uL (130-400); WHITE BLOOD COUNT 2.4 10^3/uL (4.3-11.0)
[2023-06-17] MEDS: morphine INJ 4 MG/ML 1 ML (VIAL/SYRINGE) IVP PRN (13:16)
--- NOTE | 2023-06-17 15:05 | Progress Note - Hospitalist ---
Subjective HPI/CC On Admission Date Seen by Provider: Jun 17, 2023 Fabby Ragsdale is a 73 year old female who presented with abdominal pain and was admitted with pneumoperitoneum. She was taken for emergent surgery and was found to have a perforated gastric ulcer with gastroduodenal artery bleed. She was recently hospitalized with C diff. She has continued to have diarrhea since that time, but then developed abdominal pain over the past couple days. They have noticed dark, tarry stools, but they haven't noticed any change recently. She also started to have fevers and chills. She denies chest pain and shortness of breath, but her daughter reminds her that she did have some chest discomfort yesterday. She has a history of GERD but is unsure if she is taking medicine for it. She has been taking Meloxicam for RA. She is also on Methotrexate and Plaque nil. Subjective/Events-last exam Pt reports doing ok. Does not want to advance diet. Was up with PT earlier today and is in chair. Focused Exam Time of Focused Exam: 13:30 Objective Exam Vital Signs Vital Signs Date Time Temp Pulse Resp B/P (MAP) Pulse Ox O2 Delivery O2 Flow Rate FiO2 06/17/23 11:51 36.3 73 17 140/62 (88) 97 Room Air 06/16/23 03:35 0.00 0.00 Capillary Refill : Less Than 3 SecondsGreater Than 3 Seconds General Appearance: No Apparent Distress Respiratory: Lungs Clear Cardiovascular: Regular Rate, Rhythm, No Murmur Gastrointestinal: Other (RADHA drain with dark serosanguinous fluid in it) Neurologic/Psychiatric: Alert, Oriented x3, Depressed Affect Results/Procedures Lab Laboratory Tests 06/17/23 12:35 Patient resulted labs reviewed. Imaging: Reviewed Imaging Report Assessment/Plan Assessment and Plan Assess & Plan/Chief Complaint Perforated gastric ulcer with hemorrhage Gastroduodenal artery bleed Acute blood loss anemia Hemorrhagic shock Chronic NSAID use Neutropenia Surgery primary s/p ex lap s/p 1 unit PRBC total IV PPI CLD- advance when ok with surgery TPN per surgery TeleICU following s/p Granix x1 WBC continues to improve PT/OT History of C diff infection Negative for C diff Flagyl RA Immunocompromised Hold home meds Will round prn, please call for any needs LUIS M IGLESIAS MD Jun 17, 2023 15:05
[2023-06-17 15:35] VITALS: BP 135/76
[2023-06-17] MEDS: SODIUM CHLORIDE IV SCH ×12 (17:21)
[2023-06-17] MEDS: POTASSIUM ACETATE IV SCH ×12 (17:21)
[2023-06-17] MEDS: [UNRECOGNIZED DRUG - OTHER] IV SCH ×12 (17:21)
[2023-06-17] MEDS: SODIUM ACETATE IV SCH ×12 (17:21)
[2023-06-17 19:45] VITALS: BP 149/79
[2023-06-18] VITALS (20 sets, daily range): BP systolic 79–160; BP diastolic 46–109
[2023-06-18] MEDS: PIPERACILLIN/Tazobactam 4.5 GM in NS (IVPB) 100 ML 100 ML IV SCH ×3 (03:39→18:29)
[2023-06-18 04:31] LABS: MEAN CORPUSCULAR HEMOGLOBIN 31 pg (25-34); MEAN CORPUSCULAR HGB CONC 33 g/dL (32-36); MEAN CORPUSCULAR VOLUME 95 fL (80-99); MEAN PLATELET VOLUME 10.1 fL (9.0-12.2); PLATELET COUNT 534 10^3/uL (130-400); WHITE BLOOD COUNT 10.7 10^3/uL (4.3-11.0)
[2023-06-18 04:33] LABS: HEMOGLOBIN 6.3 g/dL (11.5-16.0)
[2023-06-18 04:34] LABS: HEMATOCRIT 19 % (35-52)
[2023-06-18 04:41] LABS: ALBUMIN 1.8 GM/DL (3.2-4.5); POTASSIUM 4.3 MMOL/L (3.6-5.0)
[2023-06-18 04:42] LABS: CALCIUM 7.3 MG/DL (8.5-10.1)
[2023-06-18 04:43] LABS: TOTAL PROTEIN 3.8 GM/DL (6.4-8.2)
[2023-06-18 04:45] LABS: BILIRUBIN,TOTAL 0.4 MG/DL (0.1-1.0)
[2023-06-18 04:46] LABS: PHOSPHORUS 3.2 MG/DL (2.3-4.7)
[2023-06-18] MEDS: ONDANSETRON INJECTION 4 MG/2 ML (SDV) IVP PRN (04:46)
[2023-06-18 04:47] LABS: CREATININE SERUM 0.83 MG/DL (0.60-1.30)
[2023-06-18 04:50] LABS: MAGNESIUM 1.8 MG/DL (1.6-2.4)
[2023-06-18] MEDS ORDERED: PANTOPRAZOLE INJECTION 40 MG VIAL IV ONE (05:15)
[2023-06-18] MEDS ORDERED: NS IV 500 ML 500 ML IV SCH (05:15)
[2023-06-18] MEDS ORDERED: NS IV 500 ML 500 ML IV ONE (05:45)
[2023-06-18] MEDS ORDERED: NS IV 500 ML 500 ML ONE (05:48)
[2023-06-18 06:53] LABS: BACTERIA,URINE TRACE /HPF; BILIRUBIN,URINE NEGATIVE (NEGATIVE); CLARITY,URINE CLOUDY; COLOR,URINE YELLOW; GLUCOSE, URINE (UA) NEGATIVE (NEGATIVE); KETONES,URINE TRACE (NEGATIVE); LEUKOCYTE ESTERASE ,URINE NEGATIVE (NEGATIVE); NITRITE,URINE NEGATIVE (NEGATIVE); PH,URINE 5.5 (5-9); PROTEIN,URINE 2+ (NEGATIVE); WBC,URINE 0-2 /HPF
[2023-06-18 06:54] LABS: AMORPHOUS SEDIMENT,UR MOD AMOR URATES /LPF; SQUAMOUS EPITHELIAL CELL,UR 25-50 /HPF
--- NOTE | 2023-06-18 07:21 | Physical Therapy Progress Note ---
Therapy Progress Note Due to change in medical status and transfer to ICU, PT will require new orders when patient is deemed medically stable and able to safely and actively participate with skilled therapy. MICK VAZQUEZ PT Jun 18, 2023 07:21
--- NOTE | 2023-06-18 07:46 | Diagnostic Imaging Report ---
Indication: Sepsis. Compared: 06/08/2023 Findings: Left lower lobe infiltrate is suspect for pneumonia. There do appear to be small pleural effusions and some mild patchy atelectatic changes at the right base. Impression: Increased left basilar consolidation and likely pneumonia with increased left pleural fluid. Note is made of subcutaneous gas about the visible left upper flank. Dictated by: Dictated on workstation # [id number]
--- NOTE | 2023-06-18 09:18 | Progress Note - Surgery ---
APARICIO 06/18/23 0918: Subjective Date Seen by a Provider: Jun 18, 2023 Time Seen by a Provider: 09:00 Subjective/Events-last exam Patient's BP dropped to approx 79/52 and her pulse was up to 125 overnight. Her Hgb dropped to 6.3 from 8.8 and she was moved to the ICU at around 6 this morning. She was given a unit of blood and is going to be given another. Another CT is going to be performed as well. Results for PT PTT and new lactic acid are not out yets. He MELLY drain now is almost a black color with sediment and was about 100 mL. She is no longer on enoxaparin. She says she does not feel too bad but she she looks pale and her abdomen is distended with sounds of crepitus. She also mentioned pain on urination and UTI was ordered. Review of Systems General: No Chills, No Night Sweats; Fatigue, Malaise HEENT: No Head Aches, No Visual Changes, No Eye Pain Pulmonary: No Dyspnea, No Cough Cardiovascular: No: Chest Pain, Palpitations Gastrointestinal: Abdominal Pain (mild diffuse ); No: Nausea, Vomiting Genitourinary: Dysuria; No Hematuria Musculoskeletal: No: neck pain, back pain, hand pain Neurological: Weakness; No: Numbness, Confusion Focused Exam Lactate Level 06/18/23 06:06: Lactic Acid Level 2.15*H Time of Focused Exam: 13:30 Lactic Acid Level Laboratory Tests Test 06/18/23 06:06 Lactic Acid Level 2.15 MMOL/L (0.50-2.00) *H Objective Exam Vital Signs Date Time Temp Pulse Resp B/P (MAP) Pulse Ox O2 Delivery O2 Flow Rate FiO2 06/18/23 08:00 98 24 115/73 (87) 96 Room Air 06/18/23 07:29 99 06/18/23 07:00 100 24 103/69 (80) 96 Room Air 06/18/23 06:45 99 17 93/49 (64) 92 Room Air 06/18/23 06:34 36.8 98 18 104/53 91 Room Air 06/18/23 06:19 37.3 98 18 92/46 95 Room Air 06/18/23 06:15 98 17 91/58 (69) 92 Room Air 10/20/23 06:00 105 17 93/48 (63) 92 Room Air 06/18/23 05:47 36.8 113 18 57/42 (47) 93 Room Air 06/18/23 05:30 105 76/48 (57) 94 Room Air 06/18/23 04:50 125 79/52 (61) 06/18/23 04:21 37.0 126 16 91/59 (70) 95 Room Air 0.00 0.00 06/18/23 00:07 37.4 98 16 153/85 (107) 96 Room Air 0.00 0.00 06/17/23 20:00 Room Air 06/17/23 19:45 36.9 97 20 149/79 (102) 96 Room Air 06/17/23 15:35 36.8 88 18 135/76 (95) 95 Room Air 06/17/23 11:51 36.3 73 17 140/62 (88) 97 Room Air I & O 06/18/23 07:00 Intake Total 1820 ml Output Total 1450 ml Balance 370 ml Capillary Refill : Less Than 3 SecondsGreater Than 3 Seconds General Appearance: No Apparent Distress, Thin HEENT: PERRL/EOMI Neck: Normal Inspection, Non Tender Respiratory: Lungs Clear Cardiovascular: Regular Rate, Rhythm, No Murmur Peripheral Pulses: 2+ Dorsalis Pedis (R), 2+ Left Dors-Pedis (L); 1+ Radial Pulses (R), 1+ Radial Pulses (L) Gastrointestinal: abnormal bowel sounds, distended, tenderness (incisional), other (mid line incision with left MELLY drain, small amount of maroon drainage no signs of infection) Extremity: Pedal Edema, Swelling Neurologic/Psychiatric: Alert, Oriented x3, Depressed Affect Skin: Normal Color, Pallor Lymphatic: No Adenopathy (Mental, submandibular, & anterior cervical ) Results Lab Laboratory Tests 06/17/23 12:35: White Blood Count 2.4L, Red Blood Count 2.41L, Hemoglobin 7.5L, Hematocrit 23L, Mean Corpuscular Volume 95, Mean Corpuscular Hemoglobin 31, Mean Corpuscular Hemoglobin Concent 33, Red Cell Distribution Width 13.8, Platelet Count 268, Mean Platelet Volume 9.7, Immature Granulocyte % (Auto) 2, Neutrophils (%) (Auto) 27L, Lymphocytes (%) (Auto) 21, Monocytes (%) (Auto) 41H, Eosinophils (%) (Auto) 7, Basophils (%) (Auto) 2, Neutrophils # (Auto) 0.7L, Lymphocytes # (Auto) 0.5L, Monocytes # (Auto) 1.0, Eosinophils # (Auto) 0.2, Basophils # (Auto) 0.1, Immature Granulocyte # (Auto) 0.1 06/18/23 04:19: White Blood Count 10.7, Red Blood Count 2.04L, Hemoglobin 6.3*L, Hematocrit 19*L , Mean Corpuscular Volume 95, Mean Corpuscular Hemoglobin 31, Mean Corpuscular Hemoglobin Concent 33, Red Cell Distribution Width 14.2, Platelet Count 534H, Mean Platelet Volume 10.1, Sodium Level 134L, Potassium Level 4.3, Chloride Level 108H, Carbon Dioxide Level 19L, Anion Gap 7, Blood Urea Nitrogen 32H, Creatinine 0.83, Estimat Glomerular Filtration Rate 74, BUN/Creatinine Ratio 39, Glucose Level 160H, Calcium Level 7.3L, Corrected Calcium 9.1, Phosphorus Level 3.2, Magnesium Level 1.8, Total Bilirubin 0.4, Aspartate Amino Transf (AST/SGOT) 30, Alanine Aminotransferase (ALT/SGPT) 15, Alkaline Phosphatase 107, Total Protein 3.8L, Albumin 1.8L, Triglycerides Level 83 06/18/23 05:15: Glucometer 157H 06/18/23 06:06: Lactic Acid Level 2.15*H 06/18/23 06:40: Urine Color YELLOW, Urine Clarity CLOUDY, Urine pH 5.5, Urine Specific [place] 1.015L, Urine Protein 2+H, Urine Glucose (UA) NEGATIVE, Urine Ketones TRACEH, Urine Nitrite NEGATIVE, Urine Bilirubin NEGATIVE, Urine Urobilinogen 0.2, Urine Leukocyte Esterase NEGATIVE, Urine RBC (Auto) 1+H, Urine RBC 5-10H, Urine WBC 0- 2, Urine Squamous Epithelial Cells 25-50H, Urine Crystals PRESENTH, Urine Amorphous Sediment MOD TONI URATESH, Urine Bacteria TRACE, Urine Casts NONE, Urine Mucus NEGATIVE, Urine Culture Indicated NO Microbiology 06/12/23 C. difficile GDH Antigen & Toxins - Final, Complete 06/08/23 Urine Culture - Final, Complete NO GROWTH 06/08/23 Blood Culture - Final, Complete Assessment/Plan Assessment/Plan Assessment/Plan S/P ex lap for Gastric perforation with bleeding artery, mobilization left colon, ligation of gastroduodenal artery, modified segundo patch sepsis secondary to above and C.diff Nstemi anemia due to acute blood loss Rheumatoid Arthritis b/l pleural effusions Plan: NPO Continue Abx Pain meds as needed monitor melly drain TPN poor oral intake F/U on labs and CT MAHENDRA YANCEY DO 06/18/23 1117: Subjective Time Seen by a Provider: 09:29 Subjective/Events-last exam Pt seen and examined, events of last night and this am noted. Pt was on 4th and transferred up to the ICU for hypotension. She stated the only pain was around the incision, but it was minimal. Her main complaint is feeling weak, no energy and she told the student she is depressed. Review of Systems General: Fatigue, Malaise HEENT: No Head Aches Pulmonary: No Dyspnea, No Cough Cardiovascular: No: Chest Pain, Palpitations Gastrointestinal: Abdominal Pain (mild diffuse ); No: Nausea, Vomiting Genitourinary: Dysuria; No Hematuria Neurological: Weakness Objective Exam General Appearance: Chronically ill, Obese HEENT: PERRL/EOMI, Pale Conjunctivae (L), Pale Conjunctivae (R) Neck: Non Tender Respiratory: Lungs Clear, Normal Breath Sounds, No Accessory Muscle Use, No Respiratory Distress Cardiovascular: Regular Rate, Rhythm, No Murmur Gastrointestinal: soft, abnormal bowel sounds, distended, tenderness (incisional), other (increased amount of maroon drainage no signs of infection) Extremity: Pedal Edema, Swelling Neurologic/Psychiatric: Alert, Depressed Affect, Other (sleepy) Skin: Normal Color, Pallor Assessment/Plan Assessment/Plan Assessment/Plan GI bleed - unknown source Anemia S/P ex lap for Gastric perforation with bleeding artery, mobilization left colon, ligation of gastroduodenal artery, modified segundo patch sepsis secondary to above C.diff Nstemi Rheumatoid Arthritis b/l pleural effusions Plan: NPO Pt needs to be on oral vancomycin to treat the C. diff. Pain meds as needed With the drop in Hgb and increased MELLY output, plus the black tarry stools it is imperative that we make sure she is not still bleeding from UGI. I talked to family extensively, answering all their questions and going over what the best next step would be. I believe she needs an EGD with possible clipping of bleeding and all other indicated procedures. I did tell them that she is at risk for this causing a leak from recently repaired gastric perforation. However, I think the benefits outweigh the risk. She is getting 2 Units of PRBC, continue IV fluids. May need exploration (but that is last option). Encourage IS use and movement maybe with PT. Supervisory-Addendum Brief Verification & Attestation Participated in pt care: history, MDM, physical Personally performed: exam, history, MDM, supervision of care Care discussed with: Medical Student Procedures: n/a Verification and Attestation of Medical Student E/M Service A medical student performed and documented this service. I then reviewed and verified all information documented by the medical student and made m odifications to such information, when appropriate. I personally performed a physical exam, medical decision making and then discussed any differences between the notes and made revisions as necessary to create one note. Mahendra Yancey , 06/18/23 , 11:17 APARICIO Jun 18, 2023 09:18 MAHENDRA YANCEY DO Jun 18, 2023 11:17
[2023-06-18] MEDS: PANTOPRAZOLE INJECTION 40 MG VIAL IV SCH ×3 (09:45→22:16)
--- NOTE | 2023-06-18 10:21 | Tele-ICU Progress Note ---
Subjective Date Seen by a Provider: Jun 18, 2023 Time Seen by a Provider: 10:20 Subjective/Events-last exam (Tele-ICU Physician , Progress Note ) Service provided via interactive audio and video telecommunications E-CARE system to a patient admitted to ICU bed in [facility]. Patient is seen today due to persistent need of ICU care Available chart/ vitals / labs / Images reviewed Video assessment done using teleICU camera, rest of exam as per RN Discussed with RN Events overnight : Afebrile hemodynamically stable Respiratory - ra I/O =+ Drips: ns 100 Pressors- no Hospital course: (06/08) 73F with fever, CDIFF admitted for perforated viscous, septic shock in immunocompromised host. s/p exploratory laparotomy, ligation of GDA, biopsy of ulcer, modified Greg patch. Central line insertion. (06/14) Anemia, holding anticoagulation (06/18) READMIT for severe anemia. Dark stools. Lovenox stopped. PRBC ordered. CTA ABD: PENDING A/P hypotension, suspected due to ABLA ( presented originallu with hemorr shock and Gastroduodenal artery bleed) vs septis -hv 6.3- 2 u PRBC today - EGD for today - PPI BID s/p ex lap, mobilization left colon, ligation of gastroduodenal artery, modified greg patch - zosyn , flagyl - RADHA in place - as per Sx ABLA- s/p 1 unit PRBC earlier on admission - transfusion pRBC 2 u follow - PPI bid Neutropenia - s/p Granix x1 Nstemi - no chest pain RA . 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 Discussed with RN to reach out if any questions or concerns Case and care daily discussed on multidisciplinary rounds ( RN, PharmD, Fur Drummer , Respiratory Therapy, particleboard factory worker ) A total of 31 minutes of critical care time was devoted to this patient today, required to treat and/or prevent further deterioration of critical care condition ( as above ) . I am remotely monitoring this patient from another state. I am unable to do the bedside exam, and history/physical and pertinent information is taken from other notes in the computer and bedside staff. Sepsis Event Evaluation Height, Weight, BMI Height: 5'4.00" Weight: 140lbs. oz. 63.142570ul; 29.66 BMI Method:Stated Focused Exam Lactate Level 06/18/23 06:06: Lactic Acid Level 2.15*H 06/18/23 09:54: Time of Focused Exam: 13:30 Lactic Acid Level Laboratory Tests Test 06/18/23 09:54 Exam Exam Patient acknowledged, consented, and participated in this virtual visit which was conducted using real time audio/video Vital Signs Date Time Temp Pulse Resp B/P (MAP) Pulse Ox O2 Delivery O2 Flow Rate FiO2 06/18/23 10:00 92 17 102/61 (75) 96 Room Air 06/18/23 09:00 92 23 102/65 (77) 95 Room Air 06/18/23 08:00 98 24 115/73 (87) 96 Room Air 06/18/23 07:29 99 06/18/23 07:00 100 24 103/69 (80) 96 Room Air 06/18/23 06:45 99 17 93/49 (64) 92 Room Air 06/18/23 06:34 36.8 98 18 104/53 91 Room Air 06/18/23 06:19 37.3 98 18 92/46 95 Room Air 06/18/23 06:15 98 17 91/58 (69) 92 Room Air 06/18/23 06:00 105 17 93/48 (63) 92 Room Air 06/18/23 05:47 36.8 113 18 57/42 (47) 93 Room Air 06/18/23 05:30 105 76/48 (57) 94 Room Air 06/18/23 04:50 125 79/52 (61) 06/18/23 04:21 37.0 126 16 91/59 (70) 95 Room Air 0.00 0.00 06/18/23 00:07 37.4 98 16 153/85 (107) 96 Room Air 0.00 0.00 06/17/23 20:00 Room Air 06/17/23 19:45 36.9 97 20 149/79 (102) 96 Room Air 06/17/23 15:35 36.8 88 18 135/76 (95) 95 Room Air 06/17/23 11:51 36.3 73 17 140/62 (88) 97 Room Air I & O 06/18/23 07:00 Intake Total 1820 ml Output Total 1450 ml Balance 370 ml Height & Weight Height: 5'4.00" Weight: 140lbs. oz. 63.936821ou; 29.66 BMI Method:Stated General Appearance: No Apparent Distress, Thin HEENT: PERRL/EOMI Neck: Normal Inspection, Non Tender Respiratory: Lungs Clear Cardiovascular: Regular Rate, Rhythm, No Murmur Capillary Refill: Greater Than 3 Seconds (4 seconds) Peripheral Pulses: 2+ Dorsalis Pedis (R), 2+ Left Dors-Pedis (L); 1+ Radial Pulses (R), 1+ Radial Pulses (L) Gastrointestinal: abnormal bowel sounds, distended, tenderness (incisional), other (mid line incision with left RADHA drain, small amount of maroon drainage no signs of infection) Extremity: Pedal Edema, Swelling Neurologic/Psychiatric: Alert, Oriented x3, Depressed Affect Skin: Normal Color, Pallor Lymphatic: No Adenopathy (Mental, submandibular, & anterior cervical ) Results Lab Laboratory Tests 06/17/23 12:35 06/18/23 04:19 Assessment/Plan Assessment/Plan 1 SHAWN CERVANTES MD Jun 18, 2023 10:20
[2023-06-18] MEDS ORDERED: LACTATED RINGERS 1,000 ML 1,000 ML IV ONE (11:04)
[2023-06-18 11:06] LABS: INR 1.4 (0.8-1.4); PROTHROMBIN TIME PATIENT 17.4 SEC (12.2-14.7)
[2023-06-18] MEDS ORDERED: KETAMINE 50 MG/5 ML SYRINGE ONE (11:13)
[2023-06-18] MEDS ORDERED: proPOfol INJECTION 200 MG/20 ML VIAL IV ONE ×2 (11:13→14:31)
[2023-06-18] MEDS ORDERED: LACTATED RINGERS 1,000 ML 1,000 ML IV STA (11:18)
[2023-06-18] MEDS ORDERED: HURRICAINE EXT TUBE (BENZOCAINE) XX PRN (11:30)
--- NOTE | 2023-06-18 11:49 | Progress Note-Post Operative ---
Post-Operative Progess Note Surgeon (s)/Barrel Cap Setter (s) Surgeon MAHENDRA CATHERINE DO Barrel Cap Setter: none Pre-Operative Diagnosis GI bleed, Anemia Post-Operative Diagnosis Gastric perforation GI bleed Procedure & Operative Findings Date of Procedure 06/18/23 Procedure Performed/Findings EGD PROCEDURE NOTE: After informed consent was obtained, the patient was brought to the endoscopy suite, placed in bed in left lateral decubitus position. She was administered IV sedation by the CLERK ENTRY LEVEL who then monitored vitals the entire time, heart rate, blood pressure and pulse ox and the scope was inserted down the mouth through the esophagus into the stomach. On the way down, noted some small flecks of old blood and took a picture. I pushed into the stomach and immediately noted a large amount of black fluid in the stomach; tried suctioning some of it, but it was very thick. I pushed to the antrum and just past the pylorus was a large clot that I could not suction up. I tried to grab it with a Terry net, but that was unsuccessful. I then used biopsy forceps to grab it and was able to get it out of the first portion of duodenum. Once this was out I was able to see a hole in the duodenum and could actually see the sanya drain; took a picture. At this point I then retroflexed the scope, saw a hiatal hernia, pulled the scope into the GE junction, took a picture of the hiatal hernia. Finally, I pulled the scope up the esophagus and out the mouth. The patient tolerated the procedure, and she recovered in endoscopy suite. Anesthesia Type IV sedation by CLERK ENTRY LEVEL Estimated Blood Loss Estimated blood loss (mL): none Specimens/Packing Specimens Removed none, but large amount of old blood and fluid in the stomach MAHENDRA CATHERINE DO Jun 18, 2023 11:49
[2023-06-18] MEDS: FOLIC ACID 5MG/ML 10 ML IV SCH (12:31)
[2023-06-18] MEDS: morphine INJ 4 MG/ML 1 ML (VIAL/SYRINGE) IVP PRN ×2 (12:32→21:12)
--- NOTE | 2023-06-18 13:18 | Progress Note - Hospitalist ---
Subjective HPI/CC On Admission Date Seen by Provider: Jun 18, 2023 Fabby Ragsdale is a 73 year old female who presented with abdominal pain and was admitted with pneumoperitoneum. She was taken for emergent surgery and was found to have a perforated gastric ulcer with gastroduodenal artery bleed. She was recently hospitalized with C diff. She has continued to have diarrhea since that time, but then developed abdominal pain over the past couple days. They have noticed dark, tarry stools, but they haven't noticed any change recently. She also started to have fevers and chills. She denies chest pain and shortness of breath, but her daughter reminds her that she did have some chest discomfort yesterday. She has a history of GERD but is unsure if she is taking medicine for it. She has been taking Meloxicam for RA. She is also on Methotrexate and Plaque nil. Subjective/Events-last exam Pt reports doing a little better this morning since transferring up to the ICU. Had low BP and Hgb dropped (9.2.7.5-6.3). Dr Garcia ordered 2 units of blood and sent to ICU. Blood is currently running and she states she is feeling better. Plan is to go for EGD today. Focused Exam Lactate Level 06/18/23 06:06: Lactic Acid Level 2.15*H 06/18/23 09:54: Lactic Acid Level 1.45 Time of Focused Exam: 13:30 Lactic Acid Level Laboratory Tests Test 06/18/23 09:54 Lactic Acid Level 1.45 MMOL/L (0.50-2.00) Objective Exam Vital Signs Vital Signs Date Time Temp Pulse Resp B/P (MAP) Pulse Ox O2 Delivery O2 Flow Rate FiO2 06/18/23 13:02 38.0 78 22 111/70 95 Room Air 06/18/23 04:21 0.00 0.00 Capillary Refill : Less Than 3 SecondsGreater Than 3 Seconds General Appearance: No Apparent Distress, Chronically ill Respiratory: Lungs Clear Cardiovascular: Regular Rate, Rhythm, No Murmur Gastrointestinal: Other (RADHA drain in place with dark serosanguionous fluid in it) Neurologic/Psychiatric: Alert, Oriented x3 Results/Procedures Lab Laboratory Tests 06/18/23 04:19 Patient resulted labs reviewed. Imaging: Reviewed Imaging Report Assessment/Plan Assessment and Plan Assess & Plan/Chief Complaint Perforated gastric ulcer with hemorrhage Gastroduodenal artery bleed Acute blood loss anemia Hemorrhagic shock Chronic NSAID use Neutropenia Surgery primary s/p ex lap s/p 1 unit PRBC and 2 units ordered this AM- one currently running IV PPI NPO TPN per surgery TeleICU following s/p Granix x1 WBC back to normal PT/OT History of C diff infection Negative for C diff Flagyl RA Immunocompromised Hold home meds LUIS M IGLESIAS MD Jun 18, 2023 13:18
[2023-06-18] MEDS ORDERED: ONDANSETRON INJECTION 4 MG/2 ML (SDV) ONE (14:31)
[2023-06-18] MEDS ORDERED: dexAMETHasone INJ 10 MG/ML 1 ML VIAL ONE (14:31)
[2023-06-18] MEDS ORDERED: GLYCOPYRROLATE INJ 0.2 MG/ML 2 ML VIAL ONE ×2 (14:31→16:28)
[2023-06-18] MEDS ORDERED: fentaNYL INJECTION 100 MCG/2 ML VIAL ONE (14:31)
[2023-06-18] MEDS ORDERED: LIDOCAINE PF 2% 5 ML VIAL ONE (14:31)
[2023-06-18] MEDS ORDERED: SUCCINYLCHOLINE INJ 20 MG/1 ML 10 ML VIAL ONE (14:31)
[2023-06-18] MEDS: LACTATED RINGERS 1,000 ML 1,000 ML IV PRN ×2 (15:16→16:07)
[2023-06-18 15:22] LABS: HEMATOCRIT 25 % (35-52); HEMOGLOBIN 8.3 g/dL (11.5-16.0); MEAN CORPUSCULAR HEMOGLOBIN 30 pg (25-34); MEAN CORPUSCULAR HGB CONC 33 g/dL (32-36); MEAN CORPUSCULAR VOLUME 91 fL (80-99); MEAN PLATELET VOLUME 10.2 fL (9.0-12.2); PLATELET COUNT 377 10^3/uL (130-400); WHITE BLOOD COUNT 4.1 10^3/uL (4.3-11.0)
[2023-06-18 15:46] LABS: WHITE BLOOD COUNT TRANSF RX 4.1 X 10^3 (4.3-11.0)
[2023-06-18] MEDS ORDERED: metroNIDAZOLE 500MG/100ML IVPB 100 ML ONE (16:09)
[2023-06-18] MEDS ORDERED: METRONIDAZOLE IV ONE (16:11)
[2023-06-18] MEDS ORDERED: [UNRECOGNIZED DRUG - OTHER] IV ONE (16:11)
[2023-06-18] MEDS ORDERED: ROCURONIUM 50 MG/5 ML VIAL IV ONE (16:18)
[2023-06-18] MEDS ORDERED: SEVOFLURANE (ULTANE) 15 ML INHAL SOLN ONE (16:28)
[2023-06-18] MEDS ORDERED: SUGAMMADEX INJ 100 MG/ML 5 ML VIAL IV ONE (16:28)
[2023-06-18] MEDS ORDERED: NEOSTIGMINE 1 MG/1ML 10 ML VIAL ONE (16:28)
--- NOTE | 2023-06-18 16:48 | Progress Note-Post Operative ---
Post-Operative Progess Note Surgeon (s)/Director Of Occupational Therapy (s) Surgeon FABIOLA GARCIA DO Director Of Occupational Therapy: none Pre-Operative Diagnosis hollow viscus perforation Post-Operative Diagnosis hollow viscus peforation proximal duodenum Procedure & Operative Findings Date of Procedure 06/18/23 Procedure Performed/Findings exploratory laparotomy, modified segundo patch Anesthesia Type general Estimated Blood Loss Estimated blood loss (mL): minimal Specimens/Packing Specimens Removed na FABIOLA GARCIA DO Jun 18, 2023 16:48
[2023-06-18] MEDS ORDERED: NS IV 1000 ML 0 ML ONE (17:11)
[2023-06-18] MEDS ORDERED: ONDANSETRON INJECTION 4 MG/2 ML (SDV) IVP PRN (17:15)
[2023-06-18] MEDS ORDERED: fentaNYL INJECTION 100 MCG/2 ML VIAL IVP ONE (17:15)
[2023-06-18] MEDS: 1/2 NS IV SOLUTION 1000 ML 1,000 ML IV SCH (17:35)
[2023-06-18] MEDS: SODIUM CHLORIDE IV SCH ×12 (18:28)
[2023-06-18] MEDS: [UNRECOGNIZED DRUG - OTHER] IV SCH ×12 (18:28)
[2023-06-18] MEDS: POTASSIUM ACETATE IV SCH ×12 (18:28)
[2023-06-18] MEDS: SODIUM ACETATE IV SCH ×12 (18:28)
[2023-06-18] MEDS: HYDROcodone/ACETAMINOPHEN 5 MG/325 MG TABLET PO PRN (20:01)
[2023-06-18] MEDS: metroNIDAZOLE 500MG/100ML IVPB 100 ML IV SCH (22:52)
[2023-06-19] MEDS: morphine INJ 4 MG/ML 1 ML (VIAL/SYRINGE) IVP PRN ×3 (02:42→22:08)
[2023-06-19] MEDS: PIPERACILLIN/Tazobactam 4.5 GM in NS (IVPB) 100 ML 100 ML IV SCH ×3 (02:48→19:24)
[2023-06-19 05:05] LABS: BASOPHILS # (AUTO) 0.1 10^3/uL (0.0-0.1); BASOPHILS % (AUTO) 1 % (0-10); EOSINOPHILS % (AUTO) 0 % (0-10); HEMATOCRIT 26 % (35-52); HEMOGLOBIN 8.7 g/dL (11.5-16.0); LYMPHOCYTES # (AUTO) 0.7 10^3/uL (1.0-4.0); LYMPHOCYTES % (AUTO) 8 % (12-44); MEAN CORPUSCULAR HEMOGLOBIN 30 pg (25-34); MEAN CORPUSCULAR HGB CONC 34 g/dL (32-36); MEAN CORPUSCULAR VOLUME 89 fL (80-99); MEAN PLATELET VOLUME 10.1 fL (9.0-12.2); MONOCYTES # (AUTO) 0.8 10^3/uL (0.0-1.0); MONOCYTES % (AUTO) 9 % (0-12); NEUTROPHILS # (AUTO) 6.5 10^3/uL (1.8-7.8); NEUTROPHILS % (AUTO) 74 % (42-75); PLATELET COUNT 384 10^3/uL (130-400); WHITE BLOOD COUNT 8.8 10^3/uL (4.3-11.0)
[2023-06-19 05:15] LABS: ALBUMIN 1.6 GM/DL (3.2-4.5); POTASSIUM 4.6 MMOL/L (3.6-5.0)
[2023-06-19 05:17] LABS: CALCIUM 7.2 MG/DL (8.5-10.1)
[2023-06-19 05:18] LABS: TOTAL PROTEIN 3.5 GM/DL (6.4-8.2)
[2023-06-19 05:20] LABS: BILIRUBIN,TOTAL 0.4 MG/DL (0.1-1.0)
[2023-06-19 05:21] LABS: CREATININE SERUM 0.88 MG/DL (0.60-1.30); PHOSPHORUS 3.4 MG/DL (2.3-4.7)
[2023-06-19 05:24] LABS: MAGNESIUM 1.8 MG/DL (1.6-2.4)
[2023-06-19] MEDS: metroNIDAZOLE 500MG/100ML IVPB 100 ML IV SCH ×3 (06:51→23:24)
--- NOTE | 2023-06-19 08:17 | Progress Note - Surgery ---
JAIME MIRANDA 06/19/23 0817: Subjective Date Seen by a Provider: Jun 19, 2023 Time Seen by a Provider: 08:15 Subjective/Events-last exam Patient is feeling a little better this morning than post surgery. She is very tired but feels like her pain is reasonably controlled and currently is a 4/10. she has diffuse ache pain over the abdomen. She has not had a BM nor passed any gas in the last 2-3 days. She denies any shortness of air nor any dysuria today. RADHA drain this morning contained only a little serosanguinous fluid and since surgery have drained 40ml. She is looking less pale this morning compared to yesterday and she is feeling a little less fatigued but still tired. Ng tube is draining dark coffee ground appearance fluids and have approximately drained 230ml post surgery. Bandage over incision looks good with minimal bleeding. Extremities are quite swollen but patient feels like it is going down. Focused Exam Lactate Level 06/18/23 06:06: Lactic Acid Level 2.15*H 06/18/23 09:54: Lactic Acid Level 1.45 Time of Focused Exam: 13:30 Objective Exam Vital Signs Date Time Temp Pulse Resp B/P (MAP) Pulse Ox O2 Delivery O2 Flow Rate FiO2 06/19/23 07:00 74 15 113/57 (75) 90 Room Air 06/19/23 07:00 77 06/19/23 06:00 76 14 123/65 (84) 93 06/19/23 05:00 84 26 117/65 (82) 91 06/19/23 04:00 80 15 109/53 (71) 88 06/19/23 03:00 78 15 110/72 (85) 89 06/19/23 02:00 80 17 114/76 (89) 91 06/19/23 01:00 82 17 106/57 (73) 89 06/19/23 01:00 84 06/19/23 00:27 37.0 89 26 106/62 (77) 90 Room Air 06/18/23 23:00 93 103/56 (72) 88 06/18/23 22:00 96 105/60 (75) 95 06/18/23 21:00 98 119/67 (84) 89 06/18/23 20:30 91 Room Air 06/18/23 20:30 37.1 06/18/23 20:00 115 133/84 (100) 90 Room Air 06/18/23 19:00 111 06/18/23 19:00 115 131/81 (98) 88 Room Air 06/18/23 18:00 114 117/91 (100) 97 Room Air 06/18/23 17:55 OxyMask 4.00 06/18/23 17:50 38.0 20 159/107 (124) 94 OxyMask 4.00 06/18/23 17:40 22 105/92 (96) 94 OxyMask 6.00 06/18/23 17:30 OxyMask 6.00 06/18/23 17:30 22 125/94 (104) 94 OxyMask 8.00 06/18/23 17:20 24 154/92 (112) 96 OxyMask 8.00 06/18/23 17:15 OxyMask 8.00 06/18/23 17:10 22 159/109 (126) 98 OxyMask 10.00 06/18/23 17:00 117 105/92 (96) 97 Room Air 06/18/23 16:56 37.8 20 125/109 (114) 96 OxyMask 10.00 06/18/23 16:56 OxyMask 10.00 06/18/23 16:00 117 97 Room Air 06/18/23 15:00 107 25 104/95 (98) 94 Room Air 06/18/23 14:30 38.6 106 16 109/71 91 Room Air 06/18/23 14:15 37.4 106 22 105/83 92 Room Air 06/18/23 14:00 37.4 06/18/23 14:00 37.5 103 30 131/76 93 Room Air 06/18/23 14:00 106 131/76 (94) 91 Room Air 06/18/23 13:45 37.4 100 16 95/85 Room Air 06/18/23 13:30 37.3 95 21 160/90 90 Room Air 06/18/23 13:15 37.4 92 17 128/79 92 Room Air 06/18/23 13:02 38.0 78 22 111/70 95 Room Air 06/18/23 13:00 92 111/70 (84) 93 Room Air 06/18/23 12:37 87 06/18/23 11:55 87 124/76 (92) 92 Room Air 06/18/23 11:45 81 16 95 Room Air 06/18/23 11:40 79 16 98 Room Air 06/18/23 10:00 92 17 102/61 (75) 96 Room Air 06/18/23 09:00 92 23 102/65 (77) 95 Room Air I & O 06/19/23 07:00 Intake Total 5017 ml Output Total 1545 ml Balance 3472 ml Capillary Refill : Less Than 3 SecondsGreater Than 3 Seconds General Appearance: No Apparent Distress, Chronically ill HEENT: Other (Pupuils constricted and minimaly reactive to light ) Neck: Non Tender, Supple Respiratory: No Accessory Muscle Use, No Respiratory Distress Cardiovascular: Regular Rate, Rhythm, No Murmur Peripheral Pulses: 2+ Dorsalis Pedis (R), 2+ Left Dors-Pedis (L) Gastrointestinal: normal bowel sounds, soft, tenderness (diffuse tenderness), other (RADHA drain serosanguinous fluid) Extremity: Pedal Edema, Swelling Neurologic/Psychiatric: Alert, Oriented x3 Skin: Normal Color, Warm/Dry, Pallor Lymphatic: No Adenopathy (Cervical or supraclavicular ) Results Lab Laboratory Tests 06/18/23 09:54: Lactic Acid Level 1.45 06/18/23 10:41: Prothrombin Time 17.4H, INR Comment 1.4, Activated Partial Thromboplast Time 29 06/18/23 15:04: White Blood Count 4.1L, Red Blood Count 2.76L, Hemoglobin 8.3L, Hematocrit 25L, Mean Corpuscular Volume 91, Mean Corpuscular Hemoglobin 30, Mean Corpuscular Hemoglobin Concent 33, Red Cell Distribution Width 16.2H, Platelet Count 377, Mean Platelet Volume 10.2 06/19/23 04:58: White Blood Count 8.8, Red Blood Count 2.89L, Hemoglobin 8.7#L, Hematocrit 26L, Mean Corpuscular Volume 89, Mean Corpuscular Hemoglobin 30, Mean Corpuscular Hemoglobin Concent 34, Red Cell Distribution Width 16.2H, Platelet Count 384, Mean Platelet Volume 10.1, Immature Granulocyte % (Auto) 8, Neutrophils (%) (Auto) 74, Lymphocytes (%) (Auto) 8L, Monocytes (%) (Auto) 9, Eosinophils (%) (Auto) 0, Basophils (%) (Auto) 1, Neutrophils # (Auto) 6.5, Lymphocytes # (Auto) 0.7L, Monocytes # (Auto) 0.8, Eosinophils # (Auto) 0.0, Basophils # (Auto) 0.1, Immature Granulocyte # (Auto) 0.7H, Sodium Level 137, Potassium Level 4.6, Chloride Level 112H, Carbon Dioxide Level 18L, Anion Gap 7, Blood Urea Nitrogen 37H, Creatinine 0.88, Estimat Glomerular Filtration Rate 69, BUN/Creatinine Ratio 42, Glucose Level 152H, Calcium Level 7.2L, Corrected Calcium 9.1, Phosphorus Level 3.4, Magnesium Level 1.8, Total Bilirubin 0.4, Aspartate Amino Transf (AST/SGOT) 25, Alanine Aminotransferase (ALT/SGPT) 17, Alkaline Phosphatase 72, Total Protein 3.5L, Albumin 1.6L Microbiology 06/12/23 C. difficile GDH Antigen & Toxins - Final, Complete 06/08/23 Urine Culture - Final, Complete NO GROWTH 06/08/23 Blood Culture - Final, Complete Assessment/Plan Assessment/Plan Assessment/Plan Anemia Pre transfusion Hb 6.3 Post transfusion Hb 8.3 This morning Hb 8.7 S/P ex lap for Gastric perforation with bleeding artery, mobilization left colon, ligation of gastroduodenal artery, modified segundo patch. S/P repeat ex lap with modified segundo patch due to repeat gastric perforation C.diff b/l pleural effusions Plan: NPO Pain meds as needed Encourage IS use Continue IV Antibiotics Continue IV fluids FABIOLA GARCIA DO 06/19/23 1037: Subjective Subjective/Events-last exam NPO. TPN through central line. Pain controlled. NG secured. at bedside. Hgb 8.7. Denies n/v fever sweats chills shortness of breath or chest pain. Objective Exam General Appearance: No Apparent Distress, Chronically ill HEENT: Other Neck: Non Tender, Supple Respiratory: Chest Non Tender, No Accessory Muscle Use, No Respiratory Distress Cardiovascular: Regular Rate, Rhythm, No JVD Gastrointestinal: soft, tenderness (incisional), other (RADHA drain serosanguinous fluid) Extremity: Pedal Edema, Swelling Neurologic/Psychiatric: Alert, Oriented x3 Skin: Normal Color, Warm/Dry Lymphatic: No Adenopathy (Cervical or supraclavicular ) Assessment/Plan Assessment/Plan Assessment/Plan Anemia Pre transfusion Hb 6.3 Post transfusion Hb 8.3 This morning Hb 8.7 S/P ex lap for Gastric perforation with bleeding artery, mobilization left colon, ligation of gastroduodenal artery, modified segundo patch. S/P repeat ex lap with modified segundo patch due to repeat gastric perforation C.diff b/l pleural effusions NPO NG LIWS RADHA Drain Protonix BID Hold Anticoagulation due to anemia/bleed SCD's for dvt prophylaxis Pain meds as needed Encourage IS/Acappella use Continue IV Antibiotics Continue IV fluids Supervisory-Addendum Brief Verification & Attestation Participated in pt care: history, MDM, physical Personally performed: exam, history, MDM, supervision of care Care discussed with: Medical Student Procedures: n/a Results interpretation: Verified all documentation Verification and Attestation of Medical Student E/M Service A medical student performed and documented this service in my presence. I reviewed and verified all information documented by the medical student and made modifications to such information, when appropriate. I personally performed the physical exam and medical decision making. Fabiola Garcia, Jun 19, 2023,10:37 JAIME MIRANDA Jun 19, 2023 08:17 FABIOLA GARCIA DO Jun 19, 2023 10:37
--- NOTE | 2023-06-19 09:14 | Tele-ICU Progress Note ---
Progress Note video rounds completed 73 y/o female underwent exp lap on 06/08 for gastroduodenal ulcer perforation and bleeding Had Greg patch and ligation of gastroduodenal artery. Had recurrence of problem and taken back to OR on 06/18 for re Greg patch Now recovering in ICU On Zosyn and fluconazole for perforation No chemical DVT px due to GI bleeding ON TPN for nutrition support PE: comfortable in bed Pulse: 75 NSR BP: 127/74 Pulse ox 90-92% IMP: gastric ulcer perforation s/p Greg patch X 2 PLAN: continue present management I am remotely monitoring this patient from another state. I am unable to do the bedside exam, and history/physical and pertinent information is taken from other notes in the computer and bedside staff. Time spent in review 20 minutes Focused Exam Lactate Level 06/18/23 06:06: Lactic Acid Level 2.15*H 06/18/23 09:54: Lactic Acid Level 1.45 Height, Weight, BMI Height: 5'4.00" Weight: 140lbs. oz. 63.970039gb; 31.44 BMI Method:Stated Time of Focused Exam: 13:30 Labs Laboratory Tests 06/18/23 15:04 06/19/23 04:58 Results Results/Procedures Labs Laboratory Tests 06/17/23 12:35 06/18/23 04:19 06/18/23 15:04 06/19/23 04:58 Patient resulted labs reviewed. Imaging: Reviewed Imaging Report Results Labs Labs Laboratory Tests 06/18/23 09:54: Lactic Acid Level 1.45 06/18/23 10:41: Prothrombin Time 17.4H, INR Comment 1.4, Activated Partial Thromboplast Time 29 06/18/23 15:04: White Blood Count 4.1L, Red Blood Count 2.76L, Hemoglobin 8.3L, Hematocrit 25L, Mean Corpuscular Volume 91, Mean Corpuscular Hemoglobin 30, Mean Corpuscular Hemoglobin Concent 33, Red Cell Distribution Width 16.2H, Platelet Count 377, Mean Platelet Volume 10.2 06/19/23 04:58: White Blood Count 8.8, Red Blood Count 2.89L, Hemoglobin 8.7#L, Hematocrit 26L, Mean Corpuscular Volume 89, Mean Corpuscular Hemoglobin 30, Mean Corpuscular Hemoglobin Concent 34, Red Cell Distribution Width 16.2H, Platelet Count 384, Mean Platelet Volume 10.1, Immature Granulocyte % (Auto) 8, Neutrophils (%) (Auto) 74, Lymphocytes (%) (Auto) 8L, Monocytes (%) (Auto) 9, Eosinophils (%) (Auto) 0, Basophils (%) (Auto) 1, Neutrophils # (Auto) 6.5, Lymphocytes # (Auto) 0.7L, Monocytes # (Auto) 0.8, Eosinophils # (Auto) 0.0, Basophils # (Auto) 0.1, Immature Granulocyte # (Auto) 0.7H, Sodium Level 137, Potassium Level 4.6, Chl oride Level 112H, Carbon Dioxide Level 18L, Anion Gap 7, Blood Urea Nitrogen 37H , Creatinine 0.88, Estimat Glomerular Filtration Rate 69, BUN/Creatinine Ratio 42, Glucose Level 152H, Calcium Level 7.2L, Corrected Calcium 9.1, Phosphorus Level 3.4, Magnesium Level 1.8, Total Bilirubin 0.4, Aspartate Amino Transf (AST/SGOT) 25, Alanine Aminotransferase (ALT/SGPT) 17, Alkaline Phosphatase 72, Total Protein 3.5L, Albumin 1.6L Microbiology 06/12/23 C. difficile GDH Antigen & Toxins - Final, Complete 06/08/23 Urine Culture - Final, Complete NO GROWTH 06/08/23 Blood Culture - Final, Complete FABIANA DEUTSCH MD Jun 19, 2023 09:14
--- NOTE | 2023-06-19 09:21 | Progress Note - Hospitalist ---
Subjective HPI/CC On Admission Date Seen by Provider: Jun 19, 2023 Fabby Ragsdale is a 73 year old female who presented with abdominal pain and was admitted with pneumoperitoneum. She was taken for emergent surgery and was found to have a perforated gastric ulcer with gastroduodenal artery bleed. She was recently hospitalized with C diff. She has continued to have diarrhea since that time, but then developed abdominal pain over the past couple days. They have noticed dark, tarry stools, but they haven't noticed any change recently. She also started to have fevers and chills. She denies chest pain and shortness of breath, but her daughter reminds her that she did have some chest discomfort yesterday. She has a history of GERD but is unsure if she is taking medicine for it. She has been taking Meloxicam for RA. She is also on Methotrexate and Plaque nil. Subjective/Events-last exam Pt reports doing well. No complaints. Feeling better today than yesterday. Pain from surgery but tolerable. Requests an ice pack. Focused Exam Lactate Level 06/18/23 06:06: Lactic Acid Level 2.15*H 06/18/23 09:54: Lactic Acid Level 1.45 Time of Focused Exam: 13:30 Objective Exam Vital Signs Vital Signs Date Time Temp Pulse Resp B/P (MAP) Pulse Ox O2 Delivery O2 Flow Rate FiO2 06/19/23 08:00 72 13 104/68 (80) 91 Room Air 06/19/23 00:27 37.0 06/18/23 17:55 4.00 Capillary Refill : Less Than 3 SecondsGreater Than 3 Seconds General Appearance: No Apparent Distress, Chronically ill HEENT: Other (NGT in place) Respiratory: Lungs Clear Cardiovascular: Regular Rate, Rhythm Gastrointestinal: Abnormal Bowel Sounds (absent), Other (dressing clean and dry, RADHA drain in place with scant serosanguinous output) Neurologic/Psychiatric: Alert, Oriented x3 Results/Procedures Lab Laboratory Tests 06/18/23 15:04 06/19/23 04:58 Patient resulted labs reviewed. Imaging: Reviewed Imaging Report Assessment/Plan Assessment and Plan Assess & Plan/Chief Complaint Perforated gastric ulcer with hemorrhage Gastroduodenal artery bleed Acute blood loss anemia Hemorrhagic shock- resolved Chronic NSAID use Neutropenia Surgery primary s/p ex lap again yesterday s/p 4 units pRBCs total- Hgb stable IV PPI NPO- NGT in place Zosyn, Flagyl, and Fluconazole TPN per surgery TeleICU following s/p Granix x1 this hospitalization WBC back to normal PT/OT- reordered since in ICU History of C diff infection Negative for C diff Flagyl as is on abx RA Immunocompromised Hold home LUIS M Barton MD Jun 19, 2023 09:21
--- NOTE | 2023-06-19 10:26 | Physical Therapy Evaluation ---
PT Evaluation-General Medical Diagnosis Admission Date Jun 08, 2023 at 18:16 Medical Diagnosis: Bowel Perforation Onset Date: Jun 08, 2023 Therapy Diagnosis Therapy Diagnosis: decreased mobility, decreased strength Height/Weight Height (Feet): 5 Height (Inches): 4.00 Weight (Pounds): 140 Precautions Precautions/Isolations: Standard Precautions Weight Bear Status Right Lower Extremity: Right Full Weight Bearing Left Lower Extremity: Left Full Weight Bearing Referral Physician: Dr. Garcia Reason for Referral: Evaluation/Treatment Medical History Pertinent Medical History: Rheumatoid Arthritis Current History Pt. had abdominal surgery for bowel perforation. Reviewed History: Yes Social History Home: [facility] Current Living Status: Spouse Entry Into Home: Stairs With Railing PT Steps Into Home: 3 PT Steps Inside Home: 15 Prior Prior Level of Function SCALE: Activities may be completed with or without assistive devices. 2-Psdkwgljfn-qtqkewx completes the activity by him/herself with no assistance from a helper. 5-Set-up or Clean-up Assistance-helper sets up or cleans up; patient completes activity. [place] assists only prior to or following the activity. 4-Supervision or Touching Assistance-helper provides verbal cues and/or touching/steadying and/or contact guard assistance as patient completes activity. Assistance may be provided throughout the activity or intermittently. 3-Partial/Moderate Assistance-helper does LESS THAN HALF the effort. [place] lifts, holds or supports trunk or limbs, but provides less than half the effort. 2-Substantial/Maximal Assistance-helper does MORE THAN HALF the effort. [place] lifts or holds trunk or limbs and provides more than half the effort. 4-Kgzhejmkq-skcebp does ALL the effort. Patient does none of the effort to complete the activity. Or, the assistance of 2 or more helpers is required for the patient to complete the activity. If activity was not attempted, code reason: 7-Patient Refused. 9-Not Applicable-not attempted and the patient did not perform the activity before the current illness, exacerbation or injury. 10-Not Attempted due to Environmental Limitations-(lack of equipment, weather restraints, etc.). 88-Not Attempted due to Medical Conditions or Safety Concerns. Bed Mobility: 6 Transfers (B,C,W/C): 6 Gait: 6 Stairs: 6 Indoor Mobility (Ambulation): Independent Stairs: Independent Prior Devices Use: Manual wheelchair, Walker PT Evaluation-Current Subjective Pt. rates abdominal pain 4/10, agrees to sit at edge of bed. Nurse present to assist and change bedding/gown for patient clean up. Pt/Family Goals home with spouse Objective Patient Orientation: Person, Place, Time, Situation Attachments: Central Line, NG Tube, SCD's, Oxygen, Drains, IV ROM/Strength ROM Upper Extremities WFL ROM Lower Extremities WFL Strength Upper Extremities n/a Strength Lower Extremities n/a Integumentary/Posture Integumentary see nursing notes Bowel Incontinence: No Bladder Incontinence: No Neuromuscular (Tone, Coordination, Reflexes) diminished Sensory Vision: Functional Hearing: Functional Sensation Right Lower Extremit: Intact Sensation Left Lower Extremity: Intact Transfers Roll Left to Right (QC): 1 Sit to Lying (QC): 1 Lying to Sitting/Side of Bed(Q: 1 Gait Does the Patient Walk?: No and Walking Goal IS indicated Balance Sitting Static: Fair Sitting Dynamic: Fair Assessment/Needs Pt. is a 73 y.o. female with decreased mobility and strength from recent surgical procedures and medical complications. Pt. is currently max A x 2 for transfers. Unable to stand at this time but did sit with SBA at edge of bed for several minutes to change bedding and for patient clean-up. Pt. would benefit from skilled PT to improve safe mobility and strength for return home with s shira. Rehab Potential: Good PT Chcf Goals Chcf Goals PT Therapeutic Dietitian Goals Time Frame: Jun 29, 2023 Roll Left & Right (QC): 6 Sit to Lying (QC): 6 Lying-Sitting on Side/Bed(QC): 6 Sit to Stand (QC): 6 Chair/Gnq-uy-Glqnx Xfer(QC): 6 Toilet Transfer (QC): 6 Car Transfer (QC): 6 Does the Patient Walk: Yes Walk 10 feet (QC): 6 Walk 50ft with 2 Turns (QC): 6 Walk 150 ft (QC): 6 1 Step (curb) (QC): 4 4 Steps (QC): 4 12 Steps (QC): 4 PT Plan Problem List Problem List: Activity Tolerance, Functional Strength, Safety, Balance, Gait, Transfer, Bed Mobility, ROM Treatment/Plan Treatment Plan: Continue Plan of Care Treatment Plan: Bed Mobility, Education, Functional Activity Dashawn, Functional Strength, Group Therapy, Gait, Safety, Therapeutic Exercise, Transfers Treatment Duration: Jun 29, 2023 Frequency: 6 times per week Estimated Hrs Per Day: .25 hour per day Patient and/or Family Agrees t: Yes Time Time In: 0942 Time Out: 1002 DATE: Jun 19, 2023 Total Billed Treatment Time: 20 Total Billed Treatment 1, [facility] 20' HORACE CHRISTOPHER PT Jun 19, 2023 10:25
[2023-06-19] MEDS: PANTOPRAZOLE INJECTION 40 MG VIAL IV SCH ×2 (10:30→22:07)
[2023-06-19] MEDS: FOLIC ACID 5MG/ML 10 ML IV SCH (13:59)
[2023-06-19] MEDS: 1/2 NS IV SOLUTION 1000 ML 1,000 ML IV SCH (17:31)
[2023-06-19] MEDS: POTASSIUM ACETATE IV SCH ×12 (17:45)
[2023-06-19] MEDS: [UNRECOGNIZED DRUG - OTHER] IV SCH ×12 (17:45)
[2023-06-19] MEDS: SODIUM CHLORIDE IV SCH ×12 (17:45)
[2023-06-19] MEDS: SODIUM ACETATE IV SCH ×12 (17:45)
[2023-06-20] MEDS: morphine INJ 4 MG/ML 1 ML (VIAL/SYRINGE) IVP PRN ×4 (02:43→22:03)
[2023-06-20] MEDS: PIPERACILLIN/Tazobactam 4.5 GM in NS (IVPB) 100 ML 100 ML IV SCH ×3 (02:45→18:53)
[2023-06-20 05:41] LABS: ALBUMIN 1.7 GM/DL (3.2-4.5); POTASSIUM 4.7 MMOL/L (3.6-5.0)
[2023-06-20 05:43] LABS: CALCIUM 7.4 MG/DL (8.5-10.1)
[2023-06-20 05:44] LABS: TOTAL PROTEIN 3.7 GM/DL (6.4-8.2)
[2023-06-20 05:46] LABS: BILIRUBIN,TOTAL 0.2 MG/DL (0.1-1.0)
[2023-06-20 05:47] LABS: CREATININE SERUM 0.79 MG/DL (0.60-1.30); PHOSPHORUS 3.5 MG/DL (2.3-4.7)
[2023-06-20 05:50] LABS: MAGNESIUM 2.1 MG/DL (1.6-2.4)
[2023-06-20 05:53] LABS: BASOPHILS # (AUTO) 0.2 10^3/uL (0.0-0.1); BASOPHILS % (AUTO) 1 % (0-10); EOSINOPHILS % (AUTO) 0 % (0-10); HEMATOCRIT 28 % (35-52); HEMOGLOBIN 9.2 g/dL (11.5-16.0); LYMPHOCYTES # (AUTO) 0.7 10^3/uL (1.0-4.0); LYMPHOCYTES % (AUTO) 4 % (12-44); MEAN CORPUSCULAR HEMOGLOBIN 30 pg (25-34); MEAN CORPUSCULAR HGB CONC 33 g/dL (32-36); MEAN CORPUSCULAR VOLUME 92 fL (80-99); MONOCYTES % (AUTO) 10 % (0-12); NEUTROPHILS # (AUTO) 14.4 10^3/uL (1.8-7.8); NEUTROPHILS % (AUTO) 74 % (42-75); PLATELET COUNT 338 10^3/uL (130-400); WHITE BLOOD COUNT 19.6 10^3/uL (4.3-11.0)
[2023-06-20] MEDS: metroNIDAZOLE 500MG/100ML IVPB 100 ML IV SCH ×3 (06:48→21:56)
[2023-06-20 07:20] LABS: ANISOCYTOSIS SLIGHT; BAND NEUTROPHILS 13 %; BASOPHILS % (MANUAL) 0 %; EOSINOPHILS % (MANUAL) 0 %; LYMPHOCYTES % (MANUAL) 9 %; MONOCYTES % (MANUAL) 11 %; MYELOCYTES % 2 %; NEUTROPHILS % (MANUAL) 65 %; NUCLEATED RED BLOOD CELLS 2; POLYCHROMASIA SLIGHT
[2023-06-20] MEDS ORDERED: NS IV 500 ML 500 ML ONE (07:41)
[2023-06-20] MEDS ORDERED: NS 100 ML (IVPB) BAG IV ONE (07:45)
--- NOTE | 2023-06-20 09:33 | Tele-ICU Progress Note ---
Subjective Date Seen by a Provider: Jun 20, 2023 Time Seen by a Provider: 09:28 Subjective/Events-last exam Tele-ICU Physician , Progress Note ) Service provided via interactive audio and video telecommunications [facility] s [facility] to a patient admitted to ICU bed in [facility]. Patient is seen today due to persistent need of ICU care Available chart/ vitals / labs / Images reviewed Video assessment done using teleICU camera, rest of exam as per RN She is a 73-year-old female who was recently treated for diarrhea due to C. difficile colitis and discharged on May 30, 2023. Now presented to the emergency room with a complaint of persistent diarrhea and abdominal pain and a CT of the abdomen and pelvis Gal Tee MD showed free air in the belly. She has a history of rheumatoid arthritis for which she is being on methotrexate and Plaquenil. A surgical consultation was requested and she was taken to the operating room on an emergency basis and an exploratory laparotomy done and found to have a gastric ulcer perforation which was repaired with Greg patch. Postoperatively she was admitted to the intensive care unit. She is extubated and off the vasopressors. However she continues to have a persistent leukopenia and today's white count is 0.6. Otherwise she is awake alert oriented. 06/10/23 today pt in disress. wbc count increased to 7.5 hb slightly low at 9.2 06/20/23she had repeat EX lap on 06/18/23 for perforated duodenal ulcer. now hemodynamically stable, HB also stable. Urine out put adequate. albumin is low Impression 1. Perforated gastric ulcer status post emergency repair with exploratory laparotomy 2. Leukopenia severe probably due to sepsis improving 3. History of rheumatoid arthritis on methotrexate which is on hold 4. For type II myocardial infarction for which cardiology following. Recommendations 1. Continue IV antibiotics 2. Continue IV fluid resuscitation 3. Leucopenia resolved 4. Continue monitor her white count. Reviewed with NEWS CORRESPONDENT Layla Coordination of care with primary care and bedside consultants. Discussed in MDR I am remotely monitoring this patient from Tele icu station in [place]. I am unable to do the bedside exam, and history/physical and pertinent information is taken from other notes in the computer and bedside staff. Certain portions of this document may have been dictated utilizing voice recogn ition technology such as Debitos. Inherent to this technology, typographical and grammatical errors may exist. As much as I am diligent to identify and correct to these mistakes, some errors may remain in the document. Critical care time devoted to this patient today is approximately is 15 minute s-- Sepsis Event Evaluation Height, Weight, BMI Height: 5'4.00" Weight: 140lbs. oz. 63.971956rt; 34.87 BMI Method:Stated Focused Exam Lactate Level 06/18/23 06:06: Lactic Acid Level 2.15*H 06/18/23 09:54: Lactic Acid Level 1.45 Time of Focused Exam: 13:30 Exam Exam Patient acknowledged, consented, and participated in this virtual visit which was conducted using real time audio/video Vital Signs Date Time Temp Pulse Resp B/P (MAP) Pulse Ox O2 Delivery O2 Flow Rate FiO2 06/20/23 09:00 67 132/68 (89) 94 Room Air 06/20/23 08:00 68 141/86 (104) 92 Room Air 06/20/23 07:29 36.4 06/20/23 07:25 91 Room Air 06/20/23 07:00 68 06/20/23 07:00 69 132/72 (92) 93 Room Air 06/20/23 06:00 68 131/69 (89) 93 Room Air 06/20/23 05:00 71 135/70 (91) 92 Room Air 06/20/23 04:13 36.2 06/20/23 04:00 71 130/69 (89) 92 Room Air 06/20/23 03:00 73 125/75 (92) 93 Room Air 06/20/23 02:00 77 138/73 (94) 93 Room Air 06/20/23 01:21 69 06/20/23 01:00 69 127/63 (84) 91 Room Air 06/20/23 00:15 91 Room Air 06/20/23 00:00 69 123/69 (87) 92 Room Air 06/19/23 23:00 68 140/69 (92) 94 Room Air 06/19/23 22:00 69 125/73 (90) 92 Room Air 06/19/23 21:00 73 126/56 (79) Room Air 06/19/23 20:45 36.6 06/19/23 20:20 92 Room Air 06/19/23 20:00 68 117/74 (88) 91 Room Air 06/19/23 19:09 Nasal Cannula 4.00 06/19/23 19:01 69 06/19/23 19:00 68 118/70 (86) 94 Room Air 06/19/23 18:00 69 119/77 (91) 92 Room Air 06/19/23 17:00 74 22 124/61 (82) 93 Room Air 06/19/23 16:00 67 13 120/67 (84) 90 Room Air 06/19/23 15:00 69 13 116/64 (81) 91 Room Air 06/19/23 14:01 36.4 06/19/23 14:00 71 16 120/73 (89) 90 Room Air 06/19/23 13:00 70 13 119/67 (84) 91 Room Air 06/19/23 12:21 76 06/19/23 12:00 72 20 121/63 (82) 92 Room Air 06/19/23 11:00 75 20 127/70 (89) 90 Room Air 06/19/23 10:00 75 28 159/81 (107) 90 Room Air I & O 06/20/23 07:00 Intake Total 3118.1 ml Output Total 1590 ml Balance 1528.1 ml Height & Weight Height: 5'4.00" Weight: 140lbs. oz. 63.662875vx; 34.87 BMI Method:Stated General Appearance: No Apparent Distress, Chronically ill HEENT: Other Neck: Non Tender, Supple Respiratory: Chest Non Tender, No Accessory Muscle Use, No Respiratory Distress Cardiovascular: Regular Rate, Rhythm, No JVD Capillary Refill: Greater Than 3 Seconds (4 seconds) Peripheral Pulses: 2+ Dorsalis Pedis (R), 2+ Left Dors-Pedis (L) Gastrointestinal: soft, tenderness (incisional), other (RADHA drain serosanguinous fluid) Extremity: Pedal Edema, Swelling Neurologic/Psychiatric: Alert, Oriented x3 Skin: Normal Color, Warm/Dry Lymphatic: No Adenopathy (Cervical or supraclavicular ) Results Lab Laboratory Tests 06/18/23 15:04 06/19/23 04:58 06/20/23 05:07 06/20/23 05:47 Assessment/Plan Assessment/Plan as above Critical Care: Critically Ill Patient Time spent with patient (mins): 15 BLANKA GAVIN MD Jun 20, 2023 09:33
[2023-06-20] MEDS: PANTOPRAZOLE INJECTION 40 MG VIAL IV SCH ×2 (09:48→20:02)
[2023-06-20] MEDS ORDERED: PHENOL THROAT SPRAY 177 ML LIQUID MC PRN (10:30)
--- NOTE | 2023-06-20 11:26 | Progress Note - Hospitalist ---
Subjective HPI/CC On Admission Date Seen by Provider: Jun 20, 2023 Fabby Ragsdale is a 73 year old female who presented with abdominal pain and was admitted with pneumoperitoneum. She was taken for emergent surgery and was found to have a perforated gastric ulcer with gastroduodenal artery bleed. She was recently hospitalized with C diff. She has continued to have diarrhea since that time, but then developed abdominal pain over the past couple days. They have noticed dark, tarry stools, but they haven't noticed any change recently. She also started to have fevers and chills. She denies chest pain and shortness of breath, but her daughter reminds her that she did have some chest discomfort yesterday. She has a history of GERD but is unsure if she is taking medicine for it. She has been taking Meloxicam for RA. She is also on Methotrexate and Plaque nil. Subjective/Events-last exam Pt reports doing better today. No new complaints. BP better. Focused Exam Lactate Level 06/18/23 06:06: Lactic Acid Level 2.15*H 06/18/23 09:54: Lactic Acid Level 1.45 Time of Focused Exam: 13:30 Objective Exam Vital Signs Vital Signs Date Time Temp Pulse Resp B/P (MAP) Pulse Ox O2 Delivery O2 Flow Rate FiO2 06/20/23 11:00 65 137/76 (96) 94 Room Air 06/20/23 07:29 36.4 06/19/23 19:09 4.00 06/19/23 17:00 22 Capillary Refill : Less Than 3 SecondsGreater Than 3 Seconds General Appearance: No Apparent Distress Cardiovascular: Regular Rate, Rhythm, No Murmur Gastrointestinal: Tenderness (appropriately so), Other (RADHA drain with mostly serous fluid in it and a few flecks of blood) Neurologic/Psychiatric: Alert, Oriented x3 Results/Procedures Lab Laboratory Tests 06/20/23 05:07 06/20/23 05:47 Patient resulted labs reviewed. Imaging: Reviewed Imaging Report Assessment/Plan Assessment and Plan Assess & Plan/Chief Complaint Perforated gastric ulcer with hemorrhage Gastroduodenal artery bleed Acute blood loss anemia Hemorrhagic shock- resolved Chronic NSAID use Neutropenia Surgery primary s/p ex lap again yesterday s/p 4 units pRBCs total- Hgb stable IV PPI NPO- NGT in place Zosyn, Flagyl, and Fluconazole TPN per surgery TeleICU following s/p Granix x1 this hospitalization WBC elevated today- likely reactive from surgery but trend already on broad spectrum abx PT/OT History of C diff infection Negative for C diff Flagyl as is on abx RA Immunocompromised Hold home meds Critical Care Critically Ill Patient LUIS M IGLESIAS MD Jun 20, 2023 11:26
[2023-06-20] MEDS: FOLIC ACID 5MG/ML 10 ML IV SCH (11:29)
--- NOTE | 2023-06-20 11:59 | Progress Note - Surgery ---
JAIME MIRANDA 06/20/23 1158: Subjective Date Seen by a Provider: Jun 20, 2023 Time Seen by a Provider: 11:30 Subjective/Events-last exam Fabby Ragsdale is feeling better this morning. Her pain earlier this morning was a 3/10 but has increased to a 6/10 but she hasn't needed as much pain medication. Her pain is still located in the middle of her abdomen and is cramping at times. She is still feeling very fatigued and her energy is low. She denies any nausea or vomiting. She does feel like her swelling is going down but she still has tome edema in her extremities. Her RADHA drain has drained around 100 ml of clear fluid today and her NG tube has drained about 120ml of fluid but it is becoming more clear but still brown in color. She had an elevated WBC count of 19.6 this morning but denies any feeling of fever, chills, or night sweats. She has not passed gas nor had a bowel movement. bandages over incisions look good with no continual bleeding or discharge from the incision. Focused Exam Lactate Level 06/18/23 06:06: Lactic Acid Level 2.15*H 06/18/23 09:54: Lactic Acid Level 1.45 Time of Focused Exam: 13:30 Objective Exam Vital Signs Date Time Temp Pulse Resp B/P (MAP) Pulse Ox O2 Delivery O2 Flow Rate FiO2 06/20/23 11:35 91 Room Air 06/20/23 11:00 65 137/76 (96) 94 Room Air 06/20/23 10:00 68 137/73 (94) 94 Room Air 06/20/23 09:00 67 132/68 (89) 94 Room Air 06/20/23 08:00 68 141/86 (104) 92 Room Air 06/20/23 07:29 36.4 06/20/23 07:25 91 Room Air 06/20/23 07:00 68 06/20/23 07:00 69 132/72 (92) 93 Room Air 06/20/23 06:00 68 131/69 (89) 93 Room Air 06/20/23 05:00 71 135/70 (91) 92 Room Air 06/20/23 04:13 36.2 06/20/23 04:00 71 130/69 (89) 92 Room Air 06/20/23 03:00 73 125/75 (92) 93 Room Air 06/20/23 02:00 77 138/73 (94) 93 Room Air 06/20/23 01:21 69 06/20/23 01:00 69 127/63 (84) 91 Room Air 06/20/23 00:15 91 Room Air 06/20/23 00:00 69 123/69 (87) 92 Room Air 06/19/23 23:00 68 140/69 (92) 94 Room Air 06/19/23 22:00 69 125/73 (90) 92 Room Air 06/19/23 21:00 73 126/56 (79) Room Air 06/19/23 20:45 36.6 06/19/23 20:20 92 Room Air 06/19/23 20:00 68 117/74 (88) 91 Room Air 06/19/23 19:09 Nasal Cannula 4.00 06/19/23 19:01 69 06/19/23 19:00 68 118/70 (86) 94 Room Air 06/19/23 18:00 69 119/77 (91) 92 Room Air 06/19/23 17:00 74 22 124/61 (82) 93 Room Air 06/19/23 16:00 67 13 120/67 (84) 90 Room Air 06/19/23 15:00 69 13 116/64 (81) 91 Room Air 06/19/23 14:01 36.4 06/19/23 14:00 71 16 120/73 (89) 90 Room Air 06/19/23 13:00 70 13 119/67 (84) 91 Room Air 06/19/23 12:21 76 06/19/23 12:00 72 20 121/63 (82) 92 Room Air I & O 06/20/23 07:00 Intake Total 3118.1 ml Output Total 1590 ml Balance 1528.1 ml Capillary Refill : Less Than 3 SecondsGreater Than 3 Seconds General Appearance: No Apparent Distress HEENT: PERRL/EOMI, Moist Mucous Membranes; No Pharyngeal Erythema; Other Neck: Non Tender, Supple Respiratory: Chest Non Tender, No Accessory Muscle Use, No Respiratory Distress Cardiovascular: Regular Rate, Rhythm, No Murmur Peripheral Pulses: 2+ Dorsalis Pedis (R), 2+ Left Dors-Pedis (L), 2+ Radial Pulses (R), 2+ Radial Pulses (L) Gastrointestinal: soft, tenderness (incisional and in the upper abdomen), other Extremity: Pedal Edema, Swelling Neurologic/Psychiatric: Alert, Oriented x3 Skin: Normal Color, Warm/Dry Lymphatic: No Adenopathy (Cervical or supraclavicular ) Results Lab Laboratory Tests 06/20/23 05:07: Sodium Level 138, Potassium Level 4.7, Chloride Level 114H, Carbon Dioxide Level 18L, Anion Gap 6, Blood Urea Nitrogen 37H, Creatinine 0.79, Estimat Glomerular Filtration Rate 78, BUN/Creatinine Ratio 47, Glucose Level 135H, Calcium Level 7.4L, Corrected Calcium 9.2, Phosphorus Level 3.5, Magnesium Level 2.1, Total Bilirubin 0.2, Aspartate Amino Transf (AST/SGOT) 26, Alanine Aminotransferase (ALT/SGPT) 19, Alkaline Phosphatase 81, Total Protein 3.7L, Albumin 1.7L 06/20/23 05:47: White Blood Count 19.6H, Red Blood Count 3.03L, Hemoglobin 9.2L, Hematocrit 28L, Mean Corpuscular Volume 92, Mean Corpuscular Hemoglobin 30, Mean Corpuscular Hemoglobin Concent 33, Red Cell Distribution Width 16.3H, Platelet Count 338, Mean Platelet Volume 10.0, Immature Granulocyte % (Auto) 12, Neutrophils (%) (Auto) 74, Lymphocytes (%) (Auto) 4L, Monocytes (%) (Auto) 10, Eosinophils (%) (Auto) 0, Basophils (%) (Auto) 1, Neutrophils # (Auto) 14.4H, Lymphocytes # (Auto) 0.7L, Monocytes # (Auto) 2.0H, Eosinophils # (Auto) 0.0, Basophils # (Auto) 0.2H, Immature Granulocyte # (Auto) 2.3H, Neutrophils % (Manual) 65, Lymphocytes % (Manual) 9, Monocytes % (Manual) 11, Eosinophils % (Manual) 0, Basophils % (Manual) 0, Myelocytes % 2, Band Neutrophils 13, Nucleated Red Blood Cells 2, Polychromasia SLIGHT, Anisocytosis SLIGHT, Macrocytosis SLIGHT Microbiology 06/18/23 Blood Culture - Preliminary, Resulted 06/12/23 C. difficile GDH Antigen & Toxins - Final, Complete 06/08/23 Urine Culture - Final, Complete NO GROWTH Assessment/Plan Assessment/Plan Assessment/Plan Anemia This morning Hb 9.2 S/P ex lap for Gastric perforation with bleeding artery, mobilization left colon, ligation of gastroduodenal artery, modified segundo patch. S/P repeat ex lap with modified segundo patch due to repeat gastric perforation Leukocytosis Plan: Continue NPO but may advance diet to clears this afternoon? Continue pain meds as needed Encourage IS Continue IV Antibiotics Continue IV fluids MAHENDRA YNACEY DO 06/20/23 1432: Subjective Time Seen by a Provider: 12:18 Subjective/Events-last exam Pt seen and examined, states she feel ok....."just very run down". 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 S/P repeat ex lap with modified segundo patch due to repeat gastric perforation Leukocytosis Plan: Continue NPO for next 1-2 days and then will need UGI to rule out leak, Continue pain meds as needed Encourage IS Continue IV Antibiotics Continue IV fluids Supervisory-Addendum Brief Verification & Attestation Participated in pt care: history, MDM, physical Personally performed: exam, history, MDM, supervision of care Care discussed with: Medical Student Procedures: n/a Verification and Attestation of Medical Student E/M Service A medical student performed and documented this service. I then reviewed and verified all information documented by the medical student and made modifications to such information, when appropriate. I personally performed a physical exam, medical decision making and then discussed any differences between the notes and made revisions as necessary to create one note. Mahendra Yancey , 06/20/23 , 14:31 JAIME MIRANDA Jun 20, 2023 11:58 MAHENDRA YANCEY DO Jun 20, 2023 14:32
[2023-06-20] MEDS: 1/2 NS IV SOLUTION 1000 ML 1,000 ML IV SCH (15:40)
[2023-06-20] MEDS ORDERED: [UNRECOGNIZED DRUG - OTHER] IV SCH ×12 (17:00)
[2023-06-20] MEDS ORDERED: SODIUM ACETATE IV SCH ×12 (17:00)
[2023-06-20] MEDS ORDERED: SODIUM CHLORIDE IV SCH ×12 (17:00)
[2023-06-21] MEDS: PIPERACILLIN/Tazobactam 4.5 GM in NS (IVPB) 100 ML 100 ML IV SCH (02:10)
[2023-06-21] MEDS: morphine INJ 4 MG/ML 1 ML (VIAL/SYRINGE) IVP PRN ×6 (02:27→22:04)
[2023-06-21 02:39] LABS: BASOPHILS # (AUTO) 0.2 10^3/uL (0.0-0.1); BASOPHILS % (AUTO) 1 % (0-10); EOSINOPHILS # (AUTO) 0.1 10^3/uL (0.0-0.3); EOSINOPHILS % (AUTO) 1 % (0-10); HEMATOCRIT 29 % (35-52); HEMOGLOBIN 9.5 g/dL (11.5-16.0); LYMPHOCYTES # (AUTO) 1.1 10^3/uL (1.0-4.0); LYMPHOCYTES % (AUTO) 5 % (12-44); MEAN CORPUSCULAR HEMOGLOBIN 30 pg (25-34); MEAN CORPUSCULAR HGB CONC 33 g/dL (32-36); MEAN CORPUSCULAR VOLUME 93 fL (80-99); MEAN PLATELET VOLUME 9.8 fL (9.0-12.2); MONOCYTES # (AUTO) 1.8 10^3/uL (0.0-1.0); MONOCYTES % (AUTO) 8 % (0-12); NEUTROPHILS # (AUTO) 17.6 10^3/uL (1.8-7.8); NEUTROPHILS % (AUTO) 76 % (42-75); PLATELET COUNT 484 10^3/uL (130-400); WHITE BLOOD COUNT 23.1 10^3/uL (4.3-11.0)
[2023-06-21 03:00] LABS: ALBUMIN 1.9 GM/DL (3.2-4.5); POTASSIUM 4.7 MMOL/L (3.6-5.0)
[2023-06-21 03:01] LABS: CALCIUM 7.8 MG/DL (8.5-10.1)
[2023-06-21 03:02] LABS: TOTAL PROTEIN 4.1 GM/DL (6.4-8.2)
[2023-06-21 03:04] LABS: BILIRUBIN,TOTAL 0.3 MG/DL (0.1-1.0)
[2023-06-21 03:05] LABS: PHOSPHORUS 3.6 MG/DL (2.3-4.7)
[2023-06-21 03:06] LABS: CREATININE SERUM 0.77 MG/DL (0.60-1.30)
[2023-06-21 03:08] LABS: MAGNESIUM 2.1 MG/DL (1.6-2.4)
[2023-06-21] MEDS: metroNIDAZOLE 500MG/100ML IVPB 100 ML IV SCH ×3 (05:26→21:07)
--- NOTE | 2023-06-21 07:11 | Progress Note - Surgery ---
REBECCA,HET 06/21/23 0711: Subjective Date Seen by a Provider: Jun 21, 2023 Time Seen by a Provider: 07:00 Subjective/Events-last exam Patient feels and looks weak and tired today but not in any more pain. Her incision has some drainage and she has tenderness around it. Her NG tube is still draining brown colored liquid, but her RADHA is cloudy/clear today compared to yesterday draining 90ml over the past 12 hours. Yesterday the fluid was serosanguinous. Edema is still present in all of her extremities. WBC kiara from 19.6 to 23.1 today. She denies any fever, chills or chest pain. Review of Systems General: No Chills, No Night Sweats; Fatigue, Malaise HEENT: No Head Aches, No Visual Changes Pulmonary: No Dyspnea, No Cough Cardiovascular: No: Chest Pain, Palpitations Gastrointestinal: No: Nausea, Vomiting Genitourinary: No Dysuria, No Hematuria Musculoskeletal: No: neck pain, shoulder pain Neurological: No: Numbness, Confusion Focused Exam Lactate Level 06/18/23 09:54: Lactic Acid Level 1.45 Time of Focused Exam: 13:30 Objective Exam Vital Signs Date Time Temp Pulse Resp B/P (MAP) Pulse Ox O2 Delivery O2 Flow Rate FiO2 06/21/23 06:00 80 13 140/81 (100) 89 Room Air 06/21/23 05:00 84 17 135/85 (102) 90 Room Air 06/21/23 04:11 36.6 90 Room Air 06/21/23 04:00 79 12 152/67 (95) 91 Room Air 06/21/23 04:00 91 Room Air 06/21/23 03:00 80 12 149/73 (98) 91 Room Air 06/21/23 02:00 80 18 140/76 (97) 90 Room Air 06/21/23 01:00 76 06/21/23 01:00 76 145/95 (112) 91 Room Air 06/21/23 00:00 77 147/71 (96) 91 Room Air 06/20/23 23:44 36.9 90 Room Air 06/20/23 23:15 92 Room Air 06/20/23 23:00 76 17 142/72 (95) 90 Room Air 06/20/23 22:00 75 13 139/76 (97) 90 Room Air 143/60 (87) 06/20/23 21:00 75 17 143/73 (96) 90 Room Air 06/20/23 20:00 77 22 146/82 (103) 91 Room Air 06/20/23 20:00 91 Room Air 06/20/23 19:00 37.7 74 24 151/83 (105) 92 Room Air 06/20/23 19:00 71 06/20/23 18:00 71 149/88 (108) 93 Room Air 06/20/23 17:00 74 149/88 (108) 92 Room Air 06/20/23 16:00 91 Room Air 06/20/23 16:00 68 143/78 (99) 92 Room Air 06/20/23 15:18 Room Air 0.00 06/20/23 15:00 70 144/75 (98) 94 Room Air 06/20/23 14:00 67 154/84 (107) 94 Room Air 06/20/23 14:00 36.7 06/20/23 13:00 67 148/75 (99) 94 Room Air 06/20/23 12:39 70 06/20/23 12:00 72 140/73 (95) 93 Room Air 06/20/23 11:35 91 Room Air 06/20/23 11:00 65 137/76 (96) 94 Room Air 06/20/23 10:00 68 137/73 (94) 94 Room Air 06/20/23 09:00 67 132/68 (89) 94 Room Air 06/20/23 08:00 68 141/86 (104) 92 Room Air 06/20/23 07:29 36.4 06/20/23 07:25 91 Room Air I & O 06/21/23 07:00 Intake Total 2120.6 ml Output Total 2195 ml Balance -74.4 ml Capillary Refill : Less Than 3 SecondsLess Than 3 Seconds General Appearance: Mild Distress, Obese HEENT: Moist Mucous Membranes, 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) Neck: Non Tender, Supple Respiratory: Lungs Clear, Normal Breath Sounds, No Accessory Muscle Use, No Respiratory Distress Cardiovascular: Regular Rate, Rhythm, No Murmur Peripheral Pulses: 2+ Dorsalis Pedis (R), 2+ Left Dors-Pedis (L), 2+ Radial Pulses (R), 2+ Radial Pulses (L) Gastrointestinal: soft, tenderness (around incision), other (castillo c/d/i, RADHA with serosanguinous drainage no bile) Extremity: Pedal Edema, Swelling Neurologic/Psychiatric: Alert, Oriented x3, Depressed Affect Skin: Normal Color, Warm/Dry Lymphatic: No Adenopathy (Cervical or supraclavicular ) Results Lab Laboratory Tests 06/21/23 02:30: White Blood Count 23.1H, Red Blood Count 3.13L, Hemoglobin 9.5L, Hematocrit 29L, Mean Corpuscular Volume 93, Mean Corpuscular Hemoglobin 30, Mean Corpuscular Hemoglobin Concent 33, Red Cell Distribution Width 16.6H, Platelet Count 484H, Mean Platelet Volume 9.8, Immature Granulocyte % (Auto) 11, Neutrophils (%) (Auto) 76H, Lymphocytes (%) (Auto) 5L, Monocytes (%) (Auto) 8, Eosinophils (%) (Auto) 1, Basophils (%) (Auto) 1, Neutrophils # (Auto) 17.6H, Lymphocytes # (Auto) 1.1, Monocytes # (Auto) 1.8H, Eosinophils # (Auto) 0.1, Basophils # (Auto) 0.2H, Immature Granulocyte # (Auto) 2.4H, Sodium Level 139, Potassium Level 4.7, Chloride Level 112H, Carbon Dioxide Level 20L, Anion Gap 7, Blood Urea Nitrogen 38H, Creatinine 0.77, Estimat Glomerular Filtration Rate 81, BUN/Creatinine Ratio 49, Glucose Level 116H, Calcium Level 7.8L, Corrected Calcium 9.5, Phosphorus Level 3.6, Magnesium Level 2.1, Total Bilirubin 0.3, Aspartate Amino Transf (AST/SGOT) 27, Alanine Aminotransferase (ALT/SGPT) 21, Alkaline Phosphatase 124, Total Protein 4.1L, Albumin 1.9L Microbiology 06/18/23 Blood Culture - Preliminary, Resulted 06/12/23 C. difficile GDH Antigen & Toxins - Final, Complete 06/08/23 Urine Culture - Final, Complete NO GROWTH Assessment/Plan Assessment/Plan Assessment/Plan Assessment: Anemia - stable Leukocytosis S/P ex lap for Gastric perforation with bleeding artery, mobilization left colon, ligation of gastroduodenal artery, modified segundo patch. S/P repeat ex lap with modified segundo patch due to repeat gastric perforation recent C.diff infection rheumatoid arthritis Plan: Continue NPO f/u on chest x-ray Encourage IS Continue IV Antibiotics Continue IV fluids FABIOLA GARCIA DO 06/21/23 1316: Subjective Subjective/Events-last exam Having pain but just finished working with PT. Was better controlled prior she states. Wbc increasing, hgb stable. RADHA serous fluid. NG tube clear to slight bilious. No family at bedside currently. Swollen all over. Not using IS much. Objective Exam General Appearance: Anxious, Chronically ill HEENT: PERRL/EOMI, Normal ENT Inspection Neck: Non Tender, Supple Respiratory: Chest Non Tender, No Accessory Muscle Use, No Respiratory Distress Cardiovascular: Regular Rate, Rhythm, No JVD Gastrointestinal: soft, tenderness (around incision), other (catsillo c/d/i, RADHA with serous drainage) Extremity: Pedal Edema, Swelling Neurologic/Psychiatric: Alert, Oriented x3, Depressed Affect Skin: Normal Color, Warm/Dry Lymphatic: No Adenopathy (Cervical or supraclavicular ) Assessment/Plan Assessment/Plan Assessment/Plan Anemia - stable Leukocytosis S/P ex lap for Gastric perforation with bleeding artery, mobilization left colon, ligation of gastroduodenal artery, modified segundo patch. S/P repeat ex lap with modified segundo patch due to repeat gastric perforation recent C.diff infection rheumatoid arthritis left pleural effusion Continue NPO ng to liws Encourage IS acapella Continue IV Antibiotics now to meropenum /vanc Continue IV fluids will try and get picc line and dc central line. Supervisory-Addendum Brief Verification & Attestation Participated in pt care: history, MDM, physical Personally performed: exam, history, MDM, supervision of care Care discussed with: Medical Student Procedures: n/a Results interpretation: Verified all documentation Verification and Attestation of Medical Student E/M Service A medical student performed and documented this service in my presence. I reviewed and verified all information documented by the medical student and made modifications to such information, when appropriate. I personally performed the physical exam and medical decision making. Fabiola Garcia, Jun 21, 2023,13:16 APARICIO Jun 21, 2023 07:11 FABIOLA GARCIA DO Jun 21, 2023 13:16
--- NOTE | 2023-06-21 09:05 | Diagnostic Imaging Report ---
EXAMINATION: Chest 1 view HISTORY: Sepsis. Follow-up. COMPARISON: 06/18/2023. FINDINGS: Enteric tube has been placed with the tip descending below the diaphragm. A right-sided central line is stable. Stable small left pleural effusion. There is stable size of the cardiac silhouette with suggestion of increasing congestion. No pneumothorax. IMPRESSION: 1. Stable cardiac silhouette with suggestion of increased congestion. 2. Stable small left pleural effusion. 3. Interval placement of enteric tube. Stable right central line. Dictated by: Dictated on workstation # [id number]
--- NOTE | 2023-06-21 09:17 | Physical Therapy Daily Note ---
PT Daily Note-Current Subjective Patient agrees to PT. Patient is very lethargic and edematous total body. Pain Section J - Health Conditions 1. Rarely or not at all 2. Occasionally 3. Frequently 4. Almost constantly 8. Unable to answer Pain Effect on Sleep: 2 Pain Interference with Therapy: 2 Pain Interference w/Day-to-Day: 2 Transfers SCALE: Activities may be completed with or without assistive devices. 3-Ziaecrylsp-dqxzqjw completes the activity by him/herself with no assistance from a helper. 5-Set-up or Clean-up Assistance-helper sets up or cleans up; patient completes activity. [place] assists only prior to or following the activity. 4-Supervision or Touching Assistance-helper provides verbal cues and/or touching/steadying and/or contact guard assistance as patient completes activity. Assistance may be provided throughout the activity or intermittently. 3-Partial/Moderate Assistance-helper does LESS THAN HALF the effort. [place] lifts, holds or supports trunk or limbs, but provides less than half the effort. 2-Substantial/Maximal Assistance-helper does MORE THAN HALF the effort. [place] lifts or holds trunk or limbs and provides more than half the effort. 2-Yihjousmd-jfxxqa does ALL the effort. Patient does none of the effort to complete the activity. Or, the assistance of 2 or more helpers is required for the patient to complete the activity. If activity was not attempted, code reason: 7-Patient Refused. 9-Not Applicable-not attempted and the patient did not perform the activity before the current illness, exacerbation or injury. 10-Not Attempted due to Environmental Limitations-(lack of equipment, weather restraints, etc.). 88-Not Attempted due to Medical Conditions or Safety Concerns. Roll Left & Right (QC): 1 (x 2) Sit to Lying (QC): 1 (x 2) Lying to Sitting/Side of Bed(Q: 1 (x 2) Sit to Stand (QC): 1 (move toward HOB) Weight Bearing Right Lower Extremity: Right Full Weight Bearing Left Lower Extremity: Left Full Weight Bearing Gait Training Does the Patient Walk?: No and Walking Goal IS indicated Exercises Supine Ex: Ankle pumps, Heel Slides, Straight leg raise Supine Reps: 8 (PROM) Seated Therapy Exercises: Long arc quads Seated Reps: 8 (AAROM) Assessment Patient sat EOB SBA for several minutes. Patient requires dependent assist with all mobility. Surgeon in to assess patient during session. PT Residential Goals Residential Goals PT Network Project Manager Goals Time Frame: Jun 29, 2023 Roll Left & Right (QC): 6 Sit to Lying (QC): 6 Lying-Sitting on Side/Bed(QC): 6 Sit to Stand (QC): 6 Chair/Igy-ja-Gwtht Xfer(QC): 6 Toilet Transfer (QC): 6 Car Transfer (QC): 6 Does the Patient Walk: Yes Walk 10 feet (QC): 6 Walk 50ft with 2 Turns (QC): 6 Walk 150 ft (QC): 6 1 Step (curb) (QC): 4 4 Steps (QC): 4 12 Steps (QC): 4 PT Plan Treatment/Plan Treatment Plan: Continue Plan of Care Treatment Plan: Bed Mobility, Education, Functional Activity Dash[place], Functional Strength, Group Therapy, Gait, Safety, Therapeutic Exercise, Transfers Treatment Duration: Jun 29, 2023 Frequency: 6 times per week Estimated Hrs Per Day: .25 hour per day Patient and/or Family Agrees t: Yes Time Time In: 850 Time Out: 905 DATE: Jun 21, 2023 Total Billed Treatment Time: 15 Total Billed Treatment 1 visit EX 15 min MICK VAZQUEZ PT Jun 21, 2023 09:17
--- NOTE | 2023-06-21 09:30 | Tele-ICU Progress Note ---
Subjective Date Seen by a Provider: Jun 21, 2023 Time Seen by a Provider: 09:29 Subjective/Events-last exam Tele-ICU Physician , Progress Note ) Service provided via interactive audio and video telecommunications [facility] to a patient admitted to ICU bed in [facility]. Patient is seen today due to persistent need of ICU care Available chart/ vitals / labs / Images reviewed Video assessment done using teleICU camera, rest of exam as per RN She is a 73-year-old female who was recently treated for diarrhea due to C. difficile colitis and discharged on May 30, 2023. Now presented to the emergency room with a complaint of persistent diarrhea and abdominal pain and a CT of the abdomen and pelvis Gal Tee MD showed free air in the belly. She has a history of rheumatoid arthritis for which she is being on methotrexate and Plaquenil. A surgical consultation was requested and she was taken to the operating room on an emergency basis and an exploratory laparotomy done and found to have a gastric ulcer perforation which was repaired with Greg patch. Postoperatively she was admitted to the intensive care unit. She is extubated and off the vasopressors. However she continues to have a persistent leukopenia and today's white count is 0.6. Otherwise she is awake alert oriented. 06/10/23 today pt in disress. wbc count increased to 7.5 hb slightly low at 9.2 06/20/23she had repeat EX lap on 06/18/23 for perforated duodenal ulcer. now hemodynamically stable, HB also stable. Urine out put adequate. albumin is low 06/21/23 RN reports that pt has increased pain ms 2mg not helping. bp stable. Art line not working properly. Impression 1. Perforated gastric ulcer status post emergency repair with exploratory laparotomy 2. Leukopenia severe probably due to sepsis improving 3. History of rheumatoid arthritis on methotrexate which is on hold 4. For type II myocardial infarction for which cardiology following. 5. post op pain Recommendations 1. Continue IV antibiotics 2. Continue IV fluid resuscitation 3. Leucopenia resolved 4. Increase morphine to 4 mg iv prn q 2 hrs. 5. Ok to remove art line Reviewed with MANUFACTURING GROUP LEADER Layla Coordination of care with primary care and bedside consultants. Discussed in MDR I am remotely monitoring this patient from Tele icu station in [place]. I am unable to do the bedside exam, and history/physical and pertinent information is taken from other notes in the computer and bedside staff. Certain portions of this document may have been dictated utilizing voice recognition technology such as [employer]. Inherent to this technology, typographical and grammatical errors may exist. As much as I am diligent to id entify and correct to these mistakes, some errors may remain in the document. Critical care time devoted to this patient today is approximately is 15 minutes-- Sepsis Event Evaluation Height, Weight, BMI Height: 5'4.00" Weight: 140lbs. oz. [id number]; 36.16 BMI Method:Stated Focused Exam Lactate Level 06/18/23 09:54: Lactic Acid Level 1.45 Time of Focused Exam: 13:30 Exam Exam Patient acknowledged, consented, and participated in this virtual visit which was conducted using real time audio/video Vital Signs Date Time Temp Pulse Resp B/P (MAP) Pulse Ox O2 Delivery O2 Flow Rate FiO2 06/21/23 09:00 103 12 90 Room Air 06/21/23 08:00 84 28 162/94 (116) 90 Room Air 06/21/23 07:00 81 14 163/93 (116) 90 Room Air Arterial Line 06/21/23 07:00 81 06/21/23 06:00 80 13 140/81 (100) 89 Room Air 06/21/23 05:00 84 17 135/85 (102) 90 Room Air 06/21/23 04:11 36.6 90 Room Air 06/21/23 04:00 79 12 152/67 (95) 91 Room Air 06/21/23 04:00 91 Room Air 06/21/23 03:00 80 12 149/73 (98) 91 Room Air 06/21/23 02:00 80 18 140/76 (97) 90 Room Air 06/21/23 01:00 76 06/21/23 01:00 76 145/95 (112) 91 Room Air 06/21/23 00:00 77 147/71 (96) 91 Room Air 06/20/23 23:44 36.9 90 Room Air 06/20/23 23:15 92 Room Air 06/20/23 23:00 76 17 142/72 (95) 90 Room Air 06/20/23 22:00 75 13 139/76 (97) 90 Room Air 143/60 (87) 06/20/23 21:00 75 17 143/73 (96) 90 Room Air 06/20/23 20:00 77 22 146/82 (103) 91 Room Air 06/20/23 20:00 91 Room Air 06/20/23 19:00 37.7 74 24 151/83 (105) 92 Room Air 06/20/23 19:00 71 06/20/23 18:00 71 149/88 (108) 93 Room Air 06/20/23 17:00 74 149/88 (108) 92 Room Air 06/20/23 16:00 91 Room Air 06/20/23 16:00 68 143/78 (99) 92 Room Air 06/20/23 15:18 Room Air 0.00 06/20/23 15:00 70 144/75 (98) 94 Room Air 06/20/23 14:00 67 154/84 (107) 94 Room Air 06/20/23 14:00 36.7 06/20/23 13:00 67 148/75 (99) 94 Room Air 06/20/23 12:39 70 06/20/23 12:00 72 140/73 (95) 93 Room Air 06/20/23 11:35 91 Room Air 06/20/23 11:00 65 137/76 (96) 94 Room Air 06/20/23 10:00 68 137/73 (94) 94 Room Air I & O 06/21/23 07:00 Intake Total 2120.6 ml Output Total 2195 ml Balance -74.4 ml Height & Weight Height: 5'4.00" Weight: 140lbs. oz. 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) Neck: Non Tender, Supple Respiratory: Lungs Clear, Normal Breath Sounds, No Accessory Muscle Use, No Respiratory Distress Cardiovascular: Regular Rate, Rhythm, No Murmur Capillary Refill: Less Than 3 Seconds Peripheral Pulses: 2+ Dorsalis Pedis (R), 2+ Left Dors-Pedis (L), 2+ Radial Pulses (R), 2+ Radial Pulses (L) Gastrointestinal: soft, tenderness (around incision), other (castillo c/d/i, RADHA with serosanguinous drainage no bile) Extremity: Pedal Edema, Swelling Neurologic/Psychiatric: Alert, Oriented x3, Depressed Affect Skin: Normal Color, Warm/Dry Lymphatic: No Adenopathy (Cervical or supraclavicular ) Results Lab Laboratory Tests 06/20/23 05:07 06/20/23 05:47 06/21/23 02:30 Assessment/Plan Assessment/Plan as above Critical Care: Critically Ill Patient Time spent with patient (mins): 15 BLANKA GAVIN MD Jun 21, 2023 09:30
[2023-06-21] MEDS ORDERED: VANCOMYCIN INJECTION 0.1 MG in NS (IVPB) 250 ML 250 ML IV SCH (10:00)
[2023-06-21] MEDS: FOLIC ACID 5MG/ML 10 ML IV SCH (10:13)
[2023-06-21] MEDS: PANTOPRAZOLE INJECTION 40 MG VIAL IV SCH ×2 (10:17→20:33)
[2023-06-21] MEDS: VANCOMYCIN 1,750 MG/NS 500 ML IVPB IV NR ×4 (10:30→10:31)
[2023-06-21] MEDS: MEROPENEM INJECTION 500 MG in NS (IVPB) 100 ML 100 ML IV SCH ×3 (13:52→21:08)
--- NOTE | 2023-06-21 16:13 | Progress Note - Hospitalist ---
Subjective HPI/CC On Admission Date Seen by Provider: Jun 21, 2023 Time Seen by Provider: 09:35 Fabby Ragsdale is a 73 year old female who presented with abdominal pain and was admitted with pneumoperitoneum. She was taken for emergent surgery and was found to have a perforated gastric ulcer with gastroduodenal artery bleed. She was re cently hospitalized with C diff. She has continued to have diarrhea since that time, but then developed abdominal pain over the past couple days. They have noticed dark, tarry stools, but they haven't noticed any change recently. She also started to have fevers and chills. She denies chest pain and shortness of breath, but her daughter reminds her that she did have some chest discomfort yesterday. She has a history of GERD but is unsure if she is taking medicine for it. She has been taking Meloxicam for RA. She is also on Methotrexate and Plaquenil. Subjective/Events-last exam She is having abdominal pain which wraps across her stomach. She denies nausea. She does not want to talk. Focused Exam Time of Focused Exam: 13:30 Objective Exam Vital Signs Vital Signs Date Time Temp Pulse Resp B/P (MAP) Pulse Ox O2 Delivery O2 Flow Rate FiO2 06/21/23 15:00 86 13 174/87 (116) 90 Room Air 06/21/23 04:11 36.6 06/20/23 15:18 0.00 Capillary Refill : Less Than 3 SecondsLess Than 3 Seconds General Appearance: No Apparent Distress, WD/WN Respiratory: Lungs Clear, No Respiratory Distress Cardiovascular: Regular Rate, Rhythm, No Murmur Gastrointestinal: Normal Bowel Sounds, Soft, Tenderness Extremity: Normal Inspection, No Pedal Edema Neurologic/Psychiatric: Alert, Depressed Affect Results/Procedures Lab Laboratory Tests 06/21/23 02:30 Patient resulted labs reviewed. Imaging: Reviewed Imaging Report Assessment/Plan Assessment and Plan Assess & Plan/Chief Complaint Perforated gastric ulcer with hemorrhage Acute blood loss anemia Chronic NSAID use Surgery primary s/p ex lap x2 s/p 4 units pRBCs total- Hgb stable IV PPI NPO- NGT in place Continue Diflucan Transition to Vanc and Merrem Increase Morphine TPN per surgery TeleICU following s/p Granix x1 this hospitalization WBC elevated, no fevers, drain output stable PT/OT History of C diff infection C diff negative NSTEMI Conservative management recommended at this time Follow up with Dr. 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
[2023-06-21] MEDS: POTASSIUM ACETATE IV SCH ×11 (18:44)
[2023-06-21] MEDS: [UNRECOGNIZED DRUG - OTHER] IV SCH ×11 (18:44)
[2023-06-21] MEDS: POTASSIUM PHOSPHATE IV SCH ×11 (18:44)
[2023-06-21] MEDS: SODIUM ACETATE IV SCH ×11 (18:44)
[2023-06-21] MEDS: 1/2 NS IV SOLUTION 1000 ML 1,000 ML IV SCH (19:13)
--- NOTE | 2023-06-22 01:46 | OPERATIVE REPORT ---
DATE OF SERVICE: 06/21/2023 PREOPERATIVE DIAGNOSIS: Hollow viscus perforation. POSTOPERATIVE DIAGNOSIS: Hollow viscus perforation, proximal duodenum. PROCEDURE: Exploratory laparotomy, modified Greg patch. SURGEON: Fabiola Garcia DO CENTER PUNCH OPERATOR: Barron Yancey DO, who assisted in retraction, dissection, and closure. ANESTHESIA: General. ESTIMATED BLOOD LOSS: Minimal. COMPLICATIONS: None. INDICATIONS: The patient is a 73-year-old female who had previous hollow viscus perforation, had exploratory laparotomy with Greg patch. She was doing well. She had no evidence of any leak. The patient was found to be anemic and slightly hypotensive. On 06/18/2023, Dr. Yancey did an EGD, which demonstrated blood clot within the duodenum, but also a small hole still present in the duodenum in the proximal portion. I discussed with the family risks and benefits of procedure and they understand and wish to proceed. DESCRIPTION OF PROCEDURE: The patient was taken to the operating suite. She was prepped and draped in sterile fashion. Timeout was performed. Midline incision was opened up after the castillo were removed and the sutures were then cut. The abdomen was then entered. No gross contamination within the abdomen. A lot of clear fluid throughout the abdomen, which was able to be suctioned. The small bowel and colon were inspected without any change in pathology. The stomach and duodenum were then inspected. The proximal portion of the duodenum had a small hole present that was able to be visualized. An 0 Vicryl suture was then used to start placing simple interrupteds to close the hole. The hole was approximately 1 cm in length. Tongue of omentum was freed and brought up and placed over the tied sutures and the tails of the sutures were then brought over to hold it in place for modified Greg patch. The abdomen was then irrigated and suctioned. NG tube was placed and positioned into the stomach. Copious amounts of irrigation was used to irrigate and suction without any other pathology noted. The fascia was then closed using 1-0 looped PDS. Skin was then closed with castillo. The area was washed and dried and sterile bandages were applied. The patient tolerated the procedure well without any complications, taken to recovery room in stable condition. Dr. Yancey assisted in retracting anatomy in order for better visualization and assisted with inspecting and closing the abdomen. Job ID: [id number] DocumentID: [id number] Dictated Date: 06/21/2023 16:55:55 Oil Burner Installer Date: 06/22/2023 01:44:00 Dictated By: FABIOLA GARCIA DO
[2023-06-22 02:28] LABS: BASOPHILS # (AUTO) 0.1 10^3/uL (0.0-0.1); BASOPHILS % (AUTO) 0 % (0-10); EOSINOPHILS # (AUTO) 0.2 10^3/uL (0.0-0.3); EOSINOPHILS % (AUTO) 1 % (0-10); HEMATOCRIT 27 % (35-52); HEMOGLOBIN 8.7 g/dL (11.5-16.0); LYMPHOCYTES # (AUTO) 1.3 10^3/uL (1.0-4.0); LYMPHOCYTES % (AUTO) 6 % (12-44); MEAN CORPUSCULAR HEMOGLOBIN 30 pg (25-34); MEAN CORPUSCULAR HGB CONC 32 g/dL (32-36); MEAN CORPUSCULAR VOLUME 94 fL (80-99); MEAN PLATELET VOLUME 9.5 fL (9.0-12.2); MONOCYTES # (AUTO) 1.4 10^3/uL (0.0-1.0); MONOCYTES % (AUTO) 6 % (0-12); NEUTROPHILS # (AUTO) 18.3 10^3/uL (1.8-7.8); NEUTROPHILS % (AUTO) 80 % (42-75); PLATELET COUNT 366 10^3/uL (130-400); WHITE BLOOD COUNT 22.9 10^3/uL (4.3-11.0)
[2023-06-22 02:38] LABS: ALBUMIN 1.7 GM/DL (3.2-4.5); POTASSIUM 4.3 MMOL/L (3.6-5.0)
[2023-06-22 02:40] LABS: CALCIUM 7.5 MG/DL (8.5-10.1)
[2023-06-22 02:41] LABS: TOTAL PROTEIN 3.8 GM/DL (6.4-8.2)
[2023-06-22 02:43] LABS: BILIRUBIN,TOTAL 0.4 MG/DL (0.1-1.0)
[2023-06-22 02:44] LABS: PHOSPHORUS 3.4 MG/DL (2.3-4.7)
[2023-06-22 02:45] LABS: CREATININE SERUM 0.75 MG/DL (0.60-1.30)
[2023-06-22 02:48] LABS: MAGNESIUM 1.8 MG/DL (1.6-2.4)
[2023-06-22] MEDS: MAGNESIUM 1 GM/100 ML IVPB 100 ML IV SCH ×2 (03:17→03:18)
[2023-06-22] MEDS: MEROPENEM INJECTION 500 MG in NS (IVPB) 100 ML 100 ML IV SCH ×4 (03:17→21:33)
[2023-06-22] MEDS: metroNIDAZOLE 500MG/100ML IVPB 100 ML IV SCH ×3 (05:14→21:36)
--- NOTE | 2023-06-22 07:40 | Progress Note - Surgery ---
APARICIO 06/22/23 0740: Subjective Date Seen by a Provider: Jun 22, 2023 Time Seen by a Provider: 07:30 Subjective/Events-last exam Patient looks and feels progressively worse. She now has a productive cough and Chest x-ray from yesterday showed a stable small left pleural effusion. Chest x ray done today showed mild vascular congestion and bibasilar effusions. She is not using her IS and is inconsistent with her acapella. Edema still present and non resolving in all extremities. RADHA drain still shows serous fluid. Her wbc remained relatively the same dropping to 22.9 from 23.1, and her hgb dropped from 9.5 to 8.7. Review of Systems General: No Chills, No Night Sweats; Fatigue, Malaise HEENT: No Head Aches, No Visual Changes Pulmonary: No Dyspnea; Cough Cardiovascular: No: Chest Pain, Palpitations Gastrointestinal: Abdominal Pain; No: Nausea, Vomiting Genitourinary: No Dysuria, No Hematuria Musculoskeletal: No: neck pain, back pain Neurological: No: Numbness, Confusion Focused Exam Time of Focused Exam: 13:30 Objective Exam Vital Signs Date Time Temp Pulse Resp B/P (MAP) Pulse Ox O2 Delivery O2 Flow Rate FiO2 06/22/23 07:00 91 17 157/94 (115) 91 OxyMask 4.00 06/22/23 06:00 81 18 152/86 (108) 92 OxyMask 4.00 06/22/23 05:00 84 17 149/67 (94) 91 OxyMask 4.00 06/22/23 04:00 81 15 150/74 (99) 93 OxyMask 4.00 06/22/23 03:20 6 OxyMask 4.00 06/22/23 03:20 37.3 06/22/23 03:00 79 17 151/78 (102) 93 OxyMask 4.00 06/22/23 02:00 84 20 152/72 (98) 93 OxyMask 4.00 06/22/23 01:00 81 21 151/78 (102) 92 OxyMask 4.00 06/22/23 01:00 82 06/22/23 00:00 95 OxyMask 4.00 06/22/23 00:00 37.2 OxyMask 4.00 06/22/23 00:00 82 17 156/96 (116) 93 OxyMask 4.00 06/21/23 23:00 81 15 150/90 (110) 93 OxyMask 4.00 06/21/23 22:00 85 14 150/93 (112) 93 OxyMask 4.00 06/21/23 21:00 88 16 152/77 (102) 94 OxyMask 4.00 06/21/23 20:00 90 15 165/77 (106) 94 OxyMask 06/21/23 19:55 94 OxyMask 4.00 06/21/23 19:54 OxyMask 4.00 06/21/23 19:50 37.7 94 15 89 Room Air 06/21/23 19:00 89 17 172/93 (119) 89 Room Air 06/21/23 19:00 89 06/21/23 18:00 85 12 152/77 (102) 91 Room Air 06/21/23 17:00 85 14 143/84 (103) 91 Room Air 06/21/23 16:21 91 Room Air 06/21/23 16:00 85 14 169/83 (111) 91 Room Air 06/21/23 15:00 86 13 174/87 (116) 90 Room Air 06/21/23 14:00 90 18 158/86 (110) 89 Room Air 06/21/23 13:00 85 18 164/82 (109) 90 Room Air 06/21/23 12:26 86 06/21/23 12:04 91 Room Air 06/21/23 12:00 89 15 164/84 (110) 90 Room Air 06/21/23 11:00 90 15 182/103 (129) 91 Room Air 06/21/23 10:00 89 24 162/91 (114) 90 Room Air 06/21/23 09:00 103 12 90 Room Air 06/21/23 08:00 84 28 162/94 (116) 90 Room Air 06/21/23 08:00 91 Room Air I & O 06/22/23 07:00 Intake Total 2841.1 ml Output Total 2750 ml Balance 91.1 ml Capillary Refill : Less Than 3 SecondsLess Than 3 Seconds General Appearance: Moderate Distress, Obese HEENT: PERRL/EOMI, Moist Mucous Membranes Neck: Non Tender, Supple Respiratory: Chest Non Tender, No Accessory Muscle Use, No Respiratory Distress Cardiovascular: Regular Rate, Rhythm, No Murmur Peripheral Pulses: 2+ Dorsalis Pedis (R), 2+ Left Dors-Pedis (L), 2+ Radial Pulses (R), 2+ Radial Pulses (L) Gastrointestinal: soft, tenderness (around incision), other (castillo c/d/i, RADHA with serous drainage) Extremity: Pedal Edema, Swelling Neurologic/Psychiatric: Alert, Depressed Affect Skin: Normal Color, Warm/Dry, Pallor Lymphatic: No Adenopathy (Cervical or supraclavicular ) Results Lab Laboratory Tests 06/22/23 02:23: White Blood Count 22.9H, Red Blood Count 2.86L, Hemoglobin 8.7L, Hematocrit 27L, Mean Corpuscular Volume 94, Mean Corpuscular Hemoglobin 30, Mean Corpuscular Hemoglobin Concent 32, Red Cell Distribution Width 16.4H, Platelet Count 366, Mean Platelet Volume 9.5, Immature Granulocyte % (Auto) 7, Neutrophils (%) (Au to) 80H, Lymphocytes (%) (Auto) 6L, Monocytes (%) (Auto) 6, Eosinophils (%) (Auto) 1, Basophils (%) (Auto) 0, Neutrophils # (Auto) 18.3H, Lymphocytes # (Auto) 1.3, Monocytes # (Auto) 1.4H, Eosinophils # (Auto) 0.2, Basophils # (Auto) 0.1, Immature Granulocyte # (Auto) 1.7H, Sodium Level 138, Potassium Level 4.3, Chloride Level 109H, Carbon Dioxide Level 22, Anion Gap 7, Blood Urea Nitrogen 31H, Creatinine 0.75, Estimat Glomerular Filtration Rate 83, BUN/Creatinine Ratio 41, Glucose Level 116H, Calcium Level 7.5L, Corrected Calcium 9.3, Phosphorus Level 3.4, Magnesium Level 1.8, Total Bilirubin 0.4, Aspartate Amino Transf (AST/SGOT) 24, Alanine Aminotransferase (ALT/SGPT) 18, Alkaline Phosphatase 111, Total Protein 3.8L, Albumin 1.7L Microbiology 06/18/23 Blood Culture - Preliminary, Resulted 06/12/23 C. difficile GDH Antigen & Toxins - Final, Complete 06/08/23 Urine Culture - Final, Complete NO GROWTH Assessment/Plan Assessment/Plan Assessment/Plan Anemia - stable Leukocytosis S/P ex lap for Gastric perforation with bleeding artery, mobilization left colon, ligation of gastroduodenal artery, modified segundo patch. S/P repeat ex lap with modified segundo patch due to repeat gastric perforation recent C.diff infection rheumatoid arthritis bibasilar effusions Plan: Continue NPO Encourage IS acapella Continue IV Antibiotics Continue IV fluids encourage ambulation FABIOLA GARCIA DO 06/22/231933: Subjective Subjective/Events-last exam Feeling worse today. Having cough and is productive. Not using IS or Acapella. NPO On TPN. WBC 22.9. Hgb 8.7. Pain control better today. Objective Exam General Appearance: No Apparent Distress, Anxious, Chronically ill, Mild Distress HEENT: PERRL/EOMI, Normal ENT Inspection, Other (rotational skin flap nose/forehead) Neck: Non Tender, Supple Respiratory: Chest Non Tender, No Accessory Muscle Use, No Respiratory Distress Cardiovascular: Regular Rate, Rhythm, No JVD Gastrointestinal: soft, tenderness (around incision), other (castillo c/d/i, RADHA with serous drainage) Extremity: Pedal Edema, Swelling Neurologic/Psychiatric: Alert, Depressed Affect Skin: Normal Color, Warm/Dry, Pallor Lymphatic: No Adenopathy (Cervical or supraclavicular ) Assessment/Plan Assessment/Plan Assessment/Plan Anemia - stable Leukocytosis S/P ex lap for Gastric perforation with bleeding artery, mobilization left colon, ligation of gastroduodenal artery, modified segundo patch. S/P repeat ex lap with modified segundo patch due to repeat gastric perforation recent C.diff infection rheumatoid arthritis NSTEMI bibasilar effusions NPO Ng tube Encourage IS /acapella Continue IV Antibiotics Prontix Continue IV fluids encourage ambulation sputum culture continue abx repeat labs in am recent bleed scd's continue to hold anticoagulation rowley for accurate i/0 Supervisory-Addendum Brief Verification & Attestation Participated in pt care: history, MDM, physical Personally performed: exam, history, MDM, supervision of care Care discussed with: Medical Student Procedures: n/a Results interpretation: Verified all documentation Verification and Attestation of Medical Student E/M Service A medical student performed and documented this service in my presence. I reviewed and verified all information documented by the medical student and made modifications to such information, when appropriate. I personally performed the physical exam and medical decision making. Fabiola Garcia, Jun 22, 2023,20:40 APARICIO Jun 22, 2023 07:40 FABIOLA GARCIA DO Jun 22, 2023 19:34
[2023-06-22] MEDS: FOLIC ACID 5MG/ML 10 ML IV SCH (09:12)
[2023-06-22] MEDS: PANTOPRAZOLE INJECTION 40 MG VIAL IV SCH ×2 (09:12→20:36)
--- NOTE | 2023-06-22 09:35 | Diagnostic Imaging Report ---
INDICATION: Crackles. COMPARISON: 06/21/2023 FINDINGS: Single frontal radiograph view of the chest was obtained and demonstrates stable mild enlargement of the cardiac silhouette and pulmonary vasculature is mildly prominent as well. Lungs again show small left effusion. There is also asymmetric hazy opacification right base, which may be on the basis of small effusion as well. Overall, aeration is stable. There is no pneumothorax. Gastric tube is present. Tube extends inferiorly beyond the vtduu-wi-jycd. Right upper extremity PICC line is also seen with tip in right atrium. Right internal jugular central venous catheter has since been removed. IMPRESSION: 1. New right upper extremity PICC line with tip in the right atrium. 2. Otherwise, stable exam of the chest showing cardiomegaly with probable mild vascular congestion and bibasilar effusions, left greater than right. Dictated by: Dictated on workstation # [id number]
[2023-06-22] MEDS: morphine INJ 4 MG/ML 1 ML (VIAL/SYRINGE) IVP PRN ×3 (09:39→22:33)
[2023-06-22] MEDS: FUROSEMIDE INJECTION 40 MG/4 ML VIAL IVP SCH ×2 (10:47→17:34)
[2023-06-22] MEDS: VANCOMYCIN 1250 MG/NS 250 ML PREMIX IV SCH (10:47)
--- NOTE | 2023-06-22 10:59 | Physical Therapy Daily Note ---
PT Daily Note-Current Subjective Patient appears more edematous and lethargic on this date. Incontinent BM requiring dependent assist to cleanse and change bedding. Pain Section J - Health Conditions 1. Rarely or not at all 2. Occasionally 3. Frequently 4. Almost constantly 8. Unable to answer Pain Effect on Sleep: 2 Pain Interference with Therapy: 2 Pain Interference w/Day-to-Day: 2 Mental Status Attachments: NG Tube, Oxygen, Drains, Novak Catheter, IV Transfers SCALE: Activities may be completed with or without assistive devices. 6-Gxedkjqbct-nvbcitq completes the activity by him/herself with no assistance from a helper. 5-Set-up or Clean-up Assistance-helper sets up or cleans up; patient completes activity. [place] assists only prior to or following the activity. 4-Supervision or Touching Assistance-helper provides verbal cues and/or touching/steadying and/or contact guard assistance as patient completes activity. Assistance may be provided throughout the activity or intermittently. 3-Partial/Moderate Assistance-helper does LESS THAN HALF the effort. [place] l ifts, holds or supports trunk or limbs, but provides less than half the effort. 2-Substantial/Maximal Assistance-helper does MORE THAN HALF the effort. [place] lifts or holds trunk or limbs and provides more than half the effort. 6-Qaxzjjlwp-slfeeb does ALL the effort. Patient does none of the effort to complete the activity. Or, the assistance of 2 or more helpers is required for t he patient to complete the activity. If activity was not attempted, code reason: 7-Patient Refused. 9-Not Applicable-not attempted and the patient did not perform the activity before the current illness, exacerbation or injury. 10-Not Attempted due to Environmental Limitations-(lack of equipment, weather restraints, etc.). 88-Not Attempted due to Medical Conditions or Safety Concerns. Roll Left & Right (QC): 1 (x 2) Weight Bearing Right Lower Extremity: Right Full Weight Bearing Left Lower Extremity: Left Full Weight Bearing Exercises Supine Ex: Heel Slides Supine Reps: 5 (PROM) Assessment Patient performed rolling to left and right with dependent assist of 2. patient incontinent BM requiring assist to cleanse skin and change bedding. Patient did not open her eyes during entire session. Patient does moan in pain with rolling. Patient not progressing with gross motor skills. PT Short Term Goals Short Term Goals Time Frame: Jul 10, 2023 Roll Left & Right: 3 Sit to lyin Lying to sitting on side of be: 3 Sit to stand: 3 Chair/qih-dk-gyhuz transfer: 3 PT Nursing Home Goals Resident Care Manager Goals PT Nursing Home Goals Time Frame: Jul 24, 2023 Roll Left & Right (QC): 6 Sit to Lying (QC): 6 Lying-Sitting on Side/Bed(QC): 6 Sit to Stand (QC): 6 Chair/Opv-gw-Gtlrl Xfer(QC): 6 Toilet Transfer (QC): 6 Car Transfer (QC): 6 Does the Patient Walk: Yes Walk 10 feet (QC): 6 Walk 50ft with 2 Turns (QC): 6 Walk 150 ft (QC): 6 1 Step (curb) (QC): 4 4 Steps (QC): 4 12 Steps (QC): 4 PT Plan Treatment/Plan Treatment Plan: Continue Plan of Care Treatment Plan: Bed Mobility, Education, Functional Activity [place], Functional Strength, Group Therapy, Gait, Safety, Therapeutic Exercise, Transfers Treatment Duration: Jul 24, 2023 Frequency: 6 times per week Estimated Hrs Per Day: .25 hour per day Patient and/or Family Agrees t: Yes Time Time In: 1005 Time Out: 1028 DATE: Jun 22, 2023 Total Billed Treatment Time: 23 Total Billed Treatment 1 visit FA x 2 23 min MICK VAZQUEZ PT Jun 22, 2023 10:59
--- NOTE | 2023-06-22 10:59 | Occupational Ther Daily Note ---
OT Current Status-Daily Note Subjective Less alert and participation level lowered, less voice, requires verbal and tactile cues to OPEN eyes, facial grimace and groans w/ ROM and movement, initially declined therapy, however BM incont w/ black stool and agrees for therapy intervention w/ hygiene, linen and gown change Mental Status/Objective Patient Orientation: Person, Place, Time, Situation Attachments: Novak Catheter, IV, NG Tube, Oxygen, SCD's, Telemetry ADL-Treatment 3 person assist for bed mobility, linen change, gown change for bed activity Therapy Code Descriptions/Definitions Functional [place] Measure: 0=Not Assessed/NA 4=Minimal Assistance 1=Total Assistance 5=Supervision or Setup 2=Maximal Assistance 6=Modified [place] 3=Moderate Assistance 7=Complete IndependenceSCALE: Activities may be completed with or without assistive devices. 6-Rqxhcxidrt-pjvcnyd completes the activity by him/herself with no assistance from a helper. 5-Set-up or Clean-up Assistance-helper sets up or cleans up; patient completes activity. [place] assists only prior to or following the activity. 4-Supervision or Touching Assistance-helper provides verbal cues and/or touching/steadying and/or contact guard assistance as patient completes activity. Assistance may be provided throughout the activity or intermittently. 3-Partial/Moderate Assistance-helper does LESS THAN HALF the effort. [place] lifts, holds or supports trunk or limbs, but provides less than half the effort. 2-Substantial/Maximal Assistance-helper does MORE THAN HALF the effort. [place] lifts or holds trunk or limbs and provides more than half the effort. 6-Ioesembea-heidzc does ALL the effort. Patient does none of the effort to complete the activity. Or, the assistance of 2 or more helpers is required for the patient to complete the activity. If activity was not attempted, code reason: 7-Patient Refused. 9-Not Applicable-not attempted and the patient did not perform the activity before the current illness, exacerbation or injury. 10-Not Attempted due to Environmental Limitations-(lack of equipment, weather restraints, etc.). 88-Not Attempted due to Medical Conditions or Safety Concerns. Toileting Hygiene (QC): 1 increased edema from yesterday. Edema from toes to chest and face. Other Treatment Positioned on right side of body for offloading Education OT Patient Education: Correct positioning, Disease process, Exercise program, Modified ADL techniques, Progress toward Goal/Update tx plan, Purpose of tx/functional activities, Reviewed precautions, Rehab process, Safety issues, Transfer techniques, Use of adapted equipment, W/C management Teaching Recipient: Patient, Family (brother ZAKIYA) Teaching Methods: Demonstration, Discussion Response to Teaching: Verbalize Understanding OT Intermediate Goals Mds Nurse Goals Eating (QC): 6 Oral Hygiene (QC): 5 Toileting Hygiene (QC): 4 Shower/Bathe Self (QC): 3 Upper Body Dressing (QC): 5 Lower Body Dressing (QC): 4 On/Off Footwear (QC): 4 1=Demonstrate adherence to instructed precautions during ADL tasks. 2=Patient will verbalize/demonstrate understanding of assistive devices/modifications for ADL. 3=Patient will improve strength/tolerance for activity to enable patient to perform ADL's. OT Education/Plan Problem List/Assessment Assessment: Decreased Activ Tolerance, Decreased Safety Aware, Decreased UE Strength, Dependent Transfers, Impaired Bed Mobility, Impaired Cognition, Impaired Coordination, Impaired Funct Balance, Impaired I ADL's, Impaired Self- Care Skills, Restricted Funct UE ROM LOW ENDURANCE Discharge Recommendations Plan/Recommendations: Continue POC Treatment Plan/Plan of Care Treatment,Training & Education: Yes Patient would benefit from OT for education, treatment and training to promote independence in ADL's, mobility, safety and/or upper extremity function for ADL's. Plan of Care: ADL Retraining, Caregiver Training, Concurrent Therapy, Function al Mobility, Group Exercise/Act as Ind, UE Funct Exercise/Act Treatment Duration: Jun 25, 2023 Frequency: 3 times per week (3-5 TIMES PER WEEK) Estimated Hrs Per Day: .25 hour per day Agreement: Yes Rehab Potential: Good Time Start Time: 10:20 Stop Time: 10:43 DATE: Jun 22, 2023 Total Time Billed (hr/min): 23 Billed Treatment Time ADL 23 min RACQUEL RENAE OT Jun 22, 2023 10:59
--- NOTE | 2023-06-22 13:27 | Tele-ICU Progress Note ---
Subjective Date Seen by a Provider: Jun 22, 2023 Time Seen by a Provider: 13:27 Subjective/Events-last exam (Tele-ICU Physician , Progress Note ) Service provided via interactive audio and video [employer] E-CARE system to a patient admitted to ICU bed in [facility]. Patient is seen today due to persistent need of ICU care Available chart/ vitals / labs / Images reviewed Video assessment done using teleICU camera, rest of exam as per RN Discussed with RN Events overnight : Afebrile hemodynamically stable Respiratory - ra I/O =+ Drips: ns 100 Pressors- no Hospital course: (06/08) 73F with fever, CDIFF admitted for perforated viscous, septic shock in immunocompromised host. s/p exploratory laparotomy, ligation of GDA, biopsy of ulcer, modified Greg patch. Central line insertion. (06/14) Anemia, holding anticoagulation (06/18) READMIT for severe anemia. Dark stools. Lovenox stopped. PRBC ordered. S/P repeat ex lap with modified greg patch due to repeat gastric perforation A/P s/p ex lap, mobilization left colon, ligation of gastroduodenal artery, modified greg patch, then S/P repeat ex lap with modified greg patch due to repeat gastric perforation - zosyn , flagyl -> vanco , merrem - RADHA in place - as per Sx Hypoxia -on 4 l - cont gentle diuresis, IS ABLA - s/p 4 unit PRBC total since admission - PPI bid Neutropenia - s/p Granix x1--> brandon leukocytosis Nstemi - no chest pain RA . IMMUNOCOMPROMIZED - on on Methotrexate and Plaquenil INTERVENTION NURSE - ON HOLD History of C diff infection -Negative for C diff -on Flagyl Nutrition - on TPN Lines : R IJ , (Central Line Necessity Reviewed) Novak: 06/18 OG: Nutrition: tpn Analgesia: Anxiety/ delirium VTE Prophylaxis: scd Stress Ulcer Prophylaxis: ppi bid Plans in collaboration with bedside consultants and IM MDs. Discussed with RN to reach out if any questions or concerns Case and care daily discussed on multidisciplinary rounds ( RN, PharmD, [employer] , Respiratory Therapy, reinforcing metal worker ) A total of 22 minutes of critical care time was devoted to this patient today, required to treat and/or prevent further deterioration of critical care condition ( as above ) . I am remotely monitoring this patient from another state. I am unable to do the bedside exam, and history/physical and pertinent information is taken from other notes in the computer and bedside staff. Sepsis Event Evaluation Height, Weight, BMI Height: 5'4.00" Weight: 140lbs. oz. 63.835865fk; 35.03 BMI Method:Stated Focused Exam Time of Focused Exam: 13:30 Exam Exam Patient acknowledged, consented, and participated in this virtual visit which was conducted using real time audio/video Vital Signs Date Time Temp Pulse Resp B/P (MAP) Pulse Ox O2 Delivery O2 Flow Rate FiO2 06/22/23 13:00 93 20 137/75 (95) 93 OxyMask 4.00 06/22/23 12:21 93 06/22/23 12:00 90 16 146/87 (106) 90 OxyMask 4.00 06/22/23 11:00 89 18 140/85 (103) 92 OxyMask 4.00 06/22/23 10:00 88 20 150/62 (91) 92 OxyMask 4.00 06/22/23 09:27 169 06/22/23 09:00 92 22 150/87 (108) 93 OxyMask 4.00 06/22/23 08:34 86 06/22/23 08:00 92 17 166/83 (110) 95 OxyMask 4.00 06/22/23 07:56 92 06/22/23 07:49 37.0 06/22/23 07:00 91 17 157/94 (115) 91 OxyMask 4.00 06/22/23 06:00 81 18 152/86 (108) 92 OxyMask 4.00 06/22/23 05:00 84 17 149/67 (94) 91 OxyMask 4.00 06/22/23 04:00 81 15 150/74 (99) 93 OxyMask 4.00 06/22/23 03:20 6 OxyMask 4.00 06/22/23 03:20 37.3 06/22/23 03:00 79 17 151/78 (102) 93 OxyMask 4.00 06/22/23 02:00 84 20 152/72 (98) 93 OxyMask 4.00 06/22/23 01:00 81 21 151/78 (102) 92 OxyMask 4.00 06/22/23 01:00 82 06/22/23 00:00 95 OxyMask 4.00 06/22/23 00:00 37.2 OxyMask 4.00 06/22/23 00:00 82 17 156/96 (116) 93 OxyMask 4.00 06/21/23 23:00 81 15 150/90 (110) 93 OxyMask 4.00 06/21/23 22:00 85 14 150/93 (112) 93 OxyMask 4.00 06/21/23 21:00 88 16 152/77 (102) 94 OxyMask 4.00 06/21/23 20:00 90 15 165/77 (106) 94 OxyMask 06/21/23 19:55 94 OxyMask 4.00 06/21/23 19:54 OxyMask 4.00 06/21/23 19:50 37.7 94 15 89 Room Air 06/21/23 19:00 89 17 172/93 (119) 89 Room Air 06/21/23 19:00 89 06/21/23 18:00 85 12 152/77 (102) 91 Room Air 06/21/23 17:00 85 14 143/84 (103) 91 Room Air 06/21/23 16:21 91 Room Air 06/21/23 16:00 85 14 169/83 (111) 91 Room Air 06/21/23 15:00 86 13 174/87 (116) 90 Room Air 06/21/23 14:00 90 18 158/86 (110) 89 Room Air I & O 06/22/23 07:00 Intake Total 2841.1 ml Output Total 2750 ml Balance 91.1 ml Height & Weight Height: 5'4.00" Weight: 140lbs. oz. 63.370704fz; 35.03 BMI Method:Stated General Appearance: Moderate Distress, Obese HEENT: PERRL/EOMI, Moist Mucous Membranes Neck: Non Tender, Supple Respiratory: Chest Non Tender, No Accessory Muscle Use, No Respiratory Distress Cardiovascular: Regular Rate, Rhythm, No Murmur Capillary Refill: Less Than 3 Seconds Peripheral Pulses: 2+ Dorsalis Pedis (R), 2+ Left Dors-Pedis (L), 2+ Radial Pulses (R), 2+ Radial Pulses (L) Gastrointestinal: soft, tenderness (around incision), other (castillo c/d/i, RADHA with serous drainage) Extremity: Pedal Edema, Swelling Neurologic/Psychiatric: Alert, Depressed Affect Skin: Normal Color, Warm/Dry, Pallor Lymphatic: No Adenopathy (Cervical or supraclavicular ) Results Lab Laboratory Tests 06/21/23 02:30 06/22/23 02:23 Assessment/Plan Assessment/Plan 1 SHAWN CERVANTES MD Jun 22, 2023 13:27
--- NOTE | 2023-06-22 16:01 | Progress Note - Hospitalist ---
Subjective HPI/CC On Admission Date Seen by Provider: Jun 22, 2023 Time Seen by Provider: 09:30 Fabby Ragsdale is a 73 year old female who presented with abdominal pain and was admitted with pneumoperitoneum. She was taken for emergent surgery and was found to have a perforated gastric ulcer with gastroduodenal artery bleed. She was re cently hospitalized with C diff. She has continued to have diarrhea since that time, but then developed abdominal pain over the past couple days. They have noticed dark, tarry stools, but they haven't noticed any change recently. She also started to have fevers and chills. She denies chest pain and shortness of breath, but her daughter reminds her that she did have some chest discomfort yesterday. She has a history of GERD but is unsure if she is taking medicine for it. She has been taking Meloxicam for RA. She is also on Methotrexate and Plaquenil. Subjective/Events-last exam She continues to have abdominal pain. She is feeling a little better today. She has quite a bit of swelling. Focused Exam Time of Focused Exam: 13:30 Objective Exam Vital Signs Vital Signs Date Time Temp Pulse Resp B/P (MAP) Pulse Ox O2 Delivery O2 Flow Rate FiO2 06/22/23 15:00 84 21 87/72 (77) 92 OxyMask 4.00 06/22/23 07:49 37.0 Capillary Refill : Less Than 3 SecondsLess Than 3 Seconds General Appearance: No Apparent Distress, WD/WN Respiratory: Lungs Clear, No Respiratory Distress Cardiovascular: Regular Rate, Rhythm, No Murmur Gastrointestinal: Normal Bowel Sounds; No Distended; Tenderness Extremity: Pedal Edema, Swelling (diffusely) Neurologic/Psychiatric: Alert, Depressed Affect Results/Procedures Lab Laboratory Tests 06/22/23 02:23 Patient resulted labs reviewed. Imaging: Reviewed Imaging Report Assessment/Plan Assessment and Plan Assess & Plan/Chief Complaint Perforated gastric ulcer with hemorrhage Duodenal perforation Acute blood loss anemia Chronic NSAID use Surgery primary s/p ex lap x2 s/p 4 units pRBCs total- Hgb stable IV PPI NPO- NGT in place Continue Diflucan Continue Vanc and Merrem Continue pain regimen TPN per surgery TeleICU following s/p Granix x1 this hospitalization WBC slightly improved no fevers, drain output stable PT/OT Anasarca Fluid overload Lasix History of C diff infection C diff negative NSTEMI Conservative management recommended at this time Follow up with Dr. Ferreira outpatient for further evaluation RA Immunocompromised Hold home meds Hemorrhagic shock, resolved Gastroduodenal artery bleed, resolved Neutropenia, resolved Critical Care Critically Ill Patient Diagnosis/Problems Diagnosis/Problems (1) Acute perforated gastric ulcer with hemorrhage Status: Acute (2) Gastroduodenal artery bleed Status: Acute (3) USP current use of non-steroidal anti-inflammatories (NSAID) Status: Acute (4) GERD (gastroesophageal reflux disease) Status: Chronic (5) ABLA (acute blood loss anemia) Status: Acute (6) Hemorrhagic shock Status: Resolved Resolution Date/Time: 06/10/23 @ 15:29 (7) NSTEMI (non-ST elevation myocardial infarction) Status: Acute (8) Immunocompromised Status: Chronic (9) Rheumatoid arthritis Status: Chronic (10) History of Clostridium difficile infection Status: Chronic (11) Duodenal perforation Status: Acute (12) Anasarca Status: Acute (13) Fluid overload Status: Acute Qualifiers: Hypervolemia type: unspecified Qualified Codes: E87.70 - Fluid overload, unspecified DAMION SALAZAR MD Jun 22, 2023 16:00
[2023-06-22] MEDS: 1/2 NS IV SOLUTION 1000 ML 1,000 ML IV SCH (17:30)
[2023-06-22] MEDS: POTASSIUM PHOSPHATE IV SCH ×11 (17:34)
[2023-06-22] MEDS: SODIUM ACETATE IV SCH ×11 (17:34)
[2023-06-22] MEDS: POTASSIUM ACETATE IV SCH ×11 (17:34)
[2023-06-22] MEDS: [UNRECOGNIZED DRUG - OTHER] IV SCH ×11 (17:34)
[2023-06-22] MEDS: HYPOCHLOROUS ACID/NaCl WOUND SOLN 250 ML IR SCH (20:36)
[2023-06-22] MEDS ORDERED: ACETAMINOPHEN 650 MG SUPPOSITORY PR PRN (23:45)
[2023-06-23 02:15] LABS: BASOPHILS # (AUTO) 0.1 10^3/uL (0.0-0.1); BASOPHILS % (AUTO) 0 % (0-10); EOSINOPHILS # (AUTO) 0.2 10^3/uL (0.0-0.3); EOSINOPHILS % (AUTO) 1 % (0-10); HEMATOCRIT 27 % (35-52); HEMOGLOBIN 8.7 g/dL (11.5-16.0); LYMPHOCYTES # (AUTO) 1.1 10^3/uL (1.0-4.0); LYMPHOCYTES % (AUTO) 4 % (12-44); MEAN CORPUSCULAR HEMOGLOBIN 30 pg (25-34); MEAN CORPUSCULAR HGB CONC 33 g/dL (32-36); MEAN CORPUSCULAR VOLUME 93 fL (80-99); MEAN PLATELET VOLUME 9.4 fL (9.0-12.2); MONOCYTES # (AUTO) 1.2 10^3/uL (0.0-1.0); MONOCYTES % (AUTO) 5 % (0-12); NEUTROPHILS # (AUTO) 21.6 10^3/uL (1.8-7.8); NEUTROPHILS % (AUTO) 84 % (42-75); PLATELET COUNT 313 10^3/uL (130-400); WHITE BLOOD COUNT 25.9 10^3/uL (4.3-11.0)
[2023-06-23 02:23] LABS: POTASSIUM 3.3 MMOL/L (3.6-5.0)
[2023-06-23 02:25] LABS: CALCIUM 7.5 MG/DL (8.5-10.1)
[2023-06-23 02:26] LABS: TOTAL PROTEIN 3.8 GM/DL (6.4-8.2)
[2023-06-23 02:27] LABS: BAND NEUTROPHILS 3 %; BILIRUBIN,TOTAL 0.4 MG/DL (0.1-1.0); EOSINOPHILS % (MANUAL) 2 %; LYMPHOCYTES % (MANUAL) 7 %; METAMYELOCYTES % 2 %; MONOCYTES % (MANUAL) 4 %; NEUTROPHILS % (MANUAL) 82 %
[2023-06-23 02:28] LABS: ANISOCYTOSIS SLIGHT; POLYCHROMASIA MODERATE
[2023-06-23 02:29] LABS: CREATININE SERUM 0.7 MG/DL (0.60-1.30); PHOSPHORUS 3.2 MG/DL (2.3-4.7)
[2023-06-23 02:32] LABS: MAGNESIUM 1.8 MG/DL (1.6-2.4)
[2023-06-23 02:37] LABS: ALBUMIN 1.7 GM/DL (3.2-4.5)
[2023-06-23] MEDS ORDERED: POTASSIUM CL 10MEQ/50ML IVPB 200 ML IV ONE (03:13)
[2023-06-23] MEDS: MEROPENEM INJECTION 500 MG in NS (IVPB) 100 ML 100 ML IV SCH ×4 (03:16→22:07)
[2023-06-23] MEDS: MAGNESIUM 1 GM/100 ML IVPB 100 ML IV SCH ×2 (03:20→03:21)
[2023-06-23] MEDS: POTASSIUM CL 10MEQ/50ML IVPB 50 ML IV SCH ×3 (03:23→05:02)
[2023-06-23] MEDS: metroNIDAZOLE 500MG/100ML IVPB 100 ML IV SCH ×2 (05:03→13:55)
[2023-06-23] MEDS: morphine INJ 4 MG/ML 1 ML (VIAL/SYRINGE) IVP PRN ×3 (06:00→15:34)
[2023-06-23] MEDS: FUROSEMIDE INJECTION 40 MG/4 ML VIAL IVP SCH ×2 (06:02→17:24)
--- NOTE | 2023-06-23 07:12 | Progress Note - Surgery ---
APARICIO 06/23/23 0712: Subjective Date Seen by a Provider: Jun 23, 2023 Time Seen by a Provider: 07:00 Subjective/Events-last exam Patient is talking a lot more today and is not shaking as much when she moves. She feels okay but appears to be in a better state than yesterday. She was given lasix twice and her edema in her extremities has decreased significantly. Her RADHA drainage is still serous and only 43 mL was drained in the past 24 hours. Cough is still present and the same as yesterday but nursing staff has made her use the acapella and ambulate yesterday evening and this morning. She had a fever of 38.8 overnight but it is now resolved. Sputum culture was not able to be obtained because there was no sample to collect. Review of Systems General: No Chills, No Night Sweats; Fatigue, Malaise HEENT: No Head Aches, No Visual Changes Pulmonary: No Dyspnea; Cough Cardiovascular: No: Chest Pain, Palpitations Gastrointestinal: Abdominal Pain; No: Nausea, Vomiting Genitourinary: No Dysuria, No Hematuria Musculoskeletal: No: back pain, hand pain Neurological: No: Change in speech, Confusion Focused Exam Lactate Level 06/22/23 23:50: Lactic Acid Level 1.54 Time of Focused Exam: 13:30 Objective Exam Vital Signs Date Time Temp Pulse Resp B/P (MAP) Pulse Ox O2 Delivery O2 Flow Rate FiO2 06/23/23 06:00 81 15 141/68 (92) 93 Room Air 06/23/23 05:00 85 16 151/78 (102) 93 Room Air 06/23/23 04:00 77 16 143/68 (93) 93 Room Air 06/23/23 03:35 36.5 06/23/23 03:20 92 Room Air 06/23/23 03:15 37.2 06/23/23 03:00 79 14 138/81 (100) 93 Room Air 06/23/23 02:00 77 17 150/71 (97) 93 Room Air 06/23/23 01:00 81 17 154/80 (104) 91 Room Air 06/23/23 01:00 81 06/23/23 00:44 37.3 06/23/23 00:43 37.3 06/23/23 00:01 38.8 06/23/23 00:00 85 15 154/80 (104) 93 Room Air 06/22/23 23:27 38.7 06/22/23 23:25 91 Room Air 06/22/23 23:00 86 16 147/73 (97) 91 Room Air 06/22/23 22:32 37.4 06/22/23 22:00 81 15 144/78 (100) 90 Room Air 06/22/23 21:00 86 16 148/84 (105) 92 Room Air 06/22/23 20:02 38.8 06/22/23 20:00 91 20 142/78 (99) 93 Room Air 06/22/23 20:00 93 Room Air 06/22/23 19:35 38.0 92 19 151/86 (107) 92 Room Air 06/22/23 19:00 100 06/22/23 18:00 85 18 138/72 (94) 93 OxyMask 4.00 06/22/23 17:00 86 21 153/76 (101) 93 OxyMask 4.00 06/22/23 16:37 38.7 06/22/23 16:00 96 OxyMask 4.00 06/22/23 16:00 86 14 149/76 (100) 92 OxyMask 4.00 06/22/23 15:00 84 21 87/72 (77) 92 OxyMask 4.00 06/22/23 14:00 86 17 143/71 (95) 91 OxyMask 4.00 06/22/23 13:00 93 20 137/75 (95) 93 OxyMask 4.00 06/22/23 12:21 93 06/22/23 12:00 94 OxyMask 4.00 06/22/23 12:00 90 16 146/87 (106) 90 OxyMask 4.00 06/22/23 11:00 89 18 140/85 (103) 92 OxyMask 4.00 06/22/23 10:00 88 20 150/62 (91) 92 OxyMask 4.00 06/22/23 09:27 169 06/22/23 09:00 92 22 150/87 (108) 93 OxyMask 4.00 06/22/23 08:34 86 06/22/23 08:00 92 17 166/83 (110) 95 OxyMask 4.00 06/22/23 08:00 92 OxyMask 4.00 06/22/23 07:56 92 06/22/23 07:49 37.0 I & O 06/23/23 07:00 Intake Total 3073.6 ml Output Total 5378 ml Balance -2304.4 ml Capillary Refill : Less Than 3 SecondsLess Than 3 Seconds General Appearance: Anxious, Chronically ill, Mild Distress HEENT: PERRL/EOMI, Normal ENT Inspection, Other (rotational skin flap nose/forehead) Neck: Non Tender, Supple Respiratory: Chest Non Tender, No Accessory Muscle Use, No Respiratory Distress Cardiovascular: Regular Rate, Rhythm, No JVD Peripheral Pulses: 2+ Dorsalis Pedis (R), 2+ Left Dors-Pedis (L), 2+ Radial Pulses (R), 2+ Radial Pulses (L) Gastrointestinal: soft, tenderness (around incision), other (castillo c/d/i, RADHA with serous drainage) Extremity: Pedal Edema, Swelling Neurologic/Psychiatric: Alert, Depressed Affect Skin: Normal Color, Warm/Dry, Pallor Lymphatic: No Adenopathy (Cervical or supraclavicular ) Results Lab Laboratory Tests 06/22/23 23:50: Lactic Acid Level 1.54 06/23/23 02:09: White Blood Count 25.9H, Red Blood Count 2.87L, Hemoglobin 8.7L, Hematocrit 27L, Mean Corpuscular Volume 93, Mean Corpuscular Hemoglobin 30, Mean Corpuscular Hemoglobin Concent 33, Red Cell Distribution Width 16.2H, Platelet Count 313, Mean Platelet Volume 9.4, Immature Granulocyte % (Auto) 7, Neutrophils (%) (Auto) 84H, Lymphocytes (%) (Auto) 4L, Monocytes (%) (Auto) 5, Eosinophils (%) (Auto) 1, Basophils (%) (Auto) 0, Neutrophils # (Auto) 21.6H, Lymphocytes # (Auto) 1.1, Monocytes # (Auto) 1.2H, Eosinophils # (Auto) 0.2, Basophils # (Auto) 0.1, Immature Granulocyte # (Auto) 1.7H, Neutrophils % (Manual) 82, Lymphocytes % (Manual) 7, Monocytes % (Manual) 4, Eosinophils % (Manual) 2, Metamyelocytes % 2, Band Neutrophils 3, Polychromasia MODERATE, Anisocytosis SLIGHT, Sodium Level 136, Potassium Level 3.3L, Chloride Level 104, Carbon Dioxide Level 25, Anion Gap 7, Blood Urea Nitrogen 26H, Creatinine 0.70, Estimat Glomerular Filtration Rate 91, BUN/Creatinine Ratio 37, Glucose Level 126H, Calcium Level 7.5L, Corrected Calcium 9.3, Phosphorus Level 3.2, Magnesium Level 1.8, Total Bilirubin 0.4, Aspartate Amino Transf (AST/SGOT) 25, Alanine Aminotransferase (ALT/SGPT) 16, Alkaline Phosphatase 111, Total Protein 3.8L, Albumin 1.7L 06/23/23 02:50: Potassium Level 3.4L Microbiology 06/21/23 Catheter Tip Culture - Preliminary, Resulted 06/12/23 C. difficile GDH Antigen & Toxins - Final, Complete 06/08/23 Urine Culture - Final, Complete NO GROWTH Assessment/Plan Assessment/Plan Assessment/Plan Anemia - stable Leukocytosis S/P ex lap for Gastric perforation with bleeding artery, mobilization left colon, ligation of gastroduodenal artery, modified segundo patch. S/P repeat ex lap with modified segundo patch due to repeat gastric perforation recent C.diff infection rheumatoid arthritis NSTEMI bibasilar effusions Plan: NPO Ng tube Encourage IS /acapella Continue IV Antibiotics Continue IV fluids encourage ambulation sputum culture- still waiting on sample continue abx repeat labs in am recent bleed scd's continue to hold anticoagulation FABIOLA GARCIA DO 06/23/23 1110: Subjective Subjective/Events-last exam Feeling better than yesterday. Not using much IS or Acapella. Edema less. RADHA drain serous. Still with cough. Fever overnight. WBC increased. No family present at this time. Objective Exam General Appearance: No Apparent Distress, Anxious, Chronically ill HEENT: PERRL/EOMI, Normal ENT Inspection Neck: Non Tender, Supple Respiratory: Chest Non Tender, No Accessory Muscle Use, No Respiratory Distress Cardiovascular: Regular Rate, Rhythm, No JVD Gastrointestinal: soft, tenderness (around incision), other (castillo c/d/i, RADHA with serous drainage) Extremity: Pedal Edema, Swelling Neurologic/Psychiatric: Alert, Oriented x3, Depressed Affect Skin: Normal Color, Warm/Dry Lymphatic: No Adenopathy (Cervical or supraclavicular ) Assessment/Plan Assessment/Plan Assessment/Plan Anemia - stable Leukocytosis S/P ex lap for Gastric perforation with bleeding artery, mobilization left colon, ligation of gastroduodenal artery, modified segundo patch. S/P repeat ex lap with modified segundo patch due to repeat gastric perforation recent C.diff infection rheumatoid arthritis NSTEMI bibasilar effusions NPO Ng tube Encourage IS /acapella Continue IV Antibiotics Continue IV fluids encourage ambulation sputum culture- still waiting on sample continue abx will get ct chest abd/pelvis today recent bleed scd's continue to hold anticoagulation Supervisory-Addendum Brief Verification & Attestation Participated in pt care: history, MDM, physical Personally performed: exam, history, MDM, supervision of care Care discussed with: Medical Student Procedures: n/a Results interpretation: Verified all documentation Verification and Attestation of Medical Student E/M Service A medical student performed and documented this service in my presence. I reviewed and verified all information documented by the medical student and made modifications to such information, when appropriate. I personally performed the physical exam and medical decision making. Fabiola Garcia, Jun 23, 2023,11:09 APARICIO Jun 23, 2023 07:12 FABILOA GARCIA DO Jun 23, 2023 11:10
[2023-06-23] MEDS: FOLIC ACID 5MG/ML 10 ML IV SCH (08:35)
[2023-06-23] MEDS: HYPOCHLOROUS ACID/NaCl WOUND SOLN 250 ML IR SCH ×2 (08:35→22:07)
[2023-06-23] MEDS: PANTOPRAZOLE INJECTION 40 MG VIAL IV SCH ×2 (08:35→22:07)
[2023-06-23] MEDS ORDERED: DIATRIZOATE MEGLUM/SODIUM 37% 120 ML (GASTROGRAFIN) PO ONE (08:45)
--- NOTE | 2023-06-23 09:48 | Occ Therapy Progress Note ---
Therapy Progress Note Patient on hold for CT at 1030. OT to return in afternoon RACQUEL RENAE OT Jun 23, 2023 09:48
[2023-06-23] MEDS ORDERED: TROUGH ORDER-PHARMACY XX NR (10:00)
--- NOTE | 2023-06-23 10:26 | Tele-ICU Progress Note ---
Subjective Date Seen by a Provider: Jun 23, 2023 Time Seen by a Provider: 10:26 Subjective/Events-last exam (Tele-ICU Physician , Progress Note ) Service provided via interactive audio and video telecommunKnotch E-CARE system to a patient admitted to ICU bed in [facility]. Patient is seen today due to persistent need of ICU care Available chart/ vitals / labs / Images reviewed Video assessment done using teleICU camera, rest of exam as per RN Discussed with RN Events overnight : Afebrile hemodynamically stable Respiratory - ra I/O =+ Drips: 1/2 ns 25 ml/h Pressors- no Hospital course: (06/08) 73F with fever, CDIFF admitted for perforated viscous, septic shock in immunocompromised host. s/p exploratory laparotomy, ligation of GDA, biopsy of ulcer, modified Greg patch. Central line insertion. (06/14) Anemia, holding anticoagulation (06/18) READMIT for severe anemia. Dark stools. Lovenox stopped. PRBC ordered. S/P repeat ex lap with modified greg patch due to repeat gastric perforation 06/23 O2 on 4 l --> on RA with 5600 ml UO with lasix, CT abd/pelvis A/P s/p ex lap, mobilization left colon, ligation of gastroduodenal artery, modified greg patch, then S/P repeat ex lap with modified greg patch due to repeat gastric perforation - zosyn , flagyl -> vanco , merrem - RADHA in place - as per Sx - CT abd/pelvis 06/23 Hypoxia -on 4 l --> on RA with 5600 ml UO with lasix - cont gentle diuresis, IS ABLA - s/p 4 unit PRBC total since admission - PPI bid Neutropenia - s/p Granix x1--> now leukocytosis Nstemi - no chest pain RA . 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 Discussed with RN to reach out if any questions or concerns Case and care daily discussed on multidisciplinary rounds ( RN, PharmD, Electrician Helper , Respiratory Therapy, utility maintenance worker ) A total of 22 minutes of critical care time was devoted to this patient today, required to treat and/or prevent further deterioration of critical care condition ( as above ) . I am remotely monitoring this patient from another state. I am unable to do the bedside exam, and history/physical and pertinent information is taken from other notes in the computer and bedside staff. Sepsis Event Evaluation Height, Weight, BMI Height: 5'4.00" Weight: 140lbs. oz. 63.331132ri; 34.10 BMI Method:Stated Focused Exam Lactate Level 06/22/23 23:50: Lactic Acid Level 1.54 Time of Focused Exam: 13:30 Exam Exam Patient acknowledged, consented, and participated in this virtual visit which was conducted using real time audio/video Vital Signs Date Time Temp Pulse Resp B/P (MAP) Pulse Ox O2 Delivery O2 Flow Rate FiO2 06/23/23 08:00 36.7 06/23/23 08:00 92 Room Air 06/23/23 07:00 80 06/23/23 06:00 81 15 141/68 (92) 93 Room Air 06/23/23 05:00 85 16 151/78 (102) 93 Room Air 06/23/23 04:00 77 16 143/68 (93) 93 Room Air 06/23/23 03:35 36.5 06/23/23 03:20 92 Room Air 06/23/23 03:15 37.2 06/23/23 03:00 79 14 138/81 (100) 93 Room Air 06/23/23 02:00 77 17 150/71 (97) 93 Room Air 06/23/23 01:00 81 17 154/80 (104) 91 Room Air 06/23/23 01:00 81 06/23/23 00:44 37.3 06/23/23 00:43 37.3 06/23/23 00:01 38.8 06/23/23 00:00 85 15 154/80 (104) 93 Room Air 06/22/23 23:27 38.7 06/22/23 23:25 91 Room Air 06/22/23 23:00 86 16 147/73 (97) 91 Room Air 06/22/23 22:32 37.4 06/22/23 22:00 81 15 144/78 (100) 90 Room Air 06/22/23 21:00 86 16 148/84 (105) 92 Room Air 06/22/23 20:02 38.8 06/22/23 20:00 91 20 142/78 (99) 93 Room Air 06/22/23 20:00 93 Room Air 06/22/23 19:35 38.0 92 19 151/86 (107) 92 Room Air 06/22/23 19:00 100 06/22/23 18:00 85 18 138/72 (94) 93 OxyMask 4.00 06/22/23 17:00 86 21 153/76 (101) 93 OxyMask 4.00 06/22/23 16:37 38.7 06/22/23 16:00 96 OxyMask 4.00 06/22/23 16:00 86 14 149/76 (100) 92 OxyMask 4.00 06/22/23 15:00 84 21 87/72 (77) 92 OxyMask 4.00 06/22/23 14:00 86 17 143/71 (95) 91 OxyMask 4.00 06/22/23 13:00 93 20 137/75 (95) 93 OxyMask 4.00 06/22/23 12:21 93 06/22/23 12:00 94 OxyMask 4.00 06/22/23 12:00 90 16 146/87 (106) 90 OxyMask 4.00 06/22/23 11:00 89 18 140/85 (103) 92 OxyMask 4.00 I & O 06/23/23 07:00 Intake Total 3073.6 ml Output Total 5378 ml Balance -2304.4 ml Height & Weight Height: 5'4.00" Weight: 140lbs. oz. 63.860202gj; 34.10 BMI Method:Stated General Appearance: Anxious, Chronically ill, Mild Distress HEENT: PERRL/EOMI, Normal ENT Inspection, Other (rotational skin flap nose/forehead) Neck: Non Tender, Supple Respiratory: Chest Non Tender, No Accessory Muscle Use, No Respiratory Distress Cardiovascular: Regular Rate, Rhythm, No JVD Capillary Refill: Less Than 3 Seconds Peripheral Pulses: 2+ Dorsalis Pedis (R), 2+ Left Dors-Pedis (L), 2+ Radial Pulses (R), 2+ Radial Pulses (L) Gastrointestinal: soft, tenderness (around incision), other (castillo c/d/i, RADHA with serous drainage) Extremity: Pedal Edema, Swelling Neurologic/Psychiatric: Alert, Depressed Affect Skin: Normal Color, Warm/Dry, Pallor Lymphatic: No Adenopathy (Cervical or supraclavicular ) Results Lab Laboratory Tests 06/22/23 02:23 06/23/23 02:09 06/23/23 02:50 Assessment/Plan Assessment/Plan 1 SHAWN CERVANTES MD Jun 23, 2023 10:26
[2023-06-23] MEDS: VANCOMYCIN 1250 MG/NS 250 ML PREMIX IV SCH (11:19)
--- NOTE | 2023-06-23 11:35 | Diagnostic Imaging Report ---
PROCEDURE: CT chest, abdomen, and pelvis without contrast. TECHNIQUE: Multiple contiguous axial images were obtained through the chest, abdomen, and pelvis without the use of intravenous contrast. Auto Exposure Controls were utilized during the CT exam to meet ALARA standards for radiation dose reduction. INDICATION: A recent perforation in the region of the pylorus and proximal duodenum, status post patch repair. Study is performed for further evaluation. Correlation is made with prior CT from 06/14/2023. CT CHEST: A right-sided line has tip entering the right atrium. NG tube passes into the stomach. No pericardial fluid is identified. There are moderate-sized bilateral pleural effusions. There are areas of parenchymal consolidation bilateral lower lobes with air bronchograms. CT abdomen and pelvis: Contrast was injected through the patient's indwelling nasogastric tube. There is contrast seen within the stomach. Contrast is identified within small bowel loops. There is also some contrast within the colon. No contrast extravasation is identified. No definite pneumoperitoneum is identified. There is some subcutaneous gas in the left upper quadrant and left flank. There is some free fluid in the pelvis but no well-formed fluid collection or abscess is identified. There is no bowel obstruction. Liver, gallbladder, pancreas, spleen, adrenal glands and kidneys are unremarkable. Aorta is nonaneurysmal. Bladder and uterus are unremarkable. There is diffuse edema throughout subcutaneous tissues consistent with anasarca. IMPRESSION: 1. Moderate-sized bilateral pleural effusions with bibasilar consolidation. 2. Postop changes in the upper abdomen. No contrast extravasation is identified to suggest persistent leak. There is some free fluid in the pelvis but no well-formed fluid collection or abscess. 3. Anasarca. Dictated by: Dictated on workstation # [id number]
--- NOTE | 2023-06-23 13:17 | Physical Therapy Progress Note ---
Therapy Progress Note Patient refused treatment due to pain and not feeling well. Will attempt treatment again tomorrow. SUMAYA PERKINS PT Jun 23, 2023 13:17
[2023-06-23] MEDS: 1/2 NS IV SOLUTION 1000 ML 1,000 ML IV SCH (15:38)
[2023-06-23] MEDS ORDERED: SODIUM ACETATE IV SCH ×12 (17:00)
[2023-06-23] MEDS ORDERED: POTASSIUM CHLORIDE IV SCH ×12 (17:00)
[2023-06-23] MEDS ORDERED: [UNRECOGNIZED DRUG - OTHER] IV SCH ×12 (17:00)
[2023-06-23] MEDS ORDERED: POTASSIUM ACETATE IV SCH ×12 (17:00)
--- NOTE | 2023-06-23 18:25 | Progress Note - Hospitalist ---
Subjective HPI/CC On Admission Date Seen by Provider: Jun 23, 2023 Time Seen by Provider: 09:35 Fabby Ragsdale is a 73 year old female who presented with abdominal pain and was admitted with pneumoperitoneum. She was taken for emergent surgery and was found to have a perforated gastric ulcer with gastroduodenal artery bleed. She was re cently hospitalized with C diff. She has continued to have diarrhea since that time, but then developed abdominal pain over the past couple days. They have noticed dark, tarry stools, but they haven't noticed any change recently. She also started to have fevers and chills. She denies chest pain and shortness of breath, but her daughter reminds her that she did have some chest discomfort yesterday. She has a history of GERD but is unsure if she is taking medicine for it. She has been taking Meloxicam for RA. She is also on Methotrexate and Plaquenil. Subjective/Events-last exam She is feeling about the same. She is still having abdominal pain. She does not respond to all questions. Focused Exam Lactate Level 06/22/23 23:50: Lactic Acid Level 1.54 Time of Focused Exam: 13:30 Objective Exam Vital Signs Vital Signs Date Time Temp Pulse Resp B/P (MAP) Pulse Ox O2 Delivery O2 Flow Rate FiO2 06/23/23 18:00 87 18 148/85 (106) 94 Room Air 06/23/23 15:52 37.3 06/22/23 18:00 4.00 Capillary Refill : Less Than 3 SecondsLess Than 3 Seconds General Appearance: No Apparent Distress, WD/WN Respiratory: No Respiratory Distress, Decreased Breath Sounds Cardiovascular: Regular Rate, Rhythm, No Murmur Gastrointestinal: Abnormal Bowel Sounds (decreased); No Distended; Tenderness (to light palpation) Extremity: No Inflammation; Pedal Edema, Swelling Neurologic/Psychiatric: Alert, Depressed Affect Results/Procedures Lab Laboratory Tests 06/23/23 02:09 06/23/23 02:50 Patient resulted labs reviewed. Imaging: Reviewed Imaging Report Assessment/Plan Assessment and Plan Assess & Plan/Chief Complaint Perforated gastric ulcer with hemorrhage Duodenal perforation Acute blood loss anemia Chronic NSAID use Surgery primary s/p ex lap x2 s/p 4 units pRBCs total- Hgb stable IV PPI NPO- NGT in place Continue Diflucan Continue Vanc and Merrem Continue pain regimen TPN per surgery TeleICU following s/p Granix x1 this hospitalization WBC increased, fevers overnight Repeat blood cultures pending CT with no identifiable intra-abdominal abscess, post-op changes, bilateral pleural effusions PT/OT Anasarca Fluid overload Continue Lasix, anasarca improving History of C diff infection C diff negative NSTEMI Conservative management recommended at this time Follow up with Dr. 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) Status: Acute (4) GERD (gastroesophageal reflux disease) Status: Chronic (5) ABLA (acute blood loss anemia) Status: Acute (6) Hemorrhagic shock Status: Resolved Resolution Date/Time: 06/10/23 @ 15:29 (7) NSTEMI (non-ST elevation myocardial infarction) Status: Acute (8) Immunocompromised Status: Chronic (9) Rheumatoid arthritis Status: Chronic (10) History of Clostridium difficile infection Status: Chronic (11) Duodenal perforation Status: Acute (12) Anasarca Status: Acute (13) Fluid overload Status: Acute Qualifiers: Hypervolemia type: unspecified Qualified Codes: E87.70 - Fluid overload, u nspecified DAMION SALAZAR MD Jun 23, 2023 18:25
[2023-06-24] MEDS: MEROPENEM INJECTION 500 MG in NS (IVPB) 100 ML 100 ML IV SCH ×3 (04:14→21:00)
[2023-06-24 04:16] LABS: BASOPHILS # (AUTO) 0.1 10^3/uL (0.0-0.1); BASOPHILS % (AUTO) 0 % (0-10); EOSINOPHILS # (AUTO) 0.3 10^3/uL (0.0-0.3); EOSINOPHILS % (AUTO) 1 % (0-10); HEMATOCRIT 28 % (35-52); HEMOGLOBIN 9.2 g/dL (11.5-16.0); LYMPHOCYTES % (AUTO) 4 % (12-44); MEAN CORPUSCULAR HEMOGLOBIN 30 pg (25-34); MEAN CORPUSCULAR HGB CONC 33 g/dL (32-36); MEAN CORPUSCULAR VOLUME 90 fL (80-99); MEAN PLATELET VOLUME 9.3 fL (9.0-12.2); MONOCYTES # (AUTO) 1.8 10^3/uL (0.0-1.0); MONOCYTES % (AUTO) 7 % (0-12); NEUTROPHILS # (AUTO) 22.6 10^3/uL (1.8-7.8); NEUTROPHILS % (AUTO) 82 % (42-75); PLATELET COUNT 327 10^3/uL (130-400); WHITE BLOOD COUNT 27.6 10^3/uL (4.3-11.0)
[2023-06-24 05:13] LABS: ALBUMIN 1.7 GM/DL (3.2-4.5); POTASSIUM 3.6 MMOL/L (3.6-5.0)
[2023-06-24 05:14] LABS: CALCIUM 7.6 MG/DL (8.5-10.1)
[2023-06-24 05:16] LABS: TOTAL PROTEIN 4.1 GM/DL (6.4-8.2)
[2023-06-24 05:17] LABS: BILIRUBIN,TOTAL 0.5 MG/DL (0.1-1.0)
[2023-06-24 05:19] LABS: CREATININE SERUM 0.66 MG/DL (0.60-1.30); PHOSPHORUS 2.8 MG/DL (2.3-4.7)
[2023-06-24 05:22] LABS: MAGNESIUM 1.8 MG/DL (1.6-2.4)
[2023-06-24] MEDS: FUROSEMIDE INJECTION 40 MG/4 ML VIAL IVP SCH ×2 (06:17→17:01)
[2023-06-24] MEDS: morphine INJ 4 MG/ML 1 ML (VIAL/SYRINGE) IVP PRN ×3 (07:32→21:09)
--- NOTE | 2023-06-24 07:42 | Progress Note - Surgery ---
REBECCAMAMTA 06/24/23 0742: Subjective Date Seen by a Provider: Jun 24, 2023 Time Seen by a Provider: 07:30 Subjective/Events-last exam Patient is a&o x3 and says she is feeling okay and about the same as yesterday. She Her wbc is 27.6 today up from 25.9 and is generally trending upwards. She still had mild abdominal pain, but her cough is persistant and not improving. Is not consistently using acapella and IS unless forced to. Review of Systems General: No Chills, No Night Sweats; Fatigue, Malaise HEENT: No Head Aches, No Visual Changes Pulmonary: No Dyspnea; Cough Cardiovascular: Orthopnea, Edema (decreased compared to earlier visits ); No: Chest Pain, Palpitations Gastrointestinal: No: Nausea, Vomiting Genitourinary: No Dysuria, No Frequency Musculoskeletal: No: neck pain, shoulder pain Neurological: No: Numbness, Confusion Focused Exam Lactate Level 06/22/23 23:50: Lactic Acid Level 1.54 Time of Focused Exam: 13:30 Objective Exam Vital Signs Date Time Temp Pulse Resp B/P (MAP) Pulse Ox O2 Delivery O2 Flow Rate FiO2 06/24/23 07:26 37.6 90 20 149/77 (101) 92 Room Air 06/24/23 06:00 90 34 156/74 (101) 91 Room Air 06/24/23 05:00 95 17 158/74 (102) 92 Room Air 06/24/23 04:12 37.4 Room Air 06/24/23 04:00 88 17 156/84 (108) 93 Room Air 06/24/23 04:00 94 Room Air 06/24/23 03:00 88 24 144/78 (100) 93 Room Air 06/24/23 02:27 94 Room Air 06/24/23 02:00 98 16 161/79 (106) 92 Room Air 06/24/23 01:00 90 06/24/23 01:00 92 154/79 (104) 94 Room Air 06/24/23 00:00 92 30 151/93 (112) 93 Room Air 06/23/23 23:30 37.2 Room Air 06/23/23 23:00 93 21 156/78 (104) 94 Room Air 06/23/23 22:16 96 18 157/86 (109) 94 Room Air 06/23/23 21:00 36.8 91 18 157/87 (110) 94 Room Air 06/23/23 20:00 88 30 149/107 (121) 94 Room Air 06/23/23 20:00 94 Room Air 06/23/23 19:19 36.6 06/23/23 19:00 93 18 159/87 (111) 94 Room Air 06/23/23 19:00 90 06/23/23 18:00 87 18 148/85 (106) 94 Room Air 06/23/23 17:00 87 16 149/77 (101) 93 Room Air 06/23/23 16:00 94 Room Air 06/23/23 16:00 87 15 163/80 (107) 93 Room Air 06/23/23 15:52 37.3 06/23/23 15:00 90 27 150/84 (106) 93 Room Air 06/23/23 14:00 86 21 152/87 (108) 91 Room Air 06/23/23 13:00 87 06/23/23 13:00 89 21 156/86 (109) 91 Room Air 06/23/23 12:00 96 18 162/86 (111) 92 Room Air 06/23/23 11:52 94 Room Air 06/23/23 11:27 36.9 06/23/23 11:00 84 20 153/80 (104) 92 Room Air 06/23/23 10:00 81 17 149/109 (122) 91 Room Air 06/23/23 09:00 80 20 147/81 (103) 91 Room Air 06/23/23 08:00 36.7 06/23/23 08:00 92 Room Air 06/23/23 08:00 79 30 140/75 (96) 93 Room Air I & O 06/24/23 07:00 Intake Total 0 ml Output Total 5690 ml Balance -5690 ml Capillary Refill : Less Than 3 SecondsLess Than 3 Seconds General Appearance: WD/WN, Mild Distress, Obese HEENT: PERRL/EOMI, Normal ENT Inspection Neck: Non Tender, Supple Respiratory: Chest Non Tender, No Respiratory Distress, Decreased Breath Sounds Cardiovascular: Regular Rate, Rhythm, No Murmur Peripheral Pulses: 2+ Dorsalis Pedis (R), 2+ Left Dors-Pedis (L), 2+ Radial Pulses (R), 2+ Radial Pulses (L) Gastrointestinal: soft, tenderness (around incision), other (castillo c/d/i, RADHA with serous drainage) Extremity: No Inflammation; Pedal Edema, Swelling Neurologic/Psychiatric: Alert, Depressed Affect Skin: Normal Color, Warm/Dry Lymphatic: No Adenopathy (Cervical or supraclavicular ) Results Lab Laboratory Tests 06/23/23 08:22: Vancomycin Level Trough 10.2 06/23/23 12:40: Lab Scanned Report Transfusion Reaction Form 06/23/23 20:17: Glucometer 134H 06/23/23 23:41: Glucometer 119H 06/24/23 04:13: White Blood Count 27.6H, Red Blood Count 3.07L, Hemoglobin 9.2L, Hematocrit 28L, Mean Corpuscular Volume 90, Mean Corpuscular Hemoglobin 30, Mean Corpuscular Hemoglobin Concent 33, Red Cell Distribution Width 15.8H, Platelet Count 327, Mean Platelet Volume 9.3, Immature Granulocyte % (Auto) 6, Neutrophils (%) (Auto) 82H, Lymphocytes (%) (Auto) 4L, Monocytes (%) (Auto) 7, Eosinophils (%) (Auto) 1, Basophils (%) (Auto) 0, Neutrophils # (Auto) 22.6H, Lymphocytes # (Auto) 1.0, Monocytes # (Auto) 1.8H, Eosinophils # (Auto) 0.3, Basophils # (Auto) 0.1, Immature Granulocyte # (Auto) 1.7H, Sodium Level 133L, Potassium Level 3.6, Chloride Level 101, Carbon Dioxide Level 25, Anion Gap 7, Blood Urea Nitrogen 25H, Creatinine 0.66, Estimat Glomerular Filtration Rate 92, BUN/Creatinine Ratio 38, Glucose Level 103, Calcium Level 7.6L, Corrected Calcium 9.4, Phosphorus Level 2.8, Magnesium Level 1.8, Total Bilirubin 0.5, Aspartate Amino Transf (AST/SGOT) 23, Alanine Aminotransferase (ALT/SGPT) 17, Alkaline Phosphatase 117, Total Protein 4.1L, Albumin 1.7L 06/24/23 05:38: Glucometer 118H Microbiology 06/22/23 Blood Culture - Preliminary, Resulted 06/12/23 C. difficile GDH Antigen & Toxins - Final, Complete 06/08/23 Urine Culture - Final, Complete NO GROWTH Assessment/Plan Assessment/Plan Assessment/Plan Assessment: Anemia - stable Leukocytosis S/P ex lap for Gastric perforation with bleeding artery, mobilization left colon, ligation of gastroduodenal artery, modified segundo patch. S/P repeat ex lap with modified segundo patch due to repeat gastric perforation recent C.diff infection rheumatoid arthritis NSTEMI bibasilar effusions, some free fluid in pelvis per CT NPO Ng tube Encourage IS /acapella Continue IV Antibiotics Continue IV fluids encourage ambulation sputum culture- still waiting on sample continue abx FABIOLA GARCIA DO 06/25/23 0957: Subjective Subjective/Events-last exam Feeling okay. Pain controlled. WBC increasing. Minimal use of IS/Acapella. Still with cough but and moving stuff but can't bring it all the way up. Hgb stable. Objective Exam General Appearance: No Apparent Distress, Chronically ill HEENT: PERRL/EOMI, Normal ENT Inspection Neck: Non Tender, Supple Respiratory: Chest Non Tender, No Accessory Muscle Use, No Respiratory Distress Cardiovascular: Regular Rate, Rhythm, No Murmur Gastrointestinal: soft, tenderness (around incision), other (castillo c/d/i, RADHA with serous/murky drainage) Extremity: Pedal Edema (less), Swelling (less) Neurologic/Psychiatric: Alert, Depressed Affect Skin: Normal Color, Warm/Dry Lymphatic: No Adenopathy (Cervical or supraclavicular ) Assessment/Plan Assessment/Plan Assessment/Plan Anemia - stable Leukocytosis S/P ex lap for Gastric perforation with bleeding artery, mobilization left colon, ligation of gastroduodenal artery, modified segundo patch. S/P repeat ex lap with modified segundo patch due to repeat gastric perforation recent C.diff infection rheumatoid arthritis NSTEMI bibasilar effusions bibasilar consolidations, some free fluid in pelvis per CT NPO Ng tube Encourage IS /acapella Continue IV Antibiotics on Vanc/Merepenem Continue IV fluids encourage ambulation sputum culture- still waiting on sample LTAC evaluation tpn Supervisory-Addendum Brief Verification & Attestation Participated in pt care: history, MDM, physical Personally performed: exam, history, MDM, supervision of care Care discussed with: Medical Student Procedures: n/a Results interpretation: Verified all documentation Verification and Attestation of Medical Student E/M Service A medical student performed and documented this service in my presence. I reviewed and verified all information documented by the medical student and made modifications to such information, when appropriate. I personally performed the physical exam and medical decision making. Fabiola Garcia, Jun 24, 2023,09:57 APARICIO Jun 24, 2023 07:42 FABIOLA GARCIA DO Jun 25, 2023 09:57
[2023-06-24] MEDS: HYPOCHLOROUS ACID/NaCl WOUND SOLN 250 ML IR SCH ×2 (08:08→21:01)
[2023-06-24] MEDS: FOLIC ACID 5MG/ML 10 ML IV SCH (08:09)
[2023-06-24] MEDS: PANTOPRAZOLE INJECTION 40 MG VIAL IV SCH ×2 (08:09→21:00)
--- NOTE | 2023-06-24 09:09 | Tele-ICU Progress Note ---
Subjective Date Seen by a Provider: Jun 24, 2023 Time Seen by a Provider: 09:08 Subjective/Events-last exam (Tele-ICU Physician , Progress Note ) Service provided via interactive audio and video telecommunFlightOffice E-CARE system to a patient admitted to ICU bed in [facility]. Patient is seen today due to persistent need of ICU care Available chart/ vitals / labs / Images reviewed Video assessment done using teleICU camera, rest of exam as per RN Discussed with RN Events overnight : Afebrile hemodynamically stable Respiratory - ra I/O =+ Drips: 1/2 ns 25 ml/h Pressors- no Hospital course: (06/08) 73F with fever, CDIFF admitted for perforated viscous, septic shock in immunocompromised host. s/p exploratory laparotomy, ligation of GDA, biopsy of ulcer, modified Greg patch. Central line insertion. (06/14) Anemia, holding anticoagulation (06/18) READMIT for severe anemia. Dark stools. Lovenox stopped. PRBC ordered. S/P repeat ex lap with modified greg patch due to repeat gastric perforation 06/23 O2 on 4 l --> on RA with 5600 ml UO with lasix, CT abd/pelvis -No cont rast extravasation is identified to suggest persistent leak. 06/24 RA , NPO, UO 5 L A/P s/p ex lap, mobilization left colon, ligation of gastroduodenal artery, modified greg patch, then S/P repeat ex lap with modified greg patch due to repeat gastric perforation - zosyn , flagyl -> vanco , merrem - RADHA in place - as per Sx - CT abd/pelvis 06/23 -No contrast extravasation is identified to suggest persistent leak. Hypoxia with effusion and Volume overload - on RA with 5600 ml UO with lasix - cont gentle diuresis, IS Moderate-sized bilateral pleural effusions with bibasilar consolidation - cont diuresis ABLA - s/p 4 unit PRBC total since admission - PPI bid Neutropenia - s/p Granix x1--> now leukocytosis - on abx Nstemi - no chest pain RA . 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 Discussed with RN to reach out if any questions or concerns Case and care daily discussed on multidisciplinary rounds ( RN, PharmD, Occ Med Physician , Respiratory Therapy, labor relations worker ) A total of 22 minutes of critical care time was devoted to this patient today, required to treat and/or prevent further deterioration of critical care condition ( as above ) . I am remotely monitoring this patient from another state. I am unable to do the bedside exam, and history/physical and pertinent information is taken from other notes in the computer and bedside staff. Sepsis Event Evaluation Height, Weight, BMI Height: 5'4.00" Weight: 140lbs. oz. 63.818772uu; 33.13 BMI Method:Stated Focused Exam Lactate Level 06/22/23 23:50: Lactic Acid Level 1.54 Time of Focused Exam: 13:30 Exam Exam Patient acknowledged, consented, and participated in this virtual visit which was conducted using real time audio/video Vital Signs Date Time Temp Pulse Resp B/P (MAP) Pulse Ox O2 Delivery O2 Flow Rate FiO2 06/24/23 08:00 37.3 06/24/23 08:00 89 22 142/89 (106) 91 Room Air 06/24/23 07:26 37.6 90 20 149/77 (101) 92 Room Air 06/24/23 07:15 88 06/24/23 07:00 92 34 149/77 (101) 91 Room Air 06/24/23 06:00 90 34 156/74 (101) 91 Room Air 06/24/23 05:00 95 17 158/74 (102) 92 Room Air 06/24/23 04:12 37.4 Room Air 06/24/23 04:00 88 17 156/84 (108) 93 Room Air 06/24/23 04:00 94 Room Air 06/24/23 03:00 88 24 144/78 (100) 93 Room Air 06/24/23 02:27 94 Room Air 06/24/23 02:00 98 16 161/79 (106) 92 Room Air 06/24/23 01:00 90 06/24/23 01:00 92 154/79 (104) 94 Room Air 06/24/23 00:00 92 30 151/93 (112) 93 Room Air 06/23/23 23:30 37.2 Room Air 06/23/23 23:00 93 21 156/78 (104) 94 Room Air 06/23/23 22:16 96 18 157/86 (109) 94 Room Air 06/23/23 21:00 36.8 91 18 157/87 (110) 94 Room Air 06/23/23 20:00 88 30 149/107 (121) 94 Room Air 06/23/23 20:00 94 Room Air 06/23/23 19:19 36.6 06/23/23 19:00 93 18 159/87 (111) 94 Room Air 06/23/23 19:00 90 06/23/23 18:00 87 18 148/85 (106) 94 Room Air 06/23/23 17:00 87 16 149/77 (101) 93 Room Air 06/23/23 16:00 94 Room Air 06/23/23 16:00 87 15 163/80 (107) 93 Room Air 06/23/23 15:52 37.3 06/23/23 15:00 90 27 150/84 (106) 93 Room Air 06/23/23 14:00 86 21 152/87 (108) 91 Room Air 06/23/23 13:00 87 06/23/23 13:00 89 21 156/86 (109) 91 Room Air 06/23/23 12:00 96 18 162/86 (111) 92 Room Air 06/23/23 11:52 94 Room Air 06/23/23 11:27 36.9 06/23/23 11:00 84 20 153/80 (104) 92 Room Air 06/23/23 10:00 81 17 149/109 (122) 91 Room Air I & O 06/24/23 07:00 Intake Total 0 ml Output Total 5690 ml Balance -5690 ml Height & Weight Height: 5'4.00" Weight: 140lbs. oz. [id number]; 33.13 BMI Method:Stated General Appearance: WD/WN, Mild Distress, Obese HEENT: PERRL/EOMI, Normal ENT Inspection Neck: Non Tender, Supple Respiratory: Chest Non Tender, No Respiratory Distress, Decreased Breath Sounds Cardiovascular: Regular Rate, Rhythm, No Murmur Capillary Refill: Less Than 3 Seconds Peripheral Pulses: 2+ Dorsalis Pedis (R), 2+ Left Dors-Pedis (L), 2+ Radial Pulses (R), 2+ Radial Pulses (L) Gastrointestinal: soft, tenderness (around incision), other (castillo c/d/i, RADHA with serous drainage) Extremity: No Inflammation; Pedal Edema, Swelling Neurologic/Psychiatric: Alert, Depressed Affect Skin: Normal Color, Warm/Dry Lymphatic: No Adenopathy (Cervical or supraclavicular ) Results Lab Laboratory Tests 06/23/23 02:09 06/23/23 02:50 06/24/23 04:13 Assessment/Plan Assessment/Plan . SHAWN CERVANTES MD Jun 24, 2023 09:08
[2023-06-24] MEDS ORDERED: RT-Ipratropium/Albuterol NEB 3 ML VIAL INH PRN (09:15)
[2023-06-24] MEDS: VANCOMYCIN 1250 MG/NS 250 ML PREMIX IV SCH (11:05)
--- NOTE | 2023-06-24 11:11 | Occupational Ther Daily Note ---
OT Current Status-Daily Note Subjective More positive spirits, younger brother Don leaving today Mental Status/Objective Patient Orientation: Person, Place, Time, Situation Attachments: Novak Catheter, IV, NG Tube, SCD's, Telemetry ADL-Treatment NPO, used sponge swabs to cleans mouth, stood 30 seconds x 2 with assist of 2 person, Recliner for functional reach and exercises Therapy Code Descriptions/Definitions Functional Brimson Measure: 0=Not Assessed/NA 4=Minimal Assistance 1=Total Assistance 5=Supervision or Setup 2=Maximal Assistance 6=Modified Brimson 3=Moderate Assistance 7=Complete IndependenceSCALE: Activities may be completed with or without assistive devices. 3-Itmcncrvmv-tgnibqa completes the activity by him/herself with no assistance from a helper. 5-Set-up or Clean-up Assistance-helper sets up or cleans up; patient completes activity. Dunbar assists only prior to or following the activity. 4-Supervision or Touching Assistance-helper provides verbal cues and/or touching/steadying and/or contact guard assistance as patient completes activity. Assistance may be provided throughout the activity or intermittently. 3-Partial/Moderate Assistance-helper does LESS THAN HALF the effort. Dunbar lifts, holds or supports trunk or limbs, but provides less than half the effort. 2-Substantial/Maximal Assistance-helper does MORE THAN HALF the effort. Dunbar lifts or holds trunk or limbs and provides more than half the effort. 9-Eimxlhckr-bcecaf does ALL the effort. Patient does none of the effort to complete the activity. Or, the assistance of 2 or more helpers is required for the patient to complete the activity. If activity was not attempted, code reason: 7-Patient Refused. 9-Not Applicable-not attempted and the patient did not perform the activity before the current illness, exacerbation or injury. 10-Not Attempted due to Environmental Limitations-(lack of equipment, weather restraints, etc.). 88-Not Attempted due to Medical Conditions or Safety Concerns. Eating (QC): 88 (NPO) Oral Hygiene (QC): 4 (swabs w/ vcs and instruction.) Lower Body Dressing (QC): 1 On/Off Footwear: 1 Toileting Hygiene (QC): 1 Toilet Transfer (QC): 1 Other Treatment Sitting upright in recliner, functional reach encouraged w/ holding hands w/ broth, reaching for swabs and disposal in trash Education OT Patient Education: Exercise program, Modified ADL techniques, Progress to sanders Goal/Update tx plan, Purpose of tx/functional activities, Reviewed precautions, Rehab process, Safety issues, Transfer techniques Teaching Recipient: Patient, Family (Don and patient present) Teaching Methods: Demonstration, Discussion Response to Teaching: Verbalize Understanding, Reinforcement Needed OT Jail Goals Jail Goals Eating (QC): 6 Oral Hygiene (QC): 5 Toileting Hygiene (QC): 4 Shower/Bathe Self (QC): 3 Upper Body Dressing (QC): 5 Lower Body Dressing (QC): 4 On/Off Footwear (QC): 4 1=Demonstrate adherence to instructed precautions during ADL tasks. 2=Patient will verbalize/demonstrate understanding of assistive devices/modifications for ADL. 3=Patient will improve strength/tolerance for activity to enable patient to perform ADL's. OT Education/Plan Problem List/Assessment Assessment: Decreased Activ Tolerance, Decreased Safety Aware, Decreased UE Strength, Dependent Transfers, Impaired Bed Mobility, Impaired Coordination, Impaired Funct Balance, Impaired Self-Care Skills, Restricted Funct UE ROM LOW ENDURANCE Discharge Recommendations Plan/Recommendations: Continue POC Therapy Discharge Recommendati: Post Acute OT Treatment Plan/Plan of Care Treatment,Training & Education: Yes Patient would benefit from OT for education, treatment and training to promote independence in ADL's, mobility, safety and/or upper extremity function for ADL's. Plan of Care: ADL Retraining, Caregiver Training, Concurrent Therapy, Functional Mobility, Group Exercise/Act as Ind, UE Funct Exercise/Act Treatment Duration: Jun 25, 2023 Frequency: 3 times per week (3-5 TIMES PER WEEK) Estimated Hrs Per Day: .25 hour per day Agreement: Yes Rehab Potential: Good Time Start Time: 10:50 Stop Time: 11:04 DATE: Jun 24, 2023 Total Time Billed (hr/min): 14 Billed Treatment Time ADL 14 min RACQUEL RENAE OT Jun 24, 2023 11:11
--- NOTE | 2023-06-24 11:11 | Physical Therapy Daily Note ---
PT Daily Note-Current Subjective Patient is agreeable to participate with therapy. Pain Section J - Health Conditions 1. Rarely or not at all 2. Occasionally 3. Frequently 4. Almost constantly 8. Unable to answer Pain Effect on Sleep: 2 Pain Interference with Therapy: 2 Pain Interference w/Day-to-Day: 2 Mental Status Attachments: NG Tube, Novak Catheter, IV Transfers SCALE: Activities may be completed with or without assistive devices. 5-Vovvxvfjyp-rsmkhqj completes the activity by him/herself with no assistance from a helper. 5-Set-up or Clean-up Assistance-helper sets up or cleans up; patient completes activity. Copen assists only prior to or following the activity. 4-Supervision or Touching Assistance-helper provides verbal cues and/or touching/steadying and/or contact guard assistance as patient completes activit y. Assistance may be provided throughout the activity or intermittently. 3-Partial/Moderate Assistance-helper does LESS THAN HALF the effort. Copen lifts, holds or supports trunk or limbs, but provides less than half the effort. 2-Substantial/Maximal Assistance-helper does MORE THAN HALF the effort. Copen lifts or holds trunk or limbs and provides more than half the effort. 6-Dgvqftunk-nlimcc does ALL the effort. Patient does none of the effort to complete the activity. Or, the assistance of 2 or more helpers is required for the patient to complete the activity. If activity was not attempted, code reason: 7-Patient Refused. 9-Not Applicable-not attempted and the patient did not perform the activity before the current illness, exacerbation or injury. 10-Not Attempted due to Environmental Limitations-(lack of equipment, weather restraints, etc.). 88-Not Attempted due to Medical Conditions or Safety Concerns. Sit to Stand (QC): 1 (x 2) Weight Bearing Right Lower Extremity: Right Full Weight Bearing Left Lower Extremity: Left Full Weight Bearing Exercises Seated Therapy Exercises: Sit to stand (x 2 standing x 30 sec each), Long arc quads Seated Reps: 10 Assessment Patient is more alert and able to actively participate with therapy. Patient does require a lot of encouragement to perform all activity. Patient remains up in recliner with needs met. PT Short Term Goals Short Term Goals Time Frame: Jul 10, 2023 Roll Left & Right: 3 Sit to lyin Lying to sitting on side of be: 3 Sit to stand: 3 Chair/nsl-pi-jehog transfer: 3 PT Cloth Desizing Range Operator Chief Goals Half-Way Goals PT Half-Way Goals Time Frame: Jul 24, 2023 Roll Left & Right (QC): 6 Sit to Lying (QC): 6 Lying-Sitting on Side/Bed(QC): 6 Sit to Stand (QC): 6 Chair/Cnl-bs-Nazcm Xfer(QC): 6 Toilet Transfer (QC): 6 Car Transfer (QC): 6 Does the Patient Walk: Yes Walk 10 feet (QC): 6 Walk 50ft with 2 Turns (QC): 6 Walk 150 ft (QC): 6 1 Step (curb) (QC): 4 4 Steps (QC): 4 12 Steps (QC): 4 PT Plan Treatment/Plan Treatment Plan: Continue Plan of Care Treatment Plan: Bed Mobility, Education, Functional Activity Dashawn, Functional Strength, Group Therapy, Gait, Safety, Therapeutic Exercise, Transfers Treatment Duration: Jul 24, 2023 Frequency: 6 times per week Estimated Hrs Per Day: .25 hour per day Patient and/or Family Agrees t: Yes Time Time In: 1050 Time Out: 1103 DATE: Jun 24, 2023 Total Billed Treatment Time: 13 Total Billed Treatment 1 visit EX 13 min MICK VAZQUEZ PT Jun 24, 2023 11:11
[2023-06-24] MEDS: 1/2 NS IV SOLUTION 1000 ML 1,000 ML IV SCH (16:57)
[2023-06-24] MEDS ORDERED: POTASSIUM ACETATE IV SCH ×12 (17:00)
[2023-06-24] MEDS ORDERED: [UNRECOGNIZED DRUG - OTHER] IV SCH ×12 (17:00)
[2023-06-24] MEDS ORDERED: SODIUM ACETATE IV SCH ×12 (17:00)
[2023-06-24] MEDS ORDERED: POTASSIUM CHLORIDE IV SCH ×12 (17:00)
--- NOTE | 2023-06-24 18:02 | Progress Note - Hospitalist ---
Subjective HPI/CC On Admission Date Seen by Provider: Jun 24, 2023 Time Seen by Provider: 10:10 Fabby Ragsdale is a 73 year old female who presented with abdominal pain and was admitted with pneumoperitoneum. She was taken for emergent surgery and was found to have a perforated gastric ulcer with gastroduodenal artery bleed. She was re cently hospitalized with C diff. She has continued to have diarrhea since that time, but then developed abdominal pain over the past couple days. They have noticed dark, tarry stools, but they haven't noticed any change recently. She also started to have fevers and chills. She denies chest pain and shortness of breath, but her daughter reminds her that she did have some chest discomfort yesterday. She has a history of GERD but is unsure if she is taking medicine for it. She has been taking Meloxicam for RA. She is also on Methotrexate and Plaquenil. Subjective/Events-last exam She continues to have pain in her belly. She has no other complaints. Focused Exam Lactate Level 06/22/23 23:50: Lactic Acid Level 1.54 Time of Focused Exam: 13:30 Objective Exam Vital Signs Vital Signs Date Time Temp Pulse Resp B/P (MAP) Pulse Ox O2 Delivery O2 Flow Rate FiO2 06/24/23 17:00 88 19 135/115 (122) 94 Room Air 06/24/23 15:31 36.9 06/22/23 18:00 4.00 Capillary Refill : Less Than 3 SecondsLess Than 3 Seconds General Appearance: No Apparent Distress, WD/WN Respiratory: No Respiratory Distress, Decreased Breath Sounds Cardiovascular: Regular Rate, Rhythm, No Murmur Gastrointestinal: Abnormal Bowel Sounds, Tenderness Extremity: No Inflammation; Pedal Edema, Swelling Neurologic/Psychiatric: Alert, Depressed Affect Results/Procedures Lab Laboratory Tests 06/24/23 04:13 Patient resulted labs reviewed. Imaging: Reviewed Imaging Report Assessment/Plan Assessment and Plan Assess & Plan/Chief Complaint Perforated gastric ulcer with hemorrhage Duodenal perforation Acute blood loss anemia Chronic NSAID use Surgery primary s/p ex lap x2 s/p 4 units pRBCs total- Hgb stable IV PPI NPO- NGT in place Continue Diflucan Continue Vanc and Merrem Continue pain regimen TPN per surgery TeleICU following s/p Granix x1 this hospitalization WBC increasing, no further fevers Repeat blood cultures with no growth CT with no identifiable intra-abdominal abscess, post-op changes, bilateral pleural effusions PT/OT Anasarca Fluid overload Pleural effusions Continue Lasix, anasarca improving History of C diff infection C diff negative NSTEMI Conservative management recommended at this time Follow up with Dr. Ferreira outpatient for further evaluation RA Immunocompromised Hold home meds Hemorrhagic shock, resolved Gastroduodenal artery bleed, resolved Neutropenia, resolved Critical Care Critically Ill Patient Diagnosis/Problems Diagnosis/Problems (1) Acute perforated gastric ulcer with hemorrhage Status: Acute (2) Gastroduodenal artery bleed Status: Acute (3) jail current use of non-steroidal anti-inflammatories (NSAID) Status: Acute (4) GERD (gastroesophageal reflux disease) Status: Chronic (5) ABLA (acute blood loss anemia) Status: Acute (6) Hemorrhagic shock Status: Resolved Resolution Date/Time: 06/10/23 @ 15:29 (7) NSTEMI (non-ST elevation myocardial infarction) Status: Acute (8) Immunocompromised Status: Chronic (9) Rheumatoid arthritis Status: Chronic (10) History of Clostridium difficile infection Status: Chronic (11) Duodenal perforation Status: Acute (12) Anasarca Status: Acute (13) Fluid overload Status: Acute Qualifiers: Hypervolemia type: unspecified Qualified Codes: E87.70 - Fluid overload, unspecified DAMION SALAZAR MD Jun 24, 2023 18:02
[2023-06-25 04:36] LABS: BASOPHILS # (AUTO) 0.2 10^3/uL (0.0-0.1); BASOPHILS % (AUTO) 1 % (0-10); EOSINOPHILS # (AUTO) 0.6 10^3/uL (0.0-0.3); EOSINOPHILS % (AUTO) 2 % (0-10); HEMATOCRIT 28 % (35-52); HEMOGLOBIN 9.2 g/dL (11.5-16.0); LYMPHOCYTES % (AUTO) 4 % (12-44); MEAN CORPUSCULAR HEMOGLOBIN 30 pg (25-34); MEAN CORPUSCULAR HGB CONC 33 g/dL (32-36); MEAN CORPUSCULAR VOLUME 91 fL (80-99); MEAN PLATELET VOLUME 9.9 fL (9.0-12.2); MONOCYTES # (AUTO) 2.1 10^3/uL (0.0-1.0); MONOCYTES % (AUTO) 8 % (0-12); NEUTROPHILS # (AUTO) 21.1 10^3/uL (1.8-7.8); NEUTROPHILS % (AUTO) 80 % (42-75); PLATELET COUNT 337 10^3/uL (130-400); WHITE BLOOD COUNT 26.3 10^3/uL (4.3-11.0)
[2023-06-25 05:02] LABS: ALBUMIN 1.9 GM/DL (3.2-4.5); BILIRUBIN,TOTAL 0.5 MG/DL (0.1-1.0); CALCIUM 7.7 MG/DL (8.5-10.1); CREATININE SERUM 0.64 MG/DL (0.60-1.30); MAGNESIUM 1.8 MG/DL (1.6-2.4); PHOSPHORUS 2.9 MG/DL (2.3-4.7); POTASSIUM 3.9 MMOL/L (3.6-5.0); TOTAL PROTEIN 4.2 GM/DL (6.4-8.2)
[2023-06-25] MEDS: MEROPENEM INJECTION 500 MG in NS (IVPB) 100 ML 100 ML IV SCH ×2 (05:04→11:26)
[2023-06-25] MEDS: FUROSEMIDE INJECTION 40 MG/4 ML VIAL IVP SCH (06:41)
--- NOTE | 2023-06-25 08:14 | Progress Note - Surgery ---
REBECCAMAMTA 06/25/23 0813: Subjective Date Seen by a Provider: Jun 25, 2023 Time Seen by a Provider: 07:50 Subjective/Events-last exam Patient feels a little better than yesterday and was able to sit up for about 4 hours yesterday. Needs a lot of encouragement to use IS or acapella. Cough sounds less productive and went down slightly from 27.6 to 26.3. Edema in extremities is improving. RADHA drain still has a musty green sludge like material. Review of Systems General: No Chills, No Night Sweats; Fatigue, Malaise HEENT: No Head Aches, No Visual Changes, No Eye Pain Pulmonary: No Dyspnea; Cough Cardiovascular: Edema (improving with lasix ); No: Chest Pain, Palpitations Gastrointestinal: Abdominal Pain (mildly tender around incision site ); No: Nausea, Vomiting Genitourinary: No Dysuria, No Hematuria Musculoskeletal: No: neck pain, shoulder pain Neurological: No: Numbness, Confusion Focused Exam Lactate Level 06/22/23 23:50: Lactic Acid Level 1.54 Time of Focused Exam: 13:30 Objective Exam Vital Signs Date Time Temp Pulse Resp B/P (MAP) Pulse Ox O2 Delivery O2 Flow Rate FiO2 06/25/23 08:00 36.6 06/25/23 07:00 93 23 129/86 (100) 93 Room Air 06/25/23 07:00 974 06/25/23 06:00 93 23 167/83 (111) 94 Room Air 06/25/23 05:00 93 50 152/87 (108) 94 Room Air 06/25/23 04:00 93 Room Air 06/25/23 04:00 92 20 136/94 (108) 94 Room Air 06/25/23 04:00 37.6 06/25/23 03:00 90 15 167/75 (105) 92 Room Air 06/25/23 02:00 89 24 144/93 (110) 92 Room Air 06/25/23 01:00 88 25 143/79 (100) 93 Room Air 06/25/23 01:00 86 06/25/23 00:00 87 21 165/81 (109) 93 Room Air 06/24/23 23:59 93 Room Air 06/24/23 23:00 87 18 128/83 (98) 91 Room Air 06/24/23 22:00 85 21 132/83 (99) 93 Room Air 06/24/23 21:00 85 22 160/69 (99) 93 Room Air 06/24/23 20:00 95 Room Air 06/24/23 20:00 86 23 145/127 (133) 93 Room Air 06/24/23 19:00 83 06/24/23 19:00 82 29 126/89 (101) 94 Room Air 06/24/23 18:00 83 18 122/76 (91) 94 Room Air 06/24/23 17:00 88 19 135/115 (122) 94 Room Air 06/24/23 16:13 92 Room Air 06/24/23 16:00 86 15 127/95 (106) 94 Room Air 06/24/23 15:31 36.9 06/24/23 15:00 84 14 129/70 (89) 93 Room Air 06/24/23 14:00 87 19 139/115 (123) 94 Room Air 06/24/23 13:00 89 14 121/84 (96) 94 Room Air 06/24/23 12:07 91 06/24/23 12:00 90 21 152/99 (116) 94 Room Air 06/24/23 12:00 37.2 06/24/23 12:00 92 Room Air 06/24/23 11:00 98 21 143/79 (100) 94 Room Air 06/24/23 10:00 98 26 138/97 (111) 93 Room Air 06/24/23 09:00 104 24 149/104 (119) 92 Room Air I & O 06/25/23 06:59 Intake Total 550 ml Output Total 3935 ml Balance -3385 ml Capillary Refill : Less Than 3 SecondsLess Than 3 Seconds General Appearance: No Apparent Distress, WD/WN HEENT: PERRL/EOMI, TMs Normal Neck: Non Tender, Supple Respiratory: No Respiratory Distress, Decreased Breath Sounds Cardiovascular: Regular Rate, Rhythm, No Murmur Peripheral Pulses: 2+ Dorsalis Pedis (R), 2+ Left Dors-Pedis (L), 2+ Radial Pulses (R), 2+ Radial Pulses (L) Gastrointestinal: soft, tenderness (around incision), other (castillo c/d/i, RADHA with serous drainage) Extremity: No Inflammation; Pedal Edema, Swelling Neurologic/Psychiatric: Alert, Depressed Affect Skin: Normal Color, Warm/Dry Lymphatic: No Adenopathy (Cervical or supraclavicular ) Results Lab Laboratory Tests 06/24/23 12:09: Glucometer 128H 06/25/23 04:15: White Blood Count 26.3H, Red Blood Count 3.05L, Hemoglobin 9.2L, Hematocrit 28L, Mean Corpuscular Volume 91, Mean Corpuscular Hemoglobin 30, Mean Corpuscular Hemoglobin Concent 33, Red Cell Distribution Width 15.7H, Platelet Count 337, Mean Platelet Volume 9.9, Immature Granulocyte % (Auto) 5, Neutrophils (%) ( Auto) 80H, Lymphocytes (%) (Auto) 4L, Monocytes (%) (Auto) 8, Eosinophils (%) (Auto) 2, Basophils (%) (Auto) 1, Neutrophils # (Auto) 21.1H, Lymphocytes # (Auto) 1.0, Monocytes # (Auto) 2.1H, Eosinophils # (Auto) 0.6H, Basophils # (Auto) 0.2H, Immature Granulocyte # (Auto) 1.4H, Sodium Level 134L, Potassium Level 3.9, Chloride Level 102, Carbon Dioxide Level 23, Anion Gap 9, Blood Urea Nitrogen 27H, Creatinine 0.64, Estimat Glomerular Filtration Rate 93, BUN/ Creatinine Ratio 42, Glucose Level 108H, Calcium Level 7.7L, Corrected Calcium 9.4, Phosphorus Level 2.9, Magnesium Level 1.8, Total Bilirubin 0.5, Aspartate Amino Transf (AST/SGOT) 23, Alanine Aminotransferase (ALT/SGPT) 15, Alkaline Phosphatase 125, Total Protein 4.2L, Albumin 1.9L 06/25/23 06:53: Glucometer 129H Microbiology 06/23/23 Blood Culture - Preliminary, Resulted 06/12/23 C. difficile GDH Antigen & Toxins - Final, Complete 06/08/23 Urine Culture - Final, Complete NO GROWTH Assessment/Plan Assessment/Plan Assessment/Plan Assessment: Anemia - stable Leukocytosis S/P ex lap for Gastric perforation with bleeding artery, mobilization left colon, ligation of gastroduodenal artery, modified segundo patch. S/P repeat ex lap with modified segundo patch due to repeat gastric perforation recent C.diff infection rheumatoid arthritis NSTEMI bibasilar effusions, some free fluid in pelvis per CT NPO Ng tube Encourage IS /acapella Continue IV Antibiotics Continue IV fluids encourage ambulation sputum culture- still waiting on sample continue abx possible transfer [facility] FABIOLA GARCIA DO 06/25/232111: Subjective Subjective/Events-last exam Sitting up in chair. Feeling a little better today. NPO. Pain controlled. Less cough. RADHA serous/murky fluid. Wbc decreased to 26.3 Using IS/Acapella minimally. No family at bedside. Objective Exam General Appearance: No Apparent Distress, Chronically ill HEENT: PERRL/EOMI, Normal ENT Inspection, Other (skin flap to nose) Neck: Non Tender, Supple Respiratory: Chest Non Tender, No Respiratory Distress, Decreased Breath Sounds Cardiovascular: Regular Rate, Rhythm, No JVD Gastrointestinal: soft, tenderness (around incision), other (castillo c/d/i, RADHA with serous drainage) Extremity: Pedal Edema (less), Swelling (improving) Neurologic/Psychiatric: Alert, Depressed Affect Skin: Normal Color, Warm/Dry Lymphatic: No Adenopathy (Cervical or supraclavicular ) Assessment/Plan Assessment/Plan Assessment/Plan Anemia - stable Leukocytosis S/P ex lap for Gastric perforation with bleeding artery, mobilization left colon, ligation of gastroduodenal artery, modified segundo patch. S/P repeat ex lap with modified segundo patch due to repeat gastric perforation recent C.diff infection rheumatoid arthritis NSTEMI bibasilar effusions, some free fluid in pelvis per CT NPO Ng tube Encourage IS /acapella Continue IV Antibiotics Continue IV fluids encourage ambulation sputum culture- still waiting on sample continue abx blood cultures pending possible transfer [facility] today Supervisory-Addendum Brief Verification & Attestation Participated in pt care: history, MDM, physical Personally performed: exam, history, MDM, supervision of care Care discussed with: Medical Student Procedures: n/a Results interpretation: Verified all documentation Verification and Attestation of Medical Student E/M Service A medical student performed and documented this service in my presence. I reviewed and verified all information documented by the medical student and made modifications to such information, when appropriate. I personally performed the physical exam and medical decision making. Fabiola Garcia, Jun 25, 2023,21:16 APARICIO Jun 25, 2023 08:13 FABIOLA GARCIA DO Jun 25, 2023 21:12
[2023-06-25] MEDS: HYPOCHLOROUS ACID/NaCl WOUND SOLN 250 ML IR SCH (08:30)
[2023-06-25] MEDS: FOLIC ACID 5MG/ML 10 ML IV SCH (08:30)
[2023-06-25] MEDS: PANTOPRAZOLE INJECTION 40 MG VIAL IV SCH (08:30)
--- NOTE | 2023-06-25 09:00 | Anesthesia-General Post-Op ---
General Patient Condition Mental Status/LOC: Same as Preop Cardiovascular: Satisfactory Nausea/Vomiting: Absent Respiratory: Satisfactory Pain: Controlled Complications: Absent Post Op Complications Complications None Follow Up Care/Instructions Patient Instructions None needed. Anesthesia/Patient Condition Patient Condition Post-dated progress note: Patient was seen on 06-19-23 at approximately 1300 and she was awake and alert, stated she was having some abd pain but it was controlled with pain medication. She had stable vital signs, no apparent adverse anesthesia problems. IBRAHIMA ORO DO Jun 25, 2023 09:00
--- NOTE | 2023-06-25 09:23 | Physical Therapy Daily Note ---
PT Daily Note-Current Subjective Patient agrees to therapy. She reports she is "feeling rough" today. Pain Section J - Health Conditions 1. Rarely or not at all 2. Occasionally 3. Frequently 4. Almost constantly 8. Unable to answer Pain Effect on Sleep: 2 Pain Interference with Therapy: 2 Pain Interference w/Day-to-Day: 2 Mental Status Attachments: Central Line, NG Tube, Novak Catheter Transfers SCALE: Activities may be completed with or without assistive devices. 1-Fdlhnkzumg-pqytrwh completes the activity by him/herself with no assistance from a helper. 5-Set-up or Clean-up Assistance-helper sets up or cleans up; patient completes activity. [place] assists only prior to or following the activity. 4-Supervision or Touching Assistance-helper provides verbal cues and/or touching/steadying and/or contact guard assistance as patient completes activity. Assistance may be provided throughout the activity or intermittently. 3-Partial/Moderate Assistance-helper does LESS THAN HALF the effort. [place] lifts, holds or supports trunk or limbs, but provides less than half the effort. 2-Substantial/Maximal Assistance-helper does MORE THAN HALF the effort. [place] lifts or holds trunk or limbs and provides more than half the effort. 2-Irginmqaw-eggyjf does ALL the effort. Patient does none of the effort to complete the activity. Or, the assistance of 2 or more helpers is required for the patient to complete the activity. If activity was not attempted, code reason: 7-Patient Refused. 9-Not Applicable-not attempted and the patient did not perform the activity before the current illness, exacerbation or injury. 10-Not Attempted due to Environmental Limitations-(lack of equipment, weather restraints, etc.). 88-Not Attempted due to Medical Conditions or Safety Concerns. Lying to Sitting/Side of Bed(Q: 2 Sit to Stand (QC): 2 Chair/Rcn-pe-Odzps Xfer(QC): 2 Toilet Transfer (QC): 2 Weight Bearing Right Lower Extremity: Right Full Weight Bearing Left Lower Extremity: Left Full Weight Bearing Gait Training Distance: 5 side steps x 2 sets Assessment Patient is incontinent BM during session requiring dependent assist to cleanse. Patient did perform sit to stand with PT max assist x 3 sets. Continue to increase activity as tolerated by patient. 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 PT Half-Way Goals Time Frame: Jul 24, 2023 Roll Left & Right (QC): 6 Sit to Lying (QC): 6 Lying-Sitting on Side/Bed(QC): 6 Sit to Stand (QC): 6 Chair/Rlg-hf-Uvjgs Xfer(QC): 6 Toilet Transfer (QC): 6 Car Transfer (QC): 6 Does the Patient Walk: Yes Walk 10 feet (QC): 6 Walk 50ft with 2 Turns (QC): 6 Walk 150 ft (QC): 6 1 Step (curb) (QC): 4 4 Steps (QC): 4 12 Steps (QC): 4 PT Plan Treatment/Plan Treatment Plan: Continue Plan of Care Treatment Plan: Bed Mobility, Education, Functional Activity [place], Functional Strength, Group Therapy, Gait, Safety, Therapeutic Exercise, Transfers Treatment Duration: Jul 24, 2023 Frequency: 6 times per week Estimated Hrs Per Day: .25 hour per day Patient and/or Family Agrees t: Yes Time Time In: 855 Time Out: 909 DATE: Jun 25, 2023 Total Billed Treatment Time: 14 Total Billed Treatment 1 visit FA 14 min MICK VAZQUEZ PT Jun 25, 2023 09:23
--- NOTE | 2023-06-25 09:45 | Occupational Ther Daily Note ---
OT Current Status-Daily Note Subjective Agreeable to therapy Mental Status/Objective Patient Orientation: Person, Place, Time, Situation ADL-Treatment Black tar stool on bed, recliner and final transfer to [facility]. Therapy Code Descriptions/Definitions Functional [place] Measure: 0=Not Assessed/NA 4=Minimal Assistance 1=Total Assistance 5=Supervision or Setup 2=Maximal Assistance 6=Modified [place] 3=Moderate Assistance 7=Complete IndependenceSCALE: Activities may be completed with or without assistive devices. 5-Muhek[place]yph-idysuee completes the activity by him/herself with no assistance from a helper. 5-Set-up or Clean-up Assistance-helper sets up or cleans up; patient completes activity. [place] assists only prior to or following the activity. 4-Supervision or Touching Assistance-helper provides verbal cues and/or touching/steadying and/or contact guard assistance as patient completes activity. Assistance may be provided throughout the activity or intermittently. 3-Partial/Moderate Assistance-helper does LESS THAN HALF the effort. [place] lifts, holds or supports trunk or limbs, but provides less than half the effort. 2-Substantial/Maximal Assistance-helper does MORE THAN HALF the effort. [place] lifts or holds trunk or limbs and provides more than half the effort. 5-Fzpeltuti-faqhec does ALL the effort. Patient does none of the effort to complete the activity. Or, the assistance of 2 or more helpers is required for the patient to complete the activity. If activity was not attempted, code reason: 7-Patient Refused. 9-Not Applicable-not attempted and the patient did not perform the activity before the current illness, exacerbation or injury. 10-Not Attempted due to Environmental Limitations-(lack of equipment, weather restraints, etc.). 88-Not Attempted due to Medical Conditions or Safety Concerns. On/Off Footwear: 1 Toileting Hygiene (QC): 1 Toilet Transfer (QC): 1 Education OT Patient Education: Exercise program, Modified ADL techniques, Progress toward Goal/Update tx plan, Reviewed precautions, Rehab process, Safety issues, Transfer techniques Teaching Recipient: Patient Teaching Methods: Demonstration, Discussion Response to Teaching: Reinforcement Needed OT Messenger Office Goals Messenger Office Goals Eating (QC): 6 Oral Hygiene (QC): 5 Toileting Hygiene (QC): 4 Shower/Bathe Self (QC): 3 Upper Body Dressing (QC): 5 Lower Body Dressing (QC): 4 On/Off Footwear (QC): 4 1=Demonstrate adherence to instructed precautions during ADL tasks. 2=Patient will verbalize/demonstrate understanding of assistive devices/modifications for ADL. 3=Patient will improve strength/tolerance for activity to enable patient to perf orm ADL's. OT Education/Plan Problem List/Assessment LOW ENDURANCE Discharge Recommendations Plan/Recommendations: Continue POC Treatment Plan/Plan of Care Treatment,Training & Education: Yes Patient would benefit from OT for education, treatment and training to promote independence in ADL's, mobility, safety and/or upper extremity function for ADL's. Plan of Care: ADL Retraining, Caregiver Training, Concurrent Therapy, Functional Mobility, Group Exercise/Act as Ind, UE Funct Exercise/Act Treatment Duration: Jun 25, 2023 Frequency: 3 times per week (3-5 TIMES PER WEEK) Estimated Hrs Per Day: .25 hour per day Agreement: Yes Rehab Potential: Good Time Start Time: 09:55 Stop Time: 10:10 DATE: Jun 25, 2023 Total Time Billed (hr/min): 15 Billed Treatment Time ADL 15 RACQUEL RENAE OT Jun 25, 2023 09:45
--- NOTE | 2023-06-25 10:30 | Tele-ICU Progress Note ---
Subjective Date Seen by a Provider: Jun 25, 2023 Time Seen by a Provider: 10:29 Subjective/Events-last exam (Tele-ICU Physician , Progress Note ) Service provided via interactive audio and video telecommunications E-CARE system to a patient admitted to ICU bed in [facility]. Patient is seen today due to persistent need of ICU care Available chart/ vitals / labs / Images reviewed Video assessment done using teleICU camera, rest of exam as per RN Discussed with RN Events overnight : Afebrile hemodynamically stable Respiratory - ra I/O =+ Drips: 1/2 ns 25 ml/h Pressors- no Hospital course: (06/08) 73F with fever, CDIFF admitted for perforated viscous, septic shock in immunocompromised host. s/p exploratory laparotomy, ligation of GDA, biopsy of ulcer, modified Greg patch. Central line insertion. (06/14) Anemia, holding anticoagulation (06/18) READMIT for severe anemia. Dark stools. Lovenox stopped. PRBC ordered. S/P repeat ex lap with modified greg patch due to repeat gastric perforation 06/23 O2 on 4 l --> on RA with 5600 ml UO with lasix, CT abd/pelvis -No cont rast extravasation is identified to suggest persistent leak. 06/24 RA , NPO, UO 5 L A/P s/p ex lap, mobilization left colon, ligation of gastroduodenal artery, modified greg patch, then S/P repeat ex lap with modified greg patch due to repeat gastric perforation - zosyn , flagyl -> vanco , merrem - RADHA in place, - as per Sx - CT abd/pelvis 06/23 -No contrast extravasation is identified to suggest persistent leak. 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 Hypoxia with effusion and Volume overload - on RA with 5600 ml UO with lasix - cont gentle diuresis, IS Moderate-sized bilateral pleural effusions with bibasilar consolidation - cont diuresis ABLA - s/p 4 unit PRBC total since admission - PPI bid History of C diff infection -Negative for C diff -on Flagyl Nutrition - on TPN - low albumin , hopefully Po will be allowed soon Lines : R IJ - removed 06/21 , PICC 06/21 , (Central Line Necessity Reviewed) Novak: 06/18 OG: Nutrition: tpn Analgesia: Anxiety/ delirium VTE Prophylaxis: scd Stress Ulcer Prophylaxis: ppi bid Plans in collaboration with bedside consultants and IM MDs. Discussed with RN to reach out if any questions or concerns Case and care daily discussed on multidisciplinary rounds ( RN, PharmD, Glove Maker , Respiratory Therapy, out of school hours care worker ) A total of 22 minutes of critical care time was devoted to this patient today, required to treat and/or prevent further deterioration of critical care condition ( as above ) . I am remotely monitoring this patient from another state. I am unable to do the bedside exam, and history/physical and pertinent information is taken from other notes in the computer and bedside staff. Sepsis Event Evaluation Height, Weight, BMI Height: 5'4.00" Weight: 140lbs. oz. 63.857194zi; 33.17 BMI Method:Stated Focused Exam Lactate Level 06/22/23 23:50: Lactic Acid Level 1.54 Time of Focused Exam: 13:30 Exam Exam Patient acknowledged, consented, and participated in this virtual visit which was conducted using real time audio/video Vital Signs Date Time Temp Pulse Resp B/P (MAP) Pulse Ox O2 Delivery O2 Flow Rate FiO2 06/25/23 09:00 103 22 94 Room Air 06/25/23 08:00 36.6 06/25/23 08:00 95 20 143/71 (95) 94 Room Air 06/25/23 07:48 93 Room Air 06/25/23 07:00 93 23 129/86 (100) 93 Room Air 06/25/23 07:00 974 06/25/23 06:00 93 23 167/83 (111) 94 Room Air 06/25/23 05:00 93 50 152/87 (108) 94 Room Air 06/25/23 04:00 93 Room Air 06/25/23 04:00 92 20 136/94 (108) 94 Room Air 06/25/23 04:00 37.6 06/25/23 03:00 90 15 167/75 (105) 92 Room Air 06/25/23 02:00 89 24 144/93 (110) 92 Room Air 06/25/23 01:00 88 25 143/79 (100) 93 Room Air 06/25/23 01:00 86 06/25/23 00:00 87 21 165/81 (109) 93 Room Air 06/24/23 23:59 93 Room Air 06/24/23 23:00 87 18 128/83 (98) 91 Room Air 06/24/23 22:00 85 21 132/83 (99) 93 Room Air 06/24/23 21:00 85 22 160/69 (99) 93 Room Air 06/24/23 20:00 95 Room Air 06/24/23 20:00 86 23 145/127 (133) 93 Room Air 06/24/23 19:00 83 06/24/23 19:00 82 29 126/89 (101) 94 Room Air 06/24/23 18:00 83 18 122/76 (91) 94 Room Air 06/24/23 17:00 88 19 135/115 (122) 94 Room Air 06/24/23 16:13 92 Room Air 06/24/23 16:00 86 15 127/95 (106) 94 Room Air 06/24/23 15:31 36.9 06/24/23 15:00 84 14 129/70 (89) 93 Room Air 06/24/23 14:00 87 19 139/115 (123) 94 Room Air 06/24/23 13:00 89 14 121/84 (96) 94 Room Air 06/24/23 12:07 91 06/24/23 12:00 90 21 152/99 (116) 94 Room Air 06/24/23 12:00 37.2 06/24/23 12:00 92 Room Air 06/24/23 11:00 98 21 143/79 (100) 94 Room Air I & O 06/25/23 07:00 Intake Total 550 ml Output Total 3935 ml Balance -3385 ml Height & Weight Height: 5'4.00" Weight: 140lbs. oz. 63.636064oj; 33.17 BMI Method:Stated General Appearance: No Apparent Distress, Chronically ill HEENT: PERRL/EOMI, Normal ENT Inspection Neck: Non Tender, Supple Respiratory: Chest Non Tender, No Accessory Muscle Use, No Respiratory Distress Cardiovascular: Regular Rate, Rhythm, No Murmur Capillary Refill: Less Than 3 Seconds Peripheral Pulses: 2+ Dorsalis Pedis (R), 2+ Left Dors-Pedis (L), 2+ Radial Pulses (R), 2+ Radial Pulses (L) Gastrointestinal: soft, tenderness (around incision), other (castillo c/d/i, RADHA with serous/murky drainage) Extremity: Pedal Edema (less), Swelling (less) Neurologic/Psychiatric: Alert, Depressed Affect Skin: Normal Color, Warm/Dry Lymphatic: No Adenopathy (Cervical or supraclavicular ) Results Lab Laboratory Tests 06/24/23 04:13 06/25/23 04:15 Assessment/Plan Assessment/Plan 1 SHAWN CERVANTES MD Jun 25, 2023 10:30
[2023-06-25] MEDS: VANCOMYCIN 1250 MG/NS 250 ML PREMIX IV SCH (11:26)
[2023-06-25] MEDS: morphine INJ 4 MG/ML 1 ML (VIAL/SYRINGE) IVP PRN (11:26)
--- NOTE | 2023-06-25 12:51 | Discharge Inst-Simple/Standard ---
Discharge Inst-Standard Patient Instructions/Follow Up Plan of Care/Instructions/FU: Radha 2 weeks after discharge from LTAC. Activity as Tolerated: No Discharge Diet: Other Diet (TPN) FABIOLA GARCIA DO Jun 25, 2023 12:51
[2023-06-25 17:18] VITALS: BP 138/80
--- NOTE | 2023-06-25 17:31 | Progress Note - Hospitalist ---
Subjective HPI/CC On Admission Date Seen by Provider: Jun 25, 2023 Time Seen by Provider: 10:00 Fabby Ragsdale is a 73 year old female who presented with abdominal pain and was admitted with pneumoperitoneum. She was taken for emergent surgery and was found to have a perforated gastric ulcer with gastroduodenal artery bleed. She was re cently hospitalized with C diff. She has continued to have diarrhea since that time, but then developed abdominal pain over the past couple days. They have noticed dark, tarry stools, but they haven't noticed any change recently. She also started to have fevers and chills. She denies chest pain and shortness of breath, but her daughter reminds her that she did have some chest discomfort yesterday. She has a history of GERD but is unsure if she is taking medicine for it. She has been taking Meloxicam for RA. She is also on Methotrexate and Plaquenil. Subjective/Events-last exam She continues to have abdominal pain. She has no other complaints. Focused Exam Lactate Level 06/22/23 23:50: Lactic Acid Level 1.54 Time of Focused Exam: 13:30 Objective Exam Vital Signs Vital Signs Date Time Temp Pulse Resp B/P (MAP) Pulse Ox O2 Delivery O2 Flow Rate FiO2 06/25/23 17:18 37.4 85 21 138/80 95 Room Air 0.00 Capillary Refill : Less Than 3 SecondsLess Than 3 Seconds General Appearance: No Apparent Distress, WD/WN Respiratory: No Respiratory Distress, Decreased Breath Sounds Cardiovascular: Regular Rate, Rhythm, No Murmur Gastrointestinal: Abnormal Bowel Sounds, Distended, Tenderness Extremity: Pedal Edema, Swelling Neurologic/Psychiatric: Alert, Depressed Affect Results/Procedures Lab Laboratory Tests 06/25/23 04:15 Patient resulted labs reviewed. Imaging: Reviewed Imaging Report Assessment/Plan Assessment and Plan Assess & Plan/Chief Complaint Perforated gastric ulcer with hemorrhage Duodenal perforation Acute blood loss anemia Chronic NSAID use Surgery primary s/p ex lap x2 s/p 4 units pRBCs total- Hgb stable IV PPI NPO- NGT in place Continue Diflucan Continue Vanc and Merrem Continue pain regimen TPN per surgery TeleICU following s/p Granix x1 this hospitalization WBC increasing, no further fevers Repeat blood cultures with no growth CT with no identifiable intra-abdominal abscess, post-op changes, bilateral pleural effusions PT/OT Transferring to [facility] today Anasarca Fluid overload Pleural effusions Continue Lasix, anasarca improving History of C diff infection C diff negative NSTEMI Conservative management recommended at this time Follow up with Dr. Ferreira outpatient for further evaluation RA Immunocompromised Hold home meds Hemorrhagic shock, resolved Gastroduodenal artery bleed, resolved Neutropenia, resolved Critical Care Critically Ill Patient Diagnosis/Problems Diagnosis/Problems (1) Acute perforated gastric ulcer with hemorrhage Status: Acute (2) Gastroduodenal artery bleed Status: Acute (3) FDC current use of non-steroidal anti-inflammatories (NSAID) Status: Acute (4) GERD (gastroesophageal reflux disease) Status: Chronic (5) ABLA (acute blood loss anemia) Status: Acute (6) Hemorrhagic shock Status: Resolved Resolution Date/Time: 06/10/23 @ 15:29 (7) NSTEMI (non-ST elevation myocardial infarction) Status: Acute (8) Immunocompromised Status: Chronic (9) Rheumatoid arthritis Status: Chronic (10) History of Clostridium difficile infection Status: Chronic (11) Duodenal perforation Status: Acute (12) Anasarca Status: Acute (13) Fluid overload Status: Acute Qualifiers: Hypervolemia type: unspecified Qualified Codes: E87.70 - Fluid overload, unspecified DAMION SALAZAR MD Jun 25, 2023 17:31
== END 2023-06-25 16:00 | DRG 853 ==
LOC: EDUNIT# 10:04 → ER 10:05 → CATH 15:16 → ICU 18:16 → 4TH 06-10 14:15 → ICU 06-18 05:29
PROVIDERS: ADMIT Surgery; ATTEND Surgery
PROC: 02HV33Z Insertion of Infusion Device into Superior Vena Cava, Percutaneous Approach (ICD-10-PCS; 2023-06-08)
PROC: 0DU607Z Supplement Stomach with Autologous Tissue Substitute, Open Approach (ICD-10-PCS; principal; 2023-06-08 15:34)
PROC: 04LY0ZZ Occlusion of Lower Artery, Open Approach (ICD-10-PCS; 2023-06-08 15:34)
PROC: 0DJ08ZZ Inspection of Upper Intestinal Tract, Via Natural or Artificial Opening Endoscopic (ICD-10-PCS; 2023-06-18)
PROC: 0DU907Z Supplement Duodenum with Autologous Tissue Substitute, Open Approach (ICD-10-PCS; 2023-06-21)
DX: A41.9 Sepsis, unspecified organism (principal); I21.A1 Myocardial infarction type 2; K25.1 Acute gastric ulcer with perforation; R57.8 Other shock; R65.21 Severe sepsis with septic shock; A04.72 Enterocolitis due to Clostridium difficile, not specified as recurrent; D62 Acute posthemorrhagic anemia; M06.9 Rheumatoid arthritis, unspecified; K21.9 Gastro-esophageal reflux disease without esophagitis; Z79.1 Long term (current) use of non-steroidal anti-inflammatories (NSAID); Z11.52 Encounter for screening for COVID-19
CPT/HCPCS: 36415; 36569; 71045; 71250; 71275; 74176; 74177; 74246; 76937; 80048; 80053; 80202; 81000; 82947; 83605; 83735; 84100; 84132; 84134; 84478; 84484; 85007; 85014; 85018; 85025; 85027; 85610; 85730; 86141; 86850; 86900; 86901; 86920; 87040; 87070; 87077; 87088; 87186; 87205; 87324; 87449; 87636; 88305; 93005; 93041; 93306; 94664; 96361; 96365; 96366; 96367; 96368; 96375; J1447

== ENCOUNTER 2023-07-21 07:35 | Inpatient (IN) | payer MEDICARE ==
[~2023-07-21] VITALS: Ht 162.6 cm; Wt 65.9 kg
--- NOTE | 2023-07-21 07:12 | PM&R Post Admission Assessment ---
PM&R HP Date of Visit: Jul 21, 2023 Time of Visit: 11:30 History of Present Illness Chief complaint: Critical illness myopathy HPI: This is a 73-year-old female who arrived from a long hospital course at [place] who remains on TPN due to inability to maintain nutritional needs.Her first hospital stay occurred on 05/30/2023 for C. difficile colitis and then was discharged home then returned on 06/08/2023 with gastric perforation from Mobic taken for RA requiring laparotomy exploration and Greg patch. She has remained on TPN since that time. At one point she became critically ill with hypotension and after that she slowly recovered enough to go to LTAC where she has remained until today. She still has a skin graft on her nose from recent past Mohs surgery. She is having difficulty with smelling and tasting food which is caused her nutritional maintenance to maintain deficit. She remains very weak and will need aggressive rehab. Acute medical events during hospital course included hemorrhagic shock from acute blood loss anemia, Klebsiella pneumonia, MDRO c/w meuropenum, NSTEMI, acute hypoxic respiratory failure. CT abdomen on 1113 showed a superficial abscess in the abdominal wall so remains on Rocephin 2 g daily. She also had neutropenia status post Granix, moderate size pleural effusion, volume overload, immunocompromise. Discharge summary from Dr. Garcia on 06/25/2023: ADMITTING DIAGNOSES: Hollow viscus perforation, sepsis secondary to hollow viscus perforation, Clostridium difficile infection, elevated troponin-NSTEMI, rheumatoid arthritis. DISCHARGE DIAGNOSES: Hollow viscus perforation, sepsis secondary to hollow viscus perforation; incidentally C. diff infection, status post exploratory laparotomy with mobilization of left colon, ligation of gastroduodenal artery, biopsy of ulcer, modified Greg patch. Status post exploratory laparotomy and modified Greg patch. Immunocompromised rheumatoid arthritis, anasarca. ADMITTING PHYSICIAN: Fabiola Garcia DO CONSULTANTS: Dr. Obrien, Dr. Ferreira, [ ]. HOSPITAL COURSE: The patient is a 73-year-old female who presented to the Emergency Department on 06/08/2023, she was having fever and abdominal pain. She had recent admission for Clostridium difficile colitis and she also has had recent Mohs surgery for basal cell carcinoma of the nose. She presented to department with moderate to severe abdominal pain, felt bloated. She is having broken bones, continued to have severe diarrhea. She was hypotensive in the emergency room requiring pressors. She was also found to have elevated troponin. She had a CT scan with free air, likely sigmoid thickening at the rectosigmoid junction and some free fluid in this area. The patient and family were discussed that she had free air and her abdominal exam was peritoneal and needed exploration, which they agreed. She went on 06/08/2023 for ultrasound-guided right internal jugular vein central line placement, exploratory laparotomy, mobilization of left colon, ligation of gastroduodenal artery, biopsy of an ulcer, and modified Greg patch. The patient was admitted to the ICU and was kept n.p.o., given antibiotics and provided pain control. She was kept n.p.o. She was transfused packed red blood cells. She feels weak and we discussed postoperative management and we will get radiological study to evaluate for a leak after Greg patch on approximately 06/13/2023. The patient on [ ] started feeling better. Her RADHA has serosanguineous drainage and continued medical management. The patient was encouraged to continue physical therapy and work on incentive spirometer. The patient on 06/14/[address] of the abdomen and pelvis with Gastrografin, which did not demonstrate any type of leak. She was also on TPN and there was no leak and started on clears. On 06/15/2023, the patient was feeling better, jut fatigue, but overall improving. She has not been taking oral liquid intake. Encouraged to use incentive spirometer and encouraged to try to increase activity little bit. She on 06/16/2023 continued to feel little better. She started increasing her oral intake a little bit. She was using her incentive spirometer minimally, some of the drainage in the RADHA drain became slightly red-tinged, concern for leak, so a Guidant upper GI exam on 06/16/2023, which did not demonstrate any leak. On 06/17/2023, the patient was changed to n.p.o. and on 06/18/2023, the patient had drop in her blood pressure and became tachycardic. Her hemoglobin dropped and became anemic. The patient was in the intensive Care Unit, her abdomen was little bit more distended. There were no crepitus and concern for further bleeding in the stomach. Therefore, she underwent EGD by Dr. Yancey, which found to have duodenal perforation still. On 06/18/2023, she underwent exploratory laparotomy and modified Greg patch. She was maintained on TPN and postoperative care and antibiotics and stabilized. The patient with further evaluation felt would benefit most from LTAC care and was evaluated and accepted and discharged to [facility] on 06/25/2023. Please see chart for further information. Job ID: [id number] DocumentID: [id number] Dictated Date: 07/14/2023 20:25:52 Sales Operations Date: 07/15/2023 04:43:00 Dictated By: FABIOLA GARCIA [id number] <Dictated by FABIOLA GARCIA DO> Past Phldmak-Kdpfyx-Lnflkl Hx Past Med/Social Hx: Reviewed Nursing Past Med/Soc Hx, Reviewed and Corrections made Patient Social History Marrital Status: Employed/Student: retired Alcohol Use: Denies Use Smoking Status: Never a Smoker 2nd Hand Smoke Exposure: No Recent Hopitalizations: No Immunizations Up To Date Tetanus Booster (TDap): Unknown Date of Influenza Vaccine: May 30, 2018 Seasonal Allergies Seasonal Allergies: No Past Medical History Surgeries: Abdominal, Section, Tonsillectomy Currently Using CPAP: No Currently Using BIPAP: No Cardiac: Atrial Fibrillation Menopausal Gastrointestinal: Gastrointestinal Bleed, C-Diff, Ulcer Musculoskeletal: Rheumatoid Arthritis Did You Recieve Any Treatments: Yes What Type of Treatment Did You: Surgical Intervention Family History No Pertinent Family Hx PM&R Allergy/Meds/Data Review Allergies Coded Allergies: No Known Drug Allergies (Unverified , 07/22/18) Home Medications Scheduled Aa 4.25%/Calcium/Lytes/Dex 10% (Clinimix E 4.25%-10% Solution), 1,000 ML IV UD, (Reported) Apixaban (Eliquis), 5 MG PO BID, (Reported) Calcium Carbonate (Calcium), 1,000 MG PO TIDWM, (Reported) Ceftriaxone Sodium (Ceftriaxone), 2 GM IV DAILY, (Reported) Cholecalciferol (Vitamin D3) (Vitamin D3), 25 MCG PO DAILY, (Reported) Cyanocobalamin (Vitamin B-12) (Vitamin B-12), 1,000 MCG PO DAILY, (Reported) Fat Emulsions (Intralipid), 250 ML IV DAILY, (Reported) Folic Acid (Folic Acid), 1 MG PO DAILY, (Reported) Heparin Sodium,Porcine/Pf (Heparin Flush 10 Units/ml Syr), 1-2 UNIT IV UD, (Reported) Lactobacillus Acidophilus/Pect (Acidophilus-Pectin Capsule), 1 EACH NG BID, (Reported) Metoprolol Succinate (Metoprolol Succinate), 25 MG PO DAILY, (Reported) Mirtazapine (Mirtazapine), 15 MG PO HS, (Reported) Multivit,Ther Iron,Ca,FA & Min (Thera-M Caplet), 1 EACH PO DAILY, (Reported) Pantoprazole Sodium (Pantoprazole Sodium), 40 MG PO BID, (Reported) Sucralfate (Carafate), 1 GM PO Q6H, (Reported) Vancomycin HCl (Vancomycin HCl), 125 MG PO BID, (Reported) Discontinued Medications Biotin (Biotin), 2,500 MCG PO DAILY, (Reported) Discontinued Reason: No Longer Taking Diphenoxylate HCl/Atropine (Diphenoxylate-Atrop 2.5-0.025), 1 EA PO Q4H PRN for LOOSE STOOLS, (Reported) Discontinued Reason: No Longer Taking Famotidine (Famotidine), 20 MG PO BID, (Reported) Discontinued Reason: No Longer Taking Hydroxychloroquine Sulfate (Hydroxychloroquine Sulfate), 200 MG PO BID, (Reported) Discontinued Reason: No Longer Taking Methotrexate Sodium (Methotrexate), 17.5 MG PO SUN, (Reported) Discontinued Reason: No Longer Taking Multivitamin (Multivitamin), 1 EACH PO DAILY, (Reported) Discontinued Reason: Prescription changed Vancomycin HCl (Firvanq), 5 ML PO TID, (Reported) Discontinued Reason: No Longer Taking Current Medications Current Medications Reviewed Review of Systems Constitutional: see HPI, dizziness, malaise, weakness, weight loss EENTM: no symptoms reported Respiratory: no symptoms reported Cardiovascular: no symptoms reported Gastrointestinal: abdominal pain, loss of appetite Genitourinary: no symptoms reported Musculoskeletal: back pain, joint pain Skin: no symptoms reported Psychiatric/Neurological: Anxiety, Depressed All Other Systems Reviewed Negative Unless Noted: Yes Physical Exam Physical Exam Vital Signs Capillary Refill : Height, Weight, BMI Height: 5'4.00" Weight: 140lbs. oz. 63.252528xf; 33.17 BMI Method:Stated General Appearance: No Apparent Distress, WD/WN, Chronically ill Eyes: Bilateral Eye Normal Inspection, Bilateral Eye PERRL HEENT: PERRL/EOMI, Normal ENT Inspection, Pharynx Normal Neck: Full Range of Motion, Normal Inspection, Non Tender, Supple, Carotid Bruit Respiratory: Chest Non Tender, Lungs Clear, Normal Breath Sounds, No Accessory Muscle Use, No Respiratory Distress Cardiovascular: Regular Rate, Rhythm, No Edema, No Gallop, No JVD, No Murmur, Normal Peripheral Pulses Gastrointestinal: Normal Bowel Sounds, No Organomegaly, No Pulsatile Mass, Non Tender, Soft Back: Normal Inspection, No CVA Tenderness, No Vertebral Tenderness Extremity: Normal Capillary Refill, Normal Inspection, Normal Range of Motion, Non Tender, No Calf Tenderness, No Pedal Edema Neurologic/Psychiatric: Alert, Oriented x3, 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 Norm as Tested, Abnormal Gait, Depressed Affect, Motor Weakness (Severe 3/5) Skin: Normal Color, Warm/Dry Lymphatic: No Adenopathy PM&R Medical Assessment & Plan REHAB/MEDICAL ASSESSMENT AND PLAN: REHAB IMPAIRMENT GROUP: Neuromuscular disorders ETIOLOGIC DIAGNOSIS: Critical illness myopathy The comorbidities that impact the patients function and/or functional outcome by: TPN required, poor intake, severe weakness, flat affect REHAB PLAN: The patient is being admitted to our comprehensive inpatient rehabilitation facility and can tolerate the intensity of service consisting of at least: 180 minutes of therapy a day, 5 out of 7 days a week Rehab treatment will consist of: PT and OT will focus on increasing stamina with use of assistive devices in order to improve ambulation and increase ADL independence in order to return home The patient/family has a good understanding of our discharge process and will benefit from an interdisciplinary inpatient rehabilitation program. The patient has potential to make improvement and is in need of at least two of the following multidisciplinary therapies including but not limited to physical, occupational, speech, and prosthetics and orthotics. Additionally the patient will need services from respiratory, nutritional services, wound care, psychology, etc. (Customize this to each patient). Given the patients complex condition and risk of further medical complications, rehabilitation services cannot be safely or effectively provided at a lower level of care such as a fpc facility. BARRIERS TO DISCHARGE: Inability to eat ESTIMATED LOS: 14 days DISPOSITION: home RELEVANT CHANGES SINCE PREADMISSION SCREENING: I have compared the patients medical and functional status at the time of the p readmission screening and there are: no changes PROGNOSIS: fair to good REHABILITATION GOALS: 1. PT and OT will focus on increasing stamina with use of assistive devices in order to improve ambulation and increase ADL independence in order to return home All the above goals were reviewed with the patient and he/she is in agreement. By signing this document, I acknowledge that I have personally performed a full physical examination on this patient within 24 hours of admission to this inpatient rehabilitation facility and have determined the patient to be able to tolerate the above course of treatment at an intensive level for a reasonable period of time. I will be completing a detailed individualized Plan of Care for this patient by day #4 of the patients stay based upon the Preadmission Screen, the Post-Admission Evaluation, and the therapy evaluations. Admission Dx/Comorbidities: (1) Myopathy ICD Codes: G72.9 - Myopathy, unspecified (2) Duodenal perforation Status: Acute ICD Codes: K63.1 - Perforation of intestine (nontraumatic) (3) Anasarca Status: Acute ICD Codes: R60.1 - Generalized edema (4) Hemorrhagic shock Status: Resolved ICD Codes: R57.8 - Other shock (5) ABLA (acute blood loss anemia) Status: Acute ICD Codes: D62 - Acute posthemorrhagic anemia (6) History of Clostridium difficile infection Status: Chronic ICD Codes: Z86.19 - Personal history of other infectious and parasitic diseases (7) Rheumatoid arthritis Status: Chronic ICD Codes: M06.9 - Rheumatoid arthritis, unspecified (8) Status post skin flap graft Status: Acute ICD Codes: 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 Maintain on oral anticoagulation and metoprolol Previous NSTEMI Plan: Aggressive rehab TPN Encourage p.o. intake Monitor closely JUDIT KEEN DO Jul 21, 2023 07:12
[~2023-07-21 07:35] MED LIST changes: +ALPRAZolam 0.25 MG TABLET PO PRN; +BIOT25007 PO; +BISACODYL 10 MG SUPPOSITORY PR PRN; +CALCIUM CARBONATE 500 MG CHEW TABLET PO PRN; +DIPH1TAB25 PO; +DOCUSATE SODIUM 100 MG CAPSULE PO PRN; +FAMO20TA5 PO; +HYDR200T71 PO; +LACTULOSE SYRUP 10GM/15ML 30ML UDC PO PRN; +LOPERAMIDE 2 MG CAPSULE PO PRN; +MELATONIN 3 MG TABLET PO PRN; +MELO15TA39 PO; +METH2.5T PO; +MULT-1136 PO; +Sodium Phosphate/Sodium Biphosphate ADULT enema PR PRN; +VANC25SO PO; +diphenhydrAMINE 25 MG TABLET PO PRN; +guaiFENesin/CODEINE 10ML UDC PO PRN
--- OUTSIDE RECORDS SUMMARY | 2023-07-21 11:28 | XMS REPORT ---
Author Author [facility] ter [facility] ter [facility] Address Unknown Phone Unavailable Care Team Providers Care Sheet Music Salesperson Name Role Phone JOSETTE KC Unavailable PROBLEMS Type Condition ICD9-CM Code [id number] Code Onset Dates Condition Status W/U Status Risk SNOMED Code Notes Problem Need for prophylactic vaccination and inoculation, Influenza V04.81 [id number] FLU DX (3 YRS AND ABOVE, IM) ALLERGIES No Known Allergies ENCOUNTERS from 1950 to 2023-06-26 Encounter Location Date Provider Diagnosis [facility] IN [facility] [address] [id number] [address] Jun, JOSETTE KC Encounter for immunization Z23 IMMUNIZATIONS Vaccine Route Administration Date Status influenza IIV3 (history) Unknown Jun 03, 2012 Adm inistered PRIVATE TDAP (BOOSTRIX) IM Intramuscular Jun 17, 2015 Administered FLUARIX QUAD (3 & UP)-GSK-2014 IM Intramuscular May [id number] Administered COVID-19 Moderna (history) Unknown Sep 26, 2020 A dministered COVID-19 Moderna (history) Unknown Oct 24, 2020 A dministered Booster HRSA MODERNA, COVID- 19, 0.25mL IM Intramuscular Jun 30, 2021 Administered influenza IIV3 (history) Unknown Jun 15, 2014 Adm inistered influenza IIV3 (history) Unknown Jun 05, 2013 Adm inistered SOCIAL HISTORY Sex Assigned At : Social History Observation Description Sex Assigned At Unknown REASON FOR REFERRAL No Information MEDICATIONS Medication SIG (Take, Route, Frequency, Duration) Notes Start Date End Date Status Pepcid Active Plaquenil Active predniSONE Active Methotrexate Active REASON FOR VISIT COVID-19 Booster--aretha nixon MEDICAL (GENERAL) HISTORY Type Description Date Medical History auto immune disorder MENTAL STATUS No Information ASSESSMENTS Encounter Date Diagnosis Assessment Notes Treatment Notes Treatment Clinical Notes Jun, Encounter for immunization (ICD-10 - Z23) PLAN OF TREATMENT No Information Insurance Providers Payer Name Payer Address Payer Phone Insured Name Patient Relationship to Insured Coverage Start Date Coverage End Date Subscriber Number Group Number [employer] OF [place] [address] [place] [address] Sergo Ragsdale Spouse - patient is the spouse of the insured [id number]
[2023-07-21 11:40] VITALS: BP 134/63
[2023-07-21] MEDS ORDERED: MULT-349 PO (11:54)
[2023-07-21] MEDS ORDERED: APIX5TAB PO (11:54)
[2023-07-21] MEDS ORDERED: LACT1CAP76 NG (11:54)
[2023-07-21] MEDS ORDERED: VANC125C5 PO (11:54)
[2023-07-21] MEDS ORDERED: CHOL-34 PO (11:54)
[2023-07-21] MEDS ORDERED: MTP25TSR PO (11:54)
[2023-07-21] MEDS ORDERED: CALC-308 PO (11:54)
[2023-07-21] MEDS ORDERED: HEPA10DI39 IV (11:54)
[2023-07-21] MEDS ORDERED: PANT40TA52 PO (11:54)
[2023-07-21] MEDS ORDERED: FOLI1TAB33 PO (11:54)
[2023-07-21] MEDS ORDERED: CEFT2VIA12 IV (11:54)
[2023-07-21] MEDS ORDERED: [UNRECOGNIZED DRUG - CODE] IV (11:54)
[2023-07-21] MEDS ORDERED: MIRT-68 PO (11:54)
[2023-07-21] MEDS ORDERED: SUCR1TAB36 PO (11:54)
[2023-07-21] MEDS ORDERED: [UNRECOGNIZED DRUG - CODE] IV (11:54)
[2023-07-21] MEDS ORDERED: CYAN-41 PO (11:54)
[2023-07-21] MEDS ORDERED: [UNRECOGNIZED DRUG - OTHER] IV SCH (12:15)
[2023-07-21] MEDS ORDERED: CALCIUM IV SCH (12:15)
[2023-07-21] MEDS ORDERED: DEX IV SCH (12:15)
[2023-07-21] MEDS ORDERED: LYTES IV SCH (12:15)
[2023-07-21] MEDS ORDERED: NON-FORMULARY MEDICATION 1 EA EA (Calcium Carbonate (Calcium) 1,000 MG) PO SCH (13:00)
[2023-07-21] MEDS: DOCUSATE SODIUM 100 MG CAPSULE PO SCH ×2 (13:24→20:58)
[2023-07-21] MEDS: SENNA W/DOCUSATE TABLET PO SCH ×2 (13:24→20:58)
--- NOTE | 2023-07-21 13:29 | Physical Therapy Evaluation ---
PT Evaluation-General Medical Diagnosis Admission Date Jul 21, 2023 at 11:21 Medical Diagnosis: Critical illness myopathy Onset Date: Jun 08, 2023 Therapy Diagnosis Therapy Diagnosis: debility, decreased endurance, strength, mobility, fall risk Height/Weight Height (Feet): 5 Height (Inches): 4.00 Weight (Pounds): 140 Precautions Precautions/Isolations: Fall Prevention, Standard Precautions Recent hx of C. dif Weight Bear Status Right Lower Extremity: Right Full Weight Bearing Left Lower Extremity: Left Full Weight Bearing (Rossi) Referral Physician: Rossi Reason for Referral: Evaluation/Treatment Medical History Pertinent Medical History: [place], Rheumatoid Arthritis Current History Hospitalized 06/08/23 - severe sepsis and hemorrhagic shock due to gastric perforation. 2 exploratory laparotomies with ligation on 06/08 and 06/18 as well as a modified Greg patch. Went to [facility] 06/25/23. Developed Klebsiella pneumonia, NSTEMI, ARF, C. dif and was on TPN. Also had a PE per abd CT on 07/12/23. Abdominal incisions have hx of infection. Also had malignant melanoma removed from face/forehead earlier this year. Reviewed History: Yes Social History Home: Multilevel (can reside on 1 level) Current Living Status: Significant Other (SO is in poor health, but present 22/03.) Entry Into Home: Stairs With Railing PT Steps Inside Home: 2 (1 Hand rail) Prior Prior Level of Function SCALE: Activities may be completed with or without assistive devices. 9-Wcuxpnjocf-fjfdiim completes the activity by him/herself with no assistance from a helper. 5-Set-up or Clean-up Assistance-helper sets up or cleans up; patient completes activity. [place] assists only prior to or following the activity. 4-Supervision or Touching Assistance-helper provides verbal cues and/or touching/steadying and/or contact guard assistance as patient completes a ctivity. Assistance may be provided throughout the activity or intermittently. 3-Partial/Moderate Assistance-helper does LESS THAN HALF the effort. [place] lifts, holds or supports trunk or limbs, but provides less than half the effort. 2-Substantial/Maximal Assistance-helper does MORE THAN HALF the effort. [place] lifts or holds trunk or limbs and provides more than half the effort. 5-Pnnvreztq-bjkoqq does ALL the effort. Patient does none of the effort to complete the activity. Or, the assistance of 2 or more helpers is required for the patient to complete the activity. If activity was not attempted, code reason: 7-Patient Refused. 9-Not Applicable-not attempted and the patient did not perform the activity before the current illness, exacerbation or injury. 10-Not Attempted due to Environmental Limitations-(lack of equipment, weather restraints, etc.). 88-Not Attempted due to Medical Conditions or Safety Concerns. Bed Mobility: 6 Transfers (B,C,W/C): 6 (/s device) Gait: 6 (/s device) Stairs: 6 Wheelchair Mobility: 9 Indoor Mobility (Ambulation): Independent Stairs: Independent Prior Devices Use: None Prior Device Use: none. Has a cane and 2-wheeled walker availabe at home Drove, cooked meal, managed laundry and housekeeping prior. Likes to read and flower garden - has a stool that she sit on to garden. 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 Belongs to [facility] [place]. PT Evaluation-Current Subjective No c/o pain. No c/o SOB. Is pleasant and agreeable with PT. Pain Section J - Health Conditions 1. Rarely or not at all 2. Occasionally 3. Frequently 4. Almost constantly 8. Unable to answer Pain Effect on Sleep: 1 Pain Interference with Therapy: 1 Pain Interference w/Day-to-Day: 1 Pt/Family Goals To return to prior residence Objective Patient Orientation: Person, Place, Situation Attachments: IV ROM/Strength ROM Upper Extremities defer to OT ROM Lower Extremities WFL (B) LE's in sitting. Strength Upper Extremities defer to OT Strength Lower Extremities (B) LE MMT sitting EOB: (L) ankle 5/5 PF, 4/5 DF, knee extension/flexion 4+/5, hip flexion 3+/5, hip abduction/adduction 4-/5. (R) ankle 4/5 DF and PF, knee extension/flexion 4+/5, hip flexion 3+/5, hip abd/adduction 4-/5. Core weakness noted with posterior trunk lean while testing MMT of LE's sitting EOB. Sensory Vision: Wears Glasses Hearing: Functional Sensation Right Lower Extremit: Intact Sensation Left Lower Extremity: Intact Transfers Roll Left & Right (QC): 5 (/c bed rail) Sit to Lying (QC): 4 (cues to use bedrail) Lying to Sitting/Side of Bed(Q: 5 (/c bed rail) Sit to Stand (QC): 3 (Min (A) from EOB and armchair) Chair/Xow-an-Hhfbd Xfer(QC): 3 (Min (A) /c FWW) Toilet Transfer (QC): 3 (Min (A) /c FWW and grad bar, (A) to control descent) Car Transfer (QC): 3 (mod (A) -- needing more support stand>sit to maintain balance, v.c. to not park walker away from car, min (A) to bring legs up safely due to core weakness) Gait Does the Patient Walk?: Yes Mode of Locomotion: Walk Anticipated Mode of Locomotion: Walk Walk 10 feet (QC): 3 (Min (A) /c FWW) Walk 50 ft with 2 Turns(QC): 3 (min (A) /c FWW) Walk 150 ft (QC): 3 (Min (A) /c FWW, assist for more balance during turns due to patient not being familiar with FWW negotiation) Walking 10ft/uneven surface-QC: 3 (Min - Mod (A) of 1 /c FWW) Distance: 152' Gait Assistive Device: FWW Comments/Gait Description slow abram, slightly tremulous due to generalized weakness. O2 sats 90-95% on room air during gait. Wheelchair Training Does the Pt Use a Wheelchair?: No Wheel 50 ft with 2 turns (QC): 9 Wheel 150 ft (QC): 9 Stairs 1 Step (curb) (QC): 3 (mod (A) /c FWW - weakness noted during step-up phase) 4 Steps (QC): 3 (min (A) /c (B) hand rails, LE weakness noted during step-up phase. Needed to "lauch" off foot on ground level to make it to next step. ) 12 Steps (QC): 3 Walking Assistive Device: Walker Balance Sitting Static: Fair Sitting Dynamic: Fair Standing Static: Fair Standing Dynamic: Fair Picking up an Object (QC): 3 (min-mod (A ) for balance) Special Test Comments Elderly mobility scale: 03/18. Goal Assessment/Needs 73 year old female who has had extensive medical complications with lengthy hospitalization over the past 6 weeks. Would benefit from ARU to maximize strength, safety and mobility prior to returning home. Rehab Potential: Good Equipment Needs Has FWW at home per her report. PT Contract Lead Goals Prison Goals PT Prison Goals Time Frame: Aug 04, 2023 Roll Left to Right (QC): 6 Sit to Lying (QC): 6 Lying-Sitting on Side/Bed(QC): 6 Sit to Stand (QC): 6 Chair/Tcp-tt-Qpoka Xfer(QC): 6 Toilet/Commode Transfer (QC): 6 Car Transfer (QC): 6 Does the Patient Walk: Yes Walk 10 feet (QC): 6 Walk 10ft-Uneven Surface(QC): 6 Walk 50ft with 2 Turns (QC): 6 Walk 150 ft (QC): 6 Does the Pt use WC or Scooter?: No Wheel 50 feet with 2 turns (QC: 9 Wheel 150 feet: 9 1 Step (curb) (QC): 6 4 Steps (QC): 6 12 Steps (QC): 6 Picking up an Object (QC): 6 Elderly Mobility Scale: 14/20 PT Plan Problem List Problem List: Activity Tolerance, Functional Strength, Safety, Balance, Gait, Transfer, Bed Mobility Treatment/Plan Treatment Plan: Continue Plan of Care Treatment Plan: Bed Mobility, Concurrent Therapy, Education, Functional Activity Dashawn, Functional Strength, Group Therapy, Gait, Safety, Therapeutic Exercise, Transfers Treatment Duration: Aug 04, 2023 Frequency: At least 5 of 7 days/Wk (IRF) Estimated Hrs Per Day: 1.5 hours per day Patient and/or Family Agrees t: Yes Discharge Recommendations Therapy Discharge Recommendati: Home & Family, Post Acute PT Time Time In: 1255 Time Out: 1315 DATE: Jul 21, 2023 Total Billed Treatment Time: 20 Total Billed Treatment 1, EMV 20' Zeny Fine PT Jul 21, 2023 13:29
[2023-07-21] MEDS ORDERED: FLU HIGH DOSE (65+ YOA) 240 MCG/0.7 ML 2023-24 (FLUZONE) IM ONE (14:00)
--- NOTE | 2023-07-21 14:11 | Occupational Therapy Eval ---
OT Evaluation-General/PLF Medical Diagnosis Admission Date Jul 21, 2023 at 11:21 Medical Diagnosis: Critical illness myopathy Onset Date: Jun 08, 2023 Therapy Diagnosis Therapy Diagnosis: decreased activity tolerance, decreased independence with ADLs Height/Weight Height (Feet): 5 Height (Inches): 4.00 Weight (Pounds): 140 Precautions Precautions/Isolations: Fall Prevention, Standard Precautions, Pressure Ulcer Referral Physician: Rossi Medical History Pertinent Medical History: [place], Rheumatoid Arthritis Reviewed History: Yes Social History Home: Multilevel (can reside on 1 level) Current Living Status: Significant Other (SO is in poor health, but present 22/03.) Entry Into Home: Stairs With Railing Steps Inside Home: 2 (1 Hand rail) ADL-Prior Level of Function SCALE: Activities may be completed with or without assistive devices. 9-Czkttsutry-cpgzpib completes the activity by him/herself with no assistance from a helper. 5-Set-up or Clean-up Assistance-helper sets up or cleans up; patient completes activity. [place] assists only prior to or following the activity. 4-Supervision or Touching Assistance-helper provides verbal cues and/or touching/steadying and/or contact guard assistance as patient completes activity. Assistance may be provided throughout the activity or intermittently. 3-Partial/Moderate Assistance-helper does LESS THAN HALF the effort. [place] lifts, holds or supports trunk or limbs, but provides less than half the effort. 2-Substantial/Maximal Assistance-helper does MORE THAN HALF the effort. [place] lifts or holds trunk or limbs and provides more than half the effort. 6-Qoxvgdbhj-szalws does ALL the effort. Patient does none of the effort to complete the activity. Or, the assistance of 2 or more helpers is required for the patient to complete the activity. If activity was not attempted, code reason: 7-Patient Refused. 9-Not Applicable-not attempted and the patient did not perform the activity before the current illness, exacerbation or injury. 10-Not Attempted due to Environmental Limitations-(lack of equipment, weather restraints, etc.). 88-Not Attempted due to Medical Conditions or Safety Concerns. ADL PLOF Comments Does not use AD to ambulate at baseline. Self Care: Independent Functional Cognition: Independent DME/Equipment: Bath Chair, Shower, Tall Toilet DME/Equipment Comments has a FWW and cane at home, though does not use them Occupation: retired Drive Self: Yes Leisure Interests: gardening and reading OT Current Status Subjective Pt received lying supine in bed. Pt very pleasant and willing to participate in therapy. Pain Numeric Pain Scale: 4 Mental Status/Objective Patient Orientation: Person, Place, Time, Situation Attachments: Other-See Comments ([facility]) Current Glasses/Contacts: Yes Hearing Aids: No Dentures/Partials: No Hand Dominance: Right Upper Extremity ROM Bilateral shoulders, elbows and hand ROM WFL Upper Extremity Coordination wfl Upper Extremity Sensation WFL Upper Extremity Strength Bilateral: Shoulders: 4-/5 Elbows: 4-/5 Natural Gas Inspector: 4/5 ADL-Treatment Eating (QC): 5 Oral Hygiene (QC): 4 Shower/Bathe Self (QC): 3 Upper Body Dressing (QC): 3 (to don/doff hospital gown ) Lower Body Dressing (QC): 3 (to don/doff brief) On/Off Footwear (QC): 3 (to don/doff socks and compression socks) Toileting Hygiene (QC): 4 (in sitting ) Other Treatments PT/OT cotreat completed due to the need for two skilled therapists to increase safety during high level activities. OT focused on activity tolerance, ADL independence, UE strength and functional balance. Please refer to the PT note for details following PT care. Pt educated on and completed UE strengthening HEP with red theraband, focusing on shoulder flexion, abduction, adduction; elbow flexion, extension; squeegee tender strength. Education OT Patient Education: Correct positioning, Energy conservation, Home exercise program, Modified ADL techniques, Progress toward Goal/Update tx plan, Purpose of tx/functional activities, Rehab process, Safety issues, Transfer techniques, Use of adapted equipment Teaching Recipient: Patient Teaching Methods: Demonstration Response to Teaching: Verbalize Understanding, Return Demonstration BIMS CAM BIMS Expression of Ideas and Wants: Without Difficulty Understanding Verbal Content: Understands Brief Interview/Mental Status: Yes IRF HORTENCIA BIMS: IRF HORTENCIA BIMS Response (Comments) Value Repitition of Three Words Three 3 Recalls Socks Yes, No Cue Required 2 Recalls Blue Yes, No Cue Required 2 Recalls Bed Yes, No Cue Required 2 Year Correct 3 Month Accurate Within 5 Days 2 Day Correct 1 Total 15 Patient Normally Able to Recal: Current Session, Location of own room, Staff Names and faces, That he/she in a hsp Should Staff Asses. Mental St.: No Memory/Recall Ability: Current Season, Location of Own Room, Staff Names and Faces, That He/She in Hospitall CAM Mental Status Change/Baseline: 0 Inattention: 0 Disorganized thinkin Altered level of consciousness: 0 OT Short Term Goals Short Term Goals Time Frame: Jul 30, 2023 Eatin Oral hygiene: 5 Toileting hygiene: 5 Shower/bathe self: 4 Upper body dressin Lower body dressin Putting on/taking off footwear: 4 OT Marketing Campaign Analyst Goals Marketing Campaign Analyst Goals Time Frame: Aug 06, 2023 Acute change in mental status: 0 Inattention: 0 Disorganized thinkin Altered level of consciousness: 0 Eating (QC): 6 Oral Hygiene (QC): 6 Toileting Hygiene (QC): 6 Shower/Bathe Self (QC): 6 Upper Body Dressing (QC): 6 Lower Body Dressing (QC): 6 On/Off Footwear (QC): 6 1=Demonstrate adherence to instructed precautions during ADL tasks. 2=Patient will verbalize/demonstrate understanding of assistive zachary erika/modifications for ADL. 3=Patient will improve strength/tolerance for activity to enable patient to perform ADL's. OT Education/Plan Problem List/Assessment Assessment: Decreased Activ Tolerance, Decreased Safety Aware, Decreased UE Strength, Impaired Coordination, Impaired Funct Balance, Impaired I ADL's, Impaired Self-Care Skills Discharge Recommendations Plan/Recommendations: Continue POC Comment Will make recommendations closer to d/c date Treatment Plan/Plan of Care Treatment,Training & Education: Yes Patient would benefit from OT for education, treatment and training to promote independence in ADL's, mobility, safety and/or upper extremity function for ADL's. Plan of Care: ADL Retraining, Caregiver Training, Concurrent Therapy, Functional Mobility, Group Exercise/Act as Ind, UE Funct Exercise/Act Treatment Duration: Aug 18, 2023 Frequency: At least 5 of 7 days/Wk (IRF) Estimated Hrs Per Day: 1.5 hours per day Agreement: Yes Rehab Potential: Good Time Start Time: 12:37 ([id number] OT Eval; 13:15-13:50 OT only) Stop Time: 14:27 ([id number] OT/PT cotreat) DATE: Jul 21, 2023 Total Time Billed (hr/min): 90 Billed Treatment Time 1, EVM, ADL 4, EX 1 Hallie Cortés OTR/L Jul 21, 2023 14:11
[2023-07-21] MEDS: SUCRALFATE 1 GM TABLET PO SCH ×2 (14:18→17:25)
[2023-07-21] MEDS: CALCIUM CARBONATE 500 MG CHEW TABLET PO SCH ×2 (14:18→17:25)
--- NOTE | 2023-07-21 14:54 | Diagnostic Imaging Report ---
INDICATION: Status post PICC line placement. COMPARISON: 06/22/2023. FINDINGS: Single frontal view of the chest demonstrates normal heart size and pulmonary vascularity. The lungs are well aerated and clear. No large pleural effusion or pneumothorax is seen. The visualized osseous structures show no acute abnormalities. Right upper extremity PICC line is present with tip in the right atrium IMPRESSION: 1. No acute cardiopulmonary process. 2. Right upper extremity PICC line with tip in the right atrium. Dictated by: Dictated on workstation # [id number]
--- NOTE | 2023-07-21 15:48 | ST Dysphagia Evaluation ---
Speech Evaluation-General Medical Diagnosis Critical illness myopathy Onset Date: Jun 08, 2023 Therapy Diagnosis Therapy Diagnosis: Dysphagia Precautions Precautions: Fall Precautions/Isolations: Standard Precautions Referral Referring Physician: Rossi Reason for Referral: Evaluation/Treatment Medical History Pertinent Medical History: [place], Rheumatoid Arthritis [place], Rheumatoid Arthritis Current History Hospitalized 06/08/23 - severe sepsis and hemorrhagic shock due to gastric perforation. 2 exploratory laparotomies with ligation on 06/08 and 06/18 as well as a modified Greg patch. Went to [facility] 06/25/23. Developed Klebsiella pneumonia, NSTEMI, ARF, C. dif and was on TPN. Also had a PE per abd CT on 07/12/23. Abdominal incisions have hx of infection. Also had malignant melanoma removed from face/forehead earlier this year. Reviewed History: Yes Social History Current Living Status: Significant Other (SO is in poor health, but present .) Speech PLF/Current-Dysphagia Prior Level of Function Pt reports independence with ADLs. Subjective Pt is fatigued, but agreeable to session. Pt's daughter and are present. Cognitive Status Oriented to all. Oral Motor Skills Dentition: Natural Current Food Consistancy: Regular, Thin Liquids Ability to Follow Directions: Good Oral Expression Ability: No Impairment Voice Voice Phonatory-Based Quality: Normal Voice Pitch: Normal Voice Loudness: Mildly Soft/Quiet (fatigued ) Face Facial Symmetry: Symmetrical Oral-Facial Assessment Oral-Facial Dentition: Normal Labial Seal Description: Normal Smile: Normal Puff Cheeks: Normal Lingual Protrusion: Normal Lingual ROM: Normal Lingual Strength: Abnormal (fatigued ) Pharynx Velopharyngeal Move.: Normal Dysphagia Evaluation Dietary Recommendations: Regular Liquid Recommendations: Thin Swallowing Precautions: Small Bites and Sips, Sitting Upright 90 Degrees Dysphagia Evaluation Summary Pt reports no s/s of dysphagia during PO intake. Pt's oral musculature is weak, causing risk for potential aspiration. Pt reports smell and taste is off, causing all food and drinks to taste and smell bad. Pt is able to consume fruit and yogurt due to taste and smell being normal. Pt's family has estimated she has lost around 18 pounds since her hospitalizations. Pt will continue on current diet. Speech Buck Swamper Goals Buck Swamper Goals Pt will complete OMEs with 90% accuracy, to increase lingual strength for effective bolus formation and to reduce the risk of aspiration/penetration during PO intake. Pt will demonstrate adequate use of swallow guidelines to eliminate the risk of aspiration/penetration during PO intake with 90% accuracy and no cues. Speech-Plan Patient/Family Goals Patient/Family Goals: To gain strength and appetite Treatment Plan Speech Therapy Treatment Plan: Continue Plan of Care Treatment Duration: Jul 21, 2023 Frequency: At least 5 of 7 days/Wk (IRF) Estimated Hrs Per Day: .5 hour per day Rehab Potential: Good Barriers to Learning: fatigue Pt/Family Agrees to Plan: Yes Safety Risks/Education Teaching Recipient: Patient, Family Teaching Methods: Discussion Response to Teaching: Verbalize Understanding Education Topics Provided: Safe swallow guidelines Time Speech Therapy Time In: 14:55 Speech Therapy Time Out: 15:20 DATE: Jul 21, 2023 Total Billed Time: 25 Billed Treatment Time 1 FARNAZ 25 min Darlyn Mckeon Jul 21, 2023 15:48
[2023-07-21] MEDS: [UNRECOGNIZED DRUG - MIXTURE] IV SCH (16:04)
--- NOTE | 2023-07-21 16:11 | Physical Therapy Daily Note ---
PT Daily Note-Current Subjective Pt sitting in recliner taking rest break w/OT upon arrival. Pt agrees to PT/OT co-treat. Pain Location: No Pain Reported Section J - Health Conditions 1. Rarely or not at all 2. Occasionally 3. Frequently 4. Almost constantly 8. Unable to answer Pain Effect on Sleep: 1 Pain Interference with Therapy: 1 Pain Interference w/Day-to-Day: 1 Mental Status Patient Orientation: Person, Place, Situation Pt recognized this therapist as someone she has known since therapist youth. Transfers SCALE: Activities may be completed with or without assistive devices. 7-Iomvixgpvd-bbtnncq completes the activity by him/herself with no assistance from a helper. 5-Set-up or Clean-up Assistance-helper sets up or cleans up; patient completes activity. [place] assists only prior to or following the activity. 4-Supervision or Touching Assistance-helper provides verbal cues and/or touching/steadying and/or contact guard assistance as patient completes activity. Assistance may be provided throughout the activity or intermittently. 3-Partial/Moderate Assistance-helper does LESS THAN HALF the effort. [place] lifts, holds or supports trunk or limbs, but provides less than half the effort. 2-Substantial/Maximal Assistance-helper does MORE THAN HALF the effort. [place] lifts or holds trunk or limbs and provides more than half the effort. 2-Jywnhnxgu-qwsnif does ALL the effort. Patient does none of the effort to comp lete the activity. Or, the assistance of 2 or more helpers is required for the patient to complete the activity. If activity was not attempted, code reason: 7-Patient Refused. 9-Not Applicable-not attempted and the patient did not perform the activity before the current illness, exacerbation or injury. 10-Not Attempted due to Environmental Limitations-(lack of equipment, weather restraints, etc.). 88-Not Attempted due to Medical Conditions or Safety Concerns. Weight Bearing Right Lower Extremity: Right Full Weight Bearing Left Lower Extremity: Left Full Weight Bearing ([place]) Exercises Supine Ex: Ankle pumps, Quad Set, Glut sets, Heel Slides, Short Arc Quads, Hip abd/add Supine Reps: 10 Seated Therapy Exercises: Ankle pumps, Long arc quads, Hip flexion, Hamstring Curls, Hip abd/add, Glut set Seated Reps: 10 Treatments PT/OT cotreat completed due to the need for two skilled therapists to increase safety during high level activities. OT focused on activity tolerance, ADL independence, UE strength and functional balance. PT focused on LE strengthening, proper transfer technique & safety as well as ARU Expectations. Pt educated on and completed UE strengthening HEP with red theraband, focusing on shoulder flexion, abduction, adduction; elbow flexion, extension; hand mixer strength. PT issued & reviewed written HEP for Supine & Seated EX (copy left w/pt). LE & UE EX alternated & OT departs. REHAB CARE ASSISTANT reviews ARU Expectations and how ARU works. Pt resting in recliner as Sp & Daughter arrive. All needs met, call light explained & in hand. Assessment Current Status: Good Progress Pt demonstrates understanding of concepts covered as well as EX reviewed and ROM is good. PT Mcc Goals Senior Sharepoint Architect Goals PT Senior Sharepoint Architect Goals Time Frame: Aug 04, 2023 Roll Left & Right (QC): 6 Sit to Lying (QC): 6 Lying-Sitting on Side/Bed(QC): 6 Sit to Stand (QC): 6 Chair/Qrr-gr-Pwqli Xfer(QC): 6 Toilet Transfer (QC): 6 Car Transfer (QC): 6 Does the Patient Walk: Yes Walk 10 feet (QC): 6 Walk 50ft with 2 Turns (QC): 6 Walk 150 ft (QC): 6 Walking 10ft on Uneven Surface: 6 1 Step (curb) (QC): 6 4 Steps (QC): 6 12 Steps (QC): 6 Picking up an Object (QC): 6 Does the Pt use WC or Scooter?: No Wheel 50 feet with 2 turns (QC: 9 Wheel 150 feet: 9 PT Plan Problem List Problem List: Activity Tolerance, Functional Strength, Safety, Balance, Transfer Treatment/Plan Treatment Plan: Continue Plan of Care Treatment Plan: Bed Mobility, Concurrent Therapy, Education, Functional Activity [place], Functional Strength, Group Therapy, Gait, Safety, Therapeutic Exercise, Transfers Treatment Duration: Aug 04, 2023 Frequency: At least 5 of 7 days/Wk (IRF) Estimated Hrs Per Day: 1.5 hours per day Patient and/or Family Agrees t: Yes Safety Risks/Education Patient Education: Transfer Techniques, Issued Written HEP, Correct Positioning, Safety Issues Teaching Recipient: Patient Teaching Methods: Discussion Response to Teaching: Verbalize Understanding Time Time In: 1350 Time Out: 1500 DATE: Jul 21, 2023 Total Billed Treatment Time: 70 Total Billed Treatment Co-treat w/OT for 37m ([id number]) 1, FA x2 (25m) & EX x3 (45m) DIANE KENYON REHAB CARE ASSISTANT Jul 21, 2023 16:11
[2023-07-21 19:53] VITALS: BP 162/74
[2023-07-21] MEDS: VANCOMYCIN 125 MG CAPSULE PO SCH (20:31)
[2023-07-21] MEDS: APIXABAN 5 MG TABLET PO SCH (20:31)
[2023-07-21] MEDS: PANTOPRAZOLE 40 MG TABLET PO SCH (20:31)
[2023-07-21] MEDS: MIRTAZAPINE 15 MG TABLET PO SCH (20:31)
[2023-07-21] MEDS: LACTOBACILLUS ACIDOPHILUS (PROBIOTIC) CAPSULE NG SCH (20:31)
[2023-07-21] MEDS ORDERED: NON-FORMULARY MEDICATION 1 EA EA (Mirtazapine 15 MG) PO SCH (21:00)
[2023-07-22] MEDS: SUCRALFATE 1 GM TABLET PO SCH ×5 (00:03→21:17)
[2023-07-22] MEDS: [UNRECOGNIZED DRUG - MIXTURE] IV SCH (02:59)
--- NOTE | 2023-07-22 05:32 | PM&R Progress Note ---
Subjective HPI/CC On Admission Date Seen by Provider: Jul 22, 2023 Time Seen by Provider: 10:00 Subjective/Events-last exam 07/22/2023: Slow recovery Dizziness reported so holding therapy TPN starting at 500pm today then Clinimix DC Labs stable Poor appetite No pain Review of Systems General: Fatigue, Malaise Objective Exam Vital Signs Vital Signs Date Time Temp Pulse Resp B/P (MAP) Pulse Ox O2 Delivery O2 Flow Rate FiO2 07/22/23 11:39 36.9 83 20 160/75 (103) 94 Room Air Capillary Refill : General Appearance: No Apparent Distress, WD/WN, Chronically ill HEENT: PERRL/EOMI, Normal ENT Inspection, Pharynx Normal Neck: Full Range of Motion, Normal Inspection, Non Tender, Supple, Carotid Bruit Respiratory: Chest Non Tender, Lungs Clear, Normal Breath Sounds, No Accessory Muscle Use, No Respiratory Distress Cardiovascular: Regular Rate, Rhythm, No Edema, No Gallop, No JVD, No Murmur, Normal Peripheral Pulses Gastrointestinal: Normal Bowel Sounds, No Organomegaly, No Pulsatile Mass, Non Tender, Soft Back: Normal Inspection, No CVA Tenderness, No Vertebral Tenderness Extremity: Normal Capillary Refill, Normal Inspection, Normal Range of Motion, Non Tender, No Calf Tenderness, No Pedal Edema Neurologic/Psychiatric: Alert, Oriented x3, cargo bracer II-XII Norm as Tested, Abnormal Gait, Depressed Affect, Motor Weakness (Severe 3/5) Skin: Normal Color, Warm/Dry Lymphatic: No Adenopathy Results/Procedures Lab Laboratory Tests 07/22/23 06:00 Patient resulted labs reviewed. FIM Transfers Therapy Code Descriptions/Definitions Functional [place] Measure: 0=Not Assessed/NA 4=Minimal Assistance 1=Total Assistance 5=Supervision or Setup 2=Maximal Assistance 6=Modified [place] 3=Moderate Assistance 7=Complete IndependenceSCALE: Activities may be completed with or without assistive devices. 1-Mkiuenwnug-zorlvof completes the activity by him/herself with no assistance from a helper. 5-Set-up or Clean-up Assistance-helper sets up or cleans up; patient completes activity. [place] assists only prior to or following the activity. 4-Supervision or Touching Assistance-helper provides verbal cues and/or touching/steadying and/or contact guard assistance as patient completes activity . Assistance may be provided throughout the activity or intermittently. 3-Partial/Moderate Assistance-helper does LESS THAN HALF the effort. [place] lifts, holds or supports trunk or limbs, but provides less than half the effort. 2-Substantial/Maximal Assistance-helper does MORE THAN HALF the effort. [place] lifts or holds trunk or limbs and provides more than half the effort. 3-Fj[place]-xqejso does ALL the effort. Patient does none of the effort to complete the activity. Or, the assistance of 2 or more helpers is required for the patient to complete the activity. If activity was not attempted, code reason: 7-Patient Refused. 9-Not Applicable-not attempted and the patient did not perform the activity before the current illness, exacerbation or injury. 10-Not Attempted due to Environmental Limitations-(lack of equipment, weather restraints, etc.). 88-Not Attempted due to Medical Conditions or Safety Concerns. Roll Left to Right (QC): 5 (/c bed rail) Sit to Lying (QC): 4 (cues to use bedrail) Sit to Stand (QC): 3 (Min (A) from EOB and armchair) Chair/Pdr-vl-Rtccj Xfer(QC): 3 (Min (A) /c FWW) Car Transfer (QC): 3 (mod (A) -- needing more support stand>sit to maintain balance, v.c. to not park walker away from car, min (A) to bring legs up safely due to core weakness) Gait Training Does the Patient Walk?: Yes Walk 10 feet (QC): 3 (Min (A) /c FWW) Walk 50 ft with 2 Turns(QC): 3 (min (A) /c FWW) Walk 150 ft (QC): 3 (Min (A) /c FWW, assist for more balance during turns due to patient not being familiar with FWW negotiation) Walking 10ft/uneven surface-QC: 3 (Min - Mod (A) of 1 /c FWW) Gait Assistive Device: FWW Wheelchair Training Does the Pt Use a Wheelchair?: No Wheel 50 ft with 2 turns (QC): 9 Wheel 150 ft (QC): 9 Stair Training 1 Step (curb) (QC): 3 (mod (A) /c FWW - weakness noted during step-up phase) 4 Steps (QC): 3 (min (A) /c (B) hand rails, LE weakness noted during step-up phase. Needed to "lauch" off foot on ground level to make it to next step. 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 Maintain on oral anticoagulation and metoprolol Previous NSTEMI Plan: Aggressive rehab TPN Encourage p.o. intake Monitor closely 07/22/2023: Monitor nutrition PICC line in place Slow recovery (1) Myopathy (2) Duodenal perforation Status: Acute (3) Anasarca Status: Acute (4) Hemorrhagic shock Status: Resolved Resolution Date/Time: 06/10/23 @ 15:29 (5) ABLA (acute blood loss anemia) Status: Acute (6) History of Clostridium difficile infection Status: Chronic (7) Rheumatoid arthritis Status: Chronic (8) Status post skin flap graft Status: Acute JUDIT KEEN DO Jul 22, 2023 05:32
--- NOTE | 2023-07-22 05:32 | Individualized Plan of Care ---
Individualized Plan of Care Rehab Nursing IPOC Order Admission Date Jul 21, 2023 at 11:21 Current Orders Orders Admission Order(Inpt,Obs,Sdc) (07/21/23 07:10) Vital Signs: Per Unit Policy ( 08,16,00 (07/21/23 07:10) Wade Loco , (07/21/23 07:10) Sequential Compression Device [id number] (07/21/23 07:10) Visual Educator-Inpt Rehab Con (07/21/23 07:10) Rehab Nursing Orders-Ipoc (07/21/23 07:10) Physical Therapy Rehab Orders (07/21/23 07:10) Occupational Therapy Rehab Ord (07/21/23 07:10) Speech Therapy Rehab Orders (07/21/23 07:10) Cbc And Automated Diff (07/22/23 06:00) Precautions (Aru) (07/21/23 07:10) Weekly Weight WEEK (07/21/23 07:10) Rehab-Intensity Of Therapy (07/21/23 07:10) Initiate Admission Nursing Pro .admission (07/21/23 07:10) Alprazolam Tablet (Alprazolam Tablet) (07/21/23 07:15) Calcium Carbonate Chew Tablet (Calcium C (07/21/23 07:15) Diphenhydramine Tablet (Diphenhydramine (07/21/23 07:15) Docusate Sodium Capsule (Docusate Sodium (07/21/23 09:00) Docusate Sodium Capsule (Docusate Sodium (07/21/23 07:15) Bisacodyl Suppository (Bisacodyl Supposi (07/21/23 07:15) Lactulose Oral Solution (Enulose Oral So (07/21/23 07:15) Na Phos/Na Biphos Adult Enema (Na Phos/N (07/21/23 07:15) Guaifenesin/Codeine Syrup (Guaifenesin/C (07/21/23 07:15) Loperamide Capsule (Loperamide Capsule) (07/21/23 07:15) Melatonin Tablet (Melatonin Tablet) (07/21/23 07:15) Polyethylene Glycol Powder (Polyethylen (07/21/23 09:00) Ondansetron Oral Dissolve Tab (Ondanset (07/21/23 07:15) Senna W/Docusate Tablet (Senna W/Docusat (07/21/23 09:00) Acetaminophen Tablet (Acetaminophen Ta (07/21/23 07:15) Initiate Admission Nursing Pro .admission (07/21/23 07:10) Code/Resuscitation (07/21/23 10:27) Admission Arrival Bed Request (07/21/23 11:21) General/Regular (07/21/23 Lunch) Apixaban Tablet (Apixaban Tablet) (07/21/23 21:00) Vitamin D3 Tablet (Vitamin D3 Tablet) (07/22/23 09:00) Cyanocobalamin Tablet (Cyanocobalamin Ta (07/22/23 09:00) Fat Emulsion 20% (Liposyn Iii 20%) (07/22/23 09:00) Folic Acid Tablet (Folic Acid Tablet) (07/22/23 09:00) Lactobacillus Acidophilus Cap (Acidophil (07/21/23 21:00) Metoprolol Succinate (Xl) Tab (Metoprolo (07/22/23 09:00) Pantoprazole Tablet (Pantoprazole Tablet (07/21/23 21:00) Sucralfate Tablet (Sucralfate Tablet) (07/21/23 12:00) Vancomycin Oral Capsule (Vancomycin Oral (07/21/23 21:00) (Nf) Aa 4.25%/Calcium/Lytes/Dex 10% (Cli (07/21/23 12:15) (Nf) Calcium Carbonate (Calcium) (07/21/23 13:00) (Nf) Ceftriaxone Sodium (Ceftriaxone) (07/22/23 09:00) (Nf) Heparin Sodium,Porcine/Pf (Heparin (07/21/23 12:15) (Nf) Mirtazapine (07/21/23 21:00) (Nf) Multivit,Ther Iron,Ca,Fa & Min (The (07/22/23 09:00) Multivitamin W/Mineral Tablet (Multivita (07/22/23 07:00) Mirtazapine Tablet (Mirtazapine Tablet) (07/21/23 21:00) Ceftriaxone Injection (Ceftriaxone Injec (07/22/23 09:00) Chest 1 View, Ap/Pa Only (07/21/23 13:11) Aa 4.25%/D5w + Lytes 1,000ml (Amino Acid (07/21/23 13:30) Fat Emulsion 20% (Liposyn Iii 20%) (07/22/23 10:00) Calcium Carbonate Chew Tablet (Calcium C (07/21/23 13:45) Tpn Pharmacy Consult (07/21/23 13:55) Flu High Dose Quad [id number] (Fluzone Hi (07/21/23 14:00) Patient Visit (07/21/23 ) Pt Eval Moderate Complexity (07/21/23 ) Comprehensive Metabolic Panel (07/22/23 06:00) Comprehensive Metabolic Panel (07/23/23 06:00) Comprehensive Metabolic Panel (07/24/23 06:00) Prealbumin (07/22/23 06:00) Comprehensive Metabolic Panel (07/29/23 06:00) Prealbumin (07/29/23 06:00) Magnesium (07/22/23 06:00) Magnesium (07/23/23 06:00) Magnesium (07/24/23 06:00) Magnesium (07/29/23 06:00) Phosphorus (07/22/23 06:00) Phosphorus (07/23/23 06:00) Phosphorus (07/24/23 06:00) Phosphorus (07/29/23 06:00) Triglycerides (07/22/23 06:00) Triglycerides (07/29/23 06:00) Cbc No Diff (07/22/23 06:00) Cbc No Diff (07/29/23 06:00) Consult Wound Care Physician (07/21/23 18:18) Ensure Plus Variety (07/21/23 19:33) Sodium Chloride 14.6% Inj (Sodium Chlori (07/22/23 17:00) 1/2 Ns Iv Solution 1000 Ml (1/2 Ns Iv So (07/22/23 17:00) Patient Visit (07/21/23 ) Dysphagia Evaluation Std (07/21/23 ) Patient Visit (07/21/23 ) Functional Activities, Ea 15 (07/21/23 ) Exercise Therap, Ea 15 Min (07/21/23 ) Sucralfate Tablet (Sucralfate Tablet) (07/22/23 11:00) Famotidine Tablet (Famotidine Tablet) (07/22/23 09:30) Patient Visit (07/22/23 ) Exercise Therap, Ea 15 Min (07/22/23 ) Patient Visit (07/22/23 ) Therapeutic, Group (07/22/23 ) Ekg Tracing (07/22/23 11:41) Nursing Communication (Order) (07/22/23 11:42) Rehab Nursing Orders: Ongoing Assess. of Cognitive Status, Ongoing Assess. of Function Status, Bladder Management, Bladder Scan, Bladder Training, Bowel Management, Bowel Training, Disease Management & Educaiton, DVT Prophylaxis, Fall Prevention, Fluid/Electrolyte/Nutrition Mgmt, Infection Prevention, Medication Management & Education, Management of Risks & Complications, Management of Skin Intergrity, Nutrition Management, Pain Management, Patient/Family Support, Safety Management, Wound Management Intensity of Therapy to be met Patient to be seen: Min.3h per day/5 of 7d PT IPOC Problem List: Activity Tolerance, Functional Strength, Safety, Balance, Transfer Treatment Plan: Continue Plan of Care Bed Mobility, Concurrent Therapy, Education, Functional Activity [place], Functional Strength, Group Therapy, Gait, Safety, Therapeutic Exercise, Transfers Treatment Duration: Aug 04, 2023 Frequency: At least 5 of 7 days/Wk (IRF) Estimated Hrs Per Day: 1.5 hours per day OT IPOC Problems: Decreased Activ Tolerance, Decreased Safety Aware, Decreased UE Strength, Impaired Coordination, Impaired Funct Balance, Impaired I ADL's, Impaired Self-Care Skills OT Treatment, Training and Edu: Yes Plan of Care: ADL Retraining, Caregiver Training, Concurrent Therapy, Functional Mobility, Group Exercise/Act as Ind, UE Funct Exercise/Act Treatment Duration: Aug 18, 2023 Frequency: At least 5 of 7 days/Wk (IRF) Estimated Hrs Per Day: 1.[address] IPOC Speech Therapy Treatment Plan: Continue Plan of Care Treatment Duration: Jul 21, 2023 Frequency: At least 5 of 7 days/Wk (IRF) Estimated Hrs Per Day: .5 hour per day Visual Educator/Case Mgmt Visual Educator/Case Managemen: Discharge Planning Dietitian/Hoe Runner Dietitian/Hoe Runner to monitor nutritional status and make changes and/or recommendations as needed and work with speech pathology on dietary upgrades as the occur. Physician IPOC Medical Issues being managed closely and that require the 24 hour availability of a physician: Recent catastrophic illness with gastric perforation and GIB and laprotomies now maintained on TPN due to poor PO intake along with severe myopathy will require close monitoring of labs and vitals due to risk for decompensation Medical Issues: Bowel/Bladder Function, DVT Prophylaxis, Falls Precautions, Fluid/Electrolyte/Nutrition Balance, Infection Protection, Pain Management, Weight Bearing Precautions, Wound Care Brief Synthesis of Preadmission Screen, Post-Admission Evaluation, and Therapy Evaluations: PT OT will focus on regaining function with the use of AD in order to regain function and independence in ADL's in order to return home Medical Prognosis: Fair Anticipated Length of Stay: 14 days JUDIT KEEN DO Jul 22, 2023 05:32
[2023-07-22] MEDS: THERAPEUTIC MULTIVITAMIN W/MINERALS TABLET PO SCH (05:56)
[2023-07-22 06:20] LABS: BASOPHILS # (AUTO) 0.1 10^3/uL (0.0-0.1); BASOPHILS % (AUTO) 1 % (0-10); EOSINOPHILS # (AUTO) 0.2 10^3/uL (0.0-0.3); EOSINOPHILS % (AUTO) 3 % (0-10); HEMATOCRIT 33 % (35-52); HEMOGLOBIN 10.6 g/dL (11.5-16.0); LYMPHOCYTES # (AUTO) 1.2 10^3/uL (1.0-4.0); LYMPHOCYTES % (AUTO) 15 % (12-44); MEAN CORPUSCULAR HEMOGLOBIN 30 pg (25-34); MEAN CORPUSCULAR HGB CONC 32 g/dL (32-36); MEAN CORPUSCULAR VOLUME 92 fL (80-99); MEAN PLATELET VOLUME 9.8 fL (9.0-12.2); MONOCYTES # (AUTO) 0.5 10^3/uL (0.0-1.0); MONOCYTES % (AUTO) 5 % (0-12); NEUTROPHILS # (AUTO) 6.6 10^3/uL (1.8-7.8); NEUTROPHILS % (AUTO) 76 % (42-75); PLATELET COUNT 336 10^3/uL (130-400); WHITE BLOOD COUNT 8.6 10^3/uL (4.3-11.0)
[2023-07-22 06:28] LABS: ALBUMIN 3.2 GM/DL (3.2-4.5)
[2023-07-22 06:30] LABS: CALCIUM 9.5 MG/DL (8.5-10.1)
[2023-07-22 06:31] LABS: TOTAL PROTEIN 6.6 GM/DL (6.4-8.2)
[2023-07-22 06:32] LABS: BILIRUBIN,TOTAL 0.4 MG/DL (0.1-1.0)
[2023-07-22 06:34] LABS: CREATININE SERUM 0.73 MG/DL (0.60-1.30); PHOSPHORUS 3.9 MG/DL (2.3-4.7)
[2023-07-22 06:38] LABS: MAGNESIUM 1.9 MG/DL (1.6-2.4)
--- NOTE | 2023-07-22 07:10 | Occupational Ther Daily Note ---
OT Current Status-Daily Note Subjective Pt received lying supine in bed. Pt reports that she is feeling sick to her stomach and feels like she may vomit. Pain Numeric Pain Scale: 7 Location Body Site: Abdomen Pain Description: Pressure Mental Status/Objective Patient Orientation: Person, Place, Time, Situation Attachments: IV ADL-Treatment Therapy Code Descriptions/Definitions Functional [place] Measure: 0=Not Assessed/NA 4=Minimal Assistance 1=Total Assistance 5=Supervision or Setup 2=Maximal Assistance 6=Modified [place] 3=Moderate Assistance 7=Complete IndependenceSCALE: Activities may be completed with or without assistive devices. 2-Lgbtidqwgz-dlvapik completes the activity by him/herself with no assistance from a helper. 5-Set-up or Clean-up Assistance-helper sets up or cleans up; patient completes activity. [place] assists only prior to or following the activity. 4-Supervision or Touching Assistance-helper provides verbal cues and/or touching/steadying and/or contact guard assistance as patient completes activity. Assistance may be provided throughout the activity or intermittently. 3-Partial/Moderate Assistance-helper does LESS THAN HALF the effort. [place] lifts, holds or supports trunk or limbs, but provides less than half the effort. 2-Substantial/Maximal Assistance-helper does MORE THAN HALF the effort. [place] lifts or holds trunk or limbs and provides more than half the effort. 6-Yynoyjpnb-hpxdvy does ALL the effort. Patient does none of the effort to complete the activity. Or, the assistance of 2 or more helpers is required for the patient to complete the activity. If activity was not attempted, code reason: 7-Patient Refused. 9-Not Applicable-not attempted and the patient did not perform the activity before the current illness, exacerbation or injury. 10-Not Attempted due to Environmental Limitations-(lack of equipment, weather restraints, etc.). 88-Not Attempted due to Medical Conditions or Safety Concerns. Eating (QC): 5 (sitting EOB ) On/Off Footwear: 3 (Needed assistance with L foot ) Other Treatment Pt completed bed mobility with supervision and no cues for safety. Pt completed functional sitting activity for ~13 minutes in unsupported sitting with supervision and no cues for safety. Standing activities held this session due to pt reporting she "feels like she may vomit." Education OT Patient Education: Correct positioning, Energy conservation, Modified ADL techniques, Progress toward Goal/Update tx plan, Purpose of tx/functional activities, Rehab process, Safety issues, Transfer techniques Teaching Recipient: Patient Teaching Methods: Demonstration, Discussion Response to Teaching: Verbalize Understanding, Return Demonstration OT Short Term Goals Short Term Goals Time Frame: Jul 30, 2023 Eatin Oral hygiene: 5 Toileting hygiene: 5 Shower/bathe self: 4 Upper body dressin Lower body dressin Putting on/taking off footwear: 4 OT Key Punch Teacher Goals Longterm Goals Time Frame: Aug 06, 2023 Acute change in mental status: 0 Inattention: 0 Disorganized thinkin Altered level of consciousness: 0 Eating (QC): 6 Oral Hygiene (QC): 6 Toileting Hygiene (QC): 6 Shower/Bathe Self (QC): 6 Upper Body Dressing (QC): 6 Lower Body Dressing (QC): 6 On/Off Footwear (QC): 6 1=Demonstrate adherence to instructed precautions during ADL tasks. 2=Patient will verbalize/demonstrate understanding of assistive d evices/modifications for ADL. 3=Patient will improve strength/tolerance for activity to enable patient to perform ADL's. OT Education/Plan Problem List/Assessment Assessment: Decreased Activ Tolerance, Decreased Safety Aware, Decreased UE Strength, Impaired Bed Mobility, Impaired Coordination, Impaired Funct Balance, Impaired I ADL's, Impaired Self-Care Skills Discharge Recommendations Plan/Recommendations: Continue POC Treatment Plan/Plan of Care Patient would benefit from OT for education, treatment and training to promote independence in ADL's, mobility, safety and/or upper extremity function for ADL's. Plan of Care: ADL Retraining, Caregiver Training, Concurrent Therapy, Functional Mobility, Group Exercise/Act as Ind, UE Funct Exercise/Act Treatment Duration: Aug 18, 2023 Frequency: At least 5 of 7 days/Wk (IRF) Estimated Hrs Per Day: 1.5 hours per day Agreement: Yes Rehab Potential: Good Time Start Time: 07:00 Stop Time: 07:30 DATE: Jul 22, 2023 Total Time Billed (hr/min): 30 Billed Treatment Time 1, FA 1, ADL 1 Hallie Cortés OTR/L Jul 22, 2023 07:10
[2023-07-22] MEDS: PANTOPRAZOLE 40 MG TABLET PO SCH ×2 (07:15→21:15)
[2023-07-22] MEDS: CALCIUM CARBONATE 500 MG CHEW TABLET PO SCH ×3 (07:15→17:13)
[2023-07-22] MEDS: ONDANSETRON 4 MG ORAL DISSOLVE TABLET PO PRN ×3 (07:15→21:11)
[2023-07-22 07:22] VITALS: BP 152/98
[2023-07-22] MEDS: cefTRIAXone 2,000 MG/NS 50 ML IVPB IV SCH ×2 (07:55)
[2023-07-22] MEDS: APIXABAN 5 MG TABLET PO SCH ×2 (07:58→21:15)
[2023-07-22] MEDS: VANCOMYCIN 125 MG CAPSULE PO SCH ×2 (07:59→21:15)
[2023-07-22] MEDS: FOLIC ACID 1 MG TAB PO SCH (07:59)
[2023-07-22] MEDS: LACTOBACILLUS ACIDOPHILUS (PROBIOTIC) CAPSULE NG SCH ×2 (07:59→21:17)
[2023-07-22] MEDS: VITAMIN D3 25 MCG (1,000 UNITS) TABLET PO SCH (07:59)
[2023-07-22] MEDS: CYANOCOBALAMIN 1,000 MCG TABLET PO SCH (07:59)
--- NOTE | 2023-07-22 08:23 | Physical Therapy Daily Note ---
PT Daily Note-Current Subjective Pt found supine in bed /c RN upon entry. Pt reluctant to participate in PT visit but is co-operative. States that she is having nausea, pain, and heartburn pre- treatment. RN reports pt was given medication for nausea pre-treatment. Pt rates pain 6/10. Pain Section J - Health Conditions 1. Rarely or not at all 2. Occasionally 3. Frequently 4. Almost constantly 8. Unable to answer Pain Effect on Sleep: 1 Pain Interference with Therapy: 1 Pain Interference w/Day-to-Day: 1 Mental Status Patient Orientation: Person, Place Attachments: IV Transfers SCALE: Activities may be completed with or without assistive devices. 8-Fufuilukuc-mgvywmv completes the activity by him/herself with no assistance from a helper. 5-Set-up or Clean-up Assistance-helper sets up or cleans up; patient completes activity. [place] assists only prior to or following the activity. 4-Supervision or Touching Assistance-helper provides verbal cues and/or touching/steadying and/or contact guard assistance as patient completes activity. Assistance may be provided throughout the activity or intermittently. 3-Partial/Moderate Assistance-helper does LESS THAN HALF the effort. [place] lifts, holds or supports trunk or limbs, but provides less than half the effort. 2-Substantial/Maximal Assistance-helper does MORE THAN HALF the effort. [place] lifts or holds trunk or limbs and provides more than half the effort. 1-Dajpbmwgo-pwqxyk does ALL the effort. Patient does none of the effort to complete the activity. Or, the assistance of 2 or more helpers is required for the patient to complete the activity. If activity was not attempted, code reason: 7-Patient Refused. 9-Not Applicable-not attempted and the patient did not perform the activity before the current illness, exacerbation or injury. 10-Not Attempted due to Environmental Limitations-(lack of equipment, weather restraints, etc.). 88-Not Attempted due to Medical Conditions or Safety Concerns. Weight Bearing Right Lower Extremity: Right Full Weight Bearing Left Lower Extremity: Left Full Weight Bearing (Richey) Gait Training Does the Patient Walk?: No and Walking Goal IS indicated Treatments Supine Therapeutic Exercises (B) x 10ea: - SLRs - Quad sets - Glute sets - Hamstring sets - Ankle pumps - Hip abd - Hip add Assessment Current Status: Fair Progress Pt very nauseas throughout visit. Frequent verbal cues required to remain attentive. Pt unwilling to perform transfers at this time but did agree to complete therapeutic exercises. Verbal/tactile cues given for correct performance of exercises. Pt displays very limited muscle endurance and strength throughout. No report of increased pain reported during treatment. Pt left supine in bed /c call light in place and all needs met post-treatment. Continue to progress pt per POC. PT Half-Way Goals Half-Way Goals PT Animal Technician Goals Time Frame: Aug 04, 2023 Roll Left & Right (QC): 6 Sit to Lying (QC): 6 Lying-Sitting on Side/Bed(QC): 6 Sit to Stand (QC): 6 Chair/Pvt-lp-Sjibp Xfer(QC): 6 Toilet Transfer (QC): 6 Car Transfer (QC): 6 Does the Patient Walk: Yes Walk 10 feet (QC): 6 Walk 50ft with 2 Turns (QC): 6 Walk 150 ft (QC): 6 Walking 10ft on Uneven Surface: 6 1 Step (curb) (QC): 6 4 Steps (QC): 6 12 Steps (QC): 6 Picking up an Object (QC): 6 Does the Pt use WC or Scooter?: No Wheel 50 feet with 2 turns (QC: 9 Wheel 150 feet: 9 PT Plan Treatment/Plan Treatment Plan: Continue Plan of Care Treatment Plan: Bed Mobility, Concurrent Therapy, Education, Functional Activity [place], Functional Strength, Group Therapy, Gait, Safety, Therapeutic Exercise, Transfers Treatment Duration: Aug 04, 2023 Frequency: At least 5 of 7 days/Wk (IRF) Estimated Hrs Per Day: 1.5 hours per day Patient and/or Family Agrees t: Yes Time Time In: 0800 Time Out: 0830 DATE: Jul 22, 2023 Total Billed Treatment Time: 30 Total Billed Treatment 1 visit EX x 2 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
[2023-07-22] MEDS: ACETAMINOPHEN 325 MG TABLET PO PRN (08:57)
[2023-07-22] MEDS ORDERED: FAT EMULSION 20% IV SCH (09:00)
[2023-07-22] MEDS ORDERED: [UNRECOGNIZED DRUG - OTHER] PO SCH (09:00)
[2023-07-22] MEDS ORDERED: cefTRIAXone 2,000 MG/NS 50 ML IVPB IV SCH ×2 (09:00)
[2023-07-22] MEDS ORDERED: MULTIVIT THER IRON CA FA PO SCH (09:00)
[2023-07-22] MEDS ORDERED: NON-FORMULARY MEDICATION 1 EA EA (Ceftriaxone Sodium (Ceftriaxone) 2 GM) IV SCH (09:00)
[2023-07-22] MEDS: FAMOTIDINE 20 MG TABLET PO SCH ×2 (09:38→21:16)
[2023-07-22] MEDS ORDERED: FAT EMULSION 20% 250 ML IV SCH (10:00)
[2023-07-22] MEDS: DOCUSATE SODIUM 100 MG CAPSULE PO SCH ×2 (10:51→21:04)
[2023-07-22] MEDS: SENNA W/DOCUSATE TABLET PO SCH ×2 (10:51→21:04)
--- NOTE | 2023-07-22 11:32 | Occ Therapy Progress Note ---
Therapy Progress Note Attempted to see pt for OT, though pt reports that she is feeling very nauseous and is vomiting. RN notified and per Dr. Richey pt is to be placed on medical hold for therapy today due to increased nausea. Will attempt to see pt tomorrow as appropriate. -Hallie Cortés OTR/Hallie Suresh OTR/Eric Jul 22, 2023 11:32
[2023-07-22 11:39] VITALS: BP 160/75
[2023-07-22] MEDS: 1/2 NS IV SOLUTION 1000 ML 1,000 ML IV SCH (16:57)
[2023-07-22] MEDS ORDERED: POTASSIUM CHLORIDE IV SCH ×10 (17:00)
[2023-07-22] MEDS ORDERED: [UNRECOGNIZED DRUG - OTHER] IV SCH ×10 (17:00)
[2023-07-22] MEDS ORDERED: SODIUM CHLORIDE IV SCH ×10 (17:00)
[2023-07-22] MEDS ORDERED: SCOPOLAMINE 1.5 MG PATCH TD ONE (17:30)
[2023-07-22] MEDS ORDERED: METOCLOPRAMIDE INJ 10 MG/2 ML ONE (18:19)
[2023-07-22] MEDS ORDERED: SCOPOLAMINE 1.5 MG PATCH ONE (18:25)
[2023-07-22] MEDS: METOCLOPRAMIDE INJ 10 MG/2 ML IVP PRN (18:26)
[2023-07-22 20:11] VITALS: BP 137/97
[2023-07-22] MEDS: MIRTAZAPINE 15 MG TABLET PO SCH (21:17)
[2023-07-23] MEDS: METOCLOPRAMIDE INJ 10 MG/2 ML IVP PRN (02:04)
[2023-07-23] MEDS: SUCRALFATE 1 GM TABLET PO SCH ×4 (06:12→21:07)
[2023-07-23] MEDS: THERAPEUTIC MULTIVITAMIN W/MINERALS TABLET PO SCH (06:12)
[2023-07-23] MEDS: ONDANSETRON 4 MG ORAL DISSOLVE TABLET PO PRN (06:13)
--- NOTE | 2023-07-23 06:56 | PM&R Progress Note ---
Subjective HPI/CC On Admission Date Seen by Provider: Jul 23, 2023 Time Seen by Provider: 12:30 Subjective/Events-last exam 07/23/2023: Patient doing a lot better Nausea is controlled with scopolamine patch Still not eating at all TPN maintained Dr. Garcia evaluated her wounds and found them to be in good shape 07/22/2023: Slow recovery Dizziness reported so holding therapy TPN starting at 500pm today then Clinimix DC Labs stable Poor appetite No pain Review of Systems General: Fatigue, Malaise Objective Exam Vital Signs Vital Signs Date Time Temp Pulse Resp B/P (MAP) Pulse Ox O2 Delivery O2 Flow Rate FiO2 07/23/23 08:00 36.4 92 16 159/75 (103) 97 Room Air Capillary Refill : General Appearance: No Apparent Distress, WD/WN, Chronically ill HEENT: PERRL/EOMI, Normal ENT Inspection, Pharynx Normal Neck: Full Range of Motion, Normal Inspection, Non Tender, Supple, Carotid Bruit Respiratory: Chest Non Tender, Lungs Clear, Normal Breath Sounds, No Accessory Muscle Use, No Respiratory Distress Cardiovascular: Regular Rate, Rhythm, No Edema, No Gallop, No JVD, No Murmur, Normal Peripheral Pulses Gastrointestinal: Normal Bowel Sounds, No Organomegaly, No Pulsatile Mass, Non Tender, Soft Back: Normal Inspection, No CVA Tenderness, No Vertebral Tenderness Extremity: Normal Capillary Refill, Normal Inspection, Normal Range of Motion, Non Tender, No Calf Tenderness, No Pedal Edema Neurologic/Psychiatric: Alert, Oriented x3, 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 FIM Transfers Therapy Code Descriptions/Definitions Functional [place] Measure: 0=Not Assessed/NA 4=Minimal Assistance 1=Total Assistance 5=Supervision or Setup 2=Maximal Assistance 6=Modified [place] 3=Moderate Assistance 7=Complete IndependenceSCALE: Activities may be completed with or without assistive devices. 7-Tiraobxzai-bqupahn completes the activity by him/herself with no assistance from a helper. 5-Set-up or Clean-up Assistance-helper sets up or cleans up; patient completes activity. [place] assists only prior to or following the activity. 4-Supervision or Touching Assistance-helper provides verbal cues and/or touching/steadying and/or contact guard assistance as patient completes activity. Assistance may be provided throughout the activity or intermittently. 3-Partial/Moderate Assistance-helper does LESS THAN HALF the effort. [place] lifts, holds or supports trunk or limbs, but provides less than half the effort. 2-Substantial/Maximal Assistance-helper does MORE THAN HALF the effort. [place] lifts or holds trunk or limbs and provides more than half the effort. 2-Hrgipudou-rhlfsz does ALL the effort. Patient does none of the effort to complete the activity. Or, the assistance of 2 or more helpers is required for the patient to complete the activity. If activity was not attempted, code reason: 7-Patient Refused. 9-Not Applicable-not attempted and the patient did not perform the activity before the current illness, exacerbation or injury. 10-Not Attempted due to Environmental Limitations-(lack of equipment, weather restraints, etc.). 88-Not Attempted due to Medical Conditions or Safety Concerns. Roll Left to Right (QC): 5 (/c bed rail) Sit to Lying (QC): 4 (cues to use bedrail) Sit to Stand (QC): 3 (Min (A) from EOB and armchair) Chair/Wxs-ul-[place] Xfer(QC): 3 (Min (A) /c FWW) Car Transfer (QC): 3 (mod (A) -- needing more support stand>sit to maintain balance, v.c. to not park walker away from car, min (A) to bring legs up safely due to core weakness) Gait Training Does the Patient Walk?: No and Walking Goal IS indicated Walk 10 feet (QC): 3 (Min (A) /c FWW) Walk 50 ft with 2 Turns(QC): 3 (min (A) /c FWW) Walk 150 ft (QC): 3 (Min (A) /c FWW, assist for more balance during turns due to patient not being familiar with FWW negotiation) Walking 10ft/uneven surface-QC: 3 (Min - Mod (A) of 1 /c FWW) Gait Assistive Device: FWW Wheelchair Training Does the Pt Use a Wheelchair?: No Wheel 50 ft with 2 turns (QC): 9 Wheel 150 ft (QC): 9 Stair Training 1 Step (curb) (QC): 3 (mod (A) /c FWW - weakness noted during step-up phase) 4 Steps (QC): 3 (min (A) /c (B) hand rails, LE weakness noted during step-up phase. Needed to "lauch" off foot on ground level to make it to next step. ) 12 Steps (QC): 3 Balance Picking up an Object (QC): 3 (min-mod (A ) for balance) ADL-Treatment Eating (QC): 5 (sitting EOB ) Oral Hygiene (QC): 4 Shower/Bathe Self (QC): 3 Upper Body Dressing (QC): 3 (to [facility] gown ) Lower Body Dressing (QC): 3 (to don/do brief) On/Off Footwear (QC): 3 (Needed assistance with L foot ) Toileting Hygiene (QC): 4 (in sitting ) Assessment/Plan Assessment and Plan Assess & Plan/Chief Complaint Assessment: Critical illness myopathy Status post gastric perforation from Mobic requiring laparotomy and Greg patch Acute blood loss anemia history Klebsiella pneumonia completing antibiotics Poor nutrition intake maintained on TPN Severe weakness Recent Mohs surgery of nose Atrial fibrillation? Maintain on oral anticoagulation and metoprolol Previous NSTEMI Plan: Aggressive rehab TPN Encourage p.o. intake Monitor closely 07/22/2023: Monitor nutrition PICC line in place Slow recovery 07/23/2023: Encouraged p.o. intake Pain control Nausea controlled (1) Myopathy (2) Duodenal perforation Status: Acute (3) Anasarca Status: Acute (4) Hemorrhagic shock Status: Resolved Resolution Date/Time: 06/10/23 @ 15:29 (5) ABLA (acute blood loss anemia) Status: Acute (6) History of Clostridium difficile infection Status: Chronic (7) Rheumatoid arthritis Status: Chronic (8) Status post skin flap graft Status: Acute JUDIT KEEN DO Jul 23, 2023 06:56
[2023-07-23 07:08] LABS: ALBUMIN 3.4 GM/DL (3.2-4.5); BILIRUBIN,TOTAL 0.4 MG/DL (0.1-1.0); CALCIUM 9.8 MG/DL (8.5-10.1); CREATININE SERUM 0.74 MG/DL (0.60-1.30); MAGNESIUM 1.8 MG/DL (1.6-2.4); PHOSPHORUS 3.8 MG/DL (2.3-4.7); POTASSIUM 3.9 MMOL/L (3.6-5.0); TOTAL PROTEIN 6.6 GM/DL (6.4-8.2)
[2023-07-23 08:00] VITALS: BP 159/75
--- NOTE | 2023-07-23 08:26 | Consultation - Surgery ---
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 Pt recently has c/o of constant heartburn/acid reflux symptoms that is not getting any better. Currently not having heartburn sx, but states that she has heartburn "all the time". Had nausea and vomiting yesterday, but currently denies nausea and vomiting. Denies chest pain, SOA, fever. Allergies and Home Medications Allergies Coded Allergies: No Known Drug Allergies (Unverified , 07/22/18) Patient Home Medication List Aa 4.25%/Calcium/Lytes/Dex 10% (Clinimix E 4.25%-10% Solution) 4.25 % Iv.soln, 1,000 ML IV UD, (Reported) Entered as Reported by: VILMA CAST on 07/21/231153 Last Action: Converted Apixaban (Eliquis) 5 Mg Tablet, 5 MG PO BID, (Reported) Entered as Reported by: VILMA CAST on 07/21/231153 Last Action: Continued Calcium Carbonate (Calcium) 500 Mg Calcium (1250 Mg) Tab.chew, 1,000 MG PO TIDWM, (Reported) Entered as Reported by: VILMA CAST on 07/21/231153 Last Action: Converted Ceftriaxone Sodium (Ceftriaxone) 2 Gram Soln, 2 GM IV DAILY, (Reported) Entered as Reported by: VILMA CAST on 07/21/231153 Last Action: Converted Cholecalciferol (Vitamin D3) (Vitamin D3) 25 Mcg (1000 Unit) Tablet, 25 MCG PO DAILY, (Reported) Entered as Reported by: VILMA CAST on 07/21/231153 Last Action: Continued Cyanocobalamin (Vitamin B-12) (Vitamin B-12) 1,000 Mcg Tablet, 1,000 MCG PO DAILY, (Reported) Entered as Reported by: VILMA CAST on 07/21/231153 Last Action: Continued Fat Emulsions (Intralipid) 20 % Emulsion, 250 ML IV DAILY, (Reported) Entered as Reported by: VILMA CAST on 07/21/231153 Last Action: Continued Folic Acid (Folic Acid) 1 Mg Tablet, 1 MG PO DAILY, (Reported) Entered as Reported by: VILMA CAST on 07/21/231153 Last Action: Continued Heparin Sodium,Porcine/Pf (Heparin Flush 10 Units/ml Syr) 10 Unit/Ml Syringe, 1- 2 UNIT IV UD, (Reported) Entered as Reported by: VILMA CAST on 07/21/231153 Last Action: Converted Lactobacillus Acidophilus/Pect (Acidophilus-Pectin Capsule) 75 Million Cell-100 Mg Capsule, 1 EACH NG BID, (Reported) Entered as Reported by: VILMA CAST on 07/21/231153 Last Action: Continued Metoprolol Succinate (Metoprolol Succinate) 25 Mg Tab.er.24h, 25 MG PO DAILY, (Reported) Entered as Reported by: VILMA CAST on 07/21/231153 Last Action: Continued Mirtazapine (Mirtazapine) 15 Mg Tablet, 15 MG PO HS, (Reported) Entered as Reported by: VILMA CAST on 07/21/231153 Last Action: Converted Multivit,Ther Iron,Ca,FA & Min (Thera-M Caplet) 27 Mg-0.4 Mg Tablet, 1 EACH PO DAILY, (Reported) Entered as Reported by: VILMA CAST on 07/21/231153 Last Action: Converted Pantoprazole Sodium (Pantoprazole Sodium) 40 Mg Tablet.dr, 40 MG PO BID, (Reported) Entered as Reported by: VILMA CAST on 07/21/231153 Last Action: Continued Sucralfate (Carafate) 1 Gram Tablet, 1 GM PO Q6H, (Reported) Entered as Reported by: VILMA CAST on 07/21/231153 Last Action: Continued Vancomycin HCl (Vancomycin HCl) 125 Mg Capsule, 125 MG PO BID, (Reported) Entered as Reported by: VILMA CAST on 07/21/231153 Last Action: Continued Discontinued Medications Biotin (Biotin) 2,500 Mcg Capsule, 2,500 MCG PO DAILY, (Reported) Discontinued Reason: No Longer Taking Entered as Reported by: VILMA CAST on 06/09/231118 Last Action: Discontinued Diphenoxylate HCl/Atropine (Diphenoxylate-Atrop 2.5-0.025) 2.5 Mg-0.025 Mg Tablet, 1 EA PO Q4H PRN for LOOSE STOOLS, (Reported) Discontinued Reason: No Longer Taking Entered as Reported by: VILMA CAST on 06/09/231118 Last Action: Discontinued Famotidine (Famotidine) 20 Mg Tablet, 20 MG PO BID, (Reported) Discontinued Reason: No Longer Taking Entered as Reported by: VILMA CAST on 06/09/231118 Last Action: Discontinued Hydroxychloroquine Sulfate (Hydroxychloroquine Sulfate) 200 Mg Tablet, 200 MG PO BID, (Reported) Discontinued Reason: No Longer Taking Entered as Reported by: VILMA CAST on 06/09/231118 Last Action: Discontinued Methotrexate Sodium (Methotrexate) 2.5 Mg Tablet, 17.5 MG PO SUN, (Reported) Discontinued Reason: No Longer Taking Entered as Reported by: VILMA CAST on 06/09/231118 Last Action: Discontinued Multivitamin (Multivitamin) 1 Each Tablet, 1 EACH PO DAILY, (Reported) Discontinued Reason: Prescription changed Entered as Reported by: VILMA CAST on 06/09/231118 Vancomycin HCl (Firvanq) 25 Mg/Ml Soln.recon, 5 ML PO TID, (Reported) Discontinued Reason: No Longer Taking Entered as Reported by: VILMA CAST on 06/09/231118 Last Action: Discontinued Past Djytwvp-Ikdzkb-Aljvpp Hx Patient Social History Smoking Status: Never a Smoker 2nd Hand Smoke Exposure: No Recent Hopitalizations: No Alcohol Use?: No Immunizations Up To Date Tetanus Booster (TDap): Unknown Date of Influenza Vaccine: May 30, 2018 Seasonal Allergies Seasonal Allergies: No Surgeries History of Surgeries: Yes (Haroldo's ) Surgeries: Abdominal, Section, Tonsillectomy Respiratory History of Respiratory Disorde: No Cardiovascular History of Cardiac Disorders: No Cardiac Disorders: Atrial Fibrillation Neurological History of Neurological Disord: No 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: 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 Genitourinary History of Genitourinary Disor: No Gastrointestinal History of Gastrointestinal Di: No Gastrointestinal Disorders: Gastrointestinal Bleed, C-Diff, Ulcer Musculoskeletal History of Musculoskeletal Dis: Yes Musculoskeletal Disorders: Rheumatoid Arthritis Endocrine History of Endocrine Disorders: No HEENT History of HEENT Disorders: No Cancer History of Cancer: No Psychosocial History of Psychiatric Problem: No Integumentary History of Skin or Integumenta: No Family Medical History Significant Family History: No Pertinent Family Hx Review of Systems-General Constitutional: No chills, No diaphoresis EENTM: No ear discharge, No ear pain Respiratory: No cough, No short of breath Cardiovascular: No chest pain, No palpitations Gastrointestinal: No nausea, No vomiting Genitourinary: No dysuria, No hematuria Musculoskeletal: No back pain, No joint pain Skin: No lesions, No rash Psychiatric/Neurological: Denies Headache, Denies Tremors Physical Exam-General Problems Physical Exam Vital Signs Vital Signs - First Documented 07/21/23 11:40 Temp 36.1 Pulse 78 Resp 16 B/P (MAP) 134/63 (86) Pulse Ox 98 O2 Delivery Room Air Capillary Refill : General Appearance: WD/WN, no apparent distress HEENT: PERRL/EOMI, pharynx normal Neck: non-tender, supple Respiratory: chest non-tender, lungs clear, normal breath sounds, no respiratory distress Cardiovascular: regular rate, rhythm, no murmur Gastrointestinal: non tender, soft, distended Extremities: non-tender, no calf tenderness Neurologic/Psychiatric: alert, normal mood/affect, oriented x 3 Skin: normal color, warm/dry Lymphatic: no adenopathy Data Review Labs Laboratory Tests 07/23/23 06:35: Sodium Level 138, Potassium Level 3.9, Chloride Level 103, Carbon Dioxide Level 22, Anion Gap 13, Blood Urea Nitrogen 21H, Creatinine 0.74, Estimat Glomerular Filtration Rate 85, BUN/Creatinine Ratio 28, Glucose Level 124H, Calcium Level 9.8, Corrected Calcium 10.3H, Phosphorus Level 3.8, Magnesium Level 1.8, Total Bilirubin 0.4, Aspartate Amino Transf (AST/SGOT) 26, Alanine Aminotransferase (ALT/SGPT) 17, Alkaline Phosphatase 124, Total Protein 6.6, Albumin 3.4 Assessment/Plan Assessment/Plan Assessment/Plan Assessment: GERD or possible stress ulcer Plan: Protonix Carafate Elevate head of bed at night and sitting up 90 degrees when eating Outpatient EGD warranted if no improvement of symptoms FABIOLA GARCIA DO 07/23/23 1545: History of Present Illness History of Present Illness History of Present Illness 73 year old female known to me for hollow viscus perforation and gastroduodenal artery bleed requiring ligation and greg patch. Long hospital course. Improved and was transferred to [place]. Here now for rehab. Patient having more contant heartuburn and reflux symptoms yesterday. Was having some nausea and vomiting yesterday due to reflux. Patient started on Protonix and now feeling better. Also on pepcid. Taking minimal oral intake, so also on TPN. Has two wound midline abdomen that are packed. No family at bedside at this time. Allergies and Home Medications Allergies Coded Allergies: No Known Drug Allergies (Unverified , 07/22/18) Patient Home Medication List Home Medication List Reviewed: Yes Aa 4.25%/Calcium/Lytes/Dex 10% (Clinimix E 4.25%-10% Solution) 4.25 % Iv.soln, 1,000 ML IV UD, (Reported) Entered as Reported by: VILMA CAST on 07/21/231153 Last Action: Converted Apixaban (Eliquis) 5 Mg Tablet, 5 MG PO BID, (Reported) Entered as Reported by: VILMA CAST on 07/21/231153 Last Action: Continued Calcium Carbonate (Calcium) 500 Mg Calcium (1250 Mg) Tab.chew, 1,000 MG PO TIDWM, (Reported) Entered as Reported by: VILMA CAST on 07/21/231153 Last Action: Converted Ceftriaxone Sodium (Ceftriaxone) 2 Gram Soln, 2 GM IV DAILY, (Reported) Entered as Reported by: VILMA CAST on 07/21/231153 Last Action: Converted Cholecalciferol (Vitamin D3) (Vitamin D3) 25 Mcg (1000 Unit) Tablet, 25 MCG PO DAILY, (Reported) Entered as Reported by: VILMA CAST on 07/21/231153 Last Action: Continued Cyanocobalamin (Vitamin B-12) (Vitamin B-12) 1,000 Mcg Tablet, 1,000 MCG PO DAILY, (Reported) Entered as Reported by: VILMA CAST on 07/21/231153 Last Action: Continued Fat Emulsions (Intralipid) 20 % Emulsion, 250 ML IV DAILY, (Reported) Entered as Reported by: VILMA CAST on 07/21/231153 Last Action: Continued Folic Acid (Folic Acid) 1 Mg Tablet, 1 MG PO DAILY, (Reported) Entered as Reported by: VILMA CAST on 07/21/231153 Last Action: Continued Heparin Sodium,Porcine/Pf (Heparin Flush 10 Units/ml Syr) 10 Unit/Ml Syringe, 1- 2 UNIT IV UD, (Reported) Entered as Reported by: VLIMA CAST on 07/21/231153 Last Action: Converted Lactobacillus Acidophilus/Pect (Acidophilus-Pectin Capsule) 75 Million Cell-100 Mg Capsule, 1 EACH NG BID, (Reported) Entered as Reported by: VILMA CAST on 07/21/231153 Last Action: Continued Metoprolol Succinate (Metoprolol Succinate) 25 Mg Tab.er.24h, 25 MG PO DAILY, (Reported) Entered as Reported by: VILMA CAST on 07/21/231153 Last Action: Continued Mirtazapine (Mirtazapine) 15 Mg Tablet, 15 MG PO HS, (Reported) Entered as Reported by: VILMA CAST on 07/21/231153 Last Action: Converted Multivit,Ther Iron,Ca,FA & Min (Thera-M Caplet) 27 Mg-0.4 Mg Tablet, 1 EACH PO DAILY, (Reported) Entered as Reported by: VILMA CAST on 07/21/231153 Last Action: Converted Pantoprazole Sodium (Pantoprazole Sodium) 40 Mg Tablet.dr, 40 MG PO BID, (Reported) Entered as Reported by: VILMA CAST on 07/21/231153 Last Action: Continued Sucralfate (Carafate) 1 Gram Tablet, 1 GM PO Q6H, (Reported) Entered as Reported by: VILMA CAST on 07/21/231153 Last Action: Continued Vancomycin HCl (Vancomycin HCl) 125 Mg Capsule, 125 MG PO BID, (Reported) Entered as Reported by: VILMA CAST on 07/21/231153 Last Action: Continued Discontinued Medications Biotin (Biotin) 2,500 Mcg Capsule, 2,500 MCG PO DAILY, (Reported) Discontinued Reason: No Longer Taking Entered as Reported by: VILMA CAST on 06/09/231118 Last Action: Discontinued Diphenoxylate HCl/Atropine (Diphenoxylate-Atrop 2.5-0.025) 2.5 Mg-0.025 Mg Tablet, 1 EA PO Q4H PRN for LOOSE STOOLS, (Reported) Discontinued Reason: No Longer Taking Entered as Reported by: VILMA CAST on 06/09/231118 Last Action: Discontinued Famotidine (Famotidine) 20 Mg Tablet, 20 MG PO BID, (Reported) Discontinued Reason: No Longer Taking Entered as Reported by: VILMA CAST on 06/09/231118 Last Action: Discontinued Hydroxychloroquine Sulfate (Hydroxychloroquine Sulfate) 200 Mg Tablet, 200 MG PO BID, (Reported) Discontinued Reason: No Longer Taking Entered as Reported by: VILMA CAST on 06/09/231118 Last Action: Discontinued Methotrexate Sodium (Methotrexate) 2.5 Mg Tablet, 17.5 MG PO SUN, (Reported) Discontinued Reason: No Longer Taking Entered as Reported by: VILMA CAST on 06/09/231118 Last Action: Discontinued Multivitamin (Multivitamin) 1 Each Tablet, 1 EACH PO DAILY, (Reported) Discontinued Reason: Prescription changed Entered as Reported by: VILMA CAST on 06/09/231118 Vancomycin HCl (Firvanq) 25 Mg/Ml Soln.recon, 5 ML PO TID, (Reported) Discontinued Reason: No Longer Taking Entered as Reported by: VILMA CAST on 06/09/231118 Last Action: Discontinued Past Hhnravk-Iiwkwr-Wctten Hx Reviewed Nursing Assessment Reviewed/Agree w Nursing PMH: Yes Family Medical History Significant Family History: No Pertinent Family Hx Review of Systems-General Constitutional: No chills, No diaphoresis EENTM: No blurred vision, No double vision Respiratory: No cough, No short of breath Cardiovascular: No chest pain, No palpitations Gastrointestinal: No nausea, No vomiting; other (heartburn) Genitourinary: No decreased output, No discharge Musculoskeletal: No back pain, No joint pain Skin: No change in color, No change in hair/nails Psychiatric/Neurological: Denies Anxiety, Denies Depressed, Denies Emotional Problems All Other Systems Reviewed Negative Unless Noted: Yes (Negative excepted noted.) Physical Exam-General Problems Physical Exam General Appearance: no apparent distress, other (chronically ill appearing) HEENT: PERRL/EOMI, other (skin flap to nose, with healing scar forehead) Neck: non-tender Respiratory: chest non-tender, no respiratory distress Cardiovascular: regular rate, rhythm, no JVD Gastrointestinal: non tender, soft; No distended; other (midline upper abomden two openings packed, granulationg tissue growing in) Rectal: deferred Back: normal inspection, no CVA tenderness Extremities: non-tender, no calf tenderness Neurologic/Psychiatric: alert, oriented x 3, depressed affect Skin: normal color, warm/dry Lymphatic: no adenopathy Assessment/Plan Assessment/Plan Assessment/Plan GERD Status post duodenal perforation requiring laparotomy ligation of vessel and Greg patch Acute blood loss anemia history Klebsiella pneumonia completing antibiotics Poor nutrition intake maintained on TPN Severe weakness Recent Mohs surgery of nose Atrial fibrillation? Maintain on oral anticoagulation and metoprolol History NSTEMI Abdominal wounds Protonix/Pepcid, if not controlled will add carafate Tpn due to poor oral intake Needs daily dressing changes to abdominal wounds Supervisory-Addendum Brief Verification & Attestation Participated in pt care: history, MDM, physical Personally performed: exam, history, MDM, supervision of care Care discussed with: Medical Student Procedures: n/a Results interpretation: Verified all documentation Verification and Attestation of Medical Student E/M Service A medical student performed and documented this service in my presence. I reviewed and verified all information documented by the medical student and made modifications to such information, when appropriate. I personally performed the physical exam and medical decision making. Fabiola Garcia, Jul 23, 2023,15:49 NELDA SOFIA Jul 23, 2023 08:26 FABIOLA GARCIA DO Jul 23, 2023 15:45
[2023-07-23] MEDS: CYANOCOBALAMIN 1,000 MCG TABLET PO SCH (09:13)
[2023-07-23] MEDS: CALCIUM CARBONATE 500 MG CHEW TABLET PO SCH ×3 (09:13→17:15)
[2023-07-23] MEDS: PANTOPRAZOLE 40 MG TABLET PO SCH ×2 (09:13→21:07)
[2023-07-23] MEDS: FAMOTIDINE 20 MG TABLET PO SCH (09:13)
[2023-07-23] MEDS: VITAMIN D3 25 MCG (1,000 UNITS) TABLET PO SCH (09:14)
[2023-07-23] MEDS: APIXABAN 5 MG TABLET PO SCH ×2 (09:14→21:07)
[2023-07-23] MEDS: VANCOMYCIN 125 MG CAPSULE PO SCH ×2 (09:14→21:07)
[2023-07-23] MEDS: LACTOBACILLUS ACIDOPHILUS (PROBIOTIC) CAPSULE NG SCH ×2 (09:14→21:07)
[2023-07-23] MEDS: FOLIC ACID 1 MG TAB PO SCH (09:14)
[2023-07-23] MEDS: DOCUSATE SODIUM 100 MG CAPSULE PO SCH ×2 (09:15→21:08)
[2023-07-23] MEDS: cefTRIAXone 2,000 MG/NS 50 ML IVPB IV SCH ×2 (09:15)
[2023-07-23] MEDS: SENNA W/DOCUSATE TABLET PO SCH ×2 (09:15→21:08)
[2023-07-23] MEDS ORDERED: SCOPOLAMINE 1.5 MG PATCH TD PRN (12:45)
[2023-07-23] MEDS ORDERED: SCOPOLAMINE PATCH REMOVAL TP PRN (13:00)
--- NOTE | 2023-07-23 13:00 | Speech Therapy Daily Note ---
Speech Daily Progress Note Subjective Date Seen by Provider: Jul 23, 2023 Time Seen by Provider: 09:45 Pt agreeable to session. Objective Pt completes oral care this AM with FUNERAL HOME MANAGER present, due decrease bacteria in mouth for continued PO intake. Pt reports that her taste and smell continues to be off and she has not appetite. Pt states she does not like the taste of Ensures or Boost. Assessment Assessment Current Status: Fair Progress Treatment Plan Continue Plan of Care Speech Fpc Goals Fpc Goals Pt will complete OMEs with 90% accuracy, to increase lingual strength for ef fective bolus formation and to reduce the risk of aspiration/penetration during PO intake. Pt will demonstrate adequate use of swallow guidelines to eliminate the risk of aspiration/penetration during PO intake with 90% accuracy and no cues. Speech-Plan Treatment Plan Speech Therapy Treatment Plan: Continue Plan of Care Treatment Duration: Jul 21, 2023 Frequency: At least 5 of 7 days/Wk (IRF) Estimated Hrs Per Day: .5 hour per day Rehab Potential: Fair Time Speech Therapy Time In: 09:45 Speech Therapy Time Out: 10:15 DATE: Jul 23, 2023 Total Billed Time: 30 Billed Treatment Time 1 DYST 30 min Darlyn Mckeon Jul 23, 2023 13:00
[2023-07-23] MEDS: NYSTATIN ORAL SUSP 5 ML UDC PO SCH ×3 (13:47→21:07)
--- NOTE | 2023-07-23 14:35 | Occupational Ther Daily Note ---
OT Current Status-Daily Note Subjective Pt received lying supine in bed. Pt reports that she is feeling much better today and is pleasant and willing to participate in therapy. Pain Numeric Pain Scale: 7 Location Body Site: Abdomen Mental Status/Objective Patient Orientation: Person, Place, Time, Situation Attachments: IV ([facility]) ADL-Treatment Therapy Code Descriptions/Definitions Functional Butler Measure: 0=Not Assessed/NA 4=Minimal Assistance 1=Total Assistance 5=Supervision or Setup 2=Maximal Assistance 6=Modified Butler 3=Moderate Assistance 7=Complete IndependenceSCALE: Activities may be completed with or without assistive devices. 7-Iomhfpaigr-mctghix completes the activity by him/herself with no assistance from a helper. 5-Set-up or Clean-up Assistance-helper sets up or cleans up; patient completes activity. [place] assists only prior to or following the activity. 4-Supervision or Touching Assistance-helper provides verbal cues and/or touching/steadying and/or contact guard assistance as patient completes activity. Assistance may be provided throughout the activity or intermittently. 3-Partial/Moderate Assistance-helper does LESS THAN HALF the effort. Vinton lifts, holds or supports trunk or limbs, but provides less than half the effort. 2-Substantial/Maximal Assistance-helper does MORE THAN HALF the effort. Vinton lifts or holds trunk or limbs and provides more than half the effort. 5-Wubaddldg-pvbblu does ALL the effort. Patient does none of the effort to compl ete the activity. Or, the assistance of 2 or more helpers is required for the patient to complete the activity. If activity was not attempted, code reason: 7-Patient Refused. 9-Not Applicable-not attempted and the patient did not perform the activity before the current illness, exacerbation or injury. 10-Not Attempted due to Environmental Limitations-(lack of equipment, weather restraints, etc.). 88-Not Attempted due to Medical Conditions or Safety Concerns. Upper Body Dressing (QC): 4 (to don/doff tshirt) Lower Body Dressing (QC): 2 (to don/doff brief and pants; requiring assistance to thread legs through pants and pull up her legs. ) On/Off Footwear: 2 (to don/doff hospital socks) Other Treatment PT/OT cotreat completed due to the need for two skilled therapists to increase safety during high level activities. OT focused on activity tolerance, ADL independence, UE strength and functional balance. Please refer to the PT note for details following PT care. Pt completed functional mobility for ~100ft, 60ft with FWW and supervision for balance, requiring mod cues for safety. Pt completed dynamic standing activity for ~2 minutes x3 with supervision and min cues for safety. Pt requiring extensive rest breaks throughout session due to fatigue. Education OT Patient Education: Correct positioning, Energy conservation, Modified ADL techniques, Progress toward Goal/Update tx plan, Purpose of tx/functional activities, Rehab process, Safety issues, Transfer techniques, Use of adapted equipment, W/C management Teaching Recipient: Patient Teaching Methods: Demonstration, Discussion Response to Teaching: Verbalize Understanding, Return Demonstration OT Short Term Goals Short Term Goals Time Frame: Jul 30, 2023 Eatin Oral hygiene: 5 Toileting hygiene: 5 Shower/bathe self: 4 Upper body dressin Lower body dressin Putting on/taking off footwear: 4 OT Electronic Engineering Draftsperson Goals Electronic Engineering Draftsperson Goals Time Frame: Aug 06, 2023 Acute change in mental status: 0 Inattention: 0 Disorganized thinkin Altered level of consciousness: 0 Eating (QC): 6 Oral Hygiene (QC): 6 Toileting Hygiene (QC): 6 Shower/Bathe Self (QC): 6 Upper Body Dressing (QC): 6 Lower Body Dressing (QC): 6 On/Off Footwear (QC): 6 1=Demonstrate adherence to instructed precautions during ADL tasks. 2=Patient will verbalize/demonstrate understanding of assistive devices/modifications for ADL. 3=Patient will improve strength/tolerance for activity to enable patient to perform ADL's. OT Education/Plan Problem List/Assessment Assessment: Decreased Activ Tolerance, Decreased Safety Aware, Decreased UE Strength, Impaired Bed Mobility, Impaired Coordination, Impaired Funct Balance, Impaired I ADL's, Impaired Self-Care Skills Discharge Recommendations Plan/Recommendations: Continue POC Treatment Plan/Plan of Care Treatment,Training & Education: Yes Patient would benefit from OT for education, treatment and training to promote independence in ADL's, mobility, safety and/or upper extremity function for ADL's. Plan of Care: ADL Retraining, Caregiver Training, Concurrent Therapy, Functional Mobility, Group Exercise/Act as Ind, UE Funct Exercise/Act Treatment Duration: Aug 18, 2023 Frequency: At least 5 of 7 days/Wk (IRF) Estimated Hrs Per Day: 1.5 hours per day Agreement: Yes Rehab Potential: Fair Time Start Time: 11:05 (OT/PT Co-treat [id number]) Stop Time: 12:05 DATE: Jul 23, 2023 Total Time Billed (hr/min): 60 Billed Treatment Time 1, ADL 2, FA 2 Hallie Cortés OTR/L Jul 23, 2023 14:35
--- NOTE | 2023-07-23 16:04 | Physical Therapy Daily Note ---
PT Daily Note-Current Subjective Pt laying Supine in bed upon arrival. Pt agrees to PT but reports very fatigued today. Pain Numeric Pain Scale: 7 Location Body Site: Abdomen Pain Description: Ache Section J - Health Conditions 1. Rarely or not at all 2. Occasionally 3. Frequently 4. Almost constantly 8. Unable to answer Pain Effect on Sleep: 1 Pain Interference with Therapy: 1 Pain Interference w/Day-to-Day: 1 Mental Status Patient Orientation: Person, Place Attachments: IV ([facility]) Transfers SCALE: Activities may be completed with or without assistive devices. 7-Fdkmtwwhar-abpfjtv completes the activity by him/herself with no assistance from a helper. 5-Set-up or Clean-up Assistance-helper sets up or cleans up; patient completes activity. [place] assists only prior to or following the activity. 4-Supervision or Touching Assistance-helper provides verbal cues and/or touching/steadying and/or contact guard assistance as patient completes activity. Assistance may be provided throughout the activity or intermittently. 3-Partial/Moderate Assistance-helper does LESS THAN HALF the effort. [place] li fts, holds or supports trunk or limbs, but provides less than half the effort. 2-Substantial/Maximal Assistance-helper does MORE THAN HALF the effort. [place] lifts or holds trunk or limbs and provides more than half the effort. 3-Acqbdxmvi-zgebtm does ALL the effort. Patient does none of the effort to complete the activity. Or, the assistance of 2 or more helpers is required for the patient to complete the activity. If activity was not attempted, code reason: 7-Patient Refused. 9-Not Applicable-not attempted and the patient did not perform the activity before the current illness, exacerbation or injury. 10-Not Attempted due to Environmental Limitations-(lack of equipment, weather restraints, etc.). 88-Not Attempted due to Medical Conditions or Safety Concerns. Weight Bearing Right Lower Extremity: Right Full Weight Bearing Left Lower Extremity: Left Full Weight Bearing ([place]) Treatments PT/OT cotreat completed due to the need for two skilled therapists to increase safety during high level activities. OT focused on activity tolerance, ADL independence, UE strength and functional balance. PT focused on transfers, ambulation, LE strengthening as well as dynamic standing balance. Pt completed functional mobility for ~100ft, 60ft with FWW and supervision for balance, requiring mod cues for safety. Pt completed dynamic standing activity for ~2 minutes x3 with supervision and min cues for safety. Pt requiring extensive rest breaks throughout session due to fatigue. Pt wheeled back to room to rest. Pt completes SPT from w/c to recliner to rest before lunch. All needs met, call light next to pt. Assessment Current Status: Fair Progress Pt fatigues easily and needs frequent RB. Pt is impulsive at times and needs VC for safety and sequencing carlo. during transfers. PT Can Piler Goals [facility] Goals PT [facility] Goals Time Frame: Aug 04, 2023 Roll Left & Right (QC): 6 Sit to Lying (QC): 6 Lying-Sitting on Side/Bed(QC): 6 Sit to Stand (QC): 6 Chair/Rnr-at-Wjcqc Xfer(QC): 6 Toilet Transfer (QC): 6 Car Transfer (QC): 6 Does the Patient Walk: Yes Walk 10 feet (QC): 6 Walk 50ft with 2 Turns (QC): 6 Walk 150 ft (QC): 6 Walking 10ft on Uneven Surface: 6 1 Step (curb) (QC): 6 4 Steps (QC): 6 12 Steps (QC): 6 Picking up an Object (QC): 6 Does the Pt use WC or Scooter?: No Wheel 50 feet with 2 turns (QC: 9 Wheel 150 feet: 9 PT Plan Problem List Problem List: Activity Tolerance, Functional Strength, Safety, Gait, Transfer Treatment/Plan Treatment Plan: Continue Plan of Care Treatment Plan: Bed Mobility, Concurrent Therapy, Education, Functional Activity [place], Functional Strength, Group Therapy, Gait, Safety, Therapeutic Exercise, Transfers Treatment Duration: Aug 04, 2023 Frequency: At least 5 of 7 days/Wk (IRF) Estimated Hrs Per Day: 1.5 hours per day Patient and/or Family Agrees t: Yes Safety Risks/Education Patient Education: Gait Training, Transfer Techniques, Correct Positioning, Safety Issues Teaching Recipient: Patient Teaching Methods: Discussion Response to Teaching: Verbalize Understanding Time Time In: 1100 Time Out: 1200 DATE: Jul 23, 2023 Total Billed Treatment Time: 60 Total Billed Treatment 1, FA x3 (40m) & GT (20m) DIANE KENYON MEDICAL SURGICAL TECH Jul 23, 2023 16:04
--- NOTE | 2023-07-23 16:22 | Physical Therapy Daily Note ---
PT Daily Note-Current Subjective Pt asleep in bed upon arrival. Pt is very drowsy and difficult to keep awake. Pain Section J - Health Conditions 1. Rarely or not at all 2. Occasionally 3. Frequently 4. Almost constantly 8. Unable to answer Pain Effect on Sleep: 1 Pain Interference with Therapy: 1 Pain Interference w/Day-to-Day: 1 Mental Status Patient Orientation: Person, Place Transfers SCALE: Activities may be completed with or without assistive devices. 2-Nbjoyrmgum-cfyuedv completes the activity by him/herself with no assistance from a helper. 5-Set-up or Clean-up Assistance-helper sets up or cleans up; patient completes activity. [place] assists only prior to or following the activity. 4-Supervision or Touching Assistance-helper provides verbal cues and/or touching/steadying and/or contact guard assistance as patient completes activity. Assistance may be provided throughout the activity or intermittently. 3-Partial/Moderate Assistance-helper does LESS THAN HALF the effort. [place] lifts, holds or supports trunk or limbs, but provides less than half the effort. 2-Substantial/Maximal Assistance-helper does MORE THAN HALF the effort. [place] lifts or holds trunk or limbs and provides more than half the effort. 7-Mxcdtjcqr-lmprwt does ALL the effort. Patient does none of the effort to complete the activity. Or, the assistance of 2 or more helpers is required for the patient to complete the activity. If activity was not attempted, code reason: 7-Patient Refused. 9-Not Applicable-not attempted and the patient did not perform the activity before the current illness, exacerbation or injury. 10-Not Attempted due to Environmental Limitations-(lack of equipment, weather restraints, etc.). 88-Not Attempted due to Medical Conditions or Safety Concerns. Weight Bearing Right Lower Extremity: Right Full Weight Bearing Left Lower Extremity: Left Full Weight Bearing ([place]) Exercises Supine Ex: Ankle pumps, Quad Set, Glut sets, Heel Slides, Short Arc Quads, Straight leg raise, Hip abd/add Supine Reps: 15 Treatments Pt completes Supine EX w/RB as needed. Pt returns to sleeping by end of tx. All needs met, call light next to pt. Assessment Current Status: Fair Progress Pt difficult to keep awake. Pt fatigues easily this afternoon. PT Intermediate Goals Intermediate Goals PT Income Tax Advisor Goals Time Frame: Aug 04, 2023 Roll Left & Right (QC): 6 Sit to Lying (QC): 6 Lying-Sitting on Side/Bed(QC): 6 Sit to Stand (QC): 6 Chair/Uop-gp-Cxuhb Xfer(QC): 6 Toilet Transfer (QC): 6 Car Transfer (QC): 6 Does the Patient Walk: Yes Walk 10 feet (QC): 6 Walk 50ft with 2 Turns (QC): 6 Walk 150 ft (QC): 6 Walking 10ft on Uneven Surface: 6 1 Step (curb) (QC): 6 4 Steps (QC): 6 12 Steps (QC): 6 Picking up an Object (QC): 6 Does the Pt use WC or Scooter?: No Wheel 50 feet with 2 turns (QC: 9 Wheel 150 feet: 9 PT Plan Problem List Problem List: Activity Tolerance, Functional Strength Treatment/Plan Treatment Plan: Continue Plan of Care Treatment Plan: Bed Mobility, Concurrent Therapy, Education, Functional Activity Dash[place], Functional Strength, Group Therapy, Gait, Safety, Therapeutic Exercise, Transfers Treatment Duration: Aug 04, 2023 Frequency: At least 5 of 7 days/Wk (IRF) Estimated Hrs Per Day: 1.5 hours per day Patient and/or Family Agrees t: Yes Safety Risks/Education Patient Education: Correct Positioning Teaching Recipient: Patient Teaching Methods: Demonstration, Discussion Response to Teaching: Verbalize Understanding, Return Demonstration Time Time In: 1410 Time Out: 1440 DATE: Jul 23, 2023 Total Billed Treatment Time: 30 Total Billed Treatment 1, EX x2 (30m) DIANE KENYON PTA Jul 23, 2023 16:22
[2023-07-23] MEDS: POTASSIUM CHLORIDE IV SCH ×10 (17:34)
[2023-07-23] MEDS: SODIUM CHLORIDE IV SCH ×10 (17:34)
[2023-07-23] MEDS: [UNRECOGNIZED DRUG - OTHER] IV SCH ×10 (17:34)
[2023-07-23] MEDS: 1/2 NS IV SOLUTION 1000 ML 1,000 ML IV SCH (17:46)
[2023-07-23 20:08] VITALS: BP 136/63
[2023-07-23] MEDS: MIRTAZAPINE 15 MG TABLET PO SCH (21:07)
[2023-07-24] MEDS: ACETAMINOPHEN 325 MG TABLET PO PRN (03:29)
[2023-07-24] MEDS: THERAPEUTIC MULTIVITAMIN W/MINERALS TABLET PO SCH (05:40)
[2023-07-24] MEDS: SUCRALFATE 1 GM TABLET PO SCH ×4 (05:40→21:11)
[2023-07-24 06:33] LABS: BILIRUBIN,TOTAL 0.3 MG/DL (0.1-1.0); CALCIUM 8.9 MG/DL (8.5-10.1); CREATININE SERUM 0.66 MG/DL (0.60-1.30); MAGNESIUM 1.8 MG/DL (1.6-2.4); PHOSPHORUS 2.3 MG/DL (2.3-4.7); POTASSIUM 3.9 MMOL/L (3.6-5.0); TOTAL PROTEIN 5.8 GM/DL (6.4-8.2)
--- NOTE | 2023-07-24 06:33 | PM&R Progress Note ---
Subjective HPI/CC On Admission Date Seen by Provider: Jul 24, 2023 Time Seen by Provider: 12:30 Subjective/Events-last exam 07/24/2023: Patient doing much better Up in a chair visiting with family She did eat a little bit more Will order hydrocodone and Ultram for pain but she must eat before to avoid nausea 07/23/2023: Patient doing a lot better Nausea is controlled with scopolamine patch Still not eating at all TPN maintained Dr. Garcia evaluated her wounds and found them to be in good shape 07/22/2023: Slow recovery Dizziness reported so holding therapy TPN starting at 500pm today then Clinimix DC Labs stable Poor appetite No pain Review of Systems General: Fatigue, Malaise Objective Exam Vital Signs Vital Signs Date Time Temp Pulse Resp B/P (MAP) Pulse Ox O2 Delivery O2 Flow Rate FiO2 07/24/23 21:15 96 Room Air 07/24/23 19:51 36.5 70 16 143/67 (92) Capillary Refill : General Appearance: No Apparent Distress, WD/WN, Chronically ill HEENT: PERRL/EOMI, Normal ENT Inspection, Pharynx Normal Neck: Full Range of Motion, Normal Inspection, Non Tender, Supple, Carotid Bruit Respiratory: Chest Non Tender, Lungs Clear, Normal Breath Sounds, No Accessory Muscle Use, No Respiratory Distress Cardiovascular: Regular Rate, Rhythm, No Edema, No Gallop, No JVD, No Murmur, Normal Peripheral Pulses Gastrointestinal: Normal Bowel Sounds, No Organomegaly, No Pulsatile Mass, Non Tender, Soft Back: Normal Inspection, No CVA Tenderness, No Vertebral Tenderness Extremity: Normal Capillary Refill, Normal Inspection, Normal Range of Motion, Non Tender, No Calf Tenderness, No Pedal Edema Neurologic/Psychiatric: Alert, Oriented x3, cotton opener II-XII Norm as Tested, Abnormal Gait, Depressed Affect, Motor Weakness (Severe 3/5) Skin: Normal Color, Warm/Dry Lymphatic: No Adenopathy Results/Procedures Lab Patient resulted labs reviewed. FIM Transfers Therapy Code Descriptions/Definitions Functional [place] Measure: 0=Not Assessed/NA 4=Minimal Assistance 1=Total Assistance 5=Supervision or Setup 2=Maximal Assistance 6=Modified [place] 3=Moderate Assistance 7=Complete IndependenceSCALE: Activities may be completed with or without assistive devices. 1-Jggnbfdeip-mekewwj completes the activity by him/herself with no assistance from a helper. 5-Set-up or Clean-up Assistance-helper sets up or cleans up; patient completes activity. [place] assists only prior to or following the activity. 4-Supervision or Touching Assistance-helper provides verbal cues and/or touching/steadying and/or contact guard assistance as patient completes activity. Assistance may be provided throughout the activity or intermittently. 3-Partial/Moderate Assistance-helper does LESS THAN HALF the effort. [place] lifts, holds or supports trunk or limbs, but provides less than half the effort. 2-Substantial/Maximal Assistance-helper does MORE THAN HALF the effort. [place] lifts or holds trunk or limbs and provides more than half the effort. 7-Hjnsqfllg-kqhgbf does ALL the effort. Patient does none of the effort to complete the activity. Or, the assistance of 2 or more helpers is required for the patient to complete the activity. If activity was not attempted, code reason: 7-Patient Refused. 9-Not Applicable-not attempted and the patient did not perform the activity before the current illness, exacerbation or injury. 10-Not Attempted due to Environmental Limitations-(lack of equipment, weather restraints, etc.). 88-Not Attempted due to Medical Conditions or Safety Concerns. Roll Left to Right (QC): 5 (/c bed rail) Sit to Lying (QC): 4 (cues to use bedrail) Sit to Stand (QC): 3 (Min (A) from EOB and armchair) Chair/Xee-ah-Hkyvn Xfer(QC): 3 (Min (A) /c FWW) Car Transfer (QC): 3 (mod (A) -- needing more support stand>sit to maintain balance, v.c. to not park walker away from car, min (A) to bring legs up safely due to core weakness) Gait Training Does the Patient Walk?: No and Walking Goal IS indicated Walk 10 feet (QC): 3 (Min (A) /c FWW) Walk 50 ft with 2 Turns(QC): 3 (min (A) /c FWW) Walk 150 ft (QC): 3 (Min (A) /c FWW, assist for more balance during turns due to patient not being familiar with FWW negotiation) Walking 10ft/uneven surface-QC: 3 (Min - Mod (A) of 1 /c FWW) Gait Assistive Device: FWW Wheelchair Training Does the Pt Use a Wheelchair?: No Wheel 50 ft with 2 turns (QC): 9 Wheel 150 ft (QC): 9 Stair Training 1 Step (curb) (QC): 3 (mod (A) /c FWW - weakness noted during step-up phase) 4 Steps (QC): 3 (min (A) /c (B) hand rails, LE weakness noted during step-up phase. Needed to "lauch" off foot on ground level to make it to next step. ) 12 Steps (QC): 3 Balance Picking up an Object (QC): 3 (min-mod (A ) for balance) ADL-Treatment Eating (QC): 5 (sitting EOB ) Oral Hygiene (QC): 4 Shower/Bathe Self (QC): 3 Upper Body Dressing (QC): 4 (to don/doff tshirt) Lower Body Dressing (QC): 2 (to don/doff brief and pants; requiring assistance to thread legs through pants and pull up her legs. ) On/Off Footwear (QC): 2 (to don/doff hospital socks) Toileting Hygiene (QC): 4 (in sitting ) Assessment/Plan Assessment and Plan Assess & Plan/Chief Complaint Assessment: Critical illness myopathy Status post gastric perforation from Mobic requiring laparotomy and Greg patch Acute blood loss anemia history Klebsiella pneumonia completing antibiotics Poor nutrition intake maintained on TPN Severe weakness Recent Mohs surgery of nose Atrial fibrillation? Maintain on oral anticoagulation and metoprolol Previous NSTEMI Food aversion Plan: Aggressive rehab TPN Encourage p.o. intake Monitor closely 07/22/2023: Monitor nutrition PICC line in place Slow recovery 07/23/2023: Encouraged p.o. intake Pain control Nausea controlled 07/24/2023: Increase p.o. intake Maintain TPN (1) Myopathy (2) Duodenal perforation Status: Acute (3) Anasarca Status: Acute (4) Hemorrhagic shock Status: Resolved Resolution Date/Time: 06/10/23 @ 15:29 (5) ABLA (acute blood loss anemia) Status: Acute (6) History of Clostridium difficile infection Status: Chronic (7) Rheumatoid arthritis Status: Chronic (8) Status post skin flap graft Status: Acute JUDIT KEEN DO Jul 24, 2023 06:33
[2023-07-24 08:00] VITALS: BP 151/76
--- NOTE | 2023-07-24 09:29 | Progress Note - Surgery ---
NELDA SOFIA 07/24/23 0929: Subjective Date Seen by a Provider: Jul 24, 2023 Time Seen by a Provider: 08:00 Subjective/Events-last exam Pt is resting comfortably in chair. Early this morning, pt had heartburn, but was relieved with medication this morning. Overall, pt reports that GERD sx are controlled with medication. Denies nausea, vomiting. Eating small amounts and supplemented with TPN. Review of Systems General: No Chills, No Night Sweats HEENT: No Head Aches, No Visual Changes Pulmonary: No Dyspnea, No Cough Cardiovascular: No: Chest Pain, Palpitations Gastrointestinal: No: Nausea, Vomiting Genitourinary: No Dysuria, No Hematuria Musculoskeletal: No: neck pain, shoulder pain Neurological: No: Weakness, Numbness Objective Exam Vital Signs Date Time Temp Pulse Resp B/P (MAP) Pulse Ox O2 Delivery O2 Flow Rate FiO2 07/23/23 21:00 Room Air 07/23/23 20:08 36.8 75 20 136/63 (87) 95 Room Air I & O 07/24/23 06:59 Intake Total 1350 ml Balance 1350 ml Capillary Refill : General Appearance: No Apparent Distress, WD/WN, Chronically ill HEENT: PERRL/EOMI, Pharynx Normal Neck: Full Range of Motion, Non Tender, Supple Respiratory: Chest Non Tender, Lungs Clear, Normal Breath Sounds, No Accessory Muscle Use, No Respiratory Distress Cardiovascular: Regular Rate, Rhythm, No Edema, No Murmur Peripheral Pulses: 2+ Dorsalis Pedis (R), 2+ Left Dors-Pedis (L), 2+ Radial Pulses (R), 2+ Radial Pulses (L) Gastrointestinal: non tender, soft; No distended; other (midline upper [place] two openings packed, granulationg tissue growing in) Extremity: Non Tender, No Calf Tenderness, No Pedal Edema Neurologic/Psychiatric: Alert, Oriented x3, 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 Norm as Tested Skin: Normal Color, Warm/Dry Lymphatic: No Adenopathy Results Lab Laboratory Tests 07/24/23 05:55: Sodium Level 139, Potassium Level 3.9, Chloride Level 108H, Carbon Dioxide Level 24, Anion Gap 7, Blood Urea Nitrogen 23H, Creatinine 0.66, Estimat Glomerular Filtration Rate 92, BUN/Creatinine Ratio 35, Glucose Level 113H, Calcium Level 8.9, Corrected Calcium 9.7, Phosphorus Level 2.3, Magnesium Level 1.8, Total Bilirubin 0.3, Aspartate Amino Transf (AST/SGOT) 18, Alanine Aminotransferase (ALT/SGPT) 13, Alkaline Phosphatase 105, Total Protein 5.8L, Albumin 3.0L Assessment/Plan Assessment/Plan Assessment/Plan GERD Status post duodenal perforation requiring laparotomy ligation of vessel and Greg patch Acute blood loss anemia history Klebsiella pneumonia completing antibiotics Poor nutrition intake maintained on TPN Severe weakness Recent Mohs surgery of nose Atrial fibrillation? Maintain on oral anticoagulation and metoprolol History NSTEMI Abdominal wounds Protonix/Pepcid, if not controlled will add carafate Tpn due to poor oral intake Needs daily dressing changes to abdominal wounds FABIOLA GARCIA DO 07/24/23 1147: Subjective Subjective/Events-last exam Doing okay. Reflux controlled with medication. Tolerating small amount of food. On TPN. Denies new complaints. Denies n/v fever sweats chills shortness of breath or chest pain. Objective Exam General Appearance: Chronically ill HEENT: PERRL/EOMI, Other (skin flap, forehead to nose. no signs of infection) Neck: Non Tender, Supple Respiratory: Chest Non Tender, No Accessory Muscle Use, No Respiratory Distress Gastrointestinal: non tender, soft, other (midline upper [place] two openings packed, granulationg tissue growing in) Extremity: Non Tender, No Calf Tenderness Neurologic/Psychiatric: Alert, Oriented x3 Skin: Normal Color, Warm/Dry Lymphatic: No Adenopathy Assessment/Plan Assessment/Plan Assessment/Plan GERD Status post duodenal perforation requiring laparotomy ligation of vessel and Greg patch Acute blood loss anemia history Klebsiella pneumonia completing antibiotics Poor nutrition intake maintained on TPN Severe weakness Recent Mohs surgery of nose Atrial fibrillation? Maintain on oral anticoagulation and metoprolol History NSTEMI Abdominal wounds Protonix/Pepcid/ carafate Tpn due to poor oral intake Needs daily dressing changes to abdominal wounds Will sign off, call if needed. Supervisory-Addendum Brief Verification & Attestation Participated in pt care: history, MDM, physical Personally performed: exam, history, MDM, supervision of care Care discussed with: Medical Student Procedures: n/a Results interpretation: Verified all documentation Verification and Attestation of Medical Student E/M Service A medical student performed and documented this service in my presence. I reviewed and verified all information documented by the medical student and made modifications to such information, when appropriate. I personally performed the physical exam and medical decision making. Fabiola Garcia, Jul 24, 2023,12:02 NELDA SOFIA Jul 24, 2023 09:29 FABIOLA GARCIA DO Jul 24, 2023 11:47
[2023-07-24] MEDS: FOLIC ACID 1 MG TAB PO SCH (09:54)
[2023-07-24] MEDS: VANCOMYCIN 125 MG CAPSULE PO SCH ×2 (09:54→21:11)
[2023-07-24] MEDS: cefTRIAXone 2,000 MG/NS 50 ML IVPB IV SCH ×2 (09:54)
[2023-07-24] MEDS: FAMOTIDINE 20 MG TABLET PO SCH (09:54)
[2023-07-24] MEDS: CALCIUM CARBONATE 500 MG CHEW TABLET PO SCH ×3 (09:54→17:02)
[2023-07-24] MEDS: VITAMIN D3 25 MCG (1,000 UNITS) TABLET PO SCH (09:54)
[2023-07-24] MEDS: DOCUSATE SODIUM 100 MG CAPSULE PO SCH ×2 (09:54→21:15)
[2023-07-24] MEDS: CYANOCOBALAMIN 1,000 MCG TABLET PO SCH (09:54)
[2023-07-24] MEDS: LACTOBACILLUS ACIDOPHILUS (PROBIOTIC) CAPSULE NG SCH ×2 (09:55→21:11)
[2023-07-24] MEDS: APIXABAN 5 MG TABLET PO SCH ×2 (09:55→21:11)
[2023-07-24] MEDS: SENNA W/DOCUSATE TABLET PO SCH ×2 (09:55→21:15)
[2023-07-24] MEDS: NYSTATIN ORAL SUSP 5 ML UDC PO SCH ×4 (09:55→21:12)
[2023-07-24] MEDS: PANTOPRAZOLE 40 MG TABLET PO SCH ×2 (09:58→21:11)
[2023-07-24] MEDS: SODIUM CHLORIDE IV SCH ×10 (17:03)
[2023-07-24] MEDS: POTASSIUM CHLORIDE IV SCH ×10 (17:03)
[2023-07-24] MEDS: [UNRECOGNIZED DRUG - OTHER] IV SCH ×10 (17:03)
[2023-07-24] MEDS: 1/2 NS IV SOLUTION 1000 ML 1,000 ML IV SCH ×2 (18:09→18:27)
[2023-07-24 19:51] VITALS: BP 143/67
[2023-07-24] MEDS: MIRTAZAPINE 15 MG TABLET PO SCH (21:11)
--- NOTE | 2023-07-25 06:44 | PM&R Progress Note ---
Subjective HPI/CC On Admission Date Seen by Provider: Jul 25, 2023 Time Seen by Provider: 12:30 Subjective/Events-last exam 07/25/2023: Patient doing really well Talk to her about options in order to decrease TPN and use enteral route so I did talk with Dr. Garcia and Dobbhoff may be an option Reviewed meds and labs 07/24/2023: Patient doing much better Up in a chair visiting with family She did eat a little bit more Will order hydrocodone and Ultram for pain but she must eat before to avoid nausea 07/23/2023: Patient doing a lot better Nausea is controlled with scopolamine patch Still not eating at all TPN maintained Dr. Garcia evaluated her wounds and found them to be in good shape 07/22/2023: Slow recovery Dizziness reported so holding therapy TPN starting at 500pm today then Clinimix DC Labs stable Poor appetite No pain Review of Systems General: Fatigue, Malaise Objective Exam Vital Signs Vital Signs Date Time Temp Pulse Resp B/P (MAP) Pulse Ox O2 Delivery O2 Flow Rate FiO2 07/25/23 09:14 Room Air 07/25/23 08:00 37.1 67 20 160/72 (101) 96 Capillary Refill : General Appearance: No Apparent Distress, WD/WN, Chronically ill HEENT: PERRL/EOMI, Normal ENT Inspection, Pharynx Normal Neck: Full Range of Motion, Normal Inspection, Non Tender, Supple, Carotid Bruit Respiratory: Chest Non Tender, Lungs Clear, Normal Breath Sounds, No Accessory Muscle Use, No Respiratory Distress Cardiovascular: Regular Rate, Rhythm, No Edema, No Gallop, No JVD, No Murmur, N ormal Peripheral Pulses Gastrointestinal: Normal Bowel Sounds, No Organomegaly, No Pulsatile Mass, Non Tender, Soft Back: Normal Inspection, No CVA Tenderness, No Vertebral Tenderness Extremity: Normal Capillary Refill, Normal Inspection, Normal Range of Motion, Non Tender, No Calf Tenderness, No Pedal Edema Neurologic/Psychiatric: Alert, Oriented x3, color depositing machine tender II-XII Norm as Tested, Abnormal Gait, Depressed Affect, Motor Weakness (Severe 3/5) Skin: Normal Color, Warm/Dry Lymphatic: No Adenopathy Results/Procedures Lab Patient resulted labs reviewed. FIM Transfers Therapy Code Descriptions/Definitions Functional [place] Measure: 0=Not Assessed/NA 4=Minimal Assistance 1=Total Assistance 5=Supervision or Setup 2=Maximal Assistance 6=Modified [place] 3=Moderate Assistance 7=Complete IndependenceSCALE: Activities may be completed with or without assistive devices. 3-Jvsyirdzff-qjmtwvm completes the activity by him/herself with no assistance from a helper. 5-Set-up or Clean-up Assistance-helper sets up or cleans up; patient completes activity. [place] assists only prior to or following the activity. 4-Supervision or Touching Assistance-helper provides verbal cues and/or touching/steadying and/or contact guard assistance as patient completes activity. Assistance may be provided throughout the activity or intermittently. 3-Partial/Moderate Assistance-helper does LESS THAN HALF the effort. [place] lifts, holds or supports trunk or limbs, but provides less than half the effort. 2-Substantial/Maximal Assistance-helper does MORE THAN HALF the effort. [place] lifts or holds trunk or limbs and provides more than half the effort. 9-Rhehqnoix-yegdhs does ALL the effort. Patient does none of the effort to complete the activity. Or, the assistance of 2 or more helpers is required for the patient to complete the activity. If activity was not attempted, code reason: 7-Patient Refused. 9-Not Applicable-not attempted and the patient did not perform the activity before the current illness, exacerbation or injury. 10-Not Attempted due to Environmental Limitations-(lack of equipment, weather restraints, etc.). 88-Not Attempted due to Medical Conditions or Safety Concerns. Roll Left to Right (QC): 5 (/c bed rail) Sit to Lying (QC): 4 (cues to use bedrail) Sit to Stand (QC): 3 (Min (A) from EOB and armchair) Chair/Bac-tu-Sagko Xfer(QC): 3 (Min (A) /c FWW) Car Transfer (QC): 3 (mod (A) -- needing more support stand>sit to maintain balance, v.c. to not park walker away from car, min (A) to bring legs up safely due to core weakness) Gait Training Does the Patient Walk?: No and Walking Goal IS indicated Walk 10 feet (QC): 3 (Min (A) /c FWW) Walk 50 ft with 2 Turns(QC): 3 (min (A) /c FWW) Walk 150 ft (QC): 3 (Min (A) /c FWW, assist for more balance during turns due to patient not being familiar with FWW negotiation) Walking 10ft/uneven surface-QC: 3 (Min - Mod (A) of 1 /c FWW) Gait Assistive Device: FWW Wheelchair Training Does the Pt Use a Wheelchair?: No Wheel 50 ft with 2 turns (QC): 9 Wheel 150 ft (QC): 9 Stair Training 1 Step (curb) (QC): 3 (mod (A) /c FWW - weakness noted during step-up phase) 4 Steps (QC): 3 (min (A) /c (B) hand rails, LE weakness noted during step-up phase. Needed to "lauch" off foot on ground level to make it to next step. ) 12 Steps (QC): 3 Balance Picking up an Object (QC): 3 (min-mod (A ) for balance) ADL-Treatment Eating (QC): 5 (sitting EOB ) Oral Hygiene (QC): 4 Shower/Bathe Self (QC): 3 Upper Body Dressing (QC): 4 (to don/doff tshirt) Lower Body Dressing (QC): 2 (to don/doff brief and pants; requiring assistance to thread legs through pants and pull up her legs. ) On/Off Footwear (QC): 2 (to don/doff hospital socks) Toileting Hygiene (QC): 4 (in sitting ) Assessment/Plan Assessment and Plan Assess & Plan/Chief Complaint Assessment: Critical illness myopathy Status post gastric perforation from Mobic requiring laparotomy and Greg patch Acute blood loss anemia history Klebsiella pneumonia completing antibiotics Poor nutrition intake maintained on TPN Severe weakness Recent Mohs surgery of nose Atrial fibrillation? Maintain on oral anticoagulation and metoprolol Previous NSTEMI Food aversion Plan: Aggressive rehab TPN Encourage p.o. intake Monitor closely 07/22/2023: Monitor nutrition PICC line in place Slow recovery 07/23/2023: Encouraged p.o. intake Pain control Nausea controlled 07/24/2023: Increase p.o. intake Maintain TPN 07/25/2023: Dobbhoff may be an option for enteral route nutrition (1) Myopathy (2) Duodenal perforation Status: Acute (3) Anasarca Status: Acute (4) Hemorrhagic shock Status: Resolved Resolution Date/Time: 06/10/23 @ 15:29 (5) ABLA (acute blood loss anemia) Status: Acute (6) History of Clostridium difficile infection Status: Chronic (7) Rheumatoid arthritis Status: Chronic (8) Status post skin flap graft Status: Acute JUDIT KEEN DO Jul 25, 2023 06:44
[2023-07-25] MEDS: SUCRALFATE 1 GM TABLET PO SCH ×4 (06:51→21:10)
[2023-07-25] MEDS: THERAPEUTIC MULTIVITAMIN W/MINERALS TABLET PO SCH (06:51)
[2023-07-25] MEDS: CALCIUM CARBONATE 500 MG CHEW TABLET PO SCH ×3 (07:33→18:10)
[2023-07-25 08:00] VITALS: BP 160/72
[2023-07-25] MEDS: FOLIC ACID 1 MG TAB PO SCH (08:50)
[2023-07-25] MEDS: VITAMIN D3 25 MCG (1,000 UNITS) TABLET PO SCH (08:50)
[2023-07-25] MEDS: CYANOCOBALAMIN 1,000 MCG TABLET PO SCH (08:50)
[2023-07-25] MEDS: DOCUSATE SODIUM 100 MG CAPSULE PO SCH ×2 (08:50→21:10)
[2023-07-25] MEDS: FAMOTIDINE 20 MG TABLET PO SCH (08:50)
[2023-07-25] MEDS: LACTOBACILLUS ACIDOPHILUS (PROBIOTIC) CAPSULE NG SCH ×2 (08:50→21:10)
[2023-07-25] MEDS: SENNA W/DOCUSATE TABLET PO SCH ×2 (08:50→21:10)
[2023-07-25] MEDS: PANTOPRAZOLE 40 MG TABLET PO SCH ×2 (08:50→21:10)
[2023-07-25] MEDS: APIXABAN 5 MG TABLET PO SCH ×2 (08:50→21:10)
[2023-07-25] MEDS: NYSTATIN ORAL SUSP 5 ML UDC PO SCH ×4 (08:50→21:10)
[2023-07-25] MEDS: cefTRIAXone 2,000 MG/NS 50 ML IVPB IV SCH ×2 (08:50)
[2023-07-25] MEDS: VANCOMYCIN 125 MG CAPSULE PO SCH ×2 (08:50→21:10)
[2023-07-25] MEDS: SODIUM CHLORIDE IV SCH ×10 (18:15)
[2023-07-25] MEDS: POTASSIUM CHLORIDE IV SCH ×10 (18:15)
[2023-07-25] MEDS: [UNRECOGNIZED DRUG - OTHER] IV SCH ×10 (18:15)
[2023-07-25 20:07] VITALS: BP 168/75
[2023-07-25] MEDS: MIRTAZAPINE 15 MG TABLET PO SCH (21:10)
[2023-07-26] MEDS: 1/2 NS IV SOLUTION 1000 ML 1,000 ML IV SCH (00:46)
[2023-07-26 06:11] LABS: BASOPHILS % (AUTO) 1 % (0-10); EOSINOPHILS # (AUTO) 0.5 10^3/uL (0.0-0.3); EOSINOPHILS % (AUTO) 8 % (0-10); HEMATOCRIT 29 % (35-52); HEMOGLOBIN 9.1 g/dL (11.5-16.0); LYMPHOCYTES # (AUTO) 0.9 10^3/uL (1.0-4.0); LYMPHOCYTES % (AUTO) 14 % (12-44); MEAN CORPUSCULAR HEMOGLOBIN 29 pg (25-34); MEAN CORPUSCULAR HGB CONC 32 g/dL (32-36); MEAN CORPUSCULAR VOLUME 92 fL (80-99); MEAN PLATELET VOLUME 10.1 fL (9.0-12.2); MONOCYTES # (AUTO) 0.6 10^3/uL (0.0-1.0); MONOCYTES % (AUTO) 9 % (0-12); NEUTROPHILS # (AUTO) 4.3 10^3/uL (1.8-7.8); NEUTROPHILS % (AUTO) 69 % (42-75); PLATELET COUNT 234 10^3/uL (130-400); WHITE BLOOD COUNT 6.3 10^3/uL (4.3-11.0)
[2023-07-26 06:27] LABS: ALBUMIN 2.7 GM/DL (3.2-4.5); BILIRUBIN,TOTAL 0.4 MG/DL (0.1-1.0); CALCIUM 8.2 MG/DL (8.5-10.1); CREATININE SERUM 0.61 MG/DL (0.60-1.30); POTASSIUM 3.7 MMOL/L (3.6-5.0); TOTAL PROTEIN 5.2 GM/DL (6.4-8.2)
[2023-07-26] MEDS: THERAPEUTIC MULTIVITAMIN W/MINERALS TABLET PO SCH (06:46)
[2023-07-26] MEDS: SUCRALFATE 1 GM TABLET PO SCH ×4 (06:46→21:53)
--- NOTE | 2023-07-26 07:16 | PM&R Progress Note ---
Subjective HPI/CC On Admission Date Seen by Provider: Jul 26, 2023 Time Seen by Provider: 09:00 Subjective/Events-last exam 07/26/2023: Patient doing well No pain is reported Dobbhoff placed and tube feeding started TPN will maintain to be sure she can tolerate tube feedings 07/25/2023: Patient doing really well Talk to her about options in order to decrease TPN and use enteral route so I did talk with Dr. Garcia and Dobbhoff may be an option Reviewed meds and labs 07/24/2023: Patient doing much better Up in a chair visiting with family She did eat a little bit more Will order hydrocodone and Ultram for pain but she must eat before to avoid nausea 07/23/2023: Patient doing a lot better Nausea is controlled with scopolamine patch Still not eating at all TPN maintained Dr. Garcia evaluated her wounds and found them to be in good shape 07/22/2023: Slow recovery Dizziness reported so holding therapy TPN starting at 500pm today then Clinimix DC Labs stable Poor appetite No pain Review of Systems General: Fatigue, Malaise Objective Exam Vital Signs Vital Signs Date Time Temp Pulse Resp B/P (MAP) Pulse Ox O2 Delivery O2 Flow Rate FiO2 07/26/23 21:30 95 Room Air 07/26/23 20:24 37.0 71 20 179/79 (112) Capillary Refill : General Appearance: No Apparent Distress, WD/WN, Chronically ill HEENT: PERRL/EOMI, Normal ENT Inspection, Pharynx Normal Neck: Full Range of Motion, Normal Inspection, Non Tender, Supple, Carotid Bruit Respiratory: Chest Non Tender, Lungs Clear, Normal Breath Sounds, No Accessory Muscle Use, No Respiratory Distress Cardiovascular: Regular Rate, Rhythm, No Edema, No Gallop, No JVD, No Murmur, Normal Peripheral Pulses Gastrointestinal: Normal Bowel Sounds, No Organomegaly, No Pulsatile Mass, Non Tender, Soft Back: Normal Inspection, No CVA Tenderness, No Vertebral Tenderness Extremity: Normal Capillary Refill, Normal Inspection, Normal Range of Motion, Non Tender, No Calf Tenderness, No Pedal Edema Neurologic/Psychiatric: Alert, Oriented x3, sample room supervisor II-XII Norm as Tested, Abnormal Gait, Depressed Affect, Motor Weakness (Severe 3/5) Skin: Normal Color, Warm/Dry Lymphatic: No Adenopathy Results/Procedures Lab Laboratory Tests 07/26/23 05:57 Patient resulted labs reviewed. FIM Transfers Therapy Code Descriptions/Definitions Functional [place] Measure: 0=Not Assessed/NA 4=Minimal Assistance 1=Total Assistance 5=Supervision or Setup 2=Maximal Assistance 6=Modified [place] 3=Moderate Assistance 7=Complete IndependenceSCALE: Activities may be completed with or without assistive devices. 7-Wgtffzoxxa-hbvtiwm completes the activity by him/herself with no assistance from a helper. 5-Set-up or Clean-up Assistance-helper sets up or cleans up; patient completes activity. [place] assists only prior to or following the activity. 4-Supervision or Touching Assistance-helper provides verbal cues and/or touching/steadying and/or contact guard assistance as patient completes activity. Assistance may be provided throughout the activity or intermittently. 3-Partial/Moderate Assistance-helper does LESS THAN HALF the effort. [place] lifts, holds or supports trunk or limbs, but provides less than half the effort. 2-Substantial/Maximal Assistance-helper does MORE THAN HALF the effort. [place] lifts or holds trunk or limbs and provides more than half the effort. 2-Nrvscnlyu-lghqua does ALL the effort. Patient does none of the effort to complete the activity. Or, the assistance of 2 or more helpers is required for the patient to complete the activity. If activity was not attempted, code reason: 7-Patient Refused. 9-Not Applicable-not attempted and the patient did not perform the activity before the current illness, exacerbation or injury. 10-Not Attempted due to Environmental Limitations-(lack of equipment, weather restraints, etc.). 88-Not Attempted due to Medical Conditions or Safety Concerns. Roll Left to Right (QC): 5 (/c bed rail) Sit to Lying (QC): 4 (cues to use bedrail) Sit to Stand (QC): 3 (Min (A) from EOB and armchair) Chair/Iob-dr-Ghusx Xfer(QC): 3 (Min (A) /c FWW) Car Transfer (QC): 3 (mod (A) -- needing more support stand>sit to maintain balance, v.c. to not park walker away from car, min (A) to bring legs up safely due to core weakness) Gait Training Does the Patient Walk?: No and Walking Goal IS indicated Walk 10 feet (QC): 3 (Min (A) /c FWW) Walk 50 ft with 2 Turns(QC): 3 (min (A) /c FWW) Walk 150 ft (QC): 3 (Min (A) /c FWW, assist for more balance during turns due to patient not being familiar with FWW negotiation) Walking 10ft/uneven surface-QC: 3 (Min - Mod (A) of 1 /c FWW) Gait Assistive Device: FWW Wheelchair Training Does the Pt Use a Wheelchair?: No Wheel 50 ft with 2 turns (QC): 9 Wheel 150 ft (QC): 9 Stair Training 1 Step (curb) (QC): 3 (mod (A) /c FWW - weakness noted during step-up phase) 4 Steps (QC): 3 (min (A) /c (B) hand rails, LE weakness noted during step-up phase. Needed to "lauch" off foot on ground level to make it to next step. ) 12 Steps (QC): 3 Balance Picking up an Object (QC): 3 (min-mod (A ) for balance) ADL-Treatment Eating (QC): 5 (sitting EOB ) Oral Hygiene (QC): 4 Shower/Bathe Self (QC): 3 Upper Body Dressing (QC): 4 (to don/doff tshirt) Lower Body Dressing (QC): 2 (to don/doff brief and pants; requiring assistance to thread legs through pants and pull up her legs. ) On/Off Footwear (QC): 2 (to don/doff hospital socks) Toileting Hygiene (QC): 4 (in sitting ) Assessment/Plan Assessment and Plan Assess & Plan/Chief Complaint Assessment: Critical illness myopathy Status post gastric perforation from Mobic requiring laparotomy and Greg patch Acute blood loss anemia history Klebsiella pneumonia completing antibiotics Poor nutrition intake maintained on TPN Severe weakness Recent Mohs surgery of nose Atrial fibrillation? Maintain on oral anticoagulation and metoprolol Previous NSTEMI Food aversion Plan: Aggressive rehab TPN Encourage p.o. intake Monitor closely 07/22/2023: Monitor nutrition PICC line in place Slow recovery 07/23/2023: Encouraged p.o. intake Pain control Nausea controlled 07/24/2023: Increase p.o. intake Maintain TPN 07/25/2023: Dobbhoff may be an option for enteral route nutrition 07/26/2023: Eron placed Tube feedings to begin Continue TPN until tolerating tube feedings (1) Myopathy (2) Duodenal perforation Status: Acute (3) Anasarca Status: Acute (4) Hemorrhagic shock Status: Resolved Resolution Date/Time: 06/10/23 @ 15:29 (5) ABLA (acute blood loss anemia) Status: Acute (6) History of Clostridium difficile infection Status: Chronic (7) Rheumatoid arthritis Status: Chronic (8) Status post skin flap graft Status: Acute JUDIT KEEN DO Jul 26, 2023 07:16
[2023-07-26] MEDS: DOCUSATE SODIUM 100 MG CAPSULE PO SCH ×2 (07:42→21:53)
[2023-07-26] MEDS: SENNA W/DOCUSATE TABLET PO SCH ×2 (07:43→21:52)
[2023-07-26 08:00] VITALS: BP 142/67
[2023-07-26] MEDS: CALCIUM CARBONATE 500 MG CHEW TABLET PO SCH ×3 (08:19→18:22)
--- NOTE | 2023-07-26 09:14 | Wound Care Assessment ---
Wound Care Assessment Date Seen by Provider: Jul 26, 2023 Time Seen by Provider: 09:04 Chief Complaint Surgical dehiscence (abdomen and Mohs) CLARA Ragsdale is a 73yoF with past medical history of rheumatoid arthritis, atrial fibrillation on anticoagulation, GERD, s/p recent gastric ulcer perforation with modified Greg patch. First had surgical intervention 06/08 with repeat surgery on 06/18. She was in the ICU for some time during her stay for hypotension, NSTEMI, and anemia requiring transfusion. She was transferred to LTAC at [facility] in [place] after her DC on 06/25. She recovered well and is now in inpatient rehab since 07/21 under the care of Dr Richey. She has had issues with oral intake after surgery and has been on TPN for quite some time. She is tolerating small bits of food PO but not enough to sustain her without need for supplemental nutrition. Primary team and surgery discussing Dobbhoff tube to increase enteral feeds with the goal of discontinuing TPN. Patient appears agreeable to this plan. From a wound care standpoint patient reports her abdominal wounds did not heal after the first exploratory lap with Greg patch on 06/08. She has 2 small open areas above the umbilicus at the surgical incision site. She reports a moderate amount of clear/yellow discharge with small amounts of blood. Denies any odor to the wound. She reports no redness or warmth to periwound. Denies any history of nonhealing ulcers in the past. Only previous abdominal surgery prior to last hospitalization is a C section that healed well. She denies diabetes, radiation history, or vascular disease. She reports the wounds have gotten smaller over time. Wounds have been packed with iodoform and covered with gauze and tape changed daily. She did also recently undergo Mohs procedure and has a small dry eschar to forehead. This has been discussed with Plastics who will revisit upon discharge. Orders to keep clean and dry in meantime. Past Medical History: Denies Diabetes Type II, Denies Lupas, Denies Cancer, Treaments Anemia, moderate PEM (worsening), RA, atrial fibrillation on chronic anticoagulation, recent NSTEMI Smoking Status: Never a Smoker Recreational Drug Use: No Alcohol Use: Denies Use Review of Systems General: No Chills, No Appetite HEENT: No Head Aches; Other (recent skin graft to nose) Pulmonary: No Cough Cardiovascular: No: Chest Pain Gastrointestinal: Nausea (intermittent, under control); No: Abdominal Pain Genitourinary: No Hematuria Neurological: Weakness; No: Numbness, Change in speech, Confusion Exam Vital Signs Date Time Temp Pulse Resp B/P (MAP) Pulse Ox O2 Delivery O2 Flow Rate FiO2 07/26/23 08:00 30.0 67 17 142/67 (92) 97 Room Air Capillary Refill : General Appearance: no apparent distress HEENT: PERRL/EOMI, other (skin graft to nose) Neck: supple Cardiovascular: no JVD Respiratory: no respiratory distress, no accessory muscle use Gastrointestinal: non tender, soft Extremities: no pedal edema Neurologic/Psychiatric: alert, oriented x 3 Skin: normal color, warm/dry, other (midline abdominal incision, 2 small open wounds above umbilicus) Skin Problem Location: torso Skin Character: drainage, lesion Anterior abdominal open surgical wound Cluster of 2 Superior wound measures 0.5x0.5x0.8cm Inferior wound measures 0.8x0.7x1.2cm Undermining of lower wound from 12-2oclock with deepest area of 0.7cm Wounds do not appear to communicate margins are flat granulation is small and pink necrotic is medium and slough epithelialization is none Have been dressed with iodoform packing, covered with BFD, changed daily Results Laboratory Tests 07/26/23 05:57: White Blood Count 6.3, Red Blood Count 3.10L, Hemoglobin 9.1L, Hematocrit 29L, Mean Corpuscular Volume 92, Mean Corpuscular Hemoglobin 29, Mean Corpuscular Hemoglobin Concent 32, Red Cell Distribution Width 14.6H, Platelet Count 234, Mean Platelet Volume 10.1, Immature Granulocyte % (Auto) 0, Neutrophils (%) (Auto) 69, Lymphocytes (%) (Auto) 14, Monocytes (%) (Auto) 9, Eosinophils (%) (Auto) 8, Basophils (%) (Auto) 1, Neutrophils # (Auto) 4.3, Lymphocytes # (Auto) 0.9L, Monocytes # (Auto) 0.6, Eosinophils # (Auto) 0.5H, Basophils # (Auto) 0.0, Immature Granulocyte # (Auto) 0.0, Sodium Level 135, Potassium Level 3.7, Chloride Level 111H, Carbon Dioxide Level 17L, Anion Gap 7, Blood Urea Nitrogen 19H, Creatinine 0.61, Estimat Glomerular Filtration Rate 94, BUN/Creatinine Ratio 31, Glucose Level 109H, Calcium Level 8.2L, Corrected Calcium 9.2, Total Bilirubin 0.4, Aspartate Amino Transf (AST/SGOT) 18, Alanine Aminotransferase (ALT/SGPT) 11, Alkaline Phosphatase 101, Total Protein 5.2L, Albumin 2.7L Assessment/Plan/Dx 1.Abdominal surgical dehiscence 2.S/P recent exploratory laparotomy with modified Greg patch for perforated viscus 3.Myopathy from chronic illness 4.Anemia 5.Poor PO intake maintained on TPN with moderate PEM (worsening) 6.Recent Mohs procedure to nose with small opening to forehead Plan 1. Continue iodoform packing, cover with Allevyn BFD, change daily and cleanse with Vashe 2. per primary team 3. per primary team, continue inpatient rehab 4. per primary team, normocytic, 9.1 most recent Hgb, continue to monitor and transfuse if necessary 5. Currently receiving TPN with intermittent small amounts of PO intake, primary team considering Dobhoff for tube feeds 6. Betadine paint bid and air dry Supervisory-Addendum Brief Verification & Attestation Participated in pt care: history, MDM, physical Personally performed: exam, history, MDM, supervision of care Care discussed with: Medical Student Procedures: n/a Results interpretation: Verified all documentation HOWARD BARROW Jul 26, 2023 09:14 KEMAR JACOBS MD Jul 26, 2023 16:42
[2023-07-26] MEDS: CYANOCOBALAMIN 1,000 MCG TABLET PO SCH (09:51)
[2023-07-26] MEDS: VITAMIN D3 25 MCG (1,000 UNITS) TABLET PO SCH (09:51)
[2023-07-26] MEDS: cefTRIAXone 2,000 MG/NS 50 ML IVPB IV SCH ×2 (09:51)
[2023-07-26] MEDS: FAMOTIDINE 20 MG TABLET PO SCH (09:51)
[2023-07-26] MEDS: LACTOBACILLUS ACIDOPHILUS (PROBIOTIC) CAPSULE NG SCH ×2 (09:51→21:53)
[2023-07-26] MEDS: FOLIC ACID 1 MG TAB PO SCH (09:51)
[2023-07-26] MEDS: APIXABAN 5 MG TABLET PO SCH ×2 (09:51→21:52)
[2023-07-26] MEDS: PANTOPRAZOLE 40 MG TABLET PO SCH ×2 (09:51→21:52)
[2023-07-26] MEDS: NYSTATIN ORAL SUSP 5 ML UDC PO SCH ×4 (09:51→21:54)
[2023-07-26] MEDS: VANCOMYCIN 125 MG CAPSULE PO SCH ×2 (09:51→21:52)
--- NOTE | 2023-07-26 10:13 | Physical Therapy Daily Note ---
PT Daily Note-Current Subjective Pt presents in shower with OT. Pt is agreeable to PT/OT cotx. Pain Section J - Health Conditions 1. Rarely or not at all 2. Occasionally 3. Frequently 4. Almost constantly 8. Unable to answer Pain Effect on Sleep: 1 Pain Interference with Therapy: 1 Pain Interference w/Day-to-Day: 1 Mental Status Patient Orientation: Person, Place, Time, Situation Attachments: IV Transfers SCALE: Activities may be completed with or without assistive devices. 6-Lceitmvome-gipnowo completes the activity by him/herself with no assistance from a helper. 5-Set-up or Clean-up Assistance-helper sets up or cleans up; patient completes activity. [place] assists only prior to or following the activity. 4-Supervision or Touching Assistance-helper provides verbal cues and/or touching/steadying and/or contact guard assistance as patient completes activity. Assistance may be provided throughout the activity or intermittently. 3-Partial/Moderate Assistance-helper does LESS THAN HALF the effort. [place] lifts, holds or supports trunk or limbs, but provides less than half the effort. 2-Substantial/Maximal Assistance-helper does MORE THAN HALF the effort. [place] lifts or holds trunk or limbs and provides more than half the effort. 3-Lrsazfnuv-uhaauu does ALL the effort. Patient does none of the effort to complete the activity. Or, the assistance of 2 or more helpers is required for the patient to complete the activity. If activity was not attempted, code reason: 7-Patient Refused. 9-Not Applicable-not attempted and the patient did not perform the activity before the current illness, exacerbation or injury. 10-Not Attempted due to Environmental Limitations-(lack of equipment, weather restraints, etc.). 88-Not Attempted due to Medical Conditions or Safety Concerns. Roll Left & Right (QC): 3 Sit to Lying (QC): 3 Lying to Sitting/Side of Bed(Q: 4 Sit to Stand (QC): 4 Chair/Gpp-pw-Eesca Xfer(QC): 4 Toilet Transfer (QC): 4 Weight Bearing Right Lower Extremity: Right Full Weight Bearing Left Lower Extremity: Left Full Weight Bearing (Richey) Gait Training Does the Patient Walk?: Yes Walk 10 feet (QC): 4 Walk 50 ft with 2 Turns(QC): 4 Walk 150 ft (QC): 4 Gait Assistive Device: FWW Pt amb 150' x 2 with FWW, CGA for steadying. Pt required 1 RB secondary to fatigue. Wheelchair Training Does the Pt Use a Wheelchair?: No Treatments PT/OT co-treat ([id number]), skills of 2 clinicians required to decrease fall risk, increase mobility and stamina for daily functional tasks. PT focusing on transfers, ambulation and B LE strengthening while OT focusing on functional mobility, B UE ADL's and strengthening. Pt conducted shower with assistance from OT. Pt demonstrated multiple sit<>stand xfers from W/C to bed, bed to FWW with SBA for safety. Nursing assisted pt with wound care and Rx meds. Pt amb from room and down hallway with FWW and CGA. Post tx with pt in bed, call light within reach and all needs met. Assessment Current Status: Good Progress Pt able to ambulate 150' x 2 with FWW, CGA but requires RB's prn secondary to fatigue. PT Jail Goals Jail Goals PT Review Specialist Goals Time Frame: Aug 04, 2023 Roll Left & Right (QC): 6 Sit to Lying (QC): 6 Lying-Sitting on Side/Bed(QC): 6 Sit to Stand (QC): 6 Chair/Iek-jj-Enaym Xfer(QC): 6 Toilet Transfer (QC): 6 Car Transfer (QC): 6 Does the Patient Walk: Yes Walk 10 feet (QC): 6 Walk 50ft with 2 Turns (QC): 6 Walk 150 ft (QC): 6 Walking 10ft on Uneven Surface: 6 1 Step (curb) (QC): 6 4 Steps (QC): 6 12 Steps (QC): 6 Picking up an Object (QC): 6 Does the Pt use WC or Scooter?: No Wheel 50 feet with 2 turns (QC: 9 Wheel 150 feet: 9 PT Plan Problem List Problem List: Activity Tolerance, Functional Strength, Safety Treatment/Plan Treatment Plan: Continue Plan of Care Treatment Plan: Bed Mobility, Concurrent Therapy, Education, Functional Activity [place], Functional Strength, Group Therapy, Gait, Safety, Therapeutic Exercise, Transfers Treatment Duration: Aug 04, 2023 Frequency: At least 5 of 7 days/Wk (IRF) Estimated Hrs Per Day: 1.5 hours per day Patient and/or Family Agrees t: Yes Safety Risks/Education Patient Education: Safety Issues Teaching Recipient: Patient Teaching Methods: Demonstration, Discussion Response to Teaching: Verbalize Understanding, Return Demonstration Discharge Recommendations Plan Continue with tx per pt POC. Time Time In: 0945 Time Out: 1100 DATE: Jul 26, 2023 Total Billed Treatment Time: 75 Total Billed Treatment 1, FA4 (60m), GT (15m). CoTx with OT: ([id number]) (60m). VIDHI LARIOS [employer] ASSISTANT PRINCIPAL Jul 26, 2023 10:13
--- NOTE | 2023-07-26 10:39 | Occupational Ther Daily Note ---
OT Current Status-Daily Note Subjective Pt. alert sitting in recliner. No c/o pain at this time. Pt. agreed to therapy. Co-treat with PT ([id number]), skills of 2 clinicians required to decrease fall risk, increase activity tolerance and functional mobility. PT focusing on mobility and transfers while OT focusing on ADLs, functional mobility and in creasing activity tolerance. Mental Status/Objective Patient Orientation: Person, Place, Time, Situation Attachments: IV ADL-Treatment Pt. agreed to shower. Pt. able to ambulate from recliner to bathroom using FWW with CGA. Pt. able to SPT from w/c to EOB with CGA using FWW. Bed mobility from EOB to supine Min A with swinging legs onto bed. After session, Therapy Code Descriptions/Definitions Functional [place] Measure: 0=Not Assessed/NA 4=Minimal Assistance 1=Total Assistance 5=Supervision or Setup 2=Maximal Assistance 6=Modified [place] 3=Moderate Assistance 7=Complete IndependenceSCALE: Activities may be completed with or without assistive devices. 0-Slkxknuwdm-aarrgap completes the activity by him/herself with no assistance from a helper. 5-Set-up or Clean-up Assistance-helper sets up or cleans up; patient completes activity. [place] assists only prior to or following the activity. 4-Supervision or Touching Assistance-helper provides verbal cues and/or touching/steadying and/or contact guard assistance as patient completes activity. Assistance may be provided throughout the activity or intermittently. 3-Partial/Moderate Assistance-helper does LESS THAN HALF the effort. [place] lifts, holds or supports trunk or limbs, but provides less than half the effort. 2-Substantial/Maximal Assistance-helper does MORE THAN HALF the effort. [place] lifts or holds trunk or limbs and provides more than half the effort. 6-Yoyuwsfbq-aphoth does ALL the effort. Patient does none of the effort to complete the activity. Or, the assistance of 2 or more helpers is required for the patient to complete the activity. If activity was not attempted, code reason: 7-Patient Refused. 9-Not Applicable-not attempted and the patient did not perform the activity before the current illness, exacerbation or injury. 10-Not Attempted due to Environmental Limitations-(lack of equipment, weather restraints, etc.). 88-Not Attempted due to Medical Conditions or Safety Concerns. Bathing Location: L Arm, R Arm, L Upper Leg, R Upper Leg, L Lower Leg (including foot), R Lower Leg (including foot), Chest, Abdomen, Buttocks, Perineal Area Shower/Bathe Self (QC): 4 (Pt. able to bathe all areas while sitting 100% of time on shower bench leaning side to side to clean buttocks using HH shower and grabbars with SBA for safety. ) Upper Body Dressing (QC): 5 (Pt. able to don/doff UB dressing by self after set up. ) Lower Body Dressing (QC): 3 (Assist with doffing/donning then is able to take brief/pants from knees and hike using FWW to stabilize with SBA. ) On/Off Footwear: 5 (Pt. able to don/doff slippers. ) Toileting Hygiene (QC): 4 (Pt. able to complete clothing manipulation using FWW and grabbars with SBA and is able to cleanse all areas. ) Toilet Transfer (QC): 4 (Pt. able to complete toilet transfers using FWW and grabbars with SBA.) OT Short Term Goals Short Term Goals Time Frame: Jul 30, 2023 Eatin Oral hygiene: 5 Toileting hygiene: 5 Shower/bathe self: 4 Upper body dressin Lower body dressin Putting on/taking off footwear: 4 OT Assisted Goals Rand Tacker Goals Time Frame: Aug 06, 2023 Acute change in mental status: 0 Inattention: 0 Disorganized thinkin Altered level of consciousness: 0 Eating (QC): 6 Oral Hygiene (QC): 6 Toileting Hygiene (QC): 6 Shower/Bathe Self (QC): 6 Upper Body Dressing (QC): 6 Lower Body Dressing (QC): 6 On/Off Footwear (QC): 6 1=Demonstrate adherence to instructed precautions during ADL tasks. 2=Patient will verbalize/demonstrate understanding of assistive devices/modifications for ADL. 3=Patient will improve strength/tolerance for activity to enable patient to perform ADL's. OT Education/Plan Problem List/Assessment Assessment: Decreased Safety Aware, Decreased UE Strength, Impaired Funct Balance, Impaired I ADL's, Impaired Self-Care Skills Discharge Recommendations Plan/Recommendations: Continue POC Treatment Plan/Plan of Care Patient would benefit from OT for education, treatment and training to promote independence in ADL's, mobility, safety and/or upper extremity function for ADL's. Plan of Care: ADL Retraining, Caregiver Training, Concurrent Therapy, Functional Mobility, Group Exercise/Act as Ind, UE Funct Exercise/Act Treatment Duration: Aug 18, 2023 Frequency: At least 5 of 7 days/Wk (IRF) Estimated Hrs Per Day: 1.5 hours per day Agreement: Yes Rehab Potential: Fair Time Start Time: 09:30 Stop Time: 10:45 DATE: Jul 26, 2023 Total Time Billed (hr/min): 75 Billed Treatment Time 1 visit- ADL 4 (60 min) FA 1 (15 min) co-treat with PT [id number], individual [id number] LESA TOTO Jul 26, 2023 10:39
--- NOTE | 2023-07-26 10:54 | Speech Therapy Daily Note ---
Speech Daily Progress Note Subjective Date Seen by Provider: Jul 26, 2023 Time Seen by Provider: 08:15 Pt was sitting in bedside chair and agreeable to session. Objective Pt participates in oral motor exercises (OMEs). Pt completes da maneuver, PB tongue, and chin tuck against resistance, to increase oral musculature strength. Pt completes da 5x, PB tongue 10x, and chin tuck with resistance 5x, holding for 20 seconds each time. Assessment Assessment Current Status: Good Progress Treatment Plan Continue Plan of Care Speech Cruise Director Goals Half-Way Goals Pt will complete OMEs with 90% accuracy, to increase lingual strength for effective bolus formation and to reduce the risk of aspiration/penetration during PO intake. Pt will demonstrate adequate use of swallow guidelines to eliminate the risk of aspiration/penetration during PO intake with 90% accuracy and no cues. Speech-Plan Treatment Plan Speech Therapy Treatment Plan: Continue Plan of Care Treatment Duration: Jul 21, 2023 Frequency: At least 5 of 7 days/Wk (IRF) Estimated Hrs Per Day: .5 hour per day Rehab Potential: Good Time Speech Therapy Time In: 08:15 Speech Therapy Time Out: 08:45 DATE: Jul 26, 2023 Total Billed Time: 30 Billed Treatment Time 1 DYST 30 min Darlyn Mckeon Jul 26, 2023 10:53
[2023-07-26] MEDS ORDERED: HYPOCHLOROUS ACID/NaCl WOUND SOLN 250 ML IR SCH (11:00)
[2023-07-26] MEDS ORDERED: MULT-1136 PO (11:45)
[2023-07-26] MEDS ORDERED: HYDR200T71 PO (11:45)
[2023-07-26] MEDS ORDERED: FAMO-356 PO (11:45)
[2023-07-26] MEDS ORDERED: BIOT25007 PO (11:45)
[2023-07-26] MEDS ORDERED: DIPH1TAB25 PO (11:45)
[2023-07-26] MEDS ORDERED: METH2.5T PO (11:45)
--- NOTE | 2023-07-26 14:02 | Diagnostic Imaging Report ---
EXAMINATION: Chest 1 view HISTORY: Dobbhoff placement. COMPARISON: 07/21/2023. FINDINGS: The lung volumes are normal. No focal consolidation is seen. No large pleural effusion or pneumothorax is seen. The cardiomediastinal silhouette is normal in size and contour. No acute osseous abnormality is seen. A Dobbhoff has been placed with the tip overlying the mid stomach. Stable right PICC. IMPRESSION: 1. No acute pleuroparenchymal process. 2. Dobbhoff with the tip overlying the mid stomach. Dictated by: Dictated on workstation # [id number]
[2023-07-26] MEDS: [UNRECOGNIZED DRUG - OTHER] IV SCH ×10 (18:24)
[2023-07-26] MEDS: POTASSIUM CHLORIDE IV SCH ×10 (18:24)
[2023-07-26] MEDS: SODIUM CHLORIDE IV SCH ×10 (18:24)
[2023-07-26 20:24] VITALS: BP 179/79
[2023-07-26] MEDS: ACETAMINOPHEN 325 MG TABLET PO PRN (21:53)
[2023-07-26] MEDS: MIRTAZAPINE 15 MG TABLET PO SCH (21:53)
[2023-07-27] MEDS: HYDROcodone/ACETAMINOPHEN 5 MG/325 MG TABLET PO PRN ×2 (00:45→05:58)
[2023-07-27] MEDS: ONDANSETRON 4 MG ORAL DISSOLVE TABLET PO PRN ×2 (04:12→10:28)
[2023-07-27] MEDS: SUCRALFATE 1 GM TABLET PO SCH ×4 (05:53→21:25)
[2023-07-27] MEDS: THERAPEUTIC MULTIVITAMIN W/MINERALS TABLET PO SCH (05:53)
[2023-07-27 07:27] VITALS: BP 166/89
[2023-07-27] MEDS: CALCIUM CARBONATE 500 MG CHEW TABLET PO SCH (08:21)
[2023-07-27] MEDS: cefTRIAXone 2,000 MG/NS 50 ML IVPB IV SCH ×2 (08:22)
[2023-07-27] MEDS: PANTOPRAZOLE 40 MG TABLET PO SCH ×2 (08:22→20:13)
[2023-07-27] MEDS: 1/2 NS IV SOLUTION 1000 ML 1,000 ML IV SCH (08:27)
[2023-07-27] MEDS: APIXABAN 5 MG TABLET PO SCH ×2 (08:52→20:13)
[2023-07-27] MEDS: LACTOBACILLUS ACIDOPHILUS (PROBIOTIC) CAPSULE NG SCH ×2 (08:52→21:25)
[2023-07-27] MEDS: FAMOTIDINE 20 MG TABLET PO SCH (09:33)
[2023-07-27] MEDS: DOCUSATE SODIUM 100 MG CAPSULE PO SCH ×2 (09:34→20:07)
[2023-07-27] MEDS: SENNA W/DOCUSATE TABLET PO SCH ×2 (09:35→20:07)
--- NOTE | 2023-07-27 10:01 | Occ Therapy Progress Note ---
Therapy Progress Note Pt chart reviewed and attempted to see pt this AM for occupational therapy session. Upon arrival pt was vomiting and stated that she has not felt well all morning. Pt will be held for therapy at this time due to vomiting and severe nausea. Will reattempt to see pt when appropriate and as time permits. -HEIDI Salguero/Hallie Suresh/Eric Jul 27, 2023 10:01
--- NOTE | 2023-07-27 10:07 | Physical Therapy Progress Note ---
Therapy Progress Note Pt chart reviewed and attempted to see pt this AM for physical therapy session. Upon arrival pt was vomiting and stated that she has not felt well all morning. Pt will be held for therapy at this time due to vomiting and severe nausea. Will reattempt to see pt when appropriate and as time permits. VIDHI LARIOS RN TELEPHONIC Jul 27, 2023 10:07
--- NOTE | 2023-07-27 10:49 | PM&R Progress Note ---
Subjective HPI/CC On Admission Date Seen by Provider: Jul 27, 2023 Time Seen by Provider: 12:30 Subjective/Events-last exam 07/27/2023: Patient did not tolerate tube feedings Discontinue Dobbhoff Chronic TPN supplementation recommended by Dr. Garcia Patient may need swing bed if she is unable to improve enough 07/26/2023: Patient doing well No pain is reported Dobbhoff placed and tube feeding started TPN will maintain to be sure she can tolerate tube feedings 07/25/2023: Patient doing really well Talk to her about options in order to decrease TPN and use enteral route so I did talk with Dr. Garcia and Dobbhoff may be an option Reviewed meds and labs 07/24/2023: Patient doing much better Up in a chair visiting with family She did eat a little bit more Will order hydrocodone and Ultram for pain but she must eat before to avoid nausea 07/23/2023: Patient doing a lot better Nausea is controlled with scopolamine patch Still not eating at all TPN maintained Dr. Garcia evaluated her wounds and found them to be in good shape 07/22/2023: Slow recovery Dizziness reported so holding therapy TPN starting at 500pm today then Clinimix DC Labs stable Poor appetite No pain Review of Systems General: Fatigue, Malaise Gastrointestinal: Nausea, Vomiting Objective Exam Vital Signs Vital Signs Date Time Temp Pulse Resp B/P (MAP) Pulse Ox O2 Delivery O2 Flow Rate FiO2 07/27/23 20:15 35.9 80 16 170/79 (109) 95 Room Air Capillary Refill : General Appearance: No Apparent Distress, WD/WN, Chronically ill HEENT: PERRL/EOMI, Normal ENT Inspection, Pharynx Normal Neck: Full Range of Motion, Normal Inspection, Non Tender, Supple, Carotid Bruit Respiratory: Chest Non Tender, Lungs Clear, Normal Breath Sounds, No Accessory Muscle Use, No Respiratory Distress Cardiovascular: Regular Rate, Rhythm, No Edema, No Gallop, No JVD, No Murmur, Normal Peripheral Pulses Gastrointestinal: Normal Bowel Sounds, No Organomegaly, No Pulsatile Mass, Non Tender, Soft Back: Normal Inspection, No CVA Tenderness, No Vertebral Tenderness Extremity: Normal Capillary Refill, Normal Inspection, Normal Range of Motion, Non Tender, No Calf Tenderness, No Pedal Edema Neurologic/Psychiatric: Alert, Oriented x3, procurement professional logistics II-XII Norm as Tested, Abnormal Gait, Depressed Affect, Motor Weakness (Severe 3/5) Skin: Normal Color, Warm/Dry Lymphatic: No Adenopathy Results/Procedures Lab Patient resulted labs reviewed. FIM Transfers Therapy Code Descriptions/Definitions Functional [place] Measure: 0=Not Assessed/NA 4=Minimal Assistance 1=Total Assistance 5=Supervision or Setup 2=Maximal Assistance 6=Modified [place] 3=Moderate Assistance 7=Complete IndependenceSCALE: Activities may be completed with or without assistive devices. 7-Llvaqlfmhs-dcsggem completes the activity by him/herself with no assistance from a helper. 5-Set-up or Clean-up Assistance-helper sets up or cleans up; patient completes activity. [place] assists only prior to or following the activity. 4-Supervision or Touching Assistance-helper provides verbal cues and/or touching/steadying and/or contact guard assistance as patient completes activity. Assistance may be provided throughout the activity or intermittently. 3-Partial/Moderate Assistance-helper does LESS THAN HALF the effort. [place] lifts, holds or supports trunk or limbs, but provides less than half the effort. 2-Substantial/Maximal Assistance-helper does MORE THAN HALF the effort. [place] lifts or holds trunk or limbs and provides more than half the effort. 5-Brkjvjmfq-ynvqsl does ALL the effort. Patient does none of the effort to complete the activity. Or, the assistance of 2 or more helpers is required for the patient to complete the activity. If activity was not attempted, code reason: 7-Patient Refused. 9-Not Applicable-not attempted and the patient did not perform the activity before the current illness, exacerbation or injury. 10-Not Attempted due to Environmental Limitations-(lack of equipment, weather restraints, etc.). 88-Not Attempted due to Medical Conditions or Safety Concerns. Roll Left to Right (QC): 3 Sit to Lying (QC): 3 Sit to Stand (QC): 4 Chair/Evq-rh-Uyxsy Xfer(QC): 4 Car Transfer (QC): 3 (mod (A) -- needing more support stand>sit to maintain balance, v.c. to not park walker away from car, min (A) to bring legs up safely due to core weakness) Gait Training Does the Patient Walk?: Yes Walk 10 feet (QC): 4 Walk 50 ft with 2 Turns(QC): 4 Walk 150 ft (QC): 4 Walking 10ft/uneven surface-QC: 3 (Min - Mod (A) of 1 /c FWW) Gait Assistive Device: FWW Wheelchair Training Does the Pt Use a Wheelchair?: No Wheel 50 ft with 2 turns (QC): 9 Wheel 150 ft (QC): 9 Stair Training 1 Step (curb) (QC): 3 (mod (A) /c FWW - weakness noted during step-up phase) 4 Steps (QC): 3 (min (A) /c (B) hand rails, LE weakness noted during step-up phase. Needed to "lauch" off foot on ground level to make it to next step. ) 12 Steps (QC): 3 Balance Picking up an Object (QC): 3 (min-mod (A ) for balance) ADL-Treatment Eating (QC): 5 (sitting EOB ) Oral Hygiene (QC): 4 Bathing Location: L Arm, R Arm, L Upper Leg, R Upper Leg, L Lower Leg (including foot), R Lower Leg (including foot), Chest, Abdomen, Buttocks, Perineal Area Shower/Bathe Self (QC): 4 (Pt. able to bathe all areas while sitting 100% of time on shower bench leaning side to side to clean buttocks using HH shower and grabbars with SBA for safety. ) Upper Body Dressing (QC): 5 (Pt. able to don/doff UB dressing by self after set up. ) Lower Body Dressing (QC): 3 (Assist with doffing/donning then is able to take brief/pants from knees and hike using FWW to stabilize with SBA. ) On/Off Footwear (QC): 5 (Pt. able to don/doff slippers. ) Toileting Hygiene (QC): 4 (Pt. able to complete clothing manipulation using FWW and grabbars with SBA and is able to cleanse all areas. ) Toilet Transfer (QC): 4 (Pt. 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 Maintain on oral anticoagulation and metoprolol Previous NSTEMI Food aversion Plan: Aggressive rehab TPN Encourage p.o. intake Monitor closely 07/22/2023: Monitor nutrition PICC line in place Slow recovery 07/23/2023: Encouraged p.o. intake Pain control Nausea controlled 07/24/2023: Increase p.o. intake Maintain TPN 07/25/2023: Dobbhoff may be an option for enteral route nutrition 07/26/2023: Dobbhoff placed Tube feedings to begin Continue TPN until tolerating tube feedings 07/27/2023: DC Dobbhoff Tube feedings were not successful Continue TPN (1) Myopathy (2) Duodenal perforation Status: Acute (3) Anasarca Status: Acute (4) Hemorrhagic shock Status: Resolved Resolution Date/Time: 06/10/23 @ 15:29 (5) ABLA (acute blood loss anemia) Status: Acute (6) History of Clostridium difficile infection Status: Chronic (7) Rheumatoid arthritis Status: Chronic (8) Status post skin flap graft Status: Acute JUDIT KEEN DO Jul 27, 2023 10:49
[2023-07-27] MEDS: CYANOCOBALAMIN 1,000 MCG TABLET PO SCH (10:54)
[2023-07-27] MEDS: FOLIC ACID 1 MG TAB PO SCH (10:55)
[2023-07-27] MEDS: VITAMIN D3 25 MCG (1,000 UNITS) TABLET PO SCH (10:56)
[2023-07-27] MEDS: NYSTATIN ORAL SUSP 5 ML UDC PO SCH ×4 (11:24→21:25)
[2023-07-27] MEDS ORDERED: PATIENT MAY USE OWN MED,SINGLE MED PO SCH (13:15)
[2023-07-27] MEDS ORDERED: CALCIUM CARBONATE 750 MG PO PRN (13:45)
--- NOTE | 2023-07-27 14:02 | Physical Therapy Progress Note ---
Therapy Progress Note TURNING MACHINE OPERATOR attempts to see pt in both morning session as well as again in afternoon session and pt refuses both times. Pt has been nauseated and vomiting today. Nursing is aware and pt is on Medical Hold for tx at this time. Tx will resume when pt is feeling better. PT will check back with pt tomorrow. DIANE KENYON TURNING MACHINE OPERATOR Jul 27, 2023 14:02
--- NOTE | 2023-07-27 14:03 | Occ Therapy Progress Note ---
Therapy Progress Note Pt chart reviewed and attempted to see pt this PM for occupational therapy session. Upon arrival pt stated that she has not feeling well all day. Physician placed pt on medical hold at this time due to vomiting and severe nausea. Will reattempt to see pt when appropriate. LESA OTTO Jul 27, 2023 14:02
--- NOTE | 2023-07-27 14:19 | Speech Therapy Daily Note ---
Speech Daily Progress Note Subjective Date Seen by Provider: Jul 27, 2023 Time Seen by Provider: 13:00 Speech Cigarette Book Maker Goals Cigarette Book Maker Goals Pt will complete OMEs with 90% accuracy, to increase lingual strength for effective bolus formation and to reduce the risk of aspiration/penetration during PO intake. Pt will demonstrate adequate use of swallow guidelines to eliminate the risk of aspiration/penetration during PO intake with 90% accuracy and no cues. Speech-Plan Treatment Plan Treatment Duration: Jul 21, 2023 Frequency: At least 5 of 7 days/Wk (IRF) Estimated Hrs Per Day: .5 hour per day Rehab Potential: Darlyn Damian Jul 27, 2023 14:19
--- NOTE | 2023-07-27 14:21 | Speech Therapy Progress Note ---
Therapy Progress Note BUTTERMAKER CONTINUOUS CHURN attempts to see pt during afternoon scheduled time. Pt reports not feeling well and is fatigued. Pt chooses to not participate in session this date. Pt has now been placed on medical hold per doctor's orders. BUTTERMAKER CONTINUOUS CHURN will attempt session tomorrow. Darlyn Mckeon Jul 27, 2023 14:21
[2023-07-27] MEDS: CALCIUM CARBONATE 750 MG PO SCH ×2 (14:59→18:20)
--- NOTE | 2023-07-27 15:10 | Diagnostic Imaging Report ---
EXAMINATION: Abdomen 1 view HISTORY: Ileus COMPARISON: None available. FINDINGS: No dilated bowel. No free air. IMPRESSION: 1. Normal bowel gas pattern. Dictated by: Dictated on workstation # [id number]
[2023-07-27] MEDS: ONDANSETRON INJECTION 4 MG/2 ML (SDV) IVP PRN (16:35)
[2023-07-27] MEDS ORDERED: SODIUM PHOSPHATE IV SCH ×10 (17:00)
[2023-07-27] MEDS ORDERED: SODIUM ACETATE IV SCH ×10 (17:00)
[2023-07-27] MEDS ORDERED: POTASSIUM CHLORIDE IV SCH ×10 (17:00)
[2023-07-27] MEDS ORDERED: [UNRECOGNIZED DRUG - OTHER] IV SCH ×10 (17:00)
--- NOTE | 2023-07-27 18:49 | Progress Note - Surgery ---
NELDA SOFIA 07/27/231848: Subjective Date Seen by a Provider: Jul 27, 2023 Time Seen by a Provider: 17:00 Subjective/Events-last exam Pt was laying in bed comfortably. Pt is not tolerating solid foods and receives a majority of caloric intake via TPN. She has tolerated clear liquids and fruit, but not much else. Objective Exam Vital Signs Date Time Temp Pulse Resp B/P (MAP) Pulse Ox O2 Delivery O2 Flow Rate FiO2 07/27/23 09:00 98 Room Air 07/27/23 07:27 36.1 81 16 166/89 (114) 98 Room Air 07/26/23 21:30 95 Room Air 07/26/23 20:24 37.0 71 20 179/79 (112) 95 Room Air I & O 07/27/23 06:59 Intake Total 1295 ml Balance 1295 ml Capillary Refill : General Appearance: No Apparent Distress, WD/WN, Chronically ill HEENT: PERRL/EOMI, Pharynx Normal Neck: Non Tender, Supple, Carotid Bruit Respiratory: Lungs Clear, No Accessory Muscle Use, No Respiratory Distress Cardiovascular: Regular Rate, Rhythm, No Edema, No Murmur, Normal Peripheral Pu lses Peripheral Pulses: 2+ Dorsalis Pedis (R), 2+ Left Dors-Pedis (L), 2+ Radial Pulses (R), 2+ Radial Pulses (L) Gastrointestinal: non tender, soft Extremity: Non Tender, No Calf Tenderness, No Pedal Edema Neurologic/Psychiatric: Alert, Oriented x3, Abnormal Gait, Depressed Affect, Motor Weakness (Severe 3/5) Skin: Normal Color, Warm/Dry, Other (abdominal incision c/d/i with packing. ) Lymphatic: No Adenopathy Assessment/Plan Assessment/Plan Assessment/Plan GERD Status post duodenal perforation requiring laparotomy ligation of vessel and Greg patch Acute blood loss anemia history Klebsiella pneumonia completing antibiotics Poor nutrition intake maintained on TPN Severe weakness Recent Mohs surgery of nose Atrial fibrillation? Maintain on oral anticoagulation and metoprolol History NSTEMI Abdominal wounds Protonix/Pepcid/ carafate Chronic TPN via PICC line Needs daily dressing changes to abdominal wounds Consider placing port if still requiring TPN in 2 months Will sign off, call if needed. FABIOLA GARCIA DO 07/27/232105: Subjective Subjective/Events-last exam Paitent did not tolerate tube feeds. On TPN. Food in small amounts tolerating only some liquids and fruit (minimal). Reflux okay currently. Having some nausea after trial of tube feeds. Kub today normal. Objective Exam General Appearance: No Apparent Distress, Chronically ill HEENT: PERRL/EOMI, Normal ENT Inspection, Other (nasal skin flap) Neck: Normal Inspection, Non Tender Respiratory: Chest Non Tender, No Accessory Muscle Use, No Respiratory Distress Cardiovascular: Regular Rate, Rhythm, No JVD Gastrointestinal: non tender, soft Extremity: Non Tender, No Calf Tenderness Neurologic/Psychiatric: Alert, Oriented x3, Depressed Affect Skin: Normal Color, Warm/Dry, Other (abdominal incision c/d/i with packing in two open wound, minimal diameter) Lymphatic: No Adenopathy Assessment/Plan Assessment/Plan Assessment/Plan GERD Status post duodenal perforation requiring laparotomy ligation of vessel and Greg patch Acute blood loss anemia history Klebsiella pneumonia completing antibiotics Poor nutrition intake maintained on TPN Severe weakness Recent Mohs surgery of nose Atrial fibrillation? Maintain on oral anticoagulation and metoprolol History NSTEMI Abdominal wounds Protonix/Pepcid/ carafate TPN via PICC line Needs daily dressing changes to abdominal wounds Oral nutrition not adequate and on TPN. DId not tolerate trial of tube feeds though Dobbhoff tube. Would use picc line for tpn, if needing for longer term would consider port as option or switching picc lines. Will sign off, call if needed. Supervisory-Addendum Brief Verification & Attestation Participated in pt care: history, MDM, physical Personally performed: exam, history, MDM, supervision of care Care discussed with: Medical Student Procedures: n/a Results interpretation: Verified all documentation Verification and Attestation of Medical Student E/M Service A medical student performed and documented this service in my presence. I reviewed and verified all information documented by the medical student and made modifications to such information, when appropriate. I personally performed the physical exam and medical decision making. Fabiola Garcia Jul 27, 2023,21:09 NELDA SOFIA Jul 27, 2023 18:49 FABIOLA GARCIA DO Jul 27, 2023 21:06
[2023-07-27] MEDS: MIRTAZAPINE 15 MG TABLET PO SCH (20:13)
[2023-07-27 20:15] VITALS: BP 170/79
[2023-07-28] MEDS: THERAPEUTIC MULTIVITAMIN W/MINERALS TABLET PO SCH (06:30)
[2023-07-28] MEDS: SUCRALFATE 1 GM TABLET PO SCH ×2 (06:30→10:56)
--- NOTE | 2023-07-28 06:31 | PM&R Progress Note ---
Subjective HPI/CC On Admission Date Seen by Provider: Jul 28, 2023 Time Seen by Provider: 12:30 Subjective/Events-last exam 07/28/2023: 07/27/2023: Patient did not tolerate tube feedings Discontinue Dobbhoff Chronic TPN supplementation recommended by Dr. Garcia Patient may need swing bed if she is unable to improve enough 07/26/2023: Patient doing well No pain is reported Dobbhoff placed and tube feeding started TPN will maintain to be sure she can tolerate tube feedings 07/25/2023: Patient doing really well Talk to her about options in order to decrease TPN and use enteral route so I did talk with Dr. Garcia and Dobbhoff may be an option Reviewed meds and labs 07/24/2023: Patient doing much better Up in a chair visiting with family She did eat a little bit more Will order hydrocodone and Ultram for pain but she must eat before to avoid nausea 07/23/2023: Patient doing a lot better Nausea is controlled with scopolamine patch Still not eating at all TPN maintained Dr. Garcia evaluated her wounds and found them to be in good shape 07/22/2023: Slow recovery Dizziness reported so holding therapy TPN starting at 500pm today then Clinimix DC Labs stable Poor appetite No pain Review of Systems General: Fatigue, Malaise Objective Exam Vital Signs Vital Signs Date Time Temp Pulse Resp B/P (MAP) Pulse Ox O2 Delivery O2 Flow Rate FiO2 07/28/23 13:30 80 169/80 (109) 92 Room Air 07/28/23 08:00 36.0 16 Capillary Refill : General Appearance: No Apparent Distress, Chronically ill HEENT: PERRL/EOMI, Normal ENT Inspection, Other (nasal skin flap) Neck: Normal Inspection, Non Tender Respiratory: Chest Non Tender, No Accessory Muscle Use, No Respiratory Distress Cardiovascular: Regular Rate, Rhythm, No JVD Gastrointestinal: Normal Bowel Sounds, No Organomegaly, No Pulsatile Mass, Non Tender, Soft Back: Normal Inspection, No CVA Tenderness, No Vertebral Tenderness Extremity: Non Tender, No Calf Tenderness Neurologic/Psychiatric: Alert, Oriented x3, Depressed Affect Skin: Normal Color, Warm/Dry, Other (abdominal incision c/d/i with packing in two open wound, minimal diameter) Lymphatic: No Adenopathy Results/Procedures Lab Laboratory Tests 07/28/23 07:55 07/28/23 09:13 Patient resulted labs reviewed. FIM Transfers Therapy Code Descriptions/Definitions Functional [place] Measure: 0=Not Assessed/NA 4=Minimal Assistance 1=Total Assistance 5=Supervision or Setup 2=Maximal Assistance 6=Modified [place] 3=Moderate Assistance 7=Complete IndependenceSCALE: Activities may be completed with or without assistive devices. 1-Oezbogzvqd-oivwkwv completes the activity by him/herself with no assistance from a helper. 5-Set-up or Clean-up Assistance-helper sets up or cleans up; patient completes activity. [place] assists only prior to or following the activity. 4-Supervision or Touching Assistance-helper provides verbal cues and/or touching/steadying and/or contact guard assistance as patient completes activity. Assistance may be provided throughout the activity or intermittently. 3-Partial/Moderate Assistance-helper does LESS THAN HALF the effort. [place] lifts, holds or supports trunk or limbs, but provides less than half the effort. 2-Substantial/Maximal Assistance-helper does MORE THAN HALF the effort. [place] lifts or holds trunk or limbs and provides more than half the effort. 4-Qhxlxhfkc-pignnb does ALL the effort. Patient does none of the effort to complete the activity. Or, the assistance of 2 or more helpers is required for the patient to complete the activity. If activity was not attempted, code reason: 7-Patient Refused. 9-Not Applicable-not attempted and the patient did not perform the activity before the current illness, exacerbation or injury. 10-Not Attempted due to Environmental Limitations-(lack of equipment, weather restraints, etc.). 88-Not Attempted due to Medical Conditions or Safety Concerns. Roll Left to Right (QC): 3 Sit to Lying (QC): 3 Sit to Stand (QC): 4 Chair/Xay-td-Kklqt Xfer(QC): 4 Car Transfer (QC): 3 (mod (A) -- needing more support stand>sit to maintain balance, v.c. to not park walker away from car, min (A) to bring legs up safely due to core weakness) Gait Training Does the Patient Walk?: Yes Walk 10 feet (QC): 4 Walk 50 ft with 2 Turns(QC): 4 Walk 150 ft (QC): 4 Walking 10ft/uneven surface-QC: 3 (Min - Mod (A) of 1 /c FWW) Gait Assistive Device: FWW Wheelchair Training Does the Pt Use a Wheelchair?: No Wheel 50 ft with 2 turns (QC): 9 Wheel 150 ft (QC): 9 Stair Training 1 Step (curb) (QC): 3 (mod (A) /c FWW - weakness noted during step-up phase) 4 Steps (QC): 3 (min (A) /c (B) hand rails, LE weakness noted during step-up phase. Needed to "lauch" off foot on ground level to make it to next step. ) 12 Steps (QC): 3 Balance Picking up an Object (QC): 3 (min-mod (A ) for balance) ADL-Treatment Eating (QC): 5 (sitting EOB ) Oral Hygiene (QC): 4 Bathing Location: L Arm, R Arm, L Upper Leg, R Upper Leg, L Lower Leg (inc luding foot), R Lower Leg (including foot), Chest, Abdomen, Buttocks, Perineal Area Shower/Bathe Self (QC): 4 (Pt. able to bathe all areas while sitting 100% of time on shower bench leaning side to side to clean buttocks using HH shower and grabbars with SBA for safety. ) Upper Body Dressing (QC): 5 (Pt. able to don/doff UB dressing by self after set up. ) Lower Body Dressing (QC): 3 (Assist with doffing/donning then is able to take brief/pants from knees and hike using FWW to stabilize with SBA. ) On/Off Footwear (QC): 5 (Pt. able to don/doff slippers. ) Toileting Hygiene (QC): 4 (Pt. able to complete clothing manipulation using FWW and grabbars with SBA and is able to cleanse all areas. ) Toilet Transfer (QC): 4 (Pt. 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 Maintain on oral anticoagulation and metoprolol Previous NSTEMI Food aversion Plan: Aggressive rehab TPN Encourage p.o. intake Monitor closely 07/22/2023: Monitor nutrition PICC line in place Slow recovery 07/23/2023: Encouraged p.o. intake Pain control Nausea controlled 07/24/2023: Increase p.o. intake Maintain TPN 07/25/2023: Dobbhoff may be an option for enteral route nutrition 07/26/2023: Dobbhoff placed Tube feedings to begin Continue TPN until tolerating tube feedings 07/27/2023: DC Dobbhoff Tube feedings were not successful Continue TPN 07/28/2023: (1) Myopathy (2) Duodenal perforation Status: Acute (3) Anasarca Status: Acute (4) Hemorrhagic shock Status: Resolved Resolution Date/Time: 06/10/23 @ 15:29 (5) ABLA (acute blood loss anemia) Status: Acute (6) History of Clostridium difficile infection Status: Chronic (7) Rheumatoid arthritis Status: Chronic (8) Status post skin flap graft Status: Acute JUDIT KEEN DO Jul 28, 2023 06:31
[2023-07-28] MEDS: FAMOTIDINE 20 MG TABLET PO SCH (07:59)
[2023-07-28] MEDS: APIXABAN 5 MG TABLET PO SCH (07:59)
[2023-07-28] MEDS: PANTOPRAZOLE 40 MG TABLET PO SCH (07:59)
[2023-07-28 08:00] VITALS: BP 176/81
[2023-07-28] MEDS: SENNA W/DOCUSATE TABLET PO SCH (08:02)
[2023-07-28] MEDS: DOCUSATE SODIUM 100 MG CAPSULE PO SCH (08:02)
[2023-07-28 08:08] LABS: BASOPHILS # (AUTO) 0.1 10^3/uL (0.0-0.1); BASOPHILS % (AUTO) 1 % (0-10); EOSINOPHILS # (AUTO) 0.2 10^3/uL (0.0-0.3); EOSINOPHILS % (AUTO) 2 % (0-10); HEMATOCRIT 31 % (35-52); HEMOGLOBIN 9.9 g/dL (11.5-16.0); LYMPHOCYTES # (AUTO) 0.7 10^3/uL (1.0-4.0); LYMPHOCYTES % (AUTO) 7 % (12-44); MEAN CORPUSCULAR HEMOGLOBIN 31 pg (25-34); MEAN CORPUSCULAR HGB CONC 32 g/dL (32-36); MEAN CORPUSCULAR VOLUME 96 fL (80-99); MEAN PLATELET VOLUME 10.4 fL (9.0-12.2); MONOCYTES # (AUTO) 0.6 10^3/uL (0.0-1.0); MONOCYTES % (AUTO) 6 % (0-12); NEUTROPHILS # (AUTO) 8.5 10^3/uL (1.8-7.8); NEUTROPHILS % (AUTO) 84 % (42-75); PLATELET COUNT 283 10^3/uL (130-400); WHITE BLOOD COUNT 10.1 10^3/uL (4.3-11.0)
[2023-07-28 08:45] LABS: BAND NEUTROPHILS 0 %; BASOPHILS % (MANUAL) 0 %; EOSINOPHILS % (MANUAL) 2 %; LYMPHOCYTES % (MANUAL) 5 %; MONOCYTES % (MANUAL) 2 %; NEUTROPHILS % (MANUAL) 91 %; RBC MORPH NORMAL
[2023-07-28] MEDS: LACTOBACILLUS ACIDOPHILUS (PROBIOTIC) CAPSULE NG SCH (08:50)
[2023-07-28] MEDS: FOLIC ACID 1 MG TAB PO SCH (08:50)
[2023-07-28] MEDS: ONDANSETRON 4 MG ORAL DISSOLVE TABLET PO PRN (08:53)
[2023-07-28] MEDS: CALCIUM CARBONATE 750 MG PO SCH ×2 (08:57→13:21)
[2023-07-28 09:31] LABS: ALBUMIN 3.1 GM/DL (3.2-4.5); POTASSIUM 3.7 MMOL/L (3.6-5.0)
[2023-07-28 09:32] LABS: CALCIUM 8.6 MG/DL (8.5-10.1)
[2023-07-28 09:34] LABS: TOTAL PROTEIN 5.9 GM/DL (6.4-8.2)
[2023-07-28 09:35] LABS: BILIRUBIN,TOTAL 0.3 MG/DL (0.1-1.0)
[2023-07-28 09:37] LABS: CREATININE SERUM 0.61 MG/DL (0.60-1.30)
--- NOTE | 2023-07-28 10:44 | Occupational Ther Daily Note ---
OT Current Status-Daily Note Subjective Pt agreeable to therapy tx ADL-Treatment Therapy Code Descriptions/Definitions Functional [place] Measure: 0=Not Assessed/NA 4=Minimal Assistance 1=Total Assistance 5=Supervision or Setup 2=Maximal Assistance 6=Modified [place] 3=Moderate Assistance 7=Complete IndependenceSCALE: Activities may be completed with or without assistive devices. 3-Dohlaapwgn-eazmpce completes the activity by him/herself with no assistance from a helper. 5-Set-up or Clean-up Assistance-helper sets up or cleans up; patient completes activity. [place] assists only prior to or following the activity. 4-Supervision or Touching Assistance-helper provides verbal cues and/or touching/steadying and/or contact guard assistance as patient completes activity. Assistance may be provided throughout the activity or intermittently. 3-Partial/Moderate Assistance-helper does LESS THAN HALF the effort. [place] lifts, holds or supports trunk or limbs, but provides less than half the effort. 2-Substantial/Maximal Assistance-helper does MORE THAN HALF the effort. [place] lifts or holds trunk or limbs and provides more than half the effort. 5-Mhtzvtzxo-clxlxm does ALL the effort. Patient does none of the effort to complete the activity. Or, the assistance of 2 or more helpers is required for the patient to complete the activity. If activity was not attempted, code reason: 7-Patient Refused. 9-Not Applicable-not attempted and the patient did not perform the activity before the current illness, exacerbation or injury. 10-Not Attempted due to Environmental Limitations-(lack of equipment, weather restraints, etc.). 88-Not Attempted due to Medical Conditions or Safety Concerns. Eating (QC): 5 (set up with taking medication by mouth) Oral Hygiene (QC): 6 (seated at sink) Shower/Bathe Self (QC): 88 Upper Body Dressing (QC): 4 (SBA) Lower Body Dressing (QC): 88 On/Off Footwear: 3 (Assist tedhose, able to don slip on shoes with set up.) Toileting Hygiene (QC): 4 (CGA) Toilet Transfer (QC): 4 (CGA) Other Treatment [id number]: OT/PT cotreat due to skill of 2 clinicians required which a restorative rehab aide could not perform in order to coordinate UE/LEs, decrease fall risk, and d ue to pt's limitations in strength, activity tolerance, mobility/transfers. OT focused on UE placement, ADLs, and cues for sequencing and safety, PT focused on LE placement, gross overall movement, transfers and mobility. Pt transferred supine to sit EOB, SBA (increased time), changed shirt with SBA, then returned supine SBA (increased time). Pt able to sit EOB ~1 min during task, decreased core strength impacts pt's ability to sit unsupported for extended time. After rest break, pt returned EOB, SBA, then used FWW to transfer into bathroom onto toilet, CGA. Pt completed toileting, CGA, then transferred to w/c, completing grooming tasks at sink independently seated. [id number]: OT tx: Pt finished grooming tasks at sink, then returned to EOB using FWW, CGA, then SBA sit to supine. In order to increase BUE strength and activity tolerance, pt completed UE reaching task, placing/removing 1" pegs into foam pegboard using RUE. Pt required frequent rest breaks and had difficulty keeping eyes open during task, completing x15 pegs total. Post tx, pt in bed, call light in reach and all needs met. Education OT Patient Education: Correct positioning, Energy conservation, Modified ADL techniques, Progress toward Goal/Update tx plan, Purpose of tx/functional activities, Rehab process Teaching Recipient: Patient Teaching Methods: Discussion Response to Teaching: Verbalize Understanding BIMS CAM BIMS Expression of Ideas and Wants: Without Difficulty Understanding Verbal Content: Understands Brief Interview/Mental Status: Yes IRF HORTENCIA BIMS: IRF HORTENCIA BIMS Response (Comments) Value Repitition of Three Words Three 3 Recalls Socks Yes, No Cue Required 2 Recalls Blue Yes, No Cue Required 2 Recalls Bed Yes, No Cue Required 2 Year Correct 3 Month Accurate Within 5 Days 2 Day Correct 1 Total 15 Should Staff Asses. Mental St.: No CAM Mental Status Change/Baseline: 0 Inattention: 0 Disorganized thinkin Altered level of consciousness: 0 OT Short Term Goals Short Term Goals Time Frame: Jul 30, 2023 Eatin Oral hygiene: 5 Toileting hygiene: 5 Shower/bathe self: 4 Upper body dressin Lower body dressin Putting on/taking off footwear: 4 OT Ceramic Worker Goals Ceramic Worker Goals Time Frame: Aug 06, 2023 Acute change in mental status: 0 Inattention: 0 Disorganized thinkin Altered level of consciousness: 0 Eating (QC): 6 Oral Hygiene (QC): 6 Toileting Hygiene (QC): 6 Shower/Bathe Self (QC): 6 Upper Body Dressing (QC): 6 Lower Body Dressing (QC): 6 On/Off Footwear (QC): 6 1=Demonstrate adherence to instructed precautions during ADL tasks. 2=Patient will verbalize/demonstrate understanding of assistive devices/modifications for ADL. 3=Patient will improve strength/tolerance for activity to enable patient to perform ADL's. OT Education/Plan Problem List/Assessment Assessment: Decreased Activ Tolerance, Decreased UE Strength, Impaired Coordination, Impaired Funct Balance, Impaired I ADL's, Impaired Self-Care Skills Discharge Recommendations Plan/Recommendations: Continue POC Treatment Plan/Plan of Care Patient would benefit from OT for education, treatment and training to promote independence in ADL's, mobility, safety and/or upper extremity function for ADL's. Plan of Care: ADL Retraining, Caregiver Training, Concurrent Therapy, Functional Mobility, Group Exercise/Act as Ind, UE Funct Exercise/Act Treatment Duration: Aug 18, 2023 Frequency: At least 5 of 7 days/Wk (IRF) Estimated Hrs Per Day: 1.5 hours per day Agreement: Yes Rehab Potential: Good Time Start Time: 09:45 Stop Time: 10:30 DATE: Jul 28, 2023 Total Time Billed (hr/min): 75 Billed Treatment Time cotreat x45', OT tx x30' 1, ADL 3 (45'), FA 2 (30') ENRIQUE MENDEZ OT Jul 28, 2023 10:44
[2023-07-28] MEDS: VITAMIN D3 25 MCG (1,000 UNITS) TABLET PO SCH (10:56)
[2023-07-28] MEDS: NYSTATIN ORAL SUSP 5 ML UDC PO SCH ×2 (10:56→13:22)
[2023-07-28] MEDS: CYANOCOBALAMIN 1,000 MCG TABLET PO SCH (10:56)
--- NOTE | 2023-07-28 12:21 | Physical Therapy Daily Note ---
PT Daily Note-Current Subjective Pt laying Supine in bed upon arrival. Pt agrees to PT/OT co-treat but tx is taken very slowly as pt can tolerate 2/2 ongoing medical issues. Pain Location Body Site: Abdomen Pain Description: Pressure Comment: Reported but not rated Section J - Health Conditions 1. Rarely or not at all 2. Occasionally 3. Frequently 4. Almost constantly 8. Unable to answer Pain Effect on Sleep: 1 Pain Interference with Therapy: 1 Pain Interference w/Day-to-Day: 1 Mental Status Patient Orientation: Person, Place, Situation Transfers SCALE: Activities may be completed with or without assistive devices. 9-Zqushbwbgy-hswhqan completes the activity by him/herself with no assistance from a helper. 5-Set-up or Clean-up Assistance-helper sets up or cleans up; patient completes activity. [place] assists only prior to or following the activity. 4-Supervision or Touching Assistance-helper provides verbal cues and/or touching/steadying and/or contact guard assistance as patient completes act ivity. Assistance may be provided throughout the activity or intermittently. 3-Partial/Moderate Assistance-helper does LESS THAN HALF the effort. [place] lifts, holds or supports trunk or limbs, but provides less than half the effort. 2-Substantial/Maximal Assistance-helper does MORE THAN HALF the effort. [place] lifts or holds trunk or limbs and provides more than half the effort. 5-Yocidhpcz-hhrqzb does ALL the effort. Patient does none of the effort to complete the activity. Or, the assistance of 2 or more helpers is required for the patient to complete the activity. If activity was not attempted, code reason: 7-Patient Refused. 9-Not Applicable-not attempted and the patient did not perform the activity before the current illness, exacerbation or injury. 10-Not Attempted due to Environmental Limitations-(lack of equipment, weather restraints, etc.). 88-Not Attempted due to Medical Conditions or Safety Concerns. Lying to Sitting/Side of Bed(Q: 5 Sit to Stand (QC): 5 Weight Bearing Right Lower Extremity: Right Full Weight Bearing Left Lower Extremity: Left Full Weight Bearing ([place]) Gait Training Does the Patient Walk?: Yes Distance: 15' Walk 10 feet (QC): 4 Gait Persons Needed: 1 Gait Assistive Device: [facility] Treatments [id number]: OT/PT cotreat due to skill of 2 clinicians required which a rehabilitation clerk could not perform in order to coordinate UE/LEs, decrease fall risk, and due to pt's limitations in strength, activity tolerance, mobility/transfers. OT focused on UE placement, ADLs, and cues for sequencing and safety, PT focused on LE placement, gross overall movement, transfers and mobility. Pt transferred supine to sit EOB, SBA (increased time), changed shirt with SBA, then returned supine SBA (increased time). Pt able to sit EOB ~1 min during task, decreased co re strength impacts pt's ability to sit unsupported for extended time. After rest break, pt returned EOB, SBA, then used FWW to transfer into bathroom onto toilet, CGA. Pt completed toileting, CGA, then transferred to w/c, completing grooming tasks at sink independently seated. CAT HOOKER departs & OT continues working w/Pt. Assessment Current Status: Fair Progress Pt fatigues, needing RB. Pt demonstrates difficulty sitting up in bed & maintaining sitting posture 2/2 abdominal strength deficit. PT Rotary Swaging Machine Operator Goals Fpc Goals PT Fpc Goals Time Frame: Aug 04, 2023 Roll Left & Right (QC): 6 Sit to Lying (QC): 6 Lying-Sitting on Side/Bed(QC): 6 Sit to Stand (QC): 6 Chair/Lxu-vv-Qzijq Xfer(QC): 6 Toilet Transfer (QC): 6 Car Transfer (QC): 6 Does the Patient Walk: Yes Walk 10 feet (QC): 6 Walk 50ft with 2 Turns (QC): 6 Walk 150 ft (QC): 6 Walking 10ft on Uneven Surface: 6 1 Step (curb) (QC): 6 4 Steps (QC): 6 12 Steps (QC): 6 Picking up an Object (QC): 6 Does the Pt use WC or Scooter?: No Wheel 50 feet with 2 turns (QC: 9 Wheel 150 feet: 9 PT Plan Problem List Problem List: Activity Tolerance, Functional Strength, Safety, Gait, Transfer Treatment/Plan Treatment Plan: Continue Plan of Care Treatment Plan: Bed Mobility, Concurrent Therapy, Education, Functional Activity [place], Functional Strength, Group Therapy, Gait, Safety, Therapeutic Exercise, Transfers Treatment Duration: Aug 04, 2023 Frequency: At least 5 of 7 days/Wk (IRF) Estimated Hrs Per Day: 1.5 hours per day Patient and/or Family Agrees t: Yes Safety Risks/Education Patient Education: Gait Training, Transfer Techniques, Correct Positioning, Safety Issues Teaching Recipient: Patient Teaching Methods: Discussion Response to Teaching: Verbalize Understanding Time Time In: 0945 Time Out: 1030 DATE: Jul 28, 2023 Total Billed Treatment Time: 45 Total Billed Treatment Co-treat w/OT for 45m 1, FA x3 (45m) DIANE KENYON PTA Jul 28, 2023 12:21
[2023-07-28] MEDS: ONDANSETRON INJECTION 4 MG/2 ML (SDV) IVP PRN (13:27)
[2023-07-28 13:30] VITALS: BP 169/80
--- NOTE | 2023-07-28 13:48 | Speech Therapy Daily Note ---
Speech Daily Progress Note Subjective Date Seen by Provider: Jul 28, 2023 Time Seen by Provider: 13:00 Pt reports not feeling well, but agrees to participate. Objective PILE OPERATOR asks if the taste bud recipe was fine for the pt, gives approval for pt to try. It includes 1/2 teaspoon of salt, 1 teaspoon of baking soda, and 1 cup of water. Pt swishes this in her mouth and then spits it out. PILE OPERATOR explains this to pt, and pt agrees to try. Pt does not report a difference, hopeful that her fruit and yogurt taste better this evening. Assessment Assessment Current Status: Fair Progress Pt reports that she feels useless, PILE OPERATOR assures her that she is not. Reminds her that she has had multiple medical issues and that she is still healing. Treatment Plan Continue Plan of Care Speech Intermediate Goals Lime Spreader Goals Pt will complete OMEs with 90% accuracy, to increase lingual strength for effective bolus formation and to reduce the risk of aspiration/penetration during PO intake. Pt will demonstrate adequate use of swallow guidelines to eliminate the risk of aspiration/penetration during PO intake with 90% accuracy and no cues. Speech-Plan Treatment Plan Speech Therapy Treatment Plan: Continue Plan of Care Treatment Duration: Jul 21, 2023 Frequency: At least 5 of 7 days/Wk (IRF) Estimated Hrs Per Day: .5 hour per day Rehab Potential: Good Safety Risks/Education Teaching Recipient: Patient Teaching Methods: Discussion Response to Teaching: Verbalize Understanding Education Topics Provided: Taste bud recipe Time Speech Therapy Time In: 13:00 Speech Therapy Time Out: 13:30 DATE: Jul 28, 2023 Total Billed Time: 30 Billed Treatment Time 1 DYST 30 min Darlyn Mckeon Jul 28, 2023 13:48
[2023-07-28] MEDS ORDERED: SODI20VI3 IV (14:30)
[2023-07-28] MEDS ORDERED: SCOP1PAT10 TD (14:30)
[2023-07-28] MEDS ORDERED: ONDA2VIACC IVP (14:30)
[2023-07-28] MEDS ORDERED: METO5VIA3 IVP (14:30)
[2023-07-28] MEDS ORDERED: MULT-1136 PO (14:30)
[2023-07-28] MEDS ORDERED: APIX5TAB PO (14:30)
[2023-07-28] MEDS ORDERED: FAMO-356 PO (14:30)
[2023-07-28] MEDS ORDERED: MIRT-47 PO (14:30)
[2023-07-28] MEDS ORDERED: LACT1CAP7 NG (14:30)
[2023-07-28] MEDS ORDERED: CYAN-41 PO (14:30)
[2023-07-28] MEDS ORDERED: NYST1000 PO (14:30)
[2023-07-28] MEDS ORDERED: SUCR1TAB PO (14:30)
[2023-07-28] MEDS ORDERED: PANT40TA52 PO (14:30)
[2023-07-28] MEDS ORDERED: ACHD5005 PO (14:30)
[2023-07-28] MEDS ORDERED: ACET325T49 PO (14:30)
[2023-07-28] MEDS ORDERED: CHOL-34 PO (14:30)
[2023-07-28] MEDS ORDERED: ALPR.25T PO (14:30)
[2023-07-28] MEDS ORDERED: FOLI1TAB33 PO (14:30)
[2023-07-28] MEDS ORDERED: MTP25TSR PO (14:30)
[2023-07-28] MEDS ORDERED: LOPE2CAP PO (14:30)
--- NOTE | 2023-07-28 14:31 | Discharge Inst-Skilled Nursing ---
Discharge Inst-Skilled NF Reconcile Patient Problems Problems Reviewed?: Yes Patient Instructions Patient Problems: TPN Goal: [place] Consult/Follow Up/Orders Follow Up Appt.: Dr Rossi Mayorga NF Admit to: [facility] Certification (SNF) I certify that SNF services are required to be given on an inpatient basis because of the above named patient's need for snf care on a continuing basis for the conditions(s) for which he/she was receiving inpatient hospital services prior to his/her transfer to the SNF. [facility] Facility Order: Nursing Services, Cable Lacer-Evaluate & Treat, Physical Therapy-Evaluate & Treat Oxygen Delivery Method: Room Air Discharge Diet: Regular Diet, Other Diet Daily Activity as Tolerated: Yes Resuscitation Status: Full Code New & Resume Previous Orders New Medications: Acetaminophen (Acetaminophen) 325 Mg Tablet 650 MG PO Q6H PRN for PAIN-MILD (1-4) for 30 Days, TAB ALPRAZolam (Xanax Tablet) 0.25 Mg Tab 0.25 MG PO Q8H PRN for ANXIETY for 30 Days, TAB Apixaban (Eliquis) 5 Mg Tablet 5 MG PO BID for 365 Days, TAB Cholecalciferol (Vitamin D3) (Vitamin D3) 25 Mcg (1000 Unit) Tablet 25 MCG PO DAILY for 30 Days, TAB Cyanocobalamin (Vitamin B-12) (Vitamin B-12) 1,000 Mcg Tablet 1000 MCG PO DAILY for 30 Days, TAB Folic Acid (Folic Acid) 1 Mg Tablet 1 MG PO DAILY for 30 Days, TAB Hydrocodone/Acetaminophen (Hydrocodone-Acetamin 5-325 mg) 5 Mg-325 Mg Tablet 1 EA PO Q4H PRN for PAIN-MODERATE (5-7) for 14 Days, TAB Lactobacillus Acidophilus/Pect (Acidophilus-Pectin Capsule) 75 Million Cell-100 Mg Capsule 1 EACH NG BID for 30 Days, CAP Loperamide HCl (Loperamide) 2 Mg Capsule 2 MG PO PRN PRN for DIARRHEA for 30 Days, CAP Metoclopramide HCl (Metoclopramide HCl) 5 Mg/Ml Vial 10 MG IVP Q6H PRN for NAUSEA/VOMITING-3RD LINE for 30 Days, VIAL Metoprolol Succinate (Metoprolol Succinate) 25 Mg Tab.er.24h 25 MG PO DAILY for 365 Days, TAB Mirtazapine (Mirtazapine) 15 Mg Tab.rapdis 15 MG PO HS for 30 Days, TAB Nystatin (Nystatin) 100,000 Unit/Ml Oral.susp 5 ML PO QID for 14 Days, ML Ondansetron HCl/Pf (Ondansetron HCl 4 mg/2 ml Vial) 4 Mg/2 Ml Vial 8 MG IVP Q4H PRN for NAUSEA/VOMITING-1ST LINE for 30 Days, VIAL Pantoprazole Sodium (Pantoprazole Sodium) 40 Mg Tablet.dr 40 MG PO BID for 30 Days, TAB Scopolamine (Transderm-Scop) 1 Mg/3 Day Patch.td72 1.5 MG TD Q72H PRN for nausea for 30 Days, PATCH Sodium/K+/Mag/Ca/Chlor/Acetate (TPN Electrolytes Vial) 35-20-5MEQ Vial 20 ML IV UD for 30 Days, EA Sucralfate (Sucralfate) 1 Gram Tablet 1 GM PO ACHS for 30 Days, TAB Continued Medications: Famotidine (Acid Impregnator And Drier (FAMOTIDINE)) 20 Mg Tablet 20 MG PO BID for 30 Days, TAB (This prescription has been renewed) Multivitamin (Multivitamin) 1 Each Tablet 1 EACH PO DAILY for 30 Days, TAB (This prescription has been renewed) Discontinued Medications: Biotin (Biotin) 2,500 Mcg Capsule 2500 MCG PO DAILY, CAP Diphenoxylate HCl/Atropine (Diphenoxylate-Atrop 2.5-0.025) 2.5 Mg-0.025 Mg Tablet 1 EACH PO Q4H PRN for DIARRHEA, TAB Hydroxychloroquine Sulfate (Hydroxychloroquine Sulfate) 200 Mg Tablet 200 MG PO BID, TAB Methotrexate Sodium (Methotrexate) 2.5 Mg Tablet 17.5 MG PO WEDNESDAY, TAB TAKES 7 (2.5MG) TABS Albertina Richey Jul 28, 2023 14:31 ALBERTINA RICHEY DO Jul 28, 2023 14:31
--- NOTE | 2023-07-28 14:32 | Discharge Summary ---
Diagnosis/Chief Complaint Date of Admission Jul 21, 2023 at 11:21 Date of Discharge Discharge Date: Jul 28, 2023 Discharge Diagnosis Assessment: Critical illness myopathy Status post gastric perforation from Mobic requiring laparotomy and Greg patch Acute blood loss anemia history Klebsiella pneumonia completing antibiotics Poor nutrition intake maintained on TPN Severe weakness Recent Mohs surgery of nose Atrial fibrillation? Maintain on oral anticoagulation and metoprolol Previous NSTEMI Food aversion Plan: Aggressive rehab TPN Encourage p.o. intake Monitor closely 07/22/2023: Monitor nutrition PICC line in place Slow recovery 07/23/2023: Encouraged p.o. intake Pain control Nausea controlled 07/24/2023: Increase p.o. intake Maintain TPN 07/25/2023: Dobbhoff may be an option for enteral route nutrition 07/26/2023: Dobbhoff placed Tube feedings to begin Continue TPN until tolerating tube feedings 07/27/2023: DC Dobbhoff Tube feedings were not successful Continue TPN (1) Myopathy (2) Duodenal perforation Status: Acute (3) Anasarca Status: Acute (4) Hemorrhagic shock Status: Resolved Resolution Date/Time: 06/10/23 @ 15:29 (5) ABLA (acute blood loss anemia) Status: Acute (6) History of Clostridium difficile infection Status: Chronic (7) Rheumatoid arthritis Status: Chronic (8) Status post skin flap graft Status: Acute JUDIT KEEN DO Discharge Summary Discharge Physical Examination Allergies: Coded Allergies: No Known Drug Allergies (Unverified , 07/22/18) Vitals & I&Os Vital Signs Date Time Temp Pulse Resp B/P (MAP) Pulse Ox O2 Delivery O2 Flow Rate FiO2 07/28/23 13:30 80 169/80 (109) 92 Room Air 07/28/23 08:00 36.0 16 General Appearance: Alert, Oriented X3, Cooperative Respiratory: Clear to Auscultation Cardiovascular: Regular Rate Psych/Mental Status: Mental Status NL Hospital Course Was the Problem List Reviewed?: Yes Patient had an uneventful rehab course after she arrived from [place] after prolonged course following critical illness. She remained on TPN. Labs remained stable. Trial Dobbhoff placement due to food aversion initiated tube feeding was a failure. General surgery consulted wound appeared to be within normal limits. Overall she was deemed stable needing skilled care for TPN and further recovery. She will have close follow-up on daily rounds at [facility]. Labs (last 24 hrs) Laboratory Tests 07/22/23 06:00: White Blood Count 8.6, Red Blood Count 3.59L, Hemoglobin 10.6L, Hematocrit 33L, Mean Corpuscular Volume 92, Mean Corpuscular Hemoglobin 30, Mean Corpuscular Hemoglobin Concent 32, Red Cell Distribution Width 15.2H, Platelet Count 336, Mean Platelet Volume 9.8, Immature Granulocyte % (Auto) 1, Neutrophils (%) (Auto) 76H, Lymphocytes (%) (Auto) 15, Monocytes (%) (Auto) 5, Eosinophils (%) (Auto) 3, Basophils (%) (Auto) 1, Neutrophils # (Auto) 6.6, Lymphocytes # (Auto) 1.2, Monocytes # (Auto) 0.5, Eosinophils # (Auto) 0.2, Basophils # (Auto) 0.1, Immature Granulocyte # (Auto) 0.0, Sodium Level 135, Potassium Level 4.0, Chloride Level 101, Carbon Dioxide Level 27, Anion Gap 7, Blood Urea Nitrogen 14, Creatinine 0.73, Estimat Glomerular Filtration Rate 86, BUN/Creatinine Ratio 19, Glucose Level 115H, Calcium Level 9.5, Corrected Calcium 10.1, Phosphorus Level 3.9, Magnesium Level 1.9, Total Bilirubin 0.4, Aspartate Amino Transf (AST/SGOT) 29, Alanine Aminotransferase (ALT/SGPT) 18, Alkaline Phosphatase 134, Total Protein 6.6, Albumin 3.2, Prealbumin 18.8, Triglycerides Level 136 07/23/23 06:35: Sodium Level 138, Potassium Level 3.9, Chloride Level 103, Carbon Dioxide Level 22, Anion Gap 13, Blood Urea Nitrogen 21H, Creatinine 0.74, Estimat Glomerular Filtration Rate 85, BUN/Creatinine Ratio 28, Glucose Level 124H, Calcium Level 9.8, Corrected Calcium 10.3H, Phosphorus Level 3.8, Magnesium Level 1.8, Total Bilirubin 0.4, Aspartate Amino Transf (AST/SGOT) 26, Alanine Aminotransferase (ALT/SGPT) 17, Alkaline Phosphatase 124, Total Protein 6.6, Albumin 3.4 07/24/23 05:55: Sodium Level 139, Potassium Level 3.9, Chloride Level 108H, Carbon Dioxide Level 24, Anion Gap 7, Blood Urea Nitrogen 23H, Creatinine 0.66, Estimat Glomerular Filtration Rate 92, BUN/Creatinine Ratio 35, Glucose Level 113H, Calcium Level 8.9, Corrected Calcium 9.7, Phosphorus Level 2.3, Magnesium Level 1.8, Total Bilirubin 0.3, Aspartate Amino Transf (AST/SGOT) 18, Alanine Aminotransferase (ALT/SGPT) 13, Alkaline Phosphatase 105, Total Protein 5.8L, Albumin 3.0L 07/26/23 05:57: White Blood Count 6.3, Red Blood Count 3.10L, Hemoglobin 9.1L, Hematocrit 29L, Mean Corpuscular Volume 92, Mean Corpuscular Hemoglobin 29, Mean Corpuscular Hemoglobin Concent 32, Red Cell Distribution Width 14.6H, Platelet Count 234, Mean Platelet Volume 10.1, Immature Granulocyte % (Auto) 0, Neutrophils (%) (Auto) 69, Lymphocytes (%) (Auto) 14, Monocytes (%) (Auto) 9, Eosinophils (%) (Auto) 8, Basophils (%) (Auto) 1, Neutrophils # (Auto) 4.3, Lymphocytes # (Auto) 0.9L, Monocytes # (Auto) 0.6, Eosinophils # (Auto) 0.5H, Basophils # (Auto) 0.0, Immature Granulocyte # (Auto) 0.0, Sodium Level 135, Potassium Level 3.7, Chloride Level 111H, Carbon Dioxide Level 17L, Anion Gap 7, Blood Urea Nitrogen 19H, Creatinine 0.61, Estimat Glomerular Filtration Rate 94, BUN/Creatinine Ratio 31, Glucose Level 109H, Calcium Level 8.2L, Corrected Calcium 9.2, Total B ilirubin 0.4, Aspartate Amino Transf (AST/SGOT) 18, Alanine Aminotransferase (ALT/SGPT) 11, Alkaline Phosphatase 101, Total Protein 5.2L, Albumin 2.7L 07/28/23 07:55: White Blood Count 10.1, Red Blood Count 3.25L, Hemoglobin 9.9L, Hematocrit 31L, Mean Corpuscular Volume 96, Mean Corpuscular Hemoglobin 31, Mean Corpuscular Hemoglobin Concent 32, Red Cell Distribution Width 14.8H, Platelet Count 283, Mean Platelet Volume 10.4, Immature Granulocyte % (Auto) 1, Neutrophils (%) (Auto) 84H, Lymphocytes (%) (Auto) 7L, Monocytes (%) (Auto) 6, Eosinophils (%) (Auto) 2, Basophils (%) (Auto) 1, Neutrophils # (Auto) 8.5H, Lymphocytes # (Auto) 0.7L, Monocytes # (Auto) 0.6, Eosinophils # (Auto) 0.2, Basophils # (Auto) 0.1, Immature Granulocyte # (Auto) 0.1, Neutrophils % (Manual) 91, Lymphocytes % (Manual) 5, Monocytes % (Manual) 2, Eosinophils % (Manual) 2, Basophils % (Manual) 0, Band Neutrophils 0, Blood Morphology Comment NORMAL 07/28/23 09:13: Sodium Level 139, Potassium Level 3.7, Chloride Level 108H, Carbon Dioxide Level 22, Anion Gap 9, Blood Urea Nitrogen 15, Creatinine 0.61, Estimat Glomerular Filtration Rate 94, BUN/Creatinine Ratio 25, Glucose Level 112H, Calcium Level 8.6, Corrected Calcium 9.3, Total Bilirubin 0.3, Aspartate Amino Transf ( T/SGOT) 19, Alanine Aminotransferase (ALT/SGPT) 13, Alkaline Phosphatase 116, Total Protein 5.9L, Albumin 3.1L Pending Labs Laboratory Tests 07/22/23 06:00: White Blood Count 8.6, Red Blood Count 3.59, Hemoglobin 10.6, Hematocrit 33, Mean Corpuscular Volume 92, Mean Corpuscular Hemoglobin 30, Mean Corpuscular Hemoglobin Concent 32, Red Cell Distribution Width 15.2, Platelet Count 336, Mean Platelet Volume 9.8, Immature Granulocyte % (Auto) 1, Neutrophils (%) (Auto) 76, Lymphocytes (%) (Auto) 15, Monocytes (%) (Auto) 5, Eosinophils (%) (Auto) 3, Basophils (%) (Auto) 1, Neutrophils # (Auto) 6.6, Lymphocytes # (Auto) 1.2, Monocytes # (Auto) 0.5, Eosinophils # (Auto) 0.2, Basophils # (Auto) 0.1, Immature Granulocyte # (Auto) 0.0, Sodium Level 135, Potassium Level 4.0, Chloride Level 101, Carbon Dioxide Level 27, Anion Gap 7, Blood Urea Nitrogen 14, Creatinine 0.73, Estimat Glomerular Filtration Rate 86, BUN/Creatinine Ratio 19, Glucose Level 115, Calcium Level 9.5, Corrected Calcium 10.1, Phosphorus Level 3.9, Magnesium Level 1.9, Total Bilirubin 0.4, Aspartate Amino Transf (AST/SGOT) 29, Alanine Aminotransferase (ALT/SGPT) 18, Alkaline Phosphatase 134, Total Protein 6.6, Albumin 3.2, Prealbumin 18.8, Triglycerides Level 136 07/23/23 06:35: Sodium Level 138, Potassium Level 3.9, Chloride Level 103, Carbon Dioxide Level 22, Anion Gap 13, Blood Urea Nitrogen 21, Creatinine 0.74, Estimat Glomerular Filtration Rate 85, BUN/Creatinine Ratio 28, Glucose Level 124, Calcium Level 9.8, Corrected Calcium 10.3, Phosphorus Level 3.8, Magnesium Level 1.8, Total Bilirubin 0.4, Aspartate Amino Transf (AST/SGOT) 26, Alanine Aminotransferase (ALT/SGPT) 17, Alkaline Phosphatase 124, Total Protein 6.6, Albumin 3.4 07/24/23 05:55: Sodium Level 139, Potassium Level 3.9, Chloride Level 108, Carbon Dioxide Level 24, Anion Gap 7, Blood Urea Nitrogen 23, Creatinine 0.66, Estimat Glomerular Filtration Rate 92, BUN/Creatinine Ratio 35, Glucose Level 113, Calcium Level 8.9, Corrected Calcium 9.7, Phosphorus Level 2.3, Magnesium Level 1.8, Total Bilirubin 0.3, Aspartate Amino Transf (AST/SGOT) 18, Alanine Aminotransferase (ALT/SGPT) 13, Alkaline Phosphatase 105, Total Protein 5.8, Albumin 3.0 07/26/23 05:57: White Blood Count 6.3, Red Blood Count 3.10, Hemoglobin 9.1, Hematocrit 29, Mean Corpuscular Volume 92, Mean Corpuscular Hemoglobin 29, Mean Corpuscular Hemoglobin Concent 32, Red Cell Distribution Width 14.6, Platelet Count 234, Mean Platelet Volume 10.1, Immature Granulocyte % (Auto) 0, Neutrophils (%) (Auto) 69, Lymphocytes (%) (Auto) 14, Monocytes (%) (Auto) 9, Eosinophils (%) (Auto) 8, Basophils (%) (Auto) 1, Neutrophils # (Auto) 4.3, Lymphocytes # (Auto) 0.9, Monocytes # (Auto) 0.6, Eosinophils # (Auto) 0.5, Basophils # (Auto) 0.0, Immature Granulocyte # (Auto) 0.0, Sodium Level 135, Potassium Level 3.7, Chloride Level 111, Carbon Dioxide Level 17, Anion Gap 7, Blood Urea Nitrogen 19, Creatinine 0.61, Estimat Glomerular Filtration Rate 94, BUN/Creatinine Ratio 31, Glucose Level 109, Calcium Level 8.2, Corrected Calcium 9.2, Total Bilirubin 0.4, Aspartate Amino Transf (AST/SGOT) 18, Alanine Aminotransferase (ALT/SGPT) 11, Alkaline Phosphatase 101, Total Protein 5.2, Albumin 2.7 07/28/23 07:55: White Blood Count 10.1, Red Blood Count 3.25, Hemoglobin 9.9, Hematocrit 31, Mean Corpuscular Volume 96, Mean Corpuscular Hemoglobin 31, Mean Corpuscular Hemoglobin Concent 32, Red Cell Distribution Width 14.8, Platelet Count 283, Mean Platelet Volume 10.4, Immature Granulocyte % (Auto) 1, Neutrophils (%) (A uto) 84, Lymphocytes (%) (Auto) 7, Monocytes (%) (Auto) 6, Eosinophils (%) (Auto) 2, Basophils (%) (Auto) 1, Neutrophils # (Auto) 8.5, Lymphocytes # (Auto) 0.7, Monocytes # (Auto) 0.6, Eosinophils # (Auto) 0.2, Basophils # (Auto) 0.1, Immature Granulocyte # (Auto) 0.1, Neutrophils % (Manual) 91, Lymphocytes % (Manual) 5, Monocytes % (Manual) 2, Eosinophils % (Manual) 2, Basophils % (Manual) 0, Band Neutrophils 0, Blood Morphology Comment NORMAL 07/28/23 09:13: Sodium Level 139, Potassium Level 3.7, Chloride Level 108, Carbon Dioxide Level 22, Anion Gap 9, Blood Urea Nitrogen 15, Creatinine 0.61, Estimat Glomerular Filtration Rate 94, BUN/Creatinine Ratio 25, Glucose Level 112, Calcium Level 8.6, Corrected Calcium 9.3, Total Bilirubin 0.3, Aspartate Amino Transf (AST/SGOT) 19, Alanine Aminotransferase (ALT/SGPT) 13, Alkaline Phosphatase 116, Total Protein 5.9, Albumin 3.1 Discharge Home Medications: Active Scripts Active Vitamin D3 (Cholecalciferol (Vitamin D3)) 25 Mcg (1000 Unit) Tablet 25 Mcg PO DAILY 30 Days Folic Acid 1 Mg Tablet 1 Mg PO DAILY 30 Days Vitamin B-12 (Cyanocobalamin (Vitamin B-12)) 1,000 Mcg Tablet 1,000 Mcg PO DAILY 30 Days Acidophilus-Pectin Capsule (Lactobacillus Acidophilus/Pect) 75 Million Cell-100 Mg Capsule 1 Each NG BID 30 Days Metoclopramide HCl 5 Mg/Ml Vial 10 Mg IVP Q6H PRN 30 Days Pantoprazole Sodium 40 Mg Tablet.dr 40 Mg PO BID 30 Days Sucralfate 1 Gram Tablet 1 Gm PO ACHS 30 Days Transderm-Scop (Scopolamine) 1 Mg/3 Day Patch.td72 1.5 Mg TD Q72H PRN 30 Days Ondansetron HCl 4 mg/2 ml Vial (Ondansetron HCl/Pf) 4 Mg/2 Ml Vial 8 Mg IVP Q4H PRN 30 Days Loperamide (Loperamide HCl) 2 Mg Capsule 2 Mg PO PRN PRN 30 Days TPN Electrolytes Vial (Sodium/K+/Mag/Ca/Chlor/Acetate) 35-20-5MEQ Vial 20 Ml IV UD 30 Days Xanax Tablet (Alprazolam) 0.25 Mg Tab 0.25 Mg PO Q8H PRN 30 Days Mirtazapine 15 Mg Tab.rapdis 15 Mg PO HS 30 Days Acetaminophen 325 Mg Tablet 650 Mg PO Q6H PRN 30 Days Hydrocodone-Acetamin 5-325 mg (Hydrocodone/Acetaminophen) 5 Mg-325 Mg Tablet 1 Ea PO Q4H PRN 14 Days Metoprolol Succinate 25 Mg Tab.er.24h 25 Mg PO DAILY 365 Days Eliquis (Apixaban) 5 Mg Tablet 5 Mg PO BID 365 Days Nystatin 100,000 Unit/Ml Oral.susp 5 Ml PO QID 14 Days Multivitamin 1 Each Tablet 1 Each PO DAILY 30 Days Acid Sales Operations Coordinator (FAMOTIDINE) (Famotidine) 20 Mg Tablet 20 Mg PO BID 30 Days Instructions to patient/family Please see electronic discharge instructions given to patient. Diagnosis/Problems Diagnosis/Problems (1) Myopathy (2) Duodenal perforation Status: Acute (3) Anasarca Status: Acute (4) Hemorrhagic shock Status: Resolved Resolution Date/Time: 06/10/23 @ 15:29 (5) ABLA (acute blood loss anemia) Status: Acute (6) History of Clostridium difficile infection Status: Chronic (7) Rheumatoid arthritis Status: Chronic (8) Status post skin flap graft Status: Acute JUDIT KEEN DO Jul 28, 2023 14:32
[2023-07-28] MEDS ORDERED: POTASSIUM CHLORIDE IV SCH ×10 (17:00)
[2023-07-28] MEDS ORDERED: [UNRECOGNIZED DRUG - OTHER] IV SCH ×10 (17:00)
[2023-07-28] MEDS ORDERED: SODIUM ACETATE IV SCH ×10 (17:00)
[2023-07-28] MEDS ORDERED: SODIUM PHOSPHATE IV SCH ×10 (17:00)
--- NOTE | 2023-07-28 17:07 | Therapy Team Discharge Summary ---
Therapy Discharge Summary Discharge Recommendations Date of Discharge Jul 28, 2023 at 15:24 Physical Therapy Patient admitted to ARU 07/21/23 for critical illness myopathy, however fought bought of n/v that limited her participation in the Rehab program. Patient dismissed to swing bed on 07/28/23. Roll Left to Right (QC): 3 Sit to Lying (QC): 3 Lying to Sitting/Side of Bed(Q: 5 Sit to Stand (QC): 5 Chair/Olo-ed-Vsrez Xfer(QC): 4 Toilet Transfer (QC): 4 Car Transfer (QC): 3 (mod (A) -- needing more support stand>sit to maintain balance, v.c. to not park walker away from car, min (A) to bring legs up safely due to core weakness) Does the Patient Walk: Yes Mode of Locomotion: Walk Anticipated Mode of Locomotion: Walk Walk 10 feet (QC): 4 Walk 50 ft with 2 Turns(QC): 4 Walk 150 ft (QC): 4 Walking 10ft on uneven surface: 3 (Min - Mod (A) of 1 /c FWW) Distance: 152' Gait Assistive Device: FWW Does the Pt Use a Wheelchair: No Wheel 50 ft with 2 turns (QC): 9 Wheel 150 ft (QC): 9 1 Step (curb) (QC): 3 (mod (A) /c FWW - weakness noted during step-up phase) 4 Steps (QC): 3 (min (A) /c (B) hand rails, LE weakness noted during step-up phase. Needed to "lauch" off foot on ground level to make it to next step. ) 12 Steps (QC): 3 Walking Assistive Device: Walker Balance Sitting Static: Fair Balance Sitting Dynamic: Fair Balance-Standing Static: Fair Picking up an Object (QC): 3 (min-mod (A ) for balance) Occupational Therapy Decreased Activ Tolerance, Decreased UE Strength, Impaired Coordination, Impaired Funct Balance, Impaired I ADL's, Impaired Self-Care Skills Eating (QC): 5 (set up with taking medication by mouth) Oral Hygiene (QC): 6 (seated at sink) Shower/Bathe Self (QC): 88 Upper Body Dressing (QC): 4 (SBA) Lower Body Dressing (QC): 88 On/Off Footwear (QC): 3 (Assist tedhose, able to don slip on shoes with set up.) Toileting Hygiene (QC): 4 (CGA) PT Senior Care Goals Senior Business Intelligence Analyst Goals PT Senior Business Intelligence Analyst Goals Time Frame: Aug 04, 2023 Roll Left to Right (QC): 6 Sit to Lying (QC): 6 Lying-Sitting on Side/Bed(QC): 6 Sit to Stand (QC): 6 Chair/Xxc-rq-Uilsg Xfer(QC): 6 Toilet/Commode Transfer (QC): 6 Car Transfer (QC): 6 Does the Patient Walk: Yes Walk 10 feet (QC): 6 Walk 10ft-Uneven Surface(QC): 6 Walk 50ft with 2 Turns (QC): 6 Walk 150 ft (QC): 6 Does the Pt use WC or Scooter?: No Wheel 50 feet with 2 turns (QC: 9 Wheel 150 feet: 9 1 Step (curb) (QC): 6 4 Steps (QC): 6 12 Steps (QC): 6 Picking up an Object (QC): 6 OT Senior Care Goals Senior Care Goals Time Frame: Aug 06, 2023 Acute change in mental status: 0 Inattention: 0 Disorganized thinkin Altered level of consciousness: 0 Eating (QC): 6 Oral Hygiene (QC): 6 Toileting Hygiene (QC): 6 Shower/Bathe Self (QC): 6 Upper Body Dressing (QC): 6 Lower Body Dressing (QC): 6 On/Off Footwear (QC): 6 1=Demonstrate adherence to instructed precautions during ADL tasks. 2=Patient will verbalize/demonstrate understanding of assistive devices/modifications for ADL. 3=Patient will improve strength/tolerance for activity to enable patient to perform ADL's. Speech Senior Business Intelligence Analyst Goals Senior Care Goals Pt will complete OMEs with 90% accuracy, to increase lingual strength for effective bolus formation and to reduce the risk of aspiration/penetration during PO intake. Pt will demonstrate adequate use of swallow guidelines to eliminate the risk of aspiration/penetration during PO intake with 90% accuracy and no cues. Zeny Fine PT Jul 28, 2023 17:07
--- NOTE | 2023-07-29 15:04 | Therapy Team Discharge Summary ---
Therapy Discharge Summary Discharge Recommendations Date of Discharge Jul 28, 2023 at 15:24 Therapy D/C Recommendations: Other, See Comments (Swing Bed OT) Physical Therapy Roll Left to Right (QC): 3 Sit to Lying (QC): 3 Lying to Sitting/Side of Bed(Q: 5 Sit to Stand (QC): 5 Chair/Oor-qi-Aoicg Xfer(QC): 4 Toilet Transfer (QC): 4 Car Transfer (QC): 3 (mod (A) -- needing more support stand>sit to maintain b alance, v.c. to not park walker away from car, min (A) to bring legs up safely due to core weakness) Does the Patient Walk: Yes Mode of Locomotion: Walk Anticipated Mode of Locomotion: Walk Walk 10 feet (QC): 4 Walk 50 ft with 2 Turns(QC): 4 Walk 150 ft (QC): 4 Walking 10ft on uneven surface: 3 (Min - Mod (A) of 1 /c FWW) Distance: 152' Gait Assistive Device: FWW Does the Pt Use a Wheelchair: No Wheel 50 ft with 2 turns (QC): 9 Wheel 150 ft (QC): 9 1 Step (curb) (QC): 3 (mod (A) /c FWW - weakness noted during step-up phase) 4 Steps (QC): 3 (min (A) /c (B) hand rails, LE weakness noted during step-up phase. Needed to "lauch" off foot on ground level to make it to next step. ) 12 Steps (QC): 3 Walking Assistive Device: Walker Balance Sitting Static: Fair Balance Sitting Dynamic: Fair Balance-Standing Static: Fair Picking up an Object (QC): 3 (min-mod (A ) for balance) Occupational Therapy Pt admitted to ARU with critical illness myopathy. At [facility], pt was independent with ADLS and functional mobility. Upon initial evaluation, pt required set up with eating, CGA-SBA with oral care and toileting, and partial assistance with UBD, LBD, and footwear. OT tx focused on increasing BUE strength and activity tolerance, and increasing safety and independence with ADLs and functional mobility. Pt made some functional progress, increasing oral care to independent and UBD to SBA. Pt's progress limited by nausea/vomiting and difficulty participating with therapy. Pt discharged to [facility], OT recommends continued OT services. D/C from OT. Decreased Activ Tolerance, Decreased UE Strength, Impaired Coordination, Impaired Funct Balance, Impaired I ADL's, Impaired Self-Care Skills Eating (QC): 5 (set up with taking medication by mouth) Oral Hygiene (QC): 6 (seated at sink) Shower/Bathe Self (QC): 88 Upper Body Dressing (QC): 4 (SBA) Lower Body Dressing (QC): 88 On/Off Footwear (QC): 3 (Assist tedhose, able to don slip on shoes with set up.) Toileting Hygiene (QC): 4 (CGA) PT Activity Manager Goals Custodial Goals PT Custodial Goals Time Frame: Aug 04, 2023 Roll Left to Right (QC): 6 Sit to Lying (QC): 6 Lying-Sitting on Side/Bed(QC): 6 Sit to Stand (QC): 6 Chair/Wla-uo-Jxqoo Xfer(QC): 6 Toilet/Commode Transfer (QC): 6 Car Transfer (QC): 6 Does the Patient Walk: Yes Walk 10 feet (QC): 6 Walk 10ft-Uneven Surface(QC): 6 Walk 50ft with 2 Turns (QC): 6 Walk 150 ft (QC): 6 Does the Pt use WC or Scooter?: No Wheel 50 feet with 2 turns (QC: 9 Wheel 150 feet: 9 1 Step (curb) (QC): 6 4 Steps (QC): 6 12 Steps (QC): 6 Picking up an Object (QC): 6 OT Custodial Goals Custodial Goals Time Frame: Aug 06, 2023 Acute change in mental status: 0 Inattention: 0 Disorganized thinkin Altered level of consciousness: 0 Eating (QC): 6 (not met) Oral Hygiene (QC): 6 (met) Toileting Hygiene (QC): 6 (not met) Shower/Bathe Self (QC): 6 (not met) Upper Body Dressing (QC): 6 (not met) Lower Body Dressing (QC): 6 (not met) On/Off Footwear (QC): 6 (not met) 1=Demonstrate adherence to instructed precautions during ADL tasks. 2=Patient will verbalize/demonstrate understanding of assistive devices/modifications for ADL. 3=Patient will improve strength/tolerance for activity to enable patient to perform ADL's. Speech Activity Manager Goals Custodial Goals Pt will complete OMEs with 90% accuracy, to increase lingual strength for effective bolus formation and to reduce the risk of aspiration/penetration during PO intake. Pt will demonstrate adequate use of swallow guidelines to eliminate the risk of aspiration/penetration during PO intake with 90% accuracy and no cues. ENRIQUE MENDEZ OT Jul 29, 2023 15:04
== END 2023-07-28 15:24 | disposition swing bed (61) | DRG 91 ==
PROVIDERS: ADMIT Internal Medicine; ATTEND Internal Medicine
PROC: 3E0436Z Introduction of Nutritional Substance into Central Vein, Percutaneous Approach (ICD-10-PCS; principal; 2023-07-22)
PROC: 0DH67UZ Insertion of Feeding Device into Stomach, Via Natural or Artificial Opening (ICD-10-PCS; 2023-07-26)
DX: G72.81 Critical illness myopathy (principal); I21.4 Non-ST elevation (NSTEMI) myocardial infarction; J15.0 Pneumonia due to Klebsiella pneumoniae; D62 Acute posthemorrhagic anemia; E44.0 Moderate protein-calorie malnutrition; T81.31XA Disruption of external operation (surgical) wound, not elsewhere classified, initial encounter; Z48.815 Encounter for surgical aftercare following surgery on the digestive system; R63.39 Other feeding difficulties; M06.9 Rheumatoid arthritis, unspecified; K21.9 Gastro-esophageal reflux disease without esophagitis; I48.91 Unspecified atrial fibrillation; Z79.01 Long term (current) use of anticoagulants; Z79.899 Other long term (current) drug therapy; Z68.24 Body mass index [BMI] 24.0-24.9, adult
CPT/HCPCS: 36415; 71045; 74018; 80053; 83735; 84100; 84134; 84478; 85007; 85025; 85027; 93005